=== PATIENT | female | born 1935 | race Hispanic/Latino ===

== ENCOUNTER 2016-11-17 11:23 | Inpatient (IN) | payer MEDICARE, OTHER ==
[2016-11-17] MEDS ORDERED: SUBLIMAZE IV ONE (12:31)
[2016-11-17] MEDS ORDERED: VANCOMYCIN VIAL IV ONE (12:31)
[2016-11-17] MEDS ORDERED: CLEOCIN 600 MG/50 mL 600 MG/50 ML BAG IV ONE (12:31)
--- NOTE | 2016-11-17 12:33 | Emergency Department Report ---
ED General Adult HPI - General Chief complaint: Extremity Injury, Lower Stated complaint: RT LEG PAIN Time Seen by Provider: 11/17/16 12:08 Source: patient, family, RN notes reviewed Mode of arrival: Stretcher Limitations: Physical Limitation - History of Present Illness Initial comments: This is an 81-year-old female. She is previously unknown to me. Has a past medical history of hypertension. History is obtained by the patient's son from the patient. Patient presents to the ER with right lower extremity pain, redness, swelling. Redness and pain have been present for a while. The pain increases with palpation and range of motion, and decreases with rest. As per verbal report from the patient's son, the patient had a mechanical fall yesterday, the patient reports landing on Her " aby." Not hit her head. She did not hit her neck. There is no extremity weakness. There is no extremity numbness. There is no abdominal pain. There is no chest pain. Patient reports following up at outpatient dermatology. She reports being given a cream. She does not recall the name of the cream. -: Gradual Location: right, lower extremity Quality: aching Consistency: constant Improves with: rest Worsens with: movement Associated Symptoms: rash. denies: confusion, chest pain, cough, diaphoresis, fever/chills, headaches, loss of appetite, malaise, nausea/vomiting, seizure, shortness of breath, syncope, weakness - Related Data Allergies Allergy/AdvReac Type Severity Reaction Status Date / Time iodine Allergy Swelling Unverified 07/09/15 08:09 Penicillins Allergy Swelling Unverified 07/09/15 08:09 Sulfa (Sulfonamide Allergy Swelling Unverified 07/09/15 08:09 Antibiotics) ED Review of Systems ROS: Stated complaint: RT LEG PAIN Other details as noted in HPI Constitutional: fever, malaise, weakness Eyes: denies: vision change ENT: denies: epistaxis Respiratory: denies: cough Cardiovascular: denies: chest pain Gastrointestinal: denies: abdominal pain, nausea, diarrhea Genitourinary: denies: urgency, dysuria, discharge Musculoskeletal: arthralgia, myalgia Skin: rash, lesions Neurological: weakness Psychiatric: anxiety ED Past Medical Hx - Past Medical History Hx Hypertension: Yes Additional medical history: lymphedema to shaista LE - Surgical History Additional Surgical History: left knee surgery - Social History Smoking Status: Never Smoker Substance Use Type: None ED Physical Exam - General Limitations: No Limitations General appearance: alert, in no apparent distress - Head Head exam: Present: atraumatic, normocephalic - Eye Eye exam: Present: normal appearance, EOMI. Absent: nystagmus - ENT ENT exam: Present: normal exam, normal orophraynx, mucous membranes moist, normal external ear exam - Neck Neck exam: Present: normal inspection, full ROM. Absent: tenderness, meningismus - Respiratory Respiratory exam: Present: normal lung sounds bilaterally. Absent: respiratory distress, wheezes, rales, rhonchi, stridor, chest wall tenderness - Cardiovascular Cardiovascular Exam: Present: regular rate, normal rhythm, normal heart sounds. Absent: bradycardia, tachycardia, irregular rhythm, systolic murmur, diastolic murmur, rubs, gallop - GI/Abdominal GI/Abdominal exam: Present: soft, normal bowel sounds. Absent: distended, tenderness, guarding, rebound, rigid, pulsatile mass - Extremities Exam Extremities exam: Present: full ROM, tenderness, pedal edema, joint swelling, calf tenderness. Absent: other (there is bilateral lower extremity edema. The right lower extremity is erythematous, from the dorsum of the foot, the toes, to the mid tibial region. Weeping edema is noted. Compartments are soft. Extremities are so swollen it is difficult to palpate pulses distally. Sensation is intact to light touch in the lower extremities. The pelvis is stable. There is no long bony tenderness.) - Back Exam Back exam: Present: normal inspection, full ROM. Absent: tenderness, CVA tenderness (R), CVA tenderness (L), muscle spasm, paraspinal tenderness, vertebral tenderness - Neurological Exam Neurological exam: Present: alert, oriented X3, other (Extraocular movements intact. Tongue midline. No facial droop. Facial sensation intact to light touch in the V1, V2, V3 distribution bilaterally. 5 and 5 strength in 4 extremities.. Sensation is intact to light touch in 4 extremities.). Absent: motor sensory deficit - Psychiatric Psychiatric exam: Present: anxious - Skin Skin exam: Present: warm, rash, erythema. Absent: dry, normal color ED Course Vital Signs 11/17/16 11/17/16 11/17/16 12:05 12:58 16:15 Temperature 98.1 F 101.2 F H Pulse Rate 77 97 H Pulse Rate [ Right Radial] Respiratory 20 20 18 Rate Blood Pressure 163/69 Blood Pressure [Right Radial Artery] Blood Pressure 146/52 [Right] O2 Sat by Pulse 96 96 97 Oximetry 11/17/16 11/17/16 17:56 18:30 Temperature 100.3 F H 99.6 F Pulse Rate 93 H Pulse Rate [ 88 Right Radial] Respiratory 20 20 Rate Blood Pressure Blood Pressure 110/88 [Right Radial Artery] Blood Pressure 142/44 [Right] O2 Sat by Pulse 96 97 Oximetry - Reevaluation(s) Reevaluation #1: 11/17/16 12:59 Differential diagnosis: Cellulitis, lymphedema, DVT, myositis, fracture, debility Assessment and plan: 81-year-old female with poor mobility; as per verbal report from her son she ambulates with a walker. Had a mechanical fall yesterday, did not land above her pelvis. There is an obviously infected right lower extremity, with superimposed lymphedema, patient is very unlikely to succeed with outpatient oral antibiotic therapy, and her mobility is compromised as well. Plain films we obtained a pelvis, femur, tib-fib, lower extremity. She is penicillin allergic, she will be given clindamycin and vancomycin. Right lower extremity DVT study is ordered. She will be given pain medication. We are waiting for the patient's son to provide us with a list of her outpatient medications. Plan to admit once initial data points back Reevaluation #2: 11/17/16 14:15 primary care doctor, Dr. Harp calls back. Patient takes Synthroid, 88 g once daily, Nexium, 40 mg once daily, lotrel q day He requests hospital physician to admit the patient, as he does not admit patients currently. Reevaluation #3: 11/17/16 15:41 Early awaiting laboratory studies. DVT study is limited but negative. Case is discussed with the Hospital physician, Dr. Guerra, who accepts the patient to his service. Patient will remain in the ER pending results of laboratory studies. Medical decision makin-year-old female, poor mobility, debilitated, known chronic lymphangitis with acute cellulitis with suppurative clinical features, this condition is very unlikely to respond to oral antibiotic therapy. Reevaluation #4: 11/17/16 16:48 patient spiked a fever. Tylenol was ordered. ED Medical Decision Making - Lab Data Result diagrams: 11/17/16 15:48 11/17/16 15:48 Vital Signs - 24 hr 11/17/16 11/17/16 12:05 12:58 Temperature 98.1 F Pulse Rate 77 Respiratory 20 20 Rate Blood Pressure 163/69 O2 Sat by Pulse 96 96 Oximetry - Radiology Data Radiology results: report reviewed, image reviewed Pelvis x-ray negative. Femur x-ray negative for fracture/dislocation. Fibula/tibia x-ray negative for fracture/dislocation. Severe DJD is noted. Left tibia/fibular x-ray negative for fracture dislocation. Right foot x-ray negative for fracture/dislocation. DJD is noted. Soft tissue swelling is noted. LIVE [facility] TA GAFFNEY Female : [address] [facility]# [id number] 11/17/16 15:13 - Radiology Dept. Note by TAHMINA ONOFRE [facility] Num: [id number] : 1935 Patient Age: 81 VASCULAR LAB.PRELIMINARY REPORT.RLE VENOUS DUPLEX DONE BEDSIDE.TECHNICALLY DIFFICULT/LIMITED STUDY DUE TO POOR POSITIONING/ SEVERE RLE EDEMA.NO EVIDENCE OF DVT/SVT IN VESSELS VISUALIZED. Initialized on 11/17/16 15:13 - END OF NOTE Critical care attestation.: If time is entered above; I have spent that time in minutes in the direct care of this critically ill patient, excluding procedure time. ED Disposition Clinical Impression: Cellulitis, Lymphedema, Debility Disposition: OP ADMITTED IP TO THIS HOSP Is pt being admited?: Yes Does the pt Need Aspirin: No Condition: Good
[2016-11-17] MEDS ORDERED: VANCOMYCIN PHARMACY TO DOSE IV SCH (13:00)
[2016-11-17] MEDS ORDERED: VANCOMYCIN VIAL 1,500 MG in NACL 0.9% 500 ML 500 ML IV ONE (13:00)
--- NOTE | 2016-11-17 13:49 | XRay Report ---
PELVIS RADIOGRAPH INDICATION: Leg pain, fall. COMPARISON: None similar. FINDINGS: Frontal pelvic radiographs, 2 images demonstrate intact bony articulation, including SI and hip joints. Mild degenerative changes. Iliac enthesophytes. Osteopenia. Nonobstructive bowel gas pattern. Possible anastomotic dmitri project within the pelvis. Motion partly limits exam. CONCLUSION: No acute pelvic radiographic abnormality, as described. Thank you for the opportunity to participate in this patient's care.
--- NOTE | 2016-11-17 13:54 | Admit Criteria Form ---
Admission Criteria Documentation: CELLULITIS Clinical Indications for Admission to Inpatient Care (Place 'X' for any and all applicable criteria): Admission is indicated for ANY ONE of the following(1)(2)(3)(4)(5): [ ]I. Limb-threatening infection [ ]II. High-risk comorbid condition as indicated by ANY ONE of the following: [ ]a) Uncontrolled diabetes (eg, HbA1c greater than 10% (0.1)) [ ]b) Cirrhosis [ ]c) Neutropenia [ ]d) Asplenia [ ]e) Immunosuppression [ ]f) Symptomatic heart failure [ ]III. Failure of outpatient therapy as indicated by ALL of the following: [ ]a) Progression or no improvement after adequate trial (minimum of 48 hours, with longer period for stable lower extremity infection) [ ]b) Adequate antibiotic regimen as indicated by use of ANY ONE of the following: [ ]i) First-generation cephalosporin (e.g., cephalexin) [ ]ii) Antistaphylococcal penicillin (e.g., dicloxacillin) [ ]iii) Penicillin-allergic patient regimen (clindamycin, extended-spectrum fluoroquinolone, or doxycycline) [ ]iv) Resistant organism (eg, methicillin-resistant Staphylococcus aureus) regimen (6) [ ]c) Outpatient intravenous therapy regimen is not appropriate due to ANY ONE of the following. (7)(8)(9)(10): [ ]i) It was tried and was not successful (eg, progression of infection). [ ]ii) It is not available or cannot be arranged in a clinically appropriate time frame (e.g., the next day). [ ]iii) Clinical presentation (eg, acuity of infection, rapidity of progression, confirmed or suspected bacteremia) is judged to require ALL of the following: [ ]1) Immediate initiation of intravenous therapy ( eg, cannot wait for next day) [ ]2) Intensity of patient monitoring and observation (eg, vital sign measurement, checks for infection progression) that cannot be provided at other than inpatient level of care [ ]IV. Mental status changes [ ]V. Bacteremia [ ]. Hemodynamic instability [ ]VII. Suspected necrotizing soft tissue infection (e.g., gas in tissue)(11)( 12) [ ]VIII. Orbital infection (13)(14) [ ]IX. Associated surgical procedure (e.g., abscess drainage, debridement) not amenable to outpatient, emergency department, or observation care [ ]X. Cutaneous gangrene [ ]XI. High fever (temperature greater than 39.5 degrees C (103.1 degrees F) (oral)) not responsive to outpatient, emergency department, or observation care therapy [ X]XIII. Inpatient admission required rather than observation care (Also use Cellulitis: Observation Care as appropriate) because of ANY ONE of the following : [ ]a) Periorbital or perineal infection that is severe or worsening [X ]b) Severe pain requiring acute inpatient management [ ]c) IV fluid to replace significant ongoing (e.g., for over 24 hours) losses (greater than 3L/m2 per day) [ ]d) Compartment syndrome monitoring (17) [ ]e) Strict or protective (eg, laminar flow) isolation [ ]f) Urgent debridement or skin grafting [ ]g) Bone or joint debridement [ ]h) Immediate inpatient surgery [ ]i) Other condition, treatment or monitoring requiring inpatient admission Extended stay beyond goal length of stay may be needed for (1)(18): [ ]a) Necrotizing soft tissue infection or fasciitis [ ]b) Gram-negative infection [ ]c) Methicillin-resistant Staphylococcal aureus (MRSA) infection [ ]d) Peripheral venous insufficiency with cellulitis [ ]e) Extensive edema [ ]f) Sepsis or continued Hemodynamic instability [ ]g) Continued high fever or mental status change [ ]h) Bacteremia [ ]i) Active serious comorbid conditions ( eg, heart failure, renal insufficiency) The original [employer] [facility] content created by [employer] has been revised. The portions of the content which have been revised are identified through the use of italic text or in bold, and [facility] has neither reviewed nor approved the modified material. All other unmodified content is copyright [facility] [employer] Please see references footnoted in the original [facility] [employer] edition 2016 Admission Criteria Met: Yes
--- NOTE | 2016-11-17 14:16 | XRay Report ---
RIGHT FEMUR: History: Leg pain after fall. AP and lateral views of the femur demonstrate normal mineralization and contours for this patient's age. No destructive changes are noted and the adjacent soft tissues are normal. 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 IMPRESSION: Unremarkable right femur. Severe degenerative changes at the knee.
--- NOTE | 2016-11-17 14:17 | XRay Report ---
RIGHT TIBIA/FIBULA: History: Leg pain after fall There is severe diffuse subcutaneous edema. Normal bone mineralization. No acute osseous injury is appreciated. Severe degenerative changes are noted at the right knee. IMPRESSION: Unremarkable right tibia/fibula.
--- NOTE | 2016-11-17 14:18 | XRay Report ---
RIGHT FOOT, 2 VIEWS History: Right foot pain. Findings: There is severe diffuse subcutaneous edema. No evidence for fracture, dislocation or erosive joint pathology. Mild degenerative changes are noted throughout the midfoot and first metatarsophalangeal joint. Impression: Soft tissue edema. No acute osseous injury.
[2016-11-17 16:02] LABS: Basophils % (Auto) 0.2 % (0.0-1.8); Eosinophils % (Auto) 0.3 % (0.0-4.3); Hemoglobin 11.6 gm/dl (10.1-14.3); Mean Corpuscular HGB Conc 32 % (30-34); Mean Corpuscular Hemoglobin 27 pg (28-32); Mean Corpuscular Volume 83 fl (79-97); Red Blood Count 4.35 M/mm3 (3.65-5.03); Red Cell Distribution Width 16.2 % (13.2-15.2); White Blood Count 8.6 K/mm3 (4.5-11.0)
[2016-11-17] MEDS ORDERED: TYLENOL ONE (16:10)
[2016-11-17 16:11] LABS: INR 1.32 (0.87-1.13)
[2016-11-17] MEDS ORDERED: TYLENOL PO ONE (16:18)
[2016-11-17 16:23] LABS: Calcium 9.4 mg/dL (8.4-10.2); Chloride 100.3 mmol/L (98-107)
[2016-11-17 16:35] LABS: Potassium 4.7 mmol/L (3.6-5.0)
[2016-11-17 16:52] LABS: Platelet Count 163 K/mm3 (140-440)
--- NOTE | 2016-11-17 22:53 | History and Physical Report ---
History of Present Illness Date of examination: 11/17/16 Date of admission: 11/17/16 15:43 Chief complaint: CC RLE redness swelling and pain for 1 month History of present illness: 81 y/o female brought in by son for redness of RLE from Dorsum to Mid tibial region.Pain is 6/10.Patient has redness on LLE also but to a lesser extent.No SOB.Fever low grade present.No chills.No chest pain Past History Past Medical History: hypertension, other (Parag Lymphedema) Past Surgical History: total knee replacement Social history: lives with family. denies: smoking, alcohol abuse Family history: denies: hypertension Medications and Allergies Allergies Allergy/AdvReac Type Severity Reaction Status Date / Time iodine Allergy Swelling Unverified 07/09/15 08:09 Penicillins Allergy Swelling Unverified 07/09/15 08:09 Sulfa (Sulfonamide Allergy Swelling Unverified 07/09/15 08:09 Antibiotics) Active Meds: Active Medications Vancomycin HCl 1,250 mg/ (Sodium Chloride) 250 mls @ 166.667 mls/hr IV Q36H ANA Vancomycin HCl (Vancomycin Pharmacy To Dose) 1 each IV PKCONSULT ANA PRN Reason: Protocol Review of Systems All systems: negative Constitutional: fever, no weight loss, no weight gain Ears, nose, mouth and throat: no hoarseness, no sore throat Breasts: deferred Cardiovascular: no chest pain, no orthopnea, no palpitations, no rapid/ irregular heart beat, no syncope, no lightheadedness Respiratory: no cough with sputum, no excessive sputum, no shortness of breath, no dyspnea on exertion Gastrointestinal: no nausea, no vomiting, no diarrhea, no constipation Genitourinary Female: no dysuria, no urinary frequency, no urgency, no stress incontinence Menstruation: ammenorrhea Musculoskeletal: no neck stiffness, no neck pain Integumentary: rash, redness (RLE and LLE) Exam - Physical Exam Narrative exam: Well developed well nourished female lying in bed - Constitutional Vitals: Temp Pulse Resp BP Pulse Ox 99.7 F H 88 20 133/52 100 11/17/16 20:00 11/17/16 20:00 11/17/16 20:00 11/17/16 20:00 11/17/16 20:00 General appearance: Present: no acute distress, well-nourished - EENT Eyes: Present: PERRL ENT: hearing intact, clear oral mucosa - Neck Neck: Present: supple, normal ROM - Respiratory Respiratory effort: normal Respiratory: bilateral: CTA - Cardiovascular Heart Sounds: Present: S1 & S2. Absent: rub, click - Extremities Extremities: No edema Extremity abnormal: edema, erythema (RLE from Dorsum to mid calf region,LLE erythema from ankle up for 6 inches) Peripheral Pulses: within normal limits - Abdominal General gastrointestinal: Present: soft, non-tender, non-distended, normal bowel sounds Female genitourinary: Present: normal - Integumentary Integumentary: Present: clear, warm, dry - Musculoskeletal Musculoskeletal: gait normal, strength equal bilaterally - Psychiatric Psychiatric: appropriate mood/affect, intact judgment & insight - Neurologic Neurologic: CNII-XII intact, moves all extremities Results - Labs CBC & Chem 7: 11/17/16 15:48 11/17/16 15:48 Labs: Xray Extremites negative Laboratory Last Values WBC 8.6 K/mm3 (4.5-11.0) 11/17/16 15:48 RBC 4.35 M/mm3 (3.65-5.03) 11/17/16 15:48 Hgb 11.6 gm/dl (10.1-14.3) 11/17/16 15:48 Hct 36.0 % (30.3-42.9) 11/17/16 15:48 MCV 83 fl (79-97) 11/17/16 15:48 MCH 27 pg (28-32) L 11/17/16 15:48 MCHC 32 % (30-34) 11/17/16 15:48 RDW 16.2 % (13.2-15.2) H 11/17/16 15:48 Plt Count 163 K/mm3 (140-440) 11/17/16 15:48 Lymph % (Auto) 6.6 % (13.4-35.0) L 11/17/16 15:48 Kaufman % (Auto) 3.8 % (0.0-7.3) 11/17/16 15:48 Eos % (Auto) 0.3 % (0.0-4.3) 11/17/16 15:48 Baso % (Auto) 0.2 % (0.0-1.8) 11/17/16 15:48 Lymph # 0.6 K/mm3 (1.2-5.4) L 11/17/16 15:48 Kaufman # 0.3 K/mm3 (0.0-0.8) 11/17/16 15:48 Eos # 0.0 K/mm3 (0.0-0.4) 11/17/16 15:48 Baso # 0.0 K/mm3 (0.0-0.1) 11/17/16 15:48 Seg Neutrophils % 89.1 % (40.0-70.0) H 11/17/16 15:48 Seg Neutrophils # 7.7 K/mm3 (1.8-7.7) 11/17/16 15:48 PT 16.3 Sec. (12.2-14.9) H 11/17/16 15:48 INR 1.32 (0.87-1.13) H 11/17/16 15:48 Sodium 137 mmol/L (137-145) 11/17/16 15:48 Potassium 4.7 mmol/L (3.6-5.0) 11/17/16 15:48 Chloride 100.3 mmol/L (98-107) 11/17/16 15:48 Carbon Dioxide 18 mmol/L (22-30) L 11/17/16 15:48 Anion Gap 23 mmol/L 11/17/16 15:48 BUN 30 mg/dL (7-17) H 11/17/16 15:48 Creatinine 1.2 mg/dL (0.7-1.2) 11/17/16 15:48 Estimated GFR 43 ml/min 11/17/16 15:48 BUN/Creatinine Ratio 25.00 % 11/17/16 15:48 Glucose 65 mg/dL (65-100) 11/17/16 15:48 Lactic Acid 1.3 mmol/L (0.7-2.0) 11/17/16 17:25 Calcium 9.4 mg/dL (8.4-10.2) 11/17/16 15:48 Total Creatine Kinase 481 units/L (30-135) H 11/17/16 15:48 Assessment and Plan Advance Directives: Yes (Full code) VTE prophylaxis?: Chemical Plan of care discussed with patient/family: Yes - Patient Problems (1) Cellulitis Current Visit: Yes Status: Acute Qualifiers: Site of cellulitis: extremity Site of cellulitis of extremity: lower extremity Site of cellulitis of trunk: S Laterality: right Qualified Code( s): L03.115 - Cellulitis of right lower limb Plan to address problem: Started on Vancomycin and clindamycin.Will change to levaquin Wound care consult ordered (2) Debility Current Visit: Yes Status: Acute Plan to address problem: PT ordered (3) HTN (hypertension) Current Visit: Yes Status: Chronic Qualifiers: Hypertension type: essential hypertension Qualified Code(s): I10 - Essential (primary) hypertension Plan to address problem: Not on any anti hypertensives.Will initiate if BP runs high.Now BP in decent range. (4) Lymphedema Current Visit: Yes Status: Chronic Plan to address problem: Vascular surgery consult ordered (5) DVT prophylaxis Current Visit: Yes Status: Acute Plan to address problem: On lovenox
[2016-11-18] MEDS: CLEOCIN 900 MG/50 mL 900 MG/50 ML BAG IV SCH ×2 (00:41→05:45)
[2016-11-18] MEDS: LEVAQUIN 750MG/150ML 750 MG/150 ML BAG IV SCH (12:16)
--- NOTE | 2016-11-18 16:49 | Progress Note ---
Assessment and Plan Assessment and plan: patient is a 81 y/o female with hx of breast CA S/p chemotherapy, Cellulitis, DVT, HTN, Lymphedema, Debility, and brought in by son for redness of RLE from Dorsum to Mid tibial region.Pain is 6/10. Patient has redness on LLE also but to a lesser extent. No SOB.Fever low grade present.No chills.No chest pain * Right lower extremity cellulitis * Chronic lymphedema * Debility secondary to chronic lymphedema * Hypertension * Secondary coagulopathy * HX OF LUNG CA Plan * Continue current antibiotics * CONSULT ID * continue to monitor BP * Discussed extensively with son and patient * DVT/GI prophylaxis * Possible SNF on discharge, * will obtain PT/OT eval and treat * Monitor cultures. no growth till date. History Interval history: Patient seen and examined this morning in no acute distress, still with pain in the right lower ext. Denies any chest pain, nausea, vomiting, diarrhea No fever noted blood pressure controlled No adverse events reported to me by nursing staff Hospitalist Physical - Physical exam Narrative exam: VITAL SIGNS: Reviewed. GENERAL: The patient appeared well nourished and normally developed. Vital signs as documented. HEAD: No signs of head trauma. EYES: Pupils are equal. Extraocular motions intact. EARS: Hearing grossly intact. MOUTH: Oropharynx is normal. NECK: No adenopathy, no JVD. CHEST: Chest with clear breath sounds bilaterally. No wheezes, rales, or rhonchi. CARDIAC: Regular rate and rhythm. S1 and S2, without murmurs, gallops, or rubs. VASCULAR: No Edema. Peripheral pulses normal and equal in all extremities. ABDOMEN: Soft, without detectable tenderness. No sign of distention. No rebound or guarding, and no masses palpated. Bowel Sounds normal. MUSCULOSKELETAL: Good range of motion of all major joints. Extremities without clubbing, cyanosis or edema. NEUROLOGIC EXAM: Alert and oriented x 3. No focal sensory or strength deficits. Speech normal. Follows commands. PSYCHIATRIC: Mood normal. SKIN: No rash or lesions. - Constitutional Vitals: Temp Pulse Resp BP Pulse Ox 98.6 F 78 22 156/57 100 11/18/16 10:37 11/18/16 10:37 11/18/16 10:37 11/18/16 10:37 11/17/16 20:00 General appearance: Present: no acute distress, well-nourished Results - Labs CBC & Chem 7: 11/17/16 15:48 11/17/16 15:48 Labs: Laboratory Last Values WBC 8.6 K/mm3 (4.5-11.0) 11/17/16 15:48 RBC 4.35 M/mm3 (3.65-5.03) 11/17/16 15:48 Hgb 11.6 gm/dl (10.1-14.3) 11/17/16 15:48 Hct 36.0 % (30.3-42.9) 11/17/16 15:48 MCV 83 fl (79-97) 11/17/16 15:48 MCH 27 pg (28-32) L 11/17/16 15:48 MCHC 32 % (30-34) 11/17/16 15:48 RDW 16.2 % (13.2-15.2) H 11/17/16 15:48 Plt Count 163 K/mm3 (140-440) 11/17/16 15:48 Lymph % (Auto) 6.6 % (13.4-35.0) L 11/17/16 15:48 Wright % (Auto) 3.8 % (0.0-7.3) 11/17/16 15:48 Eos % (Auto) 0.3 % (0.0-4.3) 11/17/16 15:48 Baso % (Auto) 0.2 % (0.0-1.8) 11/17/16 15:48 Lymph # 0.6 K/mm3 (1.2-5.4) L 11/17/16 15:48 Wright # 0.3 K/mm3 (0.0-0.8) 11/17/16 15:48 Eos # 0.0 K/mm3 (0.0-0.4) 11/17/16 15:48 Baso # 0.0 K/mm3 (0.0-0.1) 11/17/16 15:48 Seg Neutrophils % 89.1 % (40.0-70.0) H 11/17/16 15:48 Seg Neutrophils # 7.7 K/mm3 (1.8-7.7) 11/17/16 15:48 PT 16.3 Sec. (12.2-14.9) H 11/17/16 15:48 INR 1.32 (0.87-1.13) H 11/17/16 15:48 Sodium 137 mmol/L (137-145) 11/17/16 15:48 Potassium 4.7 mmol/L (3.6-5.0) 11/17/16 15:48 Chloride 100.3 mmol/L (98-107) 11/17/16 15:48 Carbon Dioxide 18 mmol/L (22-30) L 11/17/16 15:48 Anion Gap 23 mmol/L 11/17/16 15:48 BUN 30 mg/dL (7-17) H 11/17/16 15:48 Creatinine 1.2 mg/dL (0.7-1.2) 11/17/16 15:48 Estimated GFR 43 ml/min 11/17/16 15:48 BUN/Creatinine Ratio 25.00 % 11/17/16 15:48 Glucose 65 mg/dL (65-100) 11/17/16 15:48 Lactic Acid 1.3 mmol/L (0.7-2.0) 11/17/16 17:25 Calcium 9.4 mg/dL (8.4-10.2) 11/17/16 15:48 Total Creatine Kinase 481 units/L (30-135) H 11/17/16 15:48
--- NOTE | 2016-11-18 20:22 | Consultation ---
History of Present Illness - Reason for Consult Consult date: 11/18/16 Bilateral Lower Extremity Lymphedema Requesting physician: ARABELLA URENA - History of Present Illness This patient is an 81-year-old female that was admitted via the emergency room due to cellulitis of her right lower extremity with bilateral lymphedema. She states that the lymphedema has been present for many years. She recently developed swelling and performed blisters that have drained on her right lower extremity. She had progressive erythema, which prompted her to go to the emergency room. She's reports to have been evaluated by our office as an outpatient. She was sent to an outpatient manual lymphatic drainage clinic. She states that the swelling of her left lower extremity improved slightly, but she had little improvement with the right. She reports to have been prescribed a lymphedema pump, which she does not use at present. Past History Past Medical History: hypertension, other (bilateral lower extremity Lymphedema) Past Surgical History: total knee replacement (on the left, she reportedly needs a total right knee replacement.) Social history: lives with family (granddaughter. She reports to be quite upset at her son, as she feels he is trying to separate her from her granddaughter.). denies: smoking, alcohol abuse Family history: denies: hypertension Medications and Allergies Allergies Allergy/AdvReac Type Severity Reaction Status Date / Time iodine Allergy Swelling Unverified 07/09/15 08:09 Penicillins Allergy Swelling Unverified 07/09/15 08:09 Sulfa (Sulfonamide Allergy Swelling Unverified 07/09/15 08:09 Antibiotics) Active Meds: Active Medications Levofloxacin/Dextrose (Levaquin 750mg/150ml) 750 mg in 150 mls @ 100 mls/hr IV Q48HR ANA PRN Reason: Protocol Last Admin: 11/18/16 12:16 Dose: 100 mls/hr Review of Systems All systems: negative Exam - Constitutional Vitals: Temp Pulse Resp BP Pulse Ox 98.9 F 87 20 143/59 100 11/18/16 16:00 11/18/16 16:00 11/18/16 16:00 11/18/16 16:00 11/17/16 20:00 General appearance: Present: no acute distress, obese (elderly female who appears her stated age) - EENT Eyes: Present: EOM intact ENT: hearing intact - Neck Neck: Present: supple - Respiratory Respiratory effort: normal - Extremities Extremities: normal temperature Extremity abnormal: erythema (she has significant erythema from her proximal one third of her calf extending down to her toes on the right. She has bilateral lower extremity lipodermatosclerosis, she has bilateral hemosiderin deposits, she has large bulla on the right lower extremity. She has minimal erythema on the left. The swelling on the right is significantly worse than the left. She has large fissures in the anterior pretibial area with yellow dried crusting.) - Psychiatric Psychiatric: intact judgment & insight, cooperative, agitated (patient was quite agitated at the beginning of our exam. She expressed frustration with her son who had apparently just left. She quickly calmed down, and answered all questions appropriately. She appeared to understand our conversation.) - Neurologic Neurologic: no focal deficits Results - Labs CBC & Chem 7: 11/17/16 15:48 11/17/16 15:48 Assessment and Plan Agree with antibiotics for cellulitis of the right lower extremity. I had a long discussion with the patient. I explained the primary focus of treatment for chronic lymphedema consisted of lower extremity elevation, and compression (manual lymphatic drainage, lymphedema pumps, compression stockings) . She stated she is used several of his modalities in the past with poor results. It is unclear the extent, technique, and duration of therapy. I reiterated that this is a chronic condition which requires consistent compliance with therapy. Recommend an ET nurse consult while the patient is admitted. She should follow-up with our office upon discharge. - Patient Problems (1) Cellulitis of right lower extremity Current Visit: Yes Status: Acute (2) Lymphedema of both lower extremities Current Visit: Yes Status: Acute
[2016-11-19] MEDS ORDERED: VANCOMYCIN VIAL 1,250 MG in NACL 0.9% 250ML 250 ML IV SCH (05:00)
[2016-11-19 06:22] LABS: BUN/Creatinine Ratio 17.5; Calcium 8.8 mg/dL (8.4-10.2); Chloride 104.7 mmol/L (98-107); Potassium 3.4 mmol/L (3.6-5.0)
[2016-11-19 06:26] LABS: Hematocrit 29.3 % (30.3-42.9); Hemoglobin 9.5 gm/dl (10.1-14.3); Mean Corpuscular HGB Conc 33 % (30-34); Mean Corpuscular Hemoglobin 27 pg (28-32); Mean Corpuscular Volume 82 fl (79-97); Platelet Count 156 K/mm3 (140-440); Red Blood Count 3.58 M/mm3 (3.65-5.03); Red Cell Distribution Width 16.4 % (13.2-15.2); White Blood Count 6.7 K/mm3 (4.5-11.0)
--- NOTE | 2016-11-19 12:43 | Progress Note ---
Assessment and Plan Assessment and plan: patient is a 81 y/o female with hx of breast CA S/p chemotherapy, Cellulitis, DVT, HTN, Lymphedema, Debility, and brought in by son for redness of RLE from Dorsum to Mid tibial region.Pain is 6/10. Patient has redness on LLE also but to a lesser extent. No SOB.Fever low grade present.No chills.No chest pain * Right lower extremity cellulitis * No sepsis * Chronic lymphedema * Debility secondary to chronic lymphedema * Hypertension * Secondary coagulopathy * HX OF LUNG CA Plan * Continue current antibiotics * vascular input noted. Patient to follow with them outpatient * continue to monitor BP * Wound care consult * Discussed extensively with son and patient * DVT/GI prophylaxis * Possible SNF on discharge, * will obtain PT/OT eval and treat * Monitor cultures. no growth till date. History Interval history: Patient seen and examined this morning in no acute distress, still with pain in the right lower ext, but improving. Denies any chest pain, nausea, vomiting, diarrhea No fever noted blood pressure controlled No adverse events reported to me by nursing staff Hospitalist Physical - Physical exam Narrative exam: VITAL SIGNS: Reviewed. GENERAL: The patient appeared well nourished and normally developed. Vital signs as documented. HEAD: No signs of head trauma. EYES: Pupils are equal. Extraocular motions intact. EARS: Hearing grossly intact. MOUTH: Oropharynx is normal. NECK: No adenopathy, no JVD. CHEST: Chest with clear breath sounds bilaterally. No wheezes, rales, or rhonchi. CARDIAC: Regular rate and rhythm. S1 and S2, without murmurs, gallops, or rubs. VASCULAR: No Edema. Peripheral pulses normal and equal in all extremities. ABDOMEN: Soft, without detectable tenderness. No sign of distention. No rebound or guarding, and no masses palpated. Bowel Sounds normal. MUSCULOSKELETAL: Good range of motion of all major joints. edema, erythema, marked lymhedema draining (RLE from Dorsum to mid calf region,LLE erythema from ankle up for 6 inches) NEUROLOGIC EXAM: Alert and oriented x 3. No focal sensory or strength deficits. Speech normal. Follows commands. PSYCHIATRIC: Mood normal. SKIN: edema, erythema, marked lymhedema (RLE from Dorsum to mid calf region, LLE erythema from ankle up for 6 inches) - Constitutional Vitals: Temp Pulse Resp BP Pulse Ox 99.8 F H 74 22 151/66 97 11/19/16 08:49 11/19/16 08:49 11/19/16 08:49 11/19/16 08:49 11/19/16 08:49 General appearance: Present: no acute distress, obese (elderly female who appears her stated age) Results - Labs CBC & Chem 7: 11/19/16 05:29 11/19/16 05:29 Labs: Laboratory Last Values WBC 6.7 K/mm3 (4.5-11.0) 11/19/16 05:29 RBC 3.58 M/mm3 (3.65-5.03) L 11/19/16 05:29 Hgb 9.5 gm/dl (10.1-14.3) L 11/19/16 05:29 Hct 29.3 % (30.3-42.9) L D 11/19/16 05:29 MCV 82 fl (79-97) 11/19/16 05:29 MCH 27 pg (28-32) L 11/19/16 05:29 MCHC 33 % (30-34) 11/19/16 05:29 RDW 16.4 % (13.2-15.2) H 11/19/16 05:29 Plt Count 156 K/mm3 (140-440) 11/19/16 05:29 Lymph % (Auto) 6.6 % (13.4-35.0) L 11/17/16 15:48 [place] % (Auto) 3.8 % (0.0-7.3) 11/17/16 15:48 Eos % (Auto) 0.3 % (0.0-4.3) 11/17/16 15:48 Baso % (Auto) 0.2 % (0.0-1.8) 11/17/16 15:48 Lymph # 0.6 K/mm3 (1.2-5.4) L 11/17/16 15:48 [place] # 0.3 K/mm3 (0.0-0.8) 11/17/16 15:48 Eos # 0.0 K/mm3 (0.0-0.4) 11/17/16 15:48 Baso # 0.0 K/mm3 (0.0-0.1) 11/17/16 15:48 Seg Neutrophils % 89.1 % (40.0-70.0) H 11/17/16 15:48 Seg Neutrophils # 7.7 K/mm3 (1.8-7.7) 11/17/16 15:48 PT 16.3 Sec. (12.2-14.9) H 11/17/16 15:48 INR 1.32 (0.87-1.13) H 11/17/16 15:48 Sodium 139 mmol/L (137-145) 11/19/16 05:29 Potassium 3.4 mmol/L (3.6-5.0) L D 11/19/16 05:29 Chloride 104.7 mmol/L (98-107) 11/19/16 05:29 Carbon Dioxide 20 mmol/L (22-30) L 11/19/16 05:29 Anion Gap 18 mmol/L 11/19/16 05:29 BUN 21 mg/dL (7-17) H 11/19/16 05:29 Creatinine 1.2 mg/dL (0.7-1.2) 11/19/16 05:29 Estimated GFR 43 ml/min 11/19/16 05:29 BUN/Creatinine Ratio 17.50 % 11/19/16 05:29 Glucose 81 mg/dL (65-100) 11/19/16 05:29 Lactic Acid 1.3 mmol/L (0.7-2.0) 11/17/16 17:25 Calcium 8.8 mg/dL (8.4-10.2) 11/19/16 05:29 Total Creatine Kinase 481 units/L (30-135) H 11/17/16 15:48
[2016-11-19] MEDS ORDERED: LOTREL PO SCH (17:00)
[2016-11-19] MEDS ORDERED: APRESOLINE IV SCH (18:00)
[2016-11-19] MEDS: ZESTRIL PO SCH (18:09)
[2016-11-19] MEDS: NORVASC PO SCH (18:12)
--- NOTE | 2016-11-19 18:17 | Consultation ---
History of Present Illness - Reason for Consult Consult date: 11/19/16 right leg cellulitis Requesting physician: CHIARA WEI - History of Present Illness Patient is 81 yo female with h/o bilateral lower extremity lymphedema for many years. Patient also has hypertension and obese. She presented to the hospital because of swelling, redness and pain of the right leg. There are also bisters. Infectious disease consulted for management of cellulitis I saw patient at bedside. She gave above history. Systemic review not contributory. PHYSICAL EXAM Vital signs - temp 99.2 chest - good air entry cvs - s1s2 abd - bs+ extr - right leg ++ edema. Red and tender to touch. [id number] blister in the medial aspect of the leg. LABS Reviewed. ASSESSMENT 1. Right leg cellulitis 2. b/l lymphedema of lower extremities 3. Hypertension 4. obesity 1. SED RATE, CRP 2. Continue levaquin. Add clindamycin and vancomycin 3. cbc/bmp in am Past History Past Medical History: hypertension, other (bilateral lower extremity Lymphedema) Past Surgical History: total knee replacement (on the left, she reportedly needs a total right knee replacement.) Social history: lives with family (granddaughter. She reports to be quite upset at her son, as she feels he is trying to separate her from her granddaughter.). denies: smoking, alcohol abuse Family history: denies: hypertension Medications and Allergies Allergies Allergy/AdvReac Type Severity Reaction Status Date / Time iodine Allergy Swelling Unverified 07/09/15 08:09 Penicillins Allergy Swelling Unverified 07/09/15 08:09 Sulfa (Sulfonamide Allergy Swelling Unverified 07/09/15 08:09 Antibiotics) Home Medications Medication Instructions Recorded Confirmed Last Taken Type Levothyroxine 88 mcg PO DAILY 11/19/16 11/19/16 Unknown History Lotrel 5-20 mg 1 tab PO DAILY 11/19/16 11/19/16 Unknown History NexIUM 40 mg PO DAILY 11/19/16 11/19/16 Unknown History Active Meds: Active Medications Amlodipine Besylate (Norvasc) 5 mg PO QDAY ANA Hydralazine HCl (Apresoline) 10 mg IV Q4HR ANA Levofloxacin/Dextrose (Levaquin 750mg/150ml) 750 mg in 150 mls @ 100 mls/hr IV Q48HR ANA PRN Reason: Protocol Last Admin: 11/18/16 12:16 Dose: 100 mls/hr Lisinopril (Zestril) 20 mg PO QDAY [facility] Physical Examination - Constitutional Vitals: Vital Signs Temp Pulse Resp BP Pulse Ox 99.2 F 79 18 174/74 98 11/19/16 16:00 11/19/16 16:00 11/19/16 16:00 11/19/16 16:00 11/19/16 16:00 Temperature -Last 24 Hours Temperature 99.2 F Temperature 98 F Temperature 99.8 F Temperature 100 F Results - Labs CBC & Chem 7: 11/19/16 05:29 11/19/16 05:29 Labs: Abnormal lab results 11/17/16 11/17/16 11/17/16 Range/Units 15:48 15:48 15:48 RBC (3.65-5.03) M/mm3 Hgb (10.1-14.3) gm/dl Hct (30.3-42.9) % MCH 27 L (28-32) pg RDW 16.2 H (13.2-15.2) % Lymph % (Auto) 6.6 L (13.4-35.0) % Lymph # 0.6 L (1.2-5.4) K/mm3 Seg Neutrophils % 89.1 H (40.0-70.0) % PT 16.3 H (12.2-14.9) Sec. INR 1.32 H (0.87-1.13) Potassium (3.6-5.0) mmol/L Carbon Dioxide 18 L (22-30) mmol/L BUN 30 H (7-17) mg/dL Total Creatine Kinase 481 H (30-135) units/L 11/19/16 11/19/16 Range/Units 05:29 05:29 RBC 3.58 L (3.65-5.03) M/mm3 Hgb 9.5 L (10.1-14.3) gm/dl Hct 29.3 L D (30.3-42.9) % MCH 27 L (28-32) pg RDW 16.4 H (13.2-15.2) % Lymph % (Auto) (13.4-35.0) % Lymph # (1.2-5.4) K/mm3 Seg Neutrophils % (40.0-70.0) % PT (12.2-14.9) Sec. INR (0.87-1.13) Potassium 3.4 L D (3.6-5.0) mmol/L Carbon Dioxide 20 L (22-30) mmol/L BUN 21 H (7-17) mg/dL Total Creatine Kinase (30-135) units/L
[2016-11-19] MEDS ORDERED: VANCOMYCIN/NS 1 GM/250 ML 250 ML IV SCH (19:00)
[2016-11-19] MEDS ORDERED: VANCOMYCIN PHARMACY TO DOSE IV SCH (19:00)
[2016-11-19] MEDS: VANCOMYCIN VIAL 1,250 MG in NACL 0.9% 250ML 250 ML IV SCH (21:17)
[2016-11-19] MEDS: APRESOLINE IV PRN (23:29)
[2016-11-20] MEDS: CLEOCIN 600 MG/50 mL 600 MG/50 ML BAG IV SCH ×4 (01:28→22:37)
[2016-11-20] MEDS: LEVAQUIN 750MG/150ML 750 MG/150 ML BAG IV SCH (10:08)
[2016-11-20] MEDS: ZESTRIL PO SCH (10:14)
[2016-11-20] MEDS: NORVASC PO SCH (10:14)
--- NOTE | 2016-11-20 17:34 | Progress Note ---
Assessment and Plan Assessment and plan: patient is a 81 y/o female with hx of breast CA S/p chemotherapy, Cellulitis, DVT, HTN, Lymphedema, Debility, and brought in by son for redness of RLE from Dorsum to Mid tibial region.Pain is 6/10. Patient has redness on LLE also but to a lesser extent. No SOB.Fever low grade present.No chills.No chest pain * Right lower extremity cellulites * Sepsis * Chronic lymphedema * Debility secondary to chronic lymphedema * Precipitous drop in hgb * Hypertension * Secondary coagulopathy * HX OF LUNG CA Plan * Continue current antibiotics * Check lactate * Monitor Hgb * vascular input noted. Patient to follow with them outpatient * continue to monitor BP * Wound care consult * Discussed extensively with son and patient * DVT/GI prophylaxis * Rehab/SNF eval discharge, * will obtain PT/OT eval and treat * Monitor cultures. No growth till date. History Interval history: Patient seen and examined this morning in no acute distress, still with pain in the right lower ext, but improving. Low grade fever. Denies any chest pain, nausea, vomiting, diarrhea No fever noted blood pressure controlled No adverse events reported to me by nursing staff Hospitalist Physical - Physical exam Narrative exam: VITAL SIGNS: Reviewed. GENERAL: The patient appeared well nourished and normally developed. Vital signs as documented. HEAD: No signs of head trauma. EYES: Pupils are equal. Extraocular motions intact. EARS: Hearing grossly intact. MOUTH: Oropharynx is normal. NECK: No adenopathy, no JVD. CHEST: Chest with clear breath sounds bilaterally. No wheezes, rales, or rhonchi. CARDIAC: Regular rate and rhythm. S1 and S2, without murmurs, gallops, or rubs. VASCULAR: No Edema. Peripheral pulses normal and equal in all extremities. ABDOMEN: Soft, without detectable tenderness. No sign of distention. No rebound or guarding, and no masses palpated. Bowel Sounds normal. MUSCULOSKELETAL: Good range of motion of all major joints. edema, erythema, marked lymhedema draining (RLE from Dorsum to mid calf region,LLE erythema from ankle up for 6 inches) NEUROLOGIC EXAM: Alert and oriented x 3. No focal sensory or strength deficits. Speech normal. Follows commands. PSYCHIATRIC: Mood normal. SKIN: edema, erythema, marked lymhedema (RLE from Dorsum to mid calf region, LLE erythema from ankle up for 6 inches) - Constitutional Vitals: Temp Pulse Resp BP Pulse Ox 99.2 F 73 20 141/50 96 11/20/16 16:00 11/20/16 16:00 11/20/16 16:00 11/20/16 16:00 11/20/16 16:00 General appearance: Present: no acute distress, obese (elderly female who appears her stated age) Results - Labs CBC & Chem 7: 11/19/16 05:29 11/19/16 05:29 Labs: Laboratory Last Values WBC 6.7 K/mm3 (4.5-11.0) 11/19/16 05:29 RBC 3.58 M/mm3 (3.65-5.03) L 11/19/16 05:29 Hgb 9.5 gm/dl (10.1-14.3) L 11/19/16 05:29 Hct 29.3 % (30.3-42.9) L D 11/19/16 05:29 MCV 82 fl (79-97) 11/19/16 05:29 MCH 27 pg (28-32) L 11/19/16 05:29 MCHC 33 % (30-34) 11/19/16 05:29 RDW 16.4 % (13.2-15.2) H 11/19/16 05:29 Plt Count 156 K/mm3 (140-440) 11/19/16 05:29 Lymph % (Auto) 6.6 % (13.4-35.0) L 11/17/16 15:48 [place] % (Auto) 3.8 % (0.0-7.3) 11/17/16 15:48 Eos % (Auto) 0.3 % (0.0-4.3) 11/17/16 15:48 Baso % (Auto) 0.2 % (0.0-1.8) 11/17/16 15:48 Lymph # 0.6 K/mm3 (1.2-5.4) L 11/17/16 15:48 [place] # 0.3 K/mm3 (0.0-0.8) 11/17/16 15:48 Eos # 0.0 K/mm3 (0.0-0.4) 11/17/16 15:48 Baso # 0.0 K/mm3 (0.0-0.1) 11/17/16 15:48 Seg Neutrophils % 89.1 % (40.0-70.0) H 11/17/16 15:48 Seg Neutrophils # 7.7 K/mm3 (1.8-7.7) 11/17/16 15:48 ESR > 140.0 mm/Hr (0-20) 11/19/16 19:26 PT 16.3 Sec. (12.2-14.9) H 11/17/16 15:48 INR 1.32 (0.87-1.13) H 11/17/16 15:48 Sodium 139 mmol/L (137-145) 11/19/16 05:29 Potassium 3.4 mmol/L (3.6-5.0) L D 11/19/16 05:29 Chloride 104.7 mmol/L (98-107) 11/19/16 05:29 Carbon Dioxide 20 mmol/L (22-30) L 11/19/16 05:29 Anion Gap 18 mmol/L 11/19/16 05:29 BUN 21 mg/dL (7-17) H 11/19/16 05:29 Creatinine 1.2 mg/dL (0.7-1.2) 11/19/16 05:29 Estimated GFR 43 ml/min 11/19/16 05:29 BUN/Creatinine Ratio 17.50 % 11/19/16 05:29 Glucose 81 mg/dL (65-100) 11/19/16 05:29 Lactic Acid 1.0 mmol/L (0.7-2.0) 11/20/16 09:08 Calcium 8.8 mg/dL (8.4-10.2) 11/19/16 05:29 Total Creatine Kinase 481 units/L (30-135) H 11/17/16 15:48 C-Reactive Protein 31.30 mg/dL (0.00-1.30) H 11/19/16 19:26
--- NOTE | 2016-11-20 20:12 | Progress Note ---
Subjective Date of service: 11/20/16 Principal diagnosis: right leg cellulitis Interval history: No new complaints today. She feels better. PHYSICAL EXAM Vital signs - afebrile. chest - good air entry cvs - s1s2 abd - bs+ extr - right leg ++ edema. Red and tender to touch. [id number] blister in the medial aspect of the leg. LABS ESR >140, CRP 31.3. ASSESSMENT 1. Right leg cellulitis 2. b/l lymphedema of lower extremities 3. Hypertension 4. obesity 5. BACTEREMIA SEC TO GRAM NEG RODS 1. MRI RIGHT LEG R/O OSTEOMYELITIS VS ABSCESS IN VIEW OF ELEVATED ESR AND CRP. 2. Continue levaquin,clindamycin and vancomycin 3. cbc/bmp in am Objective - Constitutional Vitals: Vital Signs Temp Pulse Resp BP Pulse Ox 99.2 F 73 20 141/50 96 11/20/16 16:00 11/20/16 16:00 11/20/16 16:00 11/20/16 16:00 11/20/16 16:00 Temperature -Last 24 Hours Temperature 99.2 F Temperature 99.2 F Temperature 100.0 F - Labs CBC & Chem 7: 11/19/16 05:29 11/19/16 05:29
[2016-11-21] MEDS: VANCOMYCIN VIAL 1,250 MG in NACL 0.9% 250ML 250 ML IV SCH ×2 (01:31→20:41)
[2016-11-21 05:04] LABS: Hematocrit 29.6 % (30.3-42.9); Hemoglobin 9.6 gm/dl (10.1-14.3); Mean Corpuscular HGB Conc 32 % (30-34); Mean Corpuscular Hemoglobin 27 pg (28-32); Mean Corpuscular Volume 82 fl (79-97); Platelet Count 179 K/mm3 (140-440); Red Blood Count 3.62 M/mm3 (3.65-5.03); Red Cell Distribution Width 16.5 % (13.2-15.2); White Blood Count 7.8 K/mm3 (4.5-11.0)
[2016-11-21 05:15] LABS: BUN/Creatinine Ratio 15.55; Calcium 8.4 mg/dL (8.4-10.2)
[2016-11-21 05:16] LABS: Chloride 100.5 mmol/L (98-107); Potassium 3.1 mmol/L (3.6-5.0)
[2016-11-21] MEDS ORDERED: K-DUR PO ONE ×2 (08:35→19:00)
--- NOTE | 2016-11-21 11:43 | Cat Scan Report ---
CT RIGHT LOWER EXTREMITY WITHOUT CONTRAST: 11/21/16 08:00:00 CLINICAL: Pain and swelling. Osteomyelitis. TECHNIQUE: Volumetric acquisition and 1.25-mm scan reconstructions of the right lower extremity without contrast. Scans were obtained from the knee through the foot. Sagittal and coronal reformats were performed. 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 No erosive changes to suggest osteomyelitis. Moderate soft tissue edema of the lower leg beginning in the upper leg and worsening at the ankle. The greatest edema is on the dorsum of the foot. No soft tissue air or foreign body. A midline superficial cyst arising within the skin just below the calf measures 4.5 cm craniocaudal dimension of 4.5 cm AP dimension by 2.6 cm transverse dimension. It is water density and arises from the skin.Portions of the left lower extremity are included and there is less soft tissue edema of the left lower leg and foot. No suspicious bone lesion of the left lower extremity. IMPRESSION: Cellulitis of the lower leg and foot but no signs of abscess or osteomyelitis. A 4.5 cm superficial cyst of the right lower leg is probably a benign epidermal inclusion cyst. However, recommend clinical correlation
[2016-11-21] MEDS: ZESTRIL PO SCH (11:59)
[2016-11-21] MEDS: NORVASC PO SCH (12:00)
--- NOTE | 2016-11-21 13:37 | Consultation ---
History of Present Illness - Reason for Consult Consult date: 11/21/16 Evaluate for Acute IRU - History of Present Illness 81 y.o. female with chronic BLE lymphedema, admitted secondary to BLE cellulitis. Pt is currently on IV ABX; ID following. Noted to have significant functional decline and is currently unable to ambulate independently. Pt reports she was recently driving her granddaughter to school. Consult is placed for acute care placement recommendations. Past History Past Medical History: hypertension, other (bilateral lower extremity Lymphedema) Past Surgical History: total knee replacement (left) Social history: lives with family (granddaughter). denies: smoking, alcohol abuse Family history: no significant family history Medications and Allergies Allergies Allergy/AdvReac Type Severity Reaction Status Date / Time iodine Allergy Swelling Unverified 07/09/15 08:09 Penicillins Allergy Swelling Unverified 07/09/15 08:09 Sulfa (Sulfonamide Allergy Swelling Unverified 07/09/15 08:09 Antibiotics) Home Medications Medication Instructions Recorded Confirmed Last Taken Type Levothyroxine 88 mcg PO DAILY 11/19/16 11/19/16 Unknown History Lotrel 5-20 mg 1 tab PO DAILY 11/19/16 11/19/16 Unknown History NexIUM 40 mg PO DAILY 11/19/16 11/19/16 Unknown History Active Meds: Active Medications Amlodipine Besylate (Norvasc) 5 mg PO QDAY [facility] Last Admin: 11/21/16 12:00 Dose: 5 mg Hydralazine HCl (Apresoline) 10 mg IV Q4HR PRN PRN Reason: SBP > 165 Last Admin: 11/19/16 23:29 Dose: 10 mg Levofloxacin/Dextrose (Levaquin 750mg/150ml) 750 mg in 150 mls @ 100 mls/hr IV Q48HR [facility] PRN Reason: Protocol Last Admin: 11/20/16 10:08 Dose: 100 mls/hr Clindamycin HCl (Cleocin 600 Mg/50 Ml) 600 mg in 50 mls @ 100 mls/hr IV Q8HR [facility] PRN Reason: Protocol Stop: 11/26/16 22:59 Last Admin: 11/20/16 22:37 Dose: 100 mls/hr Vancomycin HCl 1,250 mg/ (Sodium Chloride) 250 mls @ 166.667 mls/hr IV Q24H [facility] Last Admin: 11/21/16 01:31 Dose: Not Given Lisinopril (Zestril) 20 mg PO QDAY [facility]NA Last Admin: 11/21/16 11:59 Dose: 20 mg Vancomycin HCl (Vancomycin Pharmacy To Dose) 1 each IV PKCONSULT [facility] Review of Systems All systems: negative Ears, nose, mouth and throat: no headache Cardiovascular: no chest pain Respiratory: no cough Musculoskeletal: gait dysfunction Exam - Constitutional Vitals: Vital Signs - 12hr 11/21/16 11/21/16 11/21/16 10:00 11:59 12:00 Pulse Rate 88 88 Pulse Rate [ 88 Right Radial] Respiratory 16 Rate Respiratory 16 Rate [Left Lower Leg] Blood Pressure 170/61 170/61 Blood Pressure 170/61 [Right Radial Artery] O2 Sat by Pulse 95 Oximetry General appearance: no acute distress, obese - EENT Eyes: EOM intact ENT: hearing intact - Neck Neck: supple, normal ROM - Respiratory Respiratory effort: normal Respiratory: bilateral: CTA - Cardiovascular Rhythm: regular Heart Sounds: Present: S1 & S2 - Extremities Extremity abnormal: edema, ulceration, erythema - Gastrointestinal General gastrointestinal: Present: soft, non-tender, non-distended, normal bowel sounds - Musculoskeletal Musculoskeletal: other (BUE 4/5; fair strength in BLE) - Neurologic Neurologic: CNII-XII intact - Psychiatric Psychiatric: appropriate mood/affect, intact judgment & insight, memory intact, cooperative - Allied health notes Allied health notes reviewed: PT (modA for bed mobilty; unable to transfer or ambulate at time of evaluation) - Labs CBC & Chem 7: 11/21/16 04:39 11/21/16 04:39 Labs: Laboratory Results - last 72 hr 11/17/16 11/17/16 11/17/16 15:48 15:48 15:48 WBC 8.6 RBC 4.35 Hgb 11.6 Hct 36.0 MCV 83 MCH 27 L MCHC 32 RDW 16.2 H Plt Count 163 Lymph % (Auto) 6.6 L [place] % (Auto) 3.8 Eos % (Auto) 0.3 Baso % (Auto) 0.2 Lymph # 0.6 L [place] # 0.3 Eos # 0.0 Baso # 0.0 Seg Neutrophils % 89.1 H Seg Neutrophils # 7.7 ESR PT 16.3 H INR 1.32 H Sodium 137 Potassium 4.7 Chloride 100.3 Carbon Dioxide 18 L Anion Gap 23 BUN 30 H Creatinine 1.2 Estimated GFR 43 BUN/Creatinine Ratio 25.00 Glucose 65 Lactic Acid Calcium 9.4 Total Creatine Kinase 481 H C-Reactive Protein 11/19/16 11/19/16 11/19/16 05:29 05:29 19:26 WBC 6.7 RBC 3.58 L Hgb 9.5 L Hct 29.3 L D MCV 82 MCH 27 L MCHC 33 RDW 16.4 H Plt Count 156 Lymph % (Auto) [place] % (Auto) Eos % (Auto) Baso % (Auto) Lymph # [place] # Eos # Baso # Seg Neutrophils % Seg Neutrophils # ESR > 140.0 PT INR Sodium 139 Potassium 3.4 L D Chloride 104.7 Carbon Dioxide 20 L Anion Gap 18 BUN 21 H Creatinine 1.2 Estimated GFR 43 BUN/Creatinine Ratio 17.50 Glucose 81 Lactic Acid Calcium 8.8 Total Creatine Kinase C-Reactive Protein 11/19/16 11/20/16 11/21/16 19:26 09:08 04:39 WBC 7.8 RBC 3.62 L Hgb 9.6 L Hct 29.6 L MCV 82 MCH 27 L MCHC 32 RDW 16.5 H Plt Count 179 Lymph % (Auto) [place] % (Auto) Eos % (Auto) Baso % (Auto) Lymph # [place] # Eos # Baso # Seg Neutrophils % Seg Neutrophils # ESR PT INR Sodium Potassium Chloride Carbon Dioxide Anion Gap BUN Creatinine Estimated GFR BUN/Creatinine Ratio Glucose Lactic Acid 1.0 Calcium Total Creatine Kinase C-Reactive Protein 31.30 H 11/21/16 04:39 WBC RBC Hgb Hct MCV MCH MCHC RDW Plt Count Lymph % (Auto) [place] % (Auto) Eos % (Auto) Baso % (Auto) Lymph # [place] # Eos # Baso # Seg Neutrophils % Seg Neutrophils # ESR PT INR Sodium 136 L Potassium 3.1 L Chloride 100.5 Carbon Dioxide 21 L Anion Gap 18 BUN 14 Creatinine 0.9 Estimated GFR 60 BUN/Creatinine Ratio 15.55 Glucose 83 Lactic Acid Calcium 8.4 Total Creatine Kinase C-Reactive Protein Assessment and Plan Patient was assessed and evaluated for Acute Inpatient Rehab Unit. 81 y.o. female with chronic BLE lymphedema, admitted with BLE cellulitis; currently on IV ABX. Rehab options discussed with pt. Pt reports that she is does not feel she would be able to participate in aggressive therapies at this time. PT evaluation also shows limited ability to perform bed mobility; unable to transfer or ambulate currently. Pt would be most appropriate for SNF placement at time of discharge. IM/ID for ongoing medical management of cellulitis, anemia, hypokalemia, HTN. Please call for any further questions or concerns. Thank you for consultation. - Patient Problems (1) Lymphedema of both lower extremities Current Visit: Yes Status: Acute (2) Cellulitis of right lower extremity Current Visit: Yes Status: Acute (3) HTN (hypertension) Current Visit: Yes Status: Chronic Qualifiers: Hypertension type: essential hypertension Qualified Code(s): I10 - Essential (primary) hypertension (4) Hypokalemia Current Visit: Yes Status: Acute
--- NOTE | 2016-11-21 14:23 | Progress Note ---
Assessment and Plan Assessment and plan: patient is a 81 y/o female with hx of breast CA S/p chemotherapy, Cellulitis, DVT, HTN, Lymphedema, Debility, and brought in by son for redness of RLE from Dorsum to Mid tibial region.Pain is 6/10. Patient has redness on LLE also but to a lesser extent. No SOB.Fever low grade present.No chills.No chest pain * Right lower extremity cellulites * Sepsis * GNR bacterimia * Chronic lymphedema * Debility secondary to chronic lymphedema * Precipitous drop in hgb * Hypertension * Secondary coagulopathy * HX OF LUNG CA Plan * CT lower extremities revealed no evidence of osteomyelitis. A new fever today. Continue antibiotics. Culture growing gram-negative jon 1 out of 2 bottles. Await further infectious diseases input. * If okay with ID will work on transitioning to either inpatient acute rehabilitation if accepted TO group home facility in a.m. on oral antibiotics * Continue current antibiotics * Monitor Hgb * vascular input noted. Patient to follow with them outpatient * continue to monitor BP * Wound care consult * Discussed extensively with son and patient * DVT/GI prophylaxis * Rehab/SNF eval discharge, * will obtain PT/OT eval and treat * Monitor cultures. No growth till date. History Interval history: Patient seen and examined this morning in no acute distress, still with pain in the right lower ext, but improving. No new fever Denies any chest pain, nausea, vomiting, diarrhea No fever noted blood pressure controlled No adverse events reported to me by nursing staff Hospitalist Physical - Physical exam Narrative exam: VITAL SIGNS: Reviewed. GENERAL: The patient appeared well nourished and normally developed. Vital signs as documented. HEAD: No signs of head trauma. EYES: Pupils are equal. Extraocular motions intact. EARS: Hearing grossly intact. MOUTH: Oropharynx is normal. NECK: No adenopathy, no JVD. CHEST: Chest with clear breath sounds bilaterally. No wheezes, rales, or rhonchi. CARDIAC: Regular rate and rhythm. S1 and S2, without murmurs, gallops, or rubs. VASCULAR: No Edema. Peripheral pulses normal and equal in all extremities. ABDOMEN: Soft, without detectable tenderness. No sign of distention. No rebound or guarding, and no masses palpated. Bowel Sounds normal. MUSCULOSKELETAL: Good range of motion of all major joints. edema, erythema, marked lymhedema with still draining (RLE from Dorsum to mid calf region,LLE erythema from ankle up for 6 inches) NEUROLOGIC EXAM: Alert and oriented x 3. No focal sensory or strength deficits. Speech normal. Follows commands. PSYCHIATRIC: Mood normal. SKIN: edema, erythema, marked lymhedema (RLE from Dorsum to mid calf region, LLE erythema from ankle up for 6 inches) - Constitutional Vitals: Temp Pulse Resp BP Pulse Ox 99.0 F 88 16 170/61 95 11/20/16 22:00 11/21/16 12:00 11/21/16 10:00 11/21/16 12:00 11/21/16 10:00 General appearance: Present: no acute distress, obese (elderly female who appears her stated age) Results - Labs CBC & Chem 7: 11/21/16 04:39 11/21/16 04:39 Labs: Laboratory Last Values WBC 7.8 K/mm3 (4.5-11.0) 11/21/16 04:39 RBC 3.62 M/mm3 (3.65-5.03) L 11/21/16 04:39 Hgb 9.6 gm/dl (10.1-14.3) L 11/21/16 04:39 Hct 29.6 % (30.3-42.9) L 11/21/16 04:39 MCV 82 fl (79-97) 11/21/16 04:39 MCH 27 pg (28-32) L 11/21/16 04:39 MCHC 32 % (30-34) 11/21/16 04:39 RDW 16.5 % (13.2-15.2) H 11/21/16 04:39 Plt Count 179 K/mm3 (140-440) 11/21/16 04:39 Lymph % (Auto) 6.6 % (13.4-35.0) L 11/17/16 15:48 [place] % (Auto) 3.8 % (0.0-7.3) 11/17/16 15:48 Eos % (Auto) 0.3 % (0.0-4.3) 11/17/16 15:48 Baso % (Auto) 0.2 % (0.0-1.8) 11/17/16 15:48 Lymph # 0.6 K/mm3 (1.2-5.4) L 11/17/16 15:48 [place] # 0.3 K/mm3 (0.0-0.8) 11/17/16 15:48 Eos # 0.0 K/mm3 (0.0-0.4) 11/17/16 15:48 Baso # 0.0 K/mm3 (0.0-0.1) 11/17/16 15:48 Seg Neutrophils % 89.1 % (40.0-70.0) H 11/17/16 15:48 Seg Neutrophils # 7.7 K/mm3 (1.8-7.7) 11/17/16 15:48 ESR > 140.0 mm/Hr (0-20) 11/19/16 19:26 PT 16.3 Sec. (12.2-14.9) H 11/17/16 15:48 INR 1.32 (0.87-1.13) H 11/17/16 15:48 Sodium 136 mmol/L (137-145) L 11/21/16 04:39 Potassium 3.1 mmol/L (3.6-5.0) L 11/21/16 04:39 Chloride 100.5 mmol/L (98-107) 11/21/16 04:39 Carbon Dioxide 21 mmol/L (22-30) L 11/21/16 04:39 Anion Gap 18 mmol/L 11/21/16 04:39 BUN 14 mg/dL (7-17) 11/21/16 04:39 Creatinine 0.9 mg/dL (0.7-1.2) 11/21/16 04:39 Estimated GFR 60 ml/min 11/21/16 04:39 BUN/Creatinine Ratio 15.55 % 11/21/16 04:39 Glucose 83 mg/dL (65-100) 11/21/16 04:39 Lactic Acid 1.0 mmol/L (0.7-2.0) 11/20/16 09:08 Calcium 8.4 mg/dL (8.4-10.2) 11/21/16 04:39 Total Creatine Kinase 481 units/L (30-135) H 11/17/16 15:48 C-Reactive Protein 31.30 mg/dL (0.00-1.30) H 11/19/16 19:26 - Imaging and Cardiology Imaging and Cardiology: CT imaging of lower extremity shows no evidence of osteomyelitis.
[2016-11-21] MEDS: CLEOCIN 600 MG/50 mL 600 MG/50 ML BAG IV SCH ×3 (16:00→23:06)
--- NOTE | 2016-11-21 20:29 | Progress Note ---
Subjective Date of service: 11/21/16 Principal diagnosis: right leg cellulitis Interval history: No new complaints today. PHYSICAL EXAM Vital signs - afebrile. chest - good air entry cvs - s1s2 abd - bs+ extr - right leg ++ edema. Red and tender to touch. [id number] blister in the medial aspect of the leg. LABS ESR >140, CRP 31.3. ASSESSMENT 1. Right leg cellulitis 2. b/l lymphedema of lower extremities 3. Hypertension 4. obesity 5. BACTEREMIA SEC TO GRAM NEG RODS 1. repeat blood culture. 2. Continue levaquin,clindamycin and vancomycin 3. cbc/bmp in am Objective - Constitutional Vitals: Vital Signs Temp Pulse Resp BP Pulse Ox 99.0 F 88 16 170/61 95 11/20/16 22:00 11/21/16 12:00 11/21/16 10:00 11/21/16 12:00 11/21/16 10:00 Temperature -Last 24 Hours Temperature 99.0 F Temperature 99.0 F - Labs CBC & Chem 7: 11/21/16 04:39 11/21/16 04:39 Labs: Abnormal lab results 11/21/16 11/21/16 Range/Units 04:39 04:39 RBC 3.62 L (3.65-5.03) M/mm3 Hgb 9.6 L (10.1-14.3) gm/dl Hct 29.6 L (30.3-42.9) % MCH 27 L (28-32) pg RDW 16.5 H (13.2-15.2) % Sodium 136 L (137-145) mmol/L Potassium 3.1 L (3.6-5.0) mmol/L Carbon Dioxide 21 L (22-30) mmol/L
[2016-11-21] MEDS: APRESOLINE IV PRN (20:42)
[2016-11-22] MEDS: CLEOCIN 600 MG/50 mL 600 MG/50 ML BAG IV SCH ×3 (05:40→21:58)
[2016-11-22] MEDS: ZESTRIL PO SCH (10:10)
[2016-11-22] MEDS: NORVASC PO SCH (10:11)
[2016-11-22] MEDS: LEVAQUIN 750MG/150ML 750 MG/150 ML BAG IV SCH (10:12)
--- NOTE | 2016-11-22 12:55 | Progress Note ---
Assessment and Plan Assessment and plan: patient is a 81 y/o female with hx of breast CA S/p chemotherapy, Cellulitis, DVT, HTN, Lymphedema, Debility, and brought in by son for redness of RLE from Dorsum to Mid tibial region.Pain is 6/10. Patient has redness on LLE also but to a lesser extent. No SOB.Fever low grade present.No chills.No chest pain * Right lower extremity cellulites * Sepsis * GNR bacterimia * Chronic lymphedema * Debility secondary to chronic lymphedema * Precipitous drop in hgb * Hypertension * Hypokalemia * Secondary coagulopathy * HX OF LUNG CA Plan * CT lower extremities revealed no evidence of osteomyelitis. A new fever today. Continue antibiotics. Culture growing gram-negative jon 1 out of 2 bottles. Await further infectious diseases input. * If okay with ID will work on transitioning to either inpatient acute rehabilitation if [facility] once afebirl for 24- 48hrs on oral antibiotics * Repeat blood culture no growth so far * Continue current antibiotics * Monitor Hgb * vascular input noted. Patient to follow with them outpatient * continue to monitor BP * Wound care consult * Discussed extensively with son and patient * DVT/GI prophylaxis * Rehab/SNF eval discharge, * will obtain PT/OT eval and treat * Monitor cultures. No growth till date. History Interval history: Patient seen and examined this morning in no acute distress, still with pain in the right lower ext, but improving. low grade temp last night. Denies any chest pain, nausea, vomiting, diarrhea No fever noted blood pressure controlled No adverse events reported to me by nursing staff Hospitalist Physical - Physical exam Narrative exam: VITAL SIGNS: Reviewed. GENERAL: The patient appeared well nourished and normally developed. Vital signs as documented. HEAD: No signs of head trauma. EYES: Pupils are equal. Extraocular motions intact. EARS: Hearing grossly intact. MOUTH: Oropharynx is normal. NECK: No adenopathy, no JVD. CHEST: Chest with clear breath sounds bilaterally. No wheezes, rales, or rhonchi. CARDIAC: Regular rate and rhythm. S1 and S2, without murmurs, gallops, or rubs. VASCULAR: No Edema. Peripheral pulses normal and equal in all extremities. ABDOMEN: Soft, without detectable tenderness. No sign of distention. No rebound or guarding, and no masses palpated. Bowel Sounds normal. MUSCULOSKELETAL: Good range of motion of all major joints. edema, erythema, marked lymhedema with still draining (RLE from Dorsum to mid calf region,LLE erythema from ankle up for 6 inches) NEUROLOGIC EXAM: Alert and oriented x 3. No focal sensory or strength deficits. Speech normal. Follows commands. PSYCHIATRIC: Mood normal. SKIN: edema, erythema, marked lymhedema (RLE from Dorsum to mid calf region, LLE erythema from ankle up for 6 inches) - Constitutional Vitals: Temp Pulse Resp BP Pulse Ox 98.2 F 84 20 142/61 97 11/22/16 10:00 11/22/16 10:11 11/22/16 10:00 11/22/16 10:11 11/22/16 10:00 General appearance: Present: no acute distress, obese Results - Labs CBC & Chem 7: 11/21/16 04:39 11/21/16 04:39 Labs: Laboratory Last Values WBC 7.8 K/mm3 (4.5-11.0) 11/21/16 04:39 RBC 3.62 M/mm3 (3.65-5.03) L 11/21/16 04:39 Hgb 9.6 gm/dl (10.1-14.3) L 11/21/16 04:39 Hct 29.6 % (30.3-42.9) L 11/21/16 04:39 MCV 82 fl (79-97) 11/21/16 04:39 MCH 27 pg (28-32) L 11/21/16 04:39 MCHC 32 % (30-34) 11/21/16 04:39 RDW 16.5 % (13.2-15.2) H 11/21/16 04:39 Plt Count 179 K/mm3 (140-440) 11/21/16 04:39 Lymph % (Auto) 6.6 % (13.4-35.0) L 11/17/16 15:48 [place] % (Auto) 3.8 % (0.0-7.3) 11/17/16 15:48 Eos % (Auto) 0.3 % (0.0-4.3) 11/17/16 15:48 Baso % (Auto) 0.2 % (0.0-1.8) 11/17/16 15:48 Lymph # 0.6 K/mm3 (1.2-5.4) L 11/17/16 15:48 [place] # 0.3 K/mm3 (0.0-0.8) 11/17/16 15:48 Eos # 0.0 K/mm3 (0.0-0.4) 11/17/16 15:48 Baso # 0.0 K/mm3 (0.0-0.1) 11/17/16 15:48 Seg Neutrophils % 89.1 % (40.0-70.0) H 11/17/16 15:48 Seg Neutrophils # 7.7 K/mm3 (1.8-7.7) 11/17/16 15:48 ESR > 140.0 mm/Hr (0-20) 11/19/16 19:26 PT 16.3 Sec. (12.2-14.9) H 11/17/16 15:48 INR 1.32 (0.87-1.13) H 11/17/16 15:48 Sodium 136 mmol/L (137-145) L 11/21/16 04:39 Potassium 3.1 mmol/L (3.6-5.0) L 11/21/16 04:39 Chloride 100.5 mmol/L (98-107) 11/21/16 04:39 Carbon Dioxide 21 mmol/L (22-30) L 11/21/16 04:39 Anion Gap 18 mmol/L 11/21/16 04:39 BUN 14 mg/dL (7-17) 11/21/16 04:39 Creatinine 0.9 mg/dL (0.7-1.2) 11/21/16 04:39 Estimated GFR 60 ml/min 11/21/16 04:39 BUN/Creatinine Ratio 15.55 % 11/21/16 04:39 Glucose 83 mg/dL (65-100) 11/21/16 04:39 Lactic Acid 1.0 mmol/L (0.7-2.0) 11/20/16 09:08 Calcium 8.4 mg/dL (8.4-10.2) 11/21/16 04:39 Total Creatine Kinase 481 units/L (30-135) H 11/17/16 15:48 C-Reactive Protein 31.30 mg/dL (0.00-1.30) H 11/19/16 19:26
[2016-11-22] MEDS ORDERED: NACL ONE (17:23)
[2016-11-22] MEDS: VANCOMYCIN VIAL 1,250 MG in NACL 0.9% 250ML 250 ML IV SCH (20:00)
--- NOTE | 2016-11-22 21:03 | Progress Note ---
Subjective Date of service: 11/22/16 Principal diagnosis: right leg cellulitis Interval history: No new complaints today. PHYSICAL EXAM Vital signs - afebrile. chest - good air entry cvs - s1s2 abd - bs+ extr - right leg ++ edema. Red and tender to touch. [id number] blister in the medial aspect of the leg. LABS ESR >140, CRP 31.3. ASSESSMENT 1. Right leg cellulitis 2. b/l lymphedema of lower extremities 3. Hypertension 4. obesity 5. BACTEREMIA SEC TO GRAM NEG RODS RECOMMENDATION 1. D/C PLANNING ON ORAL LEVAQIUN AND CLINDAMYCIN FOR 2WEEKS. Objective - Constitutional Vitals: Vital Signs Temp Pulse Resp BP Pulse Ox 99.7 F H 75 18 150/54 96 11/22/16 19:37 11/22/16 19:37 11/22/16 19:37 11/22/16 19:37 11/22/16 19:37 Temperature -Last 24 Hours Temperature 99.7 F Temperature 98 F Temperature 98.2 F Temperature 98.8 F Temperature 99.9 F - Labs CBC & Chem 7: 11/21/16 04:39 11/21/16 04:39
[2016-11-23] MEDS: CLEOCIN 600 MG/50 mL 600 MG/50 ML BAG IV SCH ×3 (05:34→22:28)
[2016-11-23 06:22] LABS: Hematocrit 28.4 % (30.3-42.9); Hemoglobin 9.1 gm/dl (10.1-14.3); Mean Corpuscular HGB Conc 32 % (30-34); Mean Corpuscular Hemoglobin 26 pg (28-32); Mean Corpuscular Volume 81 fl (79-97); Platelet Count 274 K/mm3 (140-440); Red Blood Count 3.49 M/mm3 (3.65-5.03); Red Cell Distribution Width 16.5 % (13.2-15.2); White Blood Count 15.4 K/mm3 (4.5-11.0)
[2016-11-23 06:38] LABS: BUN/Creatinine Ratio 11.81; Calcium 8.1 mg/dL (8.4-10.2); Chloride 98.9 mmol/L (98-107); Potassium 3.3 mmol/L (3.6-5.0)
[2016-11-23] MEDS: ZESTRIL PO SCH (10:27)
--- NOTE | 2016-11-23 10:27 | Discharge Summary ---
Providers - Providers Date of Admission: 11/17/16 15:43 Date of discharge: 11/23/16 Attending physician: CHIARA WEI MD 11/18/16 08:26 Consult to Physician [CONS] Routine Consulting Provider: JAY BYERS Reason For Exam: lymphedema Place consult to:: JAY BYERS Notified:: NANDO Phone number called:: [phone] Was contact made?: Yes If yes, spoke with:: NANDO Time called:: 10:30 11/18/16 11:47 Consult to Physician [CONS] Routine Consulting Provider: KOBE NAM Reason For Exam: cellulitis Place consult to:: SADE NAM Notified:: ILANA Phone number called:: [phone] Was contact made?: Yes If yes, spoke with:: ILANA Time called:: 13:15 11/18/16 11:48 Physical Therapy Evaluation and Treat [CONS] Routine Comment: Reason For Exam: Debility, EVAL FOR SNF PLACEMENT 11/19/16 09:24 Consult to Wound/ET Nurse [CONS] Routine Reason For Exam: wound eval 11/20/16 10:34 Consult to Physician [CONS] Routine Consulting Provider: ARASH SHRESTHA Reason For Exam: inpatient rehab eval. Debility Place consult to:: Dr Constantin Shrestha Notified:: Dr Shrestha Phone number called:: [phone] Was contact made?: Yes If yes, spoke with:: Dr Shrestha Time called:: 18:10 Primary care physician: [employer] Hospitalization Reason for admission: sepsis/ RLE Cellulitis Condition: Good Hospital course: patient is a 81 y/o female with hx of breast CA S/p chemotherapy, Cellulitis, DVT, HTN, Lymphedema, Debility, and brought in by son for redness of RLE from Dorsum to Mid tibial region.Pain is 6/10. Patient has redness on LLE also but to a lesser extent. No SOB.Fever low grade present.No chills.No chest pain, prior to presentation patient was walking and driving she did walk with the aid of a walker. Cultures here did grew gram-negative rods with Proteus are noted. She was seen by infectious disease recommended Levaquin and clindamycin. High fever did subside. She is clinically improved but will need rehabilitation to get back to her full functional status. She has full weightbearing status. She is also to follow with the vascular surgeons on discharge. Discharge diagnoses * Right lower extremity cellulites * Sepsis * GNR bacterimia * Chronic lymphedema * Debility secondary to chronic lymphedema * Precipitous drop in hgb * Hypertension * Hypokalemia * Secondary coagulopathy * HX OF LUNG CA Disposition: DC/TX SNF W [facility] CERT Time spent for discharge: 35 mins Core Measure Documentation - Palliative Care Palliative Care/ Comfort Measures: Not Applicable - Core Measures Any of the following diagnoses?: none - VTE Discharge Requirements Deep Vein Thrombosis/Pulmonary Embolism Present on Admission: No Exam - Physical Exam Narrative exam: VITAL SIGNS: Reviewed. GENERAL: The patient appeared well nourished and normally developed. Vital signs as documented. HEAD: No signs of head trauma. EYES: Pupils are equal. Extraocular motions intact. EARS: Hearing grossly intact. MOUTH: Oropharynx is normal. NECK: No adenopathy, no JVD. CHEST: Chest with clear breath sounds bilaterally. No wheezes, rales, or rhonchi. CARDIAC: Regular rate and rhythm. S1 and S2, without murmurs, gallops, or rubs. VASCULAR: No Edema. Peripheral pulses normal and equal in all extremities. ABDOMEN: Soft, without detectable tenderness. No sign of distention. No rebound or guarding, and no masses palpated. Bowel Sounds normal. MUSCULOSKELETAL: Good range of motion of all major joints. edema, erythema, marked lymhedema with still draining (RLE from Dorsum to mid calf region,LLE erythema from ankle up for 6 inches) NEUROLOGIC EXAM: Alert and oriented x 3. No focal sensory or strength deficits. Speech normal. Follows commands. PSYCHIATRIC: Mood normal. SKIN: edema, erythema, marked lymhedema (RLE from Dorsum to mid calf region, LLE erythema from ankle up for 6 inches) - Constitutional Vitals: Temp Pulse Resp BP Pulse Ox 99.0 F 76 20 147/55 96 11/23/16 06:43 11/23/16 06:43 11/23/16 06:43 11/23/16 06:43 11/22/16 22:00 Plan Activity: advance as tolerated, fall precautions Weight Bearing Status: Full Weight Bearing Diet: regular Special Instructions: record daily weights, record daily BP diary Additional Instructions: needs cbc in 2 days to evaluate leukocytosis Follow up with: PRIMARY CARE, [Primary Care Provider] - 3-5 Days BECKIE KNIGHT MD [Staff Physician] - 7 Days Prescriptions: Clindamycin [Clindamycin CAP] 600 mg PO BID #30 capsule Lactobacillus Acidophilus [Probiotic] 1 each PO DAILY #30 capsule Levofloxacin [Levaquin] 750 mg PO QDAY #14 tablet
[2016-11-23] MEDS: NORVASC PO SCH (10:28)
--- NOTE | 2016-11-23 20:12 | Progress Note ---
Subjective Date of service: 11/23/16 Principal diagnosis: right leg cellulitis Interval history: No new complaints today. PHYSICAL EXAM Vital signs - afebrile. chest - good air entry cvs - s1s2 abd - bs+ extr - right leg ++ edema. Red and tender to touch. [id number] blister in the medial aspect of the leg. LABS ESR >140, CRP 31.3. ASSESSMENT 1. Right leg cellulitis 2. b/l lymphedema of lower extremities 3. Hypertension 4. obesity 5. BACTEREMIA Pasteurella multocida. RECOMMENDATION 1. Hold plan for d/c until sensitivity of P.multocida is obtained. 2. cbc in am. Objective - Constitutional Vitals: Vital Signs Temp Pulse Resp BP Pulse Ox 99.2 F 78 18 151/63 96 11/23/16 10:00 11/23/16 10:28 11/23/16 10:00 11/23/16 10:28 11/22/16 22:00 Temperature -Last 24 Hours Temperature 99.2 F Temperature 99.0 F Temperature 98.8 F - Labs CBC & Chem 7: 11/23/16 06:05 11/23/16 06:05 Labs: Abnormal lab results 11/23/16 11/23/16 11/23/16 Range/Units 06:05 06:05 09:53 WBC 15.4 H (4.5-11.0) K/mm3 RBC 3.49 L (3.65-5.03) M/mm3 Hgb 9.1 L (10.1-14.3) gm/dl Hct 28.4 L (30.3-42.9) % MCH 26 L (28-32) pg RDW 16.5 H (13.2-15.2) % Heparin Anti-Xa Level < 0.10 L (0.3-0.7) U.I./ml Sodium 133 L (137-145) mmol/L Potassium 3.3 L (3.6-5.0) mmol/L Carbon Dioxide 19 L (22-30) mmol/L Glucose 216 H (65-100) mg/dL Calcium 8.1 L (8.4-10.2) mg/dL
[2016-11-23] MEDS: VANCOMYCIN VIAL 1,250 MG in NACL 0.9% 250ML 250 ML IV SCH (20:30)
[2016-11-24] MEDS: CLEOCIN 600 MG/50 mL 600 MG/50 ML BAG IV SCH ×3 (06:16→22:35)
[2016-11-24] MEDS: NORVASC PO SCH (09:59)
[2016-11-24] MEDS: ZESTRIL PO SCH (09:59)
[2016-11-24] MEDS: LEVAQUIN 750MG/150ML 750 MG/150 ML BAG IV SCH (10:00)
--- NOTE | 2016-11-24 16:52 | Progress Note ---
Assessment and Plan Assessment and plan: patient is a 81 y/o female with hx of breast CA S/p chemotherapy, Cellulitis, DVT, HTN, Lymphedema, Debility, and brought in by son for redness of RLE from Dorsum to Mid tibial region.Pain is 6/10. Patient has redness on LLE also but to a lesser extent. No SOB.Fever low grade present.No chills.No chest pain * Right lower extremity cellulites * Sepsis * Pasteurella multocida * Chronic lymphedema * Debility secondary to chronic lymphedema * Precipitous drop in hgb * Hypertension * Hypokalemia * Secondary coagulopathy * HX OF LUNG CA Plan * CT lower extremities revealed no evidence of osteomyelitis. A new fever today. Continue antibiotics. Culture growing gram-negative jon 1 out of 2 bottles. Await further infectious diseases input. * We'll discontinue vancomycin and continue other antibiotics await sensitivity data * Repeat blood culture no growth so far * Continue current antibiotics * Monitor Hgb * Discussed with family oral await to be afebrile for 48 hours. Vancomycin has been stopped per their request also due to the here and concerned. They do understand that most antibiotics to have side effects. Considering not MRSA will hold vancomycin. * Also recommended an outpatient trust manager evaluation patient and family verbalized understanding * vascular input noted. Patient to follow with them outpatient * continue to monitor BP * Wound care consult * Discussed extensively with son and patient * DVT/GI prophylaxis * Rehab/SNF eval discharge, * History Interval history: Patient seen and examined this morning in no acute distress, still with pain in the right lower ext, but improving. Had recurrence fever last night. Patient this morning also complaining off worsening hearing loss. Although she hears me adequately. She also hears the TV even at low volume at her bedside. States that she feels that she is losing her hearing. No other adverse event reported by nursing staff Hospitalist Physical - Physical exam Narrative exam: VITAL SIGNS: Reviewed. GENERAL: The patient appeared well nourished and normally developed. Vital signs as documented. HEAD: No signs of head trauma. EYES: Pupils are equal. Extraocular motions intact. EARS: Hearing grossly intact. MOUTH: Oropharynx is normal. NECK: No adenopathy, no JVD. CHEST: Chest with clear breath sounds bilaterally. No wheezes, rales, or rhonchi. CARDIAC: Regular rate and rhythm. S1 and S2, without murmurs, gallops, or rubs. VASCULAR: No Edema. Peripheral pulses normal and equal in all extremities. ABDOMEN: Soft, without detectable tenderness. No sign of distention. No rebound or guarding, and no masses palpated. Bowel Sounds normal. MUSCULOSKELETAL: Good range of motion of all major joints. edema, erythema, marked lymhedema with still draining (RLE from Dorsum to mid calf region,LLE erythema from ankle up for 6 inches) NEUROLOGIC EXAM: Alert and oriented x 3. No focal sensory or strength deficits. Speech normal. Follows commands. PSYCHIATRIC: Mood normal. SKIN: edema, erythema, marked lymhedema (RLE from Dorsum to mid calf region, LLE erythema from ankle up for 6 inches) - Constitutional Vitals: Temp Pulse Resp BP Pulse Ox 99.5 F 66 20 107/41 96 11/24/16 11:51 11/24/16 11:51 11/24/16 11:51 11/24/16 11:51 11/22/16 22:00 General appearance: Present: no acute distress, obese Results - Labs CBC & Chem 7: 11/23/16 06:05 11/23/16 06:05 Labs: Laboratory Last Values WBC 15.4 K/mm3 (4.5-11.0) H 11/23/16 06:05 RBC 3.49 M/mm3 (3.65-5.03) L 11/23/16 06:05 Hgb 9.1 gm/dl (10.1-14.3) L 11/23/16 06:05 Hct 28.4 % (30.3-42.9) L 11/23/16 06:05 MCV 81 fl (79-97) 11/23/16 06:05 MCH 26 pg (28-32) L 11/23/16 06:05 MCHC 32 % (30-34) 11/23/16 06:05 RDW 16.5 % (13.2-15.2) H 11/23/16 06:05 Plt Count 274 K/mm3 (140-440) 11/23/16 06:05 Lymph % (Auto) 6.6 % (13.4-35.0) L 11/17/16 15:48 [place] % (Auto) 3.8 % (0.0-7.3) 11/17/16 15:48 Eos % (Auto) 0.3 % (0.0-4.3) 11/17/16 15:48 Baso % (Auto) 0.2 % (0.0-1.8) 11/17/16 15:48 Lymph # 0.6 K/mm3 (1.2-5.4) L 11/17/16 15:48 [place] # 0.3 K/mm3 (0.0-0.8) 11/17/16 15:48 Eos # 0.0 K/mm3 (0.0-0.4) 11/17/16 15:48 Baso # 0.0 K/mm3 (0.0-0.1) 11/17/16 15:48 Seg Neutrophils % 89.1 % (40.0-70.0) H 11/17/16 15:48 Seg Neutrophils # 7.7 K/mm3 (1.8-7.7) 11/17/16 15:48 ESR > 140.0 mm/Hr (0-20) 11/19/16 19:26 PT 16.3 Sec. (12.2-14.9) H 11/17/16 15:48 INR 1.32 (0.87-1.13) H 11/17/16 15:48 Heparin Anti-Xa Level < 0.10 U.I./ml (0.3-0.7) L 11/23/16 09:53 Sodium 133 mmol/L (137-145) L 11/23/16 06:05 Potassium 3.3 mmol/L (3.6-5.0) L 11/23/16 06:05 Chloride 98.9 mmol/L (98-107) 11/23/16 06:05 Carbon Dioxide 19 mmol/L (22-30) L 11/23/16 06:05 Anion Gap 18 mmol/L 11/23/16 06:05 BUN 13 mg/dL (7-17) 11/23/16 06:05 Creatinine 1.1 mg/dL (0.7-1.2) 11/23/16 06:05 Estimated GFR 48 ml/min 11/23/16 06:05 BUN/Creatinine Ratio 11.81 % 11/23/16 06:05 Glucose 216 mg/dL (65-100) H 11/23/16 06:05 Lactic Acid 1.0 mmol/L (0.7-2.0) 11/20/16 09:08 Calcium 8.1 mg/dL (8.4-10.2) L 11/23/16 06:05 Total Creatine Kinase 481 units/L (30-135) H 11/17/16 15:48 C-Reactive Protein 31.30 mg/dL (0.00-1.30) H 11/19/16 19:26
--- NOTE | 2016-11-24 20:08 | Progress Note ---
Subjective Date of service: 11/24/16 Principal diagnosis: right leg cellulitis Interval history: No new complaints today. PHYSICAL EXAM Vital signs - afebrile. chest - good air entry cvs - s1s2 abd - bs+ extr - right leg ++ edema. Red and tender to touch. [id number] blister in the medial aspect of the leg. LABS ESR >140, CRP 31.3. ASSESSMENT 1. Right leg cellulitis 2. b/l lymphedema of lower extremities 3. Hypertension 4. obesity 5. BACTEREMIA Pasteurella multocida. RECOMMENDATION 1. D/C Planning on oral augmentin 875mg twice daily for 3weeks. Objective - Constitutional Vitals: Vital Signs Temp Pulse Resp BP Pulse Ox 99.5 F 66 20 107/41 96 11/24/16 11:51 11/24/16 11:51 11/24/16 11:51 11/24/16 11:51 11/22/16 22:00 Temperature -Last 24 Hours Temperature 99.5 F Temperature 99.8 F Temperature 99.8 F Temperature 100.9 F - Labs CBC & Chem 7: 11/23/16 06:05 11/23/16 06:05
[2016-11-24] MEDS: PEPCID IV SCH (20:50)
[2016-11-24] MEDS: ATARAX PO SCH (21:32)
[2016-11-24] MEDS ORDERED: PEPCID IV SCH (22:00)
[2016-11-25] MEDS: BENADRYL PO PRN ×2 (02:16→21:05)
[2016-11-25 04:03] LABS: Hemoglobin 9.2 gm/dl (10.1-14.3); Mean Corpuscular HGB Conc 32 % (30-34); Mean Corpuscular Hemoglobin 26 pg (28-32); Mean Corpuscular Volume 82 fl (79-97); Platelet Count 333 K/mm3 (140-440); Red Blood Count 3.55 M/mm3 (3.65-5.03); Red Cell Distribution Width 17.2 % (13.2-15.2)
[2016-11-25 04:05] LABS: White Blood Count 21.6 K/mm3 (4.5-11.0)
[2016-11-25 04:16] LABS: BUN/Creatinine Ratio 15.88; Calcium 7.9 mg/dL (8.4-10.2); Chloride 99.3 mmol/L (98-107); Potassium 3.8 mmol/L (3.6-5.0)
[2016-11-25] MEDS: CLEOCIN 600 MG/50 mL 600 MG/50 ML BAG IV SCH (06:01)
[2016-11-25] MEDS: ATARAX PO SCH ×3 (06:40→18:47)
--- NOTE | 2016-11-25 10:24 | XRay Report ---
Portable chest: There is prominence of the inferior right hilum which may in part be accentuated by rotation of the chest. There is increased density behind the heart which may represent a hiatus hernia as noted on prior CT scan in 2009. The lungs appear generally clear and the mediastinal contours not enlarged. No prior chest films for comparison. Impression: Suspicion of right hilar enlargement. Recommendation: Consider CT scan of the chest.
[2016-11-25] MEDS ORDERED: NACL 0.9% 1000 ML 1,000 ML with SODIUM BICARBONATE 25 MEQ IV SCH (10:30)
[2016-11-25] MEDS: NORVASC PO SCH (11:00)
[2016-11-25] MEDS: PEPCID IV SCH ×2 (11:00→21:50)
[2016-11-25] MEDS: TYLENOL PO PRN ×2 (12:26→23:31)
[2016-11-25 14:52] LABS: BUN/Creatinine Ratio 15.78; Calcium 8.2 mg/dL (8.4-10.2); Chloride 100.4 mmol/L (98-107); Potassium 3.6 mmol/L (3.6-5.0)
[2016-11-25] MEDS ORDERED: ATARAX PO ONE (15:37)
[2016-11-25] MEDS ORDERED: APRESOLINE ONE (15:42)
[2016-11-25] MEDS: MERREM/NS 500 MG/50 ML 500 MG/50 ML BAG IV SCH (16:01)
--- NOTE | 2016-11-25 16:56 | Progress Note ---
Assessment and Plan Assessment and plan: patient is a 81 y/o female with hx of breast CA S/p chemotherapy, Cellulitis, DVT, HTN, Lymphedema, Debility, and brought in by son for redness of RLE from Dorsum to Mid tibial region.Pain is 6/10. Patient has redness on LLE also but to a lesser extent. No SOB.Fever low grade present.No chills.No chest pain * Right lower extremity cellulites * Sepsis * NADINE * Pasteurella multocida * Chronic lymphedema * Debility secondary to chronic lymphedema * Precipitous drop in hgb * Hypertension * Hypokalemia * Decreased hearing-Per patient complaint * Secondary coagulopathy * HX OF LUNG CA Plan * Still with recurring fever, discussed with ID will stop clinda and levaquin and start on merrem * Repeat blood culture and chest xray * Continue current antibiotics * Monitor Hgb * Also recommended an outpatient dietary aide teacher evaluation patient and family verbalized understanding * vascular input noted. Patient to follow with them outpatient * continue to monitor BP * Wound care consult * Discussed extensively with son and patient * DVT/GI prophylaxis * Rehab/SNF eval discharge, * History Interval history: Patient seen and examined this morning in no acute distress, still with pain in the right lower ext, but improving. Fever persist no complaints today, no complaints about hearing today she has good urine put. No other adverse event reported by nursing staff Hospitalist Physical - Physical exam Narrative exam: VITAL SIGNS: Reviewed. GENERAL: The patient appeared well nourished and normally developed. Vital signs as documented. HEAD: No signs of head trauma. EYES: Pupils are equal. Extraocular motions intact. EARS: Hearing grossly intact. MOUTH: Oropharynx is normal. NECK: No adenopathy, no JVD. CHEST: Chest with clear breath sounds bilaterally. No wheezes, rales, or rhonchi. CARDIAC: Regular rate and rhythm. S1 and S2, without murmurs, gallops, or rubs. VASCULAR: No Edema. Peripheral pulses normal and equal in all extremities. ABDOMEN: Soft, without detectable tenderness. No sign of distention. No rebound or guarding, and no masses palpated. Bowel Sounds normal. MUSCULOSKELETAL: Good range of motion of all major joints. edema, erythema, marked lymhedema with still draining although improving (RLE from Dorsum to mid calf region,LLE erythema from ankle up for 6 inches) NEUROLOGIC EXAM: Alert and oriented x 3. No focal sensory or strength deficits. Speech normal. Follows commands. PSYCHIATRIC: Mood normal. SKIN: edema, erythema, marked lymhedema (RLE from Dorsum to mid calf region, LLE erythema from ankle up for 6 inches) - Constitutional Vitals: Temp Pulse Resp BP Pulse Ox 101.1 F H 78 18 132/45 96 11/25/16 10:00 11/25/16 10:00 11/25/16 10:00 11/25/16 10:00 11/25/16 10:00 General appearance: Present: no acute distress, obese Results - Labs CBC & Chem 7: 11/25/16 03:35 11/25/16 14:01 Labs: Laboratory Last Values WBC 21.6 K/mm3 (4.5-11.0) H 11/25/16 03:35 RBC 3.55 M/mm3 (3.65-5.03) L 11/25/16 03:35 Hgb 9.2 gm/dl (10.1-14.3) L 11/25/16 03:35 Hct 29.0 % (30.3-42.9) L 11/25/16 03:35 MCV 82 fl (79-97) 11/25/16 03:35 MCH 26 pg (28-32) L 11/25/16 03:35 MCHC 32 % (30-34) 11/25/16 03:35 RDW 17.2 % (13.2-15.2) H 11/25/16 03:35 Plt Count 333 K/mm3 (140-440) 11/25/16 03:35 Lymph % (Auto) 6.6 % (13.4-35.0) L 11/17/16 15:48 [place] % (Auto) 3.8 % (0.0-7.3) 11/17/16 15:48 Eos % (Auto) 0.3 % (0.0-4.3) 11/17/16 15:48 Baso % (Auto) 0.2 % (0.0-1.8) 11/17/16 15:48 Lymph # 0.6 K/mm3 (1.2-5.4) L 11/17/16 15:48 [place] # 0.3 K/mm3 (0.0-0.8) 11/17/16 15:48 Eos # 0.0 K/mm3 (0.0-0.4) 11/17/16 15:48 Baso # 0.0 K/mm3 (0.0-0.1) 11/17/16 15:48 Seg Neutrophils % 89.1 % (40.0-70.0) H 11/17/16 15:48 Seg Neutrophils # 7.7 K/mm3 (1.8-7.7) 11/17/16 15:48 ESR > 140.0 mm/Hr (0-20) 11/19/16 19:26 PT 16.3 Sec. (12.2-14.9) H 11/17/16 15:48 INR 1.32 (0.87-1.13) H 11/17/16 15:48 Heparin Anti-Xa Level < 0.10 U.I./ml (0.3-0.7) L 11/23/16 09:53 Sodium 134 mmol/L (137-145) L 11/25/16 14:01 Potassium 3.6 mmol/L (3.6-5.0) 11/25/16 14:01 Chloride 100.4 mmol/L (98-107) 11/25/16 14:01 Carbon Dioxide 18 mmol/L (22-30) L 11/25/16 14:01 Anion Gap 19 mmol/L 11/25/16 14:01 BUN 30 mg/dL (7-17) H 11/25/16 14:01 Creatinine 1.9 mg/dL (0.7-1.2) H 11/25/16 14:01 Estimated GFR 25 ml/min 11/25/16 14:01 BUN/Creatinine Ratio 15.78 % 11/25/16 14:01 Glucose 74 mg/dL (65-100) 11/25/16 14:01 Lactic Acid 1.3 mmol/L (0.7-2.0) 11/25/16 09:22 Calcium 8.2 mg/dL (8.4-10.2) L 11/25/16 14:01 Total Creatine Kinase 481 units/L (30-135) H 11/17/16 15:48 C-Reactive Protein 31.30 mg/dL (0.00-1.30) H 11/19/16 19:26
[2016-11-25 20:57] LABS: Bacteria,Urine 1+ /HPF (Negative); Bilirubin,Urine NEG (Negative); Blood,Urine NEG (Negative); Ketones,Urine NEG (Negative); Leukocyte Esterase,Urine NEG (Negative); Nitrite,Urine NEG (Negative); Protein,Urine <15 mg/dL mg/dL (Negative); Urobilinogen,Urine < 2.0 mg/dL (<2.0)
--- NOTE | 2016-11-25 21:10 | Progress Note ---
Subjective Date of service: 11/25/16 Principal diagnosis: right leg cellulitis Interval history: No new complaints today. PHYSICAL EXAM Vital signs - temp 101.1. chest - good air entry cvs - s1s2 abd - bs+ extr - right leg ++ edema. Red and tender to touch. Slight improvement. LABS ESR >140, CRP 31.3. ASSESSMENT 1. Right leg cellulitis 2. b/l lymphedema of lower extremities 3. Hypertension 4. obesity 5. BACTEREMIA Pasteurella multocida. RECOMMENDATION 1. Started merrem today. Will observe. 2. D/C Planning on oral augmentin 875mg twice daily for 3weeks. 3. cbc / bmp in am Objective - Constitutional Vitals: Vital Signs Temp Pulse Resp BP Pulse Ox 101.1 F H 78 18 132/45 96 11/25/16 10:00 11/25/16 10:00 11/25/16 10:00 11/25/16 10:00 11/25/16 10:00 Temperature -Last 24 Hours Temperature 101.1 F Temperature 99.6 F Temperature 100.2 F - Labs CBC & Chem 7: 11/25/16 03:35 11/25/16 14:01 Labs: Abnormal lab results 11/25/16 11/25/16 11/25/16 Range/Units 03:35 03:35 14:01 WBC 21.6 H (4.5-11.0) K/mm3 RBC 3.55 L (3.65-5.03) M/mm3 Hgb 9.2 L (10.1-14.3) gm/dl Hct 29.0 L (30.3-42.9) % MCH 26 L (28-32) pg RDW 17.2 H (13.2-15.2) % Sodium 132 L 134 L (137-145) mmol/L Carbon Dioxide 17 L 18 L (22-30) mmol/L BUN 27 H 30 H (7-17) mg/dL Creatinine 1.7 H D 1.9 H (0.7-1.2) mg/dL Glucose 62 L (65-100) mg/dL Calcium 7.9 L 8.2 L (8.4-10.2) mg/dL Urine Creatinine (0.1-20.0) mg/dL 11/25/16 Range/Units 19:38 WBC (4.5-11.0) K/mm3 RBC (3.65-5.03) M/mm3 Hgb (10.1-14.3) gm/dl Hct (30.3-42.9) % MCH (28-32) pg RDW (13.2-15.2) % Sodium (137-145) mmol/L Carbon Dioxide (22-30) mmol/L BUN (7-17) mg/dL Creatinine (0.7-1.2) mg/dL Glucose (65-100) mg/dL Calcium (8.4-10.2) mg/dL Urine Creatinine 174.7 H (0.1-20.0) mg/dL
[2016-11-26] MEDS: ATARAX PO SCH ×4 (00:49→20:56)
[2016-11-26 06:48] LABS: Hematocrit 24.7 % (30.3-42.9); Hemoglobin 8.1 gm/dl (10.1-14.3); Mean Corpuscular HGB Conc 33 % (30-34); Mean Corpuscular Hemoglobin 26 pg (28-32); Mean Corpuscular Volume 80 fl (79-97); Platelet Count 367 K/mm3 (140-440); Red Blood Count 3.08 M/mm3 (3.65-5.03); Red Cell Distribution Width 17.2 % (13.2-15.2)
[2016-11-26 07:00] LABS: BUN/Creatinine Ratio 17.14; Chloride 102.6 mmol/L (98-107); Potassium 3.4 mmol/L (3.6-5.0)
[2016-11-26 07:40] LABS: White Blood Count 26.6 K/mm3 (4.5-11.0)
--- NOTE | 2016-11-26 09:37 | Consultation ---
History of Present Illness - Reason for Consult Consult date: 11/26/16 acute renal failure - History of Present Illness This patient is an 81-year-old female that was admitted after presenting to the ED with RLE cellulitis with chronic, bilateral lymphedema. She recently developed swelling and blisters that have drained on her right lower extremity associated with worsening erythema. At admission, patient's SCr was 1.2. However, it has increased to 2.1mg/dL today prompting nephrology consultation. Past History Past Medical History: hypertension, other (bilateral lower extremity Lymphedema) Past Surgical History: total knee replacement (left) Social history: lives with family (granddaughter). denies: smoking, alcohol abuse Family history: no significant family history Medications and Allergies Allergies Allergy/AdvReac Type Severity Reaction Status Date / Time iodine Allergy Severe Swelling Verified 11/24/16 14:22 Penicillins Allergy Severe Swelling Verified 11/24/16 14:23 Sulfa (Sulfonamide Allergy Severe Swelling Verified 11/24/16 14:23 Antibiotics) [place] And Derivatives Allergy Rash Verified 11/25/16 00:17 Home Medications Medication Instructions Recorded Confirmed Last Taken Type Levothyroxine 88 mcg PO DAILY 11/19/16 11/19/16 Unknown History Lotrel 5-20 mg 1 tab PO DAILY 11/19/16 11/19/16 Unknown History NexIUM 40 mg PO DAILY 11/19/16 11/19/16 Unknown History Clindamycin [Clindamycin CAP] 600 mg PO BID #30 capsule 11/23/16 Unknown Rx Lactobacillus Acidophilus 1 each PO DAILY #30 capsule 11/23/16 Unknown Rx [Probiotic] Levofloxacin [Levaquin] 750 mg PO QDAY #14 tablet 11/23/16 Unknown Rx Active Meds: Active Medications Acetaminophen (Tylenol) 650 mg PO Q6H PRN PRN Reason: Pain, Mild (1-3) Last Admin: 11/25/16 23:31 Dose: 650 mg Amlodipine Besylate (Norvasc) 5 mg PO QDAY [facility] Last Admin: 11/25/16 11:00 Dose: Not Given Diphenhydramine HCl (Benadryl) 25 mg PO Q6H PRN PRN Reason: Itching Last Admin: 11/25/16 21:05 Dose: 25 mg Famotidine (Pepcid) 20 mg IV BID [facility] Last Admin: 11/25/16 21:50 Dose: 20 mg Hydralazine HCl (Apresoline) 10 mg IV Q4HR PRN PRN Reason: SBP > 165 Last Admin: 11/21/16 20:42 Dose: 10 mg Hydroxyzine HCl (Atarax) 10 mg PO Q6HR [facility] Last Admin: 11/26/16 00:49 Dose: 10 mg Sodium Bicarbonate 25 meq/ (Sodium Chloride) 1,025 mls @ 75 mls/hr IV DIRECT ANA Meropenem (Merrem/Ns 500 Mg/50 Ml) 500 mg in 50 mls @ 50 mls/hr IV Q12HR [facility] Last Admin: 11/25/16 16:01 Dose: 50 mls/hr Review of Systems Constitutional: no fever, no chills, no sweats Cardiovascular: no shortness of breath, no leg edema Respiratory: no cough Gastrointestinal: no abdominal pain, no nausea, no vomiting, no diarrhea Genitourinary Female: no dysuria Integumentary: rash, pruritis Exam - Vital Signs Vital signs: Vital Signs Temp Pulse Resp BP Pulse Ox 98.1 F 77 20 163/69 96 11/17/16 12:05 11/17/16 12:05 11/17/16 12:05 11/17/16 12:05 11/17/16 12:05 - General Appearance General appearance: well-developed, well-nourished EENT: ATNC Respiratory: Clear to Ascultation Heart: regular, S1S2 Gastrointestinal: Present: normal. Absent: tenderness, distended Integumentary: rash (erythematous rash involving upper thigh, abdomen, trunk and arm (R>L)) Musculoskeletal: Present: other (bilateral LE edema; cellulitis) Results - Lab Results 11/26/16 04:10 11/26/16 04:10 Most recent lab results Calcium 8.0 mg/dL (8.4-10.2) L 11/26/16 04:10 Urine Creatinine 174.7 mg/dL (0.1-20.0) H 11/25/16 19:38 Urine Sodium 10 mEq/L 11/25/16 19:38 Assessment and Plan Impression: * Acute kidney injury secondary to prerenal azotemia (FeNa 0.1%) in setting of ACEi vs ATN; r/o Vancomycin toxicity; r/o AIN * Drug rash * Right lower extremity cellulitis * Sepsis * GNR bacterimia - pastuerella * Chronic lymphedema * Debility secondary to chronic lymphedema * Hypertension Plan: * Needs IVF for hydration * Will d/c hypertonic IVF and start D5 1/2NS w/ 75meq sodium bicarb * Will obtain urine eos in light of what appears to be a drug rash * Obtain serologic work up * Vanco currently dc'd - no available Vanco level * Await renal u/s findings * Strict I/O * Dose medications for renal function * Avoid nephrotoxins
[2016-11-26] MEDS: MERREM/NS 500 MG/50 ML 500 MG/50 ML BAG IV SCH ×3 (10:00→23:22)
[2016-11-26] MEDS ORDERED: SODIUM BICARBONATE IV SCH ×2 (11:00)
[2016-11-26] MEDS ORDERED: [UNRECOGNIZED DRUG - OTHER] IV SCH (11:00)
[2016-11-26] MEDS ORDERED: [UNRECOGNIZED DRUG - OTHER] IV SCH (11:00)
[2016-11-26] MEDS ORDERED: D5 IV SCH ×2 (11:00)
[2016-11-26] MEDS ORDERED: D5W/0.45% NACL/KCL 20 MEQ 20 MEQ/1,000 ML BAG IV ONE (11:28)
[2016-11-26] MEDS: PEPCID IV SCH ×2 (12:28→22:41)
[2016-11-26] MEDS: NORVASC PO SCH (12:29)
--- NOTE | 2016-11-26 12:38 | Query- Renal Failure ---
Radha Saleh_Arturo Date:____11/26/16 Carpet Mechanic/CDS:___Franciscosanto Cervantesthais Phone#:___[phone] Exercise your independent professional judgment when responding to query. Questions asked do not imply a particular answer is desired or expected. We greatly appreciate your clarification on this issue. Clinical Documentation States: 81 year old female was admitted on 11/17/16 The consult note (11/26/16) states " Acute kidney injury secondary to prerenal azotemia (FeNa 0.1%) in setting of ACEi vs ATN; r/o Vancomycin toxicity; r/o AIN " Clinical Findings Show: 11/25/16 11/26/16 Creatinine: 1.7 2.1 Please clarify if you mean: Acute Renal Failure with or due to: [ x] Tubular Necrosis [ ] Medullary Necrosis [ ] Vasomotor Nephropathy [ ] Shock Kidney [ ] Tubular Nephrosis [ ] Renal Tubular Stasis [ ] Cortical Necrosis [ ] Acute Renal Failure (unspecified) [ ] Lower Tubular Nephrosis [ ] Other: [ ] Not Applicable Present on Admission: [ y] Yes (Y) [ ] Clinically undeterminable (W) [ ] No (N) Please also document response in your Progress Notes and/or Discharge Summary and indicate if the condition was present on admission. BEBETOD
--- NOTE | 2016-11-26 13:29 | Ultrasound Report ---
Renal sonogram: History: NADINE. Findings: Right kidney 10.6 x 5.6 x 4.9 cm. Cortical thickness 1.6 cm. Left kidney 9.2 x 5.5 x 5.3 cm. Cortical thickness 1.1 cm. No definite evidence of hydronephrosis or mass. Impression: No mass or hydronephrosis.
[2016-11-26] MEDS: TYLENOL PO PRN (17:05)
--- NOTE | 2016-11-26 17:17 | Progress Note ---
Assessment and Plan 1. Right lower extremity cellulites: Presently on IV meropenem and clindamycin. Continue to elevate the feet 2. Sepsis: Patient was reported by patient's nurse to have had a fever today. Blood cultures urine culture ordered. Pupils blood culture was positive for Pasteurella multocida. Patient on meropenem. ID following. Input appreciated. 3. NADINE: Continue IV hydration. Nephrology following. Appreciate input 4. Chronic lymphedema: Chronic 5. Hypertension: Controlled. 6. Hypokalemia: We'll supplement cautiously given acute kidney injury 7. Large hiatal hernia per CT scan of the chest 8. HX OF LUNG CA 9. DVT prophylaxis with Lovenox and GI prophylaxis with Pepcid Discussed at length with patient's [id number]. Patient has signed AND. This was also agreeable by patient's children Subjective Date of service: 11/26/16 Principal diagnosis: Right leg cellulitis, Acute renal failure Interval history: Had a temperature of 101.1 today Objective - Constitutional Vitals: Vital Signs - 12hr 11/26/16 11/26/16 06:38 12:29 Temperature 97.8 F Pulse Rate 78 Pulse Rate [ 67 From Monitor] Respiratory 18 Rate Blood Pressure 117/51 Blood Pressure 107/47 [Left Arm] O2 Sat by Pulse 98 Oximetry General appearance: Present: no acute distress, well-nourished - EENT Eyes: PERRL, EOM intact ENT: hearing intact, clear oral mucosa Ears: bilateral: normal - Neck Neck: supple, normal ROM - Respiratory Respiratory effort: normal Respiratory: bilateral: CTA - Breasts Breasts: normal - Cardiovascular Rhythm: regular Heart Sounds: Present: S1 & S2. Absent: gallop, rub Extremities: pulses intact, No edema, normal color, Full ROM - Gastrointestinal General gastrointestinal: Present: soft, non-tender, non-distended, normal bowel sounds - Genitourinary Female genitourinary: normal - Integumentary Integumentary: warm, erythema (both lower extrimities with rigth worse tahn the left) - Musculoskeletal Musculoskeletal: generalized weakness - Neurologic Neurologic: moves all extremities - Psychiatric Psychiatric: memory intact, appropriate mood/affect, intact judgment & insight - Labs CBC & Chem 7: 11/26/16 04:10 11/26/16 04:10 Labs: Abnormal lab results 03/11/25/16 11/26/16 Range/Units 14:01 19:38 04:10 WBC 26.6 H (4.5-11.0) K/mm3 RBC 3.08 L (3.65-5.03) M/mm3 Hgb 8.1 L (10.1-14.3) gm/dl Hct 24.7 L (30.3-42.9) % MCH 26 L (28-32) pg RDW 17.2 H (13.2-15.2) % Potassium (3.6-5.0) mmol/L Carbon Dioxide (22-30) mmol/L BUN (7-17) mg/dL Creatinine (0.7-1.2) mg/dL Glucose (65-100) mg/dL Uric Acid 8.4 H (3.5-7.6) mg/dL Calcium (8.4-10.2) mg/dL Urine Creatinine 174.7 H (0.1-20.0) mg/dL 11/26/16 Range/Units 04:10 WBC (4.5-11.0) K/mm3 RBC (3.65-5.03) M/mm3 Hgb (10.1-14.3) gm/dl Hct (30.3-42.9) % MCH (28-32) pg RDW (13.2-15.2) % Potassium 3.4 L (3.6-5.0) mmol/L Carbon Dioxide 17 L (22-30) mmol/L BUN 36 H (7-17) mg/dL Creatinine 2.1 H (0.7-1.2) mg/dL Glucose 50 L (65-100) mg/dL Uric Acid (3.5-7.6) mg/dL Calcium 8.0 L (8.4-10.2) mg/dL Urine Creatinine (0.1-20.0) mg/dL
--- NOTE | 2016-11-26 18:45 | Cat Scan Report ---
FINAL REPORT EXAM: CT CHEST WO CON HISTORY: widening mediastinum TECHNIQUE: CT examination of the chest without IV contrast PRIORS: None. FINDINGS: Cardiac size slightly enlarged without pericardial effusion. Nonspecific elevation of right diaphragm. Normal caliber aorta with moderate calcified atherosclerotic plaque. Very large hiatal hernia containing a large portion of the stomach. Otherwise normal appearing esophagus and intra-abdominal stomach. No definite hilar mass or mediastinal adenopathy. Small right pleural effusion layers posteriorly. Very small left pleural effusion versus pleural thickening. No evidence of pneumothorax. No focal pulmonary consolidation. Slight linear scar versus atelectasis in both lower lobe bases. 5 mm nonspecific nodule in left upper lobe apex, series 3, image 14. 2 mm nonspecific nodule adjacent to the 5 mm nodule in the left upper lobe apex, series 3, image 12. IMPRESSION: Recommend followup if no prior chest CT available for comparison. Per Fleischner Society guidelines, a 4-6 mm nodule should be followed up with surveillance chest CT in 6-12 months. Very large hiatal hernia containing a large portion of the stomach Slight cardiomegaly Small right pleural effusion. Very small left pleural effusion versus pleural thickening
--- NOTE | 2016-11-26 19:55 | Progress Note ---
Subjective Date of service: 11/26/16 Principal diagnosis: Right leg cellulitis, Acute renal failure Interval history: Fever persists. PHYSICAL EXAM Vital signs - temp 101.1. chest - good air entry cvs - s1s2 abd - bs+ extr - right leg ++ edema. Red and tender to touch. Slight improvement. LABS ESR >140, CRP 31.3. CT chest - no pneumonia ASSESSMENT 1. Right leg cellulitis 2. b/l lymphedema of lower extremities 3. Hypertension 4. obesity 5. BACTEREMIA Pasteurella multocida. RECOMMENDATION 1. add iv fluconazole and oral flagyl. 2. cbc / bmp in am Objective - Constitutional Vitals: Vital Signs Temp Pulse Resp BP Pulse Ox 99.8 F H 82 22 144/42 98 11/26/16 19:30 11/26/16 19:30 11/26/16 19:30 11/26/16 19:30 11/26/16 19:30 Temperature -Last 24 Hours Temperature 99.8 F Temperature 97.8 F Temperature 100.3 F Temperature 99.4 F - Labs CBC & Chem 7: 11/26/16 04:10 11/26/16 04:10 Labs: Abnormal lab results 11/25/16 11/25/16 11/26/16 Range/Units 14:01 19:38 04:10 WBC 26.6 H (4.5-11.0) K/mm3 RBC 3.08 L (3.65-5.03) M/mm3 Hgb 8.1 L (10.1-14.3) gm/dl Hct 24.7 L (30.3-42.9) % MCH 26 L (28-32) pg RDW 17.2 H (13.2-15.2) % Potassium (3.6-5.0) mmol/L Carbon Dioxide (22-30) mmol/L BUN (7-17) mg/dL Creatinine (0.7-1.2) mg/dL Glucose (65-100) mg/dL Uric Acid 8.4 H (3.5-7.6) mg/dL Calcium (8.4-10.2) mg/dL Urine Creatinine 174.7 H (0.1-20.0) mg/dL 11/26/16 Range/Units 04:10 WBC (4.5-11.0) K/mm3 RBC (3.65-5.03) M/mm3 Hgb (10.1-14.3) gm/dl Hct (30.3-42.9) % MCH (28-32) pg RDW (13.2-15.2) % Potassium 3.4 L (3.6-5.0) mmol/L Carbon Dioxide 17 L (22-30) mmol/L BUN 36 H (7-17) mg/dL Creatinine 2.1 H (0.7-1.2) mg/dL Glucose 50 L (65-100) mg/dL Uric Acid (3.5-7.6) mg/dL Calcium 8.0 L (8.4-10.2) mg/dL Urine Creatinine (0.1-20.0) mg/dL
[2016-11-26] MEDS: FLAGYL PO SCH (22:42)
[2016-11-26] MEDS: DIFLUCAN 200 MG/100 ML BAG IV SCH (22:51)
[2016-11-27] MEDS: ATARAX PO SCH ×4 (00:32→22:04)
[2016-11-27 05:22] LABS: Basophils % (Auto) 0.2 % (0.0-1.8); Eosinophils % (Auto) 1.8 % (0.0-4.3); Hematocrit 25.6 % (30.3-42.9); Hemoglobin 8.1 gm/dl (10.1-14.3); Mean Corpuscular HGB Conc 32 % (30-34); Mean Corpuscular Volume 80 fl (79-97); Platelet Count 408 K/mm3 (140-440); Red Blood Count 3.21 M/mm3 (3.65-5.03); Red Cell Distribution Width 17.3 % (13.2-15.2); White Blood Count 18.4 K/mm3 (4.5-11.0)
[2016-11-27 05:41] LABS: Mean Corpuscular Hemoglobin 25 pg (28-32)
[2016-11-27 05:45] LABS: Albumin 2.1 g/dL (3.9-5); Albumin/Globulin Ratio 0.6 %; BUN/Creatinine Ratio 16.66; Bilirubin,Total 0.9 mg/dL (0.1-1.2); Chloride 101.5 mmol/L (98-107); Potassium 3.3 mmol/L (3.6-5.0); Total Protein 5.4 g/dL (6.3-8.2)
[2016-11-27] MEDS: FLAGYL PO SCH ×3 (05:55→22:23)
[2016-11-27] MEDS: TYLENOL PO PRN (06:30)
--- NOTE | 2016-11-27 10:15 | Progress Note ---
Assessment and Plan Impression: * Acute kidney injury secondary to prerenal azotemia (FeNa 0.1%) in setting of ACEi vs ATN; r/o Vancomycin toxicity; r/o AIN * Drug rash * Right lower extremity cellulitis * Sepsis * GNR bacterimia - pastuerella * Chronic lymphedema * Debility secondary to chronic lymphedema * Hypertension Plan: * Needs IVF for hydration * ns with kcl * ct chest noted * Will obtain urine eos in light of what appears to be a drug rash * Obtain serologic work up * Vanco currently dc'd - Vanco level is 7 * normal renal u/s findings * Strict I/O * Dose medications for renal function * Avoid nephrotoxins Subjective Date of service: 11/27/16 Principal diagnosis: Right leg cellulitis, Acute renal failure Interval history: resting in bed today, no acute events Objective - Exam Narrative Exam: General appearance: well-developed, well-nourished EENT: ATNC Respiratory: Clear to Ascultation Heart: regular, S1S2 Gastrointestinal: Present: normal. Absent: tenderness, distended Integumentary: rash (erythematous rash involving upper thigh, abdomen, trunk and arm (R>L)) Musculoskeletal: Present: other (bilateral LE edema; cellulitis) - Vital Signs Vital signs: Vital Signs - 12hr 11/27/16 11/27/16 11/27/16 00:42 06:00 10:00 Temperature 101.0 F H 102.7 F H 98.1 F Pulse Rate [ 61 56 L 71 From Monitor] Respiratory 22 16 Rate Blood Pressure 107/37 [Left Arm] Blood Pressure 105/39 107/31 [Right Radial Artery] O2 Sat by Pulse 95 96 Oximetry - Lab 11/27/16 04:21 11/27/16 04:21 Most recent lab results Calcium 8.0 mg/dL (8.4-10.2) L 11/27/16 04:21 Urine Creatinine 174.7 mg/dL (0.1-20.0) H 11/25/16 19:38 Urine Sodium 10 mEq/L 11/25/16 19:38
--- NOTE | 2016-11-27 10:21 | Progress Note ---
Assessment and Plan 1. Right lower extremity cellulites: Presently on IV meropenem and clindamycin. Continue to elevate the feet 2. Sepsis: Patient was reported by patient's nurse to have had a fever today. Blood cultures urine culture ordered. Pupils blood culture was positive for Pasteurella multocida. Patient on meropenem. ID following. Input appreciated. 3. NADINE: Continue IV hydration. Nephrology following. Appreciate input 4. Chronic lymphedema: Chronic 5. Hypertension: Controlled. 6. Hypokalemia: We'll supplement cautiously given acute kidney injury 7. Large hiatal hernia per CT scan of the chest 8. HX OF LUNG CA 9. DVT prophylaxis with Lovenox and GI prophylaxis with Pepcid Discussed at length with patient's [id number]. Patient has signed AND. This was also agreeable by patient's children Subjective Date of service: 11/27/16 Principal diagnosis: Right leg cellulitis, Acute renal failure Interval history: Had a temperature of 101.1 today. slightly confused Objective - Constitutional Vitals: Vital Signs - 12hr 11/27/16 11/27/16 11/27/16 00:42 06:00 10:00 Temperature 101.0 F H 102.7 F H 98.1 F Pulse Rate [ 61 56 L 71 From Monitor] Respiratory 22 16 Rate Blood Pressure 107/37 [Left Arm] Blood Pressure 105/39 107/31 [Right Radial Artery] O2 Sat by Pulse 95 96 Oximetry General appearance: Present: no acute distress - EENT Eyes: PERRL, EOM intact ENT: hearing intact, clear oral mucosa - Neck Neck: supple, normal ROM - Respiratory Respiratory effort: normal Respiratory: bilateral: diminished - Cardiovascular Rhythm: regular Heart Sounds: Present: S1 & S2. Absent: gallop, rub Extremities: pulses intact, No edema, normal color, Full ROM - Gastrointestinal General gastrointestinal: Present: soft, non-tender, non-distended, normal bowel sounds - Genitourinary Female genitourinary: normal - Integumentary Integumentary: clear, warm, dry - Musculoskeletal Musculoskeletal: 1, strength equal bilaterally - Neurologic Neurologic: moves all extremities - Psychiatric Psychiatric: memory intact, appropriate mood/affect, intact judgment & insight - Labs CBC & Chem 7: 11/27/16 04:21 11/27/16 04:21 Labs: Abnormal lab results 11/27/16 11/27/16 Range/Units 04:21 04:21 WBC 18.4 H (4.5-11.0) K/mm3 RBC 3.21 L (3.65-5.03) M/mm3 Hgb 8.1 L (10.1-14.3) gm/dl Hct 25.6 L (30.3-42.9) % MCH 25 L (28-32) pg RDW 17.3 H (13.2-15.2) % Lymph % (Auto) 3.0 L (13.4-35.0) % Lymph # 0.6 L (1.2-5.4) K/mm3 [place] # 1.0 H (0.0-0.8) K/mm3 Seg Neutrophils % 89.7 H (40.0-70.0) % Seg Neutrophils # 16.5 H (1.8-7.7) K/mm3 Potassium 3.3 L (3.6-5.0) mmol/L Carbon Dioxide 20 L (22-30) mmol/L BUN 40 H (7-17) mg/dL Creatinine 2.4 H (0.7-1.2) mg/dL Glucose 124 H (65-100) mg/dL Calcium 8.0 L (8.4-10.2) mg/dL Total Protein 5.4 L (6.3-8.2) g/dL Albumin 2.1 L (3.9-5) g/dL
[2016-11-27] MEDS: NORVASC PO SCH (10:55)
[2016-11-27] MEDS ORDERED: NACL 0.9% 1000 ML 1,000 ML with KCL 20 MEQ IV SCH (11:00)
[2016-11-27] MEDS: PEPCID IV SCH ×2 (11:15→22:23)
--- NOTE | 2016-11-27 15:05 | XRay Report ---
Portable chest: A right PICC line is present with the tip in the mid SVC. The mediastinal contour is grossly normal in view of the hypoventilation. The lungs appear clear.
[2016-11-27] MEDS: NS/KCL 20MEQ 20 MEQ/1,000 ML BAG IV SCH (17:26)
[2016-11-27] MEDS: MERREM/NS 500 MG/50 ML 500 MG/50 ML BAG IV SCH (17:40)
--- NOTE | 2016-11-27 19:16 | Progress Note ---
Subjective Date of service: 11/27/16 Principal diagnosis: Right leg cellulitis, Acute renal failure Interval history: Fever persists. PHYSICAL EXAM Vital signs - temp 102.1. chest - good air entry cvs - s1s2 abd - bs+ extr - right leg ++ edema. Red and tender to touch. Improving. LABS ESR >140, CRP 31.3. CT chest - no pneumonia ASSESSMENT 1. Right leg cellulitis 2. b/l lymphedema of lower extremities 3. Hypertension 4. obesity 5. BACTEREMIA Pasteurella multocida. RECOMMENDATION 1. add iv zyvox 600mg twice daily. 2. cbc / bmp in am Objective - Constitutional Vitals: Vital Signs Temp Pulse Resp BP Pulse Ox 98.1 F 71 16 107/37 96 11/27/16 10:00 11/27/16 10:55 11/27/16 10:00 11/27/16 10:55 11/27/16 10:00 Temperature -Last 24 Hours Temperature 98.1 F Temperature 102.7 F Temperature 101.0 F Temperature 102.1 F Temperature 99.8 F - Labs CBC & Chem 7: 11/27/16 04:21 11/27/16 04:21 Labs: Abnormal lab results 11/27/16 11/27/16 Range/Units 04:21 04:21 WBC 18.4 H (4.5-11.0) K/mm3 RBC 3.21 L (3.65-5.03) M/mm3 Hgb 8.1 L (10.1-14.3) gm/dl Hct 25.6 L (30.3-42.9) % MCH 25 L (28-32) pg RDW 17.3 H (13.2-15.2) % Lymph % (Auto) 3.0 L (13.4-35.0) % Lymph # 0.6 L (1.2-5.4) K/mm3 [place]bert # 1.0 H (0.0-0.8) K/mm3 Seg Neutrophils % 89.7 H (40.0-70.0) % Seg Neutrophils # 16.5 H (1.8-7.7) K/mm3 Potassium 3.3 L (3.6-5.0) mmol/L Carbon Dioxide 20 L (22-30) mmol/L BUN 40 H (7-17) mg/dL Creatinine 2.4 H (0.7-1.2) mg/dL Glucose 124 H (65-100) mg/dL Calcium 8.0 L (8.4-10.2) mg/dL Total Protein 5.4 L (6.3-8.2) g/dL Albumin 2.1 L (3.9-5) g/dL
[2016-11-27] MEDS: DIFLUCAN 200 MG/100 ML BAG IV SCH (22:26)
[2016-11-27] MEDS: ZYVOX 600MG/300ML 600 MG/300 ML BAG IV SCH (23:28)
[2016-11-28] MEDS: ATARAX PO SCH ×4 (00:37→17:17)
[2016-11-28] MEDS: FLAGYL PO SCH ×2 (05:40→14:40)
[2016-11-28] MEDS: MERREM/NS 500 MG/50 ML 500 MG/50 ML BAG IV SCH ×2 (05:45→19:25)
[2016-11-28] MEDS: SYNTHROID PO SCH (05:52)
--- NOTE | 2016-11-28 08:33 | Progress Note ---
Assessment and Plan 1. Right lower extremity cellulites: Presently on IV Meropenem, Zyvox, Flagyl. Continue to elevate the feet 2. Sepsis: Patient was reported by patient's nurse to have had a fever today. Percent Blood cultures, urine culture showed no growth so far ordered. 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 Patient on meropenem, Zyvox, Flagyl. ID following. Input appreciated. 3. NADINE: Continue IV hydration. Nephrology following. Appreciate input 4. Chronic lymphedema: Chronic with cellulitis of both lower extremities. On IV antibiotics 5. Hypertension: Controlled. 6. Hypokalemia: We'll supplement cautiously given acute kidney injury 7. Large hiatal hernia per CT scan of the chest 8. Anemia: Type and crossmatch 2 units of packed red bursa transfuse each over 4 hours 9. HX OF LUNG CA 10. DVT prophylaxis with Lovenox and GI prophylaxis with Pepcid Discussed at length with patient's [id number]. Patient has signed AND. This was also agreeable by patient's children Subjective Date of service: 11/28/16 Principal diagnosis: Right leg cellulitis, Acute renal failure Interval history: Pt seen and examined. Feeling slightly better today. More than interactive Objective - Constitutional Vitals: Vital Signs - 12hr 11/27/16 11/27/16 22:00 23:00 Temperature 99.6 F Pulse Rate [ 76 From Monitor] Pulse Rate [ 76 Right Radial] Respiratory 20 Rate Blood Pressure 105/40 [Right Arm] General appearance: Present: no acute distress, well-nourished - EENT Eyes: PERRL, EOM intact - Neck Neck: supple, normal ROM - Respiratory Respiratory effort: normal Respiratory: bilateral: diminished - Cardiovascular Rhythm: regular Heart Sounds: Present: S1 & S2. Absent: gallop, rub Extremity abnormal: edema, erythema - Gastrointestinal General gastrointestinal: Present: soft, non-tender, non-distended, normal bowel sounds - Genitourinary Female genitourinary: normal - Integumentary Integumentary: clear, warm, dry - Musculoskeletal Musculoskeletal: 1, strength equal bilaterally - Neurologic Neurologic: moves all extremities - Psychiatric Psychiatric: memory intact, appropriate mood/affect, intact judgment & insight - Labs CBC & Chem 7: 11/28/16 11:38 11/28/16 11:38
[2016-11-28] MEDS: NORVASC PO SCH (10:00)
[2016-11-28] MEDS ORDERED: LEVOTHYROXINE 88 MCG PO SCH (10:00)
[2016-11-28] MEDS: ZYVOX 600MG/300ML 600 MG/300 ML BAG IV SCH ×2 (11:00→22:46)
[2016-11-28] MEDS: PEPCID IV SCH (11:15)
[2016-11-28 11:44] LABS: Hematocrit 22.8 % (30.3-42.9); Hemoglobin 7.4 gm/dl (10.1-14.3); Mean Corpuscular HGB Conc 33 % (30-34); Mean Corpuscular Volume 79 fl (79-97); Platelet Count 350 K/mm3 (140-440); Red Blood Count 2.87 M/mm3 (3.65-5.03); Red Cell Distribution Width 17.2 % (13.2-15.2); White Blood Count 11.1 K/mm3 (4.5-11.0)
[2016-11-28 11:48] LABS: Mean Corpuscular Hemoglobin 26 pg (28-32)
[2016-11-28 12:09] LABS: Albumin 1.7 g/dL (3.9-5); Albumin/Globulin Ratio 0.5 %; BUN/Creatinine Ratio 17.91; Bilirubin,Total 0.6 mg/dL (0.1-1.2); Calcium 7.7 mg/dL (8.4-10.2); Chloride 102.6 mmol/L (98-107); Potassium 3.4 mmol/L (3.6-5.0); Total Protein 4.9 g/dL (6.3-8.2)
[2016-11-28 13:20] LABS: Basophils % (Manual) 0 % (0.0-1.8); Blastocytes % (Manual) 0 %
[2016-11-28 13:21] LABS: Anisocytosis 1+; Diff Status Complete; Elliptocytes Few; Hypochromasia 1+
--- NOTE | 2016-11-28 14:18 | Progress Note ---
Assessment and Plan Impression: * Acute kidney injury secondary to prerenal azotemia (FeNa 0.1%) in setting of ACEi vs ATN; r/o Vancomycin toxicity; r/o AIN * Drug rash * Right lower extremity cellulitis * Sepsis * GNR bacterimia - pastuerella * Chronic lymphedema * Debility secondary to chronic lymphedema * Hypertension Plan: * Patient oral mucosa remains dry. Continue IV hydration. * Continue IV fluid ns with kcl * ct chest noted * Urine negative for eosinophils. Complement C3 and C4 both are negative * Results of other serologic work up * normal renal u/s findings * Strict I/O * Dose medications for renal function * Avoid nephrotoxins Subjective Date of service: 11/28/16 Principal diagnosis: Right leg cellulitis, Acute renal failure Interval history: Patient is comfortable. Denies any shortness of breath. No nausea or vomiting Objective - Vital Signs Vital signs: Vital Signs - 12hr 11/28/16 10:00 Temperature 98.9 F Pulse Rate [ 62 From Monitor] Respiratory 16 Rate Blood Pressure 101/56 [Right Arm] O2 Sat by Pulse 98 Oximetry - General Appearance General appearance: well-developed, well-nourished, appears stated age EENT: PERRL, mucous membranes dry Neck: no JVD, no thyromegaly, no carotid bruit, supple Respiratory: Present: Clear to Ascultation Cardiology: regular, normal heart rate Gastrointestinal: normal, normoactive bowel sounds Integumentary: other (blotchy erythema noted in both her thigh area. Lower legs are erythematous and skin has some thickening. More so on the right side) - Lab 11/28/16 11:38 11/28/16 11:38 Most recent lab results Calcium 7.7 mg/dL (8.4-10.2) L 11/28/16 11:38 Urine Creatinine 174.7 mg/dL (0.1-20.0) H 11/25/16 19:38 Urine Sodium 10 mEq/L 11/25/16 19:38
[2016-11-28] MEDS: NS/KCL 20MEQ 20 MEQ/1,000 ML BAG IV SCH (17:19)
[2016-11-28] MEDS ORDERED: NACL 0.9% 500 ML 500 ML IV NR (17:40)
--- NOTE | 2016-11-28 19:14 | Progress Note ---
Subjective Date of service: 11/28/16 Principal diagnosis: Right leg cellulitis, Acute renal failure Interval history: Feels better. No new complaints. . PHYSICAL EXAM Vital signs - temp 98. chest - good air entry cvs - s1s2 abd - bs+ extr - right leg ++ edema. Red and tender to touch. Improving. LABS ESR >140, CRP 31.3. CT chest - no pneumonia ASSESSMENT 1. Right leg cellulitis 2. b/l lymphedema of lower extremities 3. Hypertension 4. obesity 5. BACTEREMIA Pasteurella multocida. RECOMMENDATION 1. continue current abx. 2. cbc / bmp in am Objective - Constitutional Vitals: Vital Signs Temp Pulse Resp BP Pulse Ox 98.9 F 62 16 101/56 98 11/28/16 10:00 11/28/16 10:00 11/28/16 10:00 11/28/16 10:00 11/28/16 10:00 Temperature -Last 24 Hours Temperature 98.9 F Temperature 99.6 F - Labs CBC & Chem 7: 11/28/16 11:38 11/28/16 11:38 Labs: Abnormal lab results 11/28/16 11/28/16 Range/Units 11:38 11:38 WBC 11.1 H (4.5-11.0) K/mm3 RBC 2.87 L (3.65-5.03) M/mm3 Hgb 7.4 L (10.1-14.3) gm/dl Hct 22.8 L (30.3-42.9) % MCH 26 L (28-32) pg RDW 17.2 H (13.2-15.2) % Seg Neuts % (Manual) 76.0 H (40.0-70.0) % Lymphocytes % (Manual) 4.0 L (13.4-35.0) % Eosinophils % (Manual) 5.0 H (0.0-4.3) % Seg Neutrophils # Man 8.4 H (1.8-7.7) K/mm3 Lymphocytes # (Manual) 0.4 L (1.2-5.4) K/mm3 Eosinophils # (Manual) 0.6 H (0.0-0.4) K/mm3 Sodium 136 L (137-145) mmol/L Potassium 3.4 L (3.6-5.0) mmol/L Carbon Dioxide 20 L (22-30) mmol/L BUN 43 H (7-17) mg/dL Creatinine 2.4 H (0.7-1.2) mg/dL Calcium 7.7 L (8.4-10.2) mg/dL Total Protein 4.9 L (6.3-8.2) g/dL Albumin 1.7 L (3.9-5) g/dL
[2016-11-28] MEDS: DIFLUCAN 200 MG/100 ML BAG IV SCH (21:43)
[2016-11-28] MEDS: PEPCID PO SCH (21:43)
[2016-11-29] MEDS: FLAGYL PO SCH ×3 (00:30→14:45)
[2016-11-29] MEDS: ATARAX PO SCH ×4 (00:30→18:32)
[2016-11-29] MEDS ORDERED: NACL 0.9% 500 ML 500 ML IV SCH (04:00)
[2016-11-29 04:30] LABS: Albumin 1.8 g/dL (3.8-4.8); Gamma Globulin 0.9 g/dL (0.8-1.7)
[2016-11-29] MEDS: MERREM/NS 500 MG/50 ML 500 MG/50 ML BAG IV SCH ×2 (06:11→18:28)
[2016-11-29] MEDS: SYNTHROID PO SCH (06:11)
[2016-11-29] MEDS: NS/KCL 20MEQ 20 MEQ/1,000 ML BAG IV SCH (08:54)
[2016-11-29] MEDS: PEPCID PO SCH ×2 (10:37→22:23)
[2016-11-29] MEDS: ZYVOX 600MG/300ML 600 MG/300 ML BAG IV SCH (10:37)
[2016-11-29] MEDS: NORVASC PO SCH (10:40)
--- NOTE | 2016-11-29 11:43 | Progress Note ---
Assessment and Plan Impression: * Acute kidney injury secondary to prerenal azotemia (FeNa 0.1%) in setting of ACEi vs ATN; r/o Vancomycin toxicity; r/o AIN * Drug rash * Right lower extremity cellulitis * Sepsis * GNR bacterimia - pastuerella * Chronic lymphedema * Debility secondary to chronic lymphedema * Hypertension Plan: * Patient oral mucosa remains dry. Continue IV hydration. Shall reduce the rate of her fluids * Continue IV fluid ns with kcl * ct chest noted * Urine negative for eosinophils. Complement C3 and C4 both are negative * Results of other serologic work up * normal renal u/s findings * Strict I/O * Dose medications for renal function * Avoid nephrotoxins Subjective Date of service: 11/29/16 Principal diagnosis: Right leg cellulitis, Acute renal failure Interval history: Patient is comfortable. Denies any shortness of breath. No nausea or vomiting Objective - Vital Signs Vital signs: Vital Signs - 12hr 11/29/16 11/29/16 11/29/16 03:30 03:53 04:08 Temperature 97.9 F 97.7 F 97.7 F Pulse Rate 55 L 57 L 57 L Respiratory 20 20 20 Rate Blood Pressure 128/33 129/30 129/30 11/29/16 11/29/16 11/29/16 04:38 05:08 05:38 Temperature 98.1 F 98 F 97.9 F Pulse Rate 55 L 56 L 58 L Respiratory 20 20 20 Rate Blood Pressure 120/38 131/47 128/47 11/29/16 10:40 Temperature Pulse Rate 59 L Respiratory Rate Blood Pressure 136/54 - General Appearance General appearance: well-developed, well-nourished, appears stated age EENT: PERRL, mucous membranes dry Neck: no JVD, no thyromegaly, no carotid bruit, supple Respiratory: Present: Clear to Ascultation Cardiology: regular, normal heart rate Gastrointestinal: normal, normoactive bowel sounds Integumentary: other (rash noted in both her extremities. Both legs erythematous. More on the right side) - Lab 11/28/16 11:38 11/28/16 11:38 Most recent lab results Calcium 7.7 mg/dL (8.4-10.2) L 11/28/16 11:38 Urine Creatinine 174.7 mg/dL (0.1-20.0) H 11/25/16 19:38 Urine Sodium 10 mEq/L 11/25/16 19:38
--- NOTE | 2016-11-29 11:59 | Progress Note ---
Assessment and Plan 1. Right lower extremity cellulites: Presently on IV Meropenem, Zyvox, Flagyl. improving with swelling getting better 2. Sepsis: No more fever. Blood cultures and urine culture showed no growth so far ordered. 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 Patient on meropenem, Zyvox, Flagyl. ID following. Input appreciated. 3. NADINE: Continue IV hydration. Nephrology following. Appreciate input 4. Chronic lymphedema: Chronic with cellulitis of both lower extremities. On IV antibiotics. Improving 5. Hypertension: Controlled. 6. Hypokalemia: We'll supplement cautiously given acute kidney injury 7. Large hiatal hernia per CT scan of the chest 8. Anemia: Type and crossmatch 2 units of packed red bursa transfuse each over 4 hours 9. HX OF LUNG CA 10. DVT prophylaxis with Lovenox and GI prophylaxis with Pepcid Discussed at length with patient's [id number]. Patient has signed AND. This was also agreeable by patient's children Subjective Date of service: 11/29/16 Principal diagnosis: Right leg cellulitis, Acute renal failure Interval history: Pt seen and examined. Feeling much better. Wants to go home. More than interactive Objective - Constitutional Vitals: Vital Signs - 12hr 11/29/16 11/29/16 11/29/16 03:30 03:53 04:08 Temperature 97.9 F 97.7 F 97.7 F Pulse Rate 55 L 57 L 57 L Respiratory 20 20 20 Rate Blood Pressure 128/33 129/30 129/30 11/29/16 11/29/16 11/29/16 04:38 05:08 05:38 Temperature 98.1 F 98 F 97.9 F Pulse Rate 55 L 56 L 58 L Respiratory 20 20 20 Rate Blood Pressure 120/38 131/47 128/47 11/29/16 10:40 Temperature Pulse Rate 59 L Respiratory Rate Blood Pressure 136/54 General appearance: Present: no acute distress, well-nourished - EENT Eyes: PERRL, EOM intact ENT: hearing intact, clear oral mucosa - Neck Neck: supple, normal ROM - Respiratory Respiratory effort: normal Respiratory: bilateral: diminished - Cardiovascular Rhythm: regular Heart Sounds: Present: S1 & S2. Absent: gallop, rub Extremities: pulses intact, No edema, normal color, Full ROM - Gastrointestinal General gastrointestinal: Present: soft, non-tender, non-distended, normal bowel sounds - Integumentary Integumentary: clear, warm, dry - Musculoskeletal Musculoskeletal: 1, strength equal bilaterally - Neurologic Neurologic: moves all extremities - Psychiatric Psychiatric: memory intact, appropriate mood/affect, intact judgment & insight - Labs CBC & Chem 7: 11/28/16 11:38 11/28/16 11:38 Labs: Abnormal lab results 11/26/16 11/28/16 11/28/16 Range/Units 10:47 11:38 11:38 WBC 11.1 H (4.5-11.0) K/mm3 RBC 2.87 L (3.65-5.03) M/mm3 Hgb 7.4 L (10.1-14.3) gm/dl Hct 22.8 L (30.3-42.9) % MCH 26 L (28-32) pg RDW 17.2 H (13.2-15.2) % Seg Neuts % (Manual) 76.0 H (40.0-70.0) % Lymphocytes % (Manual) 4.0 L (13.4-35.0) % Eosinophils % (Manual) 5.0 H (0.0-4.3) % Seg Neutrophils # Man 8.4 H (1.8-7.7) K/mm3 Lymphocytes # (Manual) 0.4 L (1.2-5.4) K/mm3 Eosinophils # (Manual) 0.6 H (0.0-0.4) K/mm3 Sodium 136 L (137-145) mmol/L Potassium 3.4 L (3.6-5.0) mmol/L Carbon Dioxide 20 L (22-30) mmol/L BUN 43 H (7-17) mg/dL Creatinine 2.4 H (0.7-1.2) mg/dL Calcium 7.7 L (8.4-10.2) mg/dL Serum Total Protein 5.0 L (6.1-8.1) g/dL Total Protein 4.9 L (6.3-8.2) g/dL Albumin 1.8 L 1.7 L (3.8-4.8) g/dL Hriho-0-Gnjnvcald 0.6 H (0.2-0.3) g/dL Jnqbh-7-Vdnynbtze 1.0 H (0.5-0.9) g/dL PEP Interpretation see below H Crossmatch 11/28/16 Range/Units 22:58 WBC (4.5-11.0) K/mm3 RBC (3.65-5.03) M/mm3 Hgb (10.1-14.3) gm/dl Hct (30.3-42.9) % MCH (28-32) pg RDW (13.2-15.2) % Seg Neuts % (Manual) (40.0-70.0) % Lymphocytes % (Manual) (13.4-35.0) % Eosinophils % (Manual) (0.0-4.3) % Seg Neutrophils # Man (1.8-7.7) K/mm3 Lymphocytes # (Manual) (1.2-5.4) K/mm3 Eosinophils # (Manual) (0.0-0.4) K/mm3 Sodium (137-145) mmol/L Potassium (3.6-5.0) mmol/L Carbon Dioxide (22-30) mmol/L BUN (7-17) mg/dL Creatinine (0.7-1.2) mg/dL Calcium (8.4-10.2) mg/dL Serum Total Protein (6.1-8.1) g/dL Total Protein (6.3-8.2) g/dL Albumin (3.8-4.8) g/dL Mawyn-7-Efbrlitcw (0.2-0.3) g/dL Kkbyl-3-Lxolmratm (0.5-0.9) g/dL PEP Interpretation Crossmatch See Detail
[2016-11-29 14:22] LABS: Hematocrit 27.6 % (30.3-42.9); Hemoglobin 8.7 gm/dl (10.1-14.3); Mean Corpuscular HGB Conc 32 % (30-34); Mean Corpuscular Volume 81 fl (79-97); Platelet Count 407 K/mm3 (140-440); Red Cell Distribution Width 17.4 % (13.2-15.2); White Blood Count 11.2 K/mm3 (4.5-11.0)
[2016-11-29 14:24] LABS: Mean Corpuscular Hemoglobin 26 pg (28-32)
[2016-11-29 14:42] LABS: Basophils % (Manual) 0 % (0.0-1.8); Blastocytes % (Manual) 0 %; Diff Status Complete; Hypochromasia 1+; Large Platelets Few; Platelet Estimate Appears Increased
[2016-11-29 14:43] LABS: Albumin 2.1 g/dL (3.9-5); Albumin/Globulin Ratio 0.6 %; BUN/Creatinine Ratio 21.87; Bilirubin,Total 0.6 mg/dL (0.1-1.2); Calcium 7.8 mg/dL (8.4-10.2); Chloride 104.2 mmol/L (98-107); Potassium 3.8 mmol/L (3.6-5.0); Total Protein 5.5 g/dL (6.3-8.2)
--- NOTE | 2016-11-29 19:12 | Progress Note ---
Subjective Date of service: 11/29/16 Principal diagnosis: Right leg cellulitis, Acute renal failure Interval history: Feels better. No new complaints. . PHYSICAL EXAM Vital signs - temp 98. chest - good air entry cvs - s1s2 abd - bs+ extr - right leg ++ edema. Red and tender to touch. Improving. LABS ESR >140, CRP 31.3. CT chest - no pneumonia ASSESSMENT 1. Right leg cellulitis 2. b/l lymphedema of lower extremities 3. Hypertension 4. obesity 5. BACTEREMIA Pasteurella multocida. RECOMMENDATION 1. d/c iv abx. Start oral augmentin and zyvox. 2. cbc / bmp in am 3. d/c planning. Objective - Constitutional Vitals: Vital Signs Temp Pulse Resp BP Pulse Ox 97.9 F 59 L 16 136/54 98 11/29/16 05:38 11/29/16 10:40 11/29/16 10:00 11/29/16 10:40 11/28/16 10:00 Temperature -Last 24 Hours Temperature 97.9 F Temperature 98 F Temperature 98.1 F Temperature 97.7 F Temperature 97.7 F Temperature 97.9 F Temperature 99.1 F - Labs CBC & Chem 7: 11/29/16 14:09 11/29/16 14:09 Labs: Abnormal lab results 11/26/16 11/28/16 11/29/16 Range/Units 10:47 22:58 14:09 WBC (4.5-11.0) K/mm3 RBC (3.65-5.03) M/mm3 Hgb (10.1-14.3) gm/dl Hct (30.3-42.9) % MCH (28-32) pg RDW (13.2-15.2) % Seg Neuts % (Manual) (40.0-70.0) % Lymphocytes % (Manual) (13.4-35.0) % Monocytes % (Manual) (0.0-7.3) % Seg Neutrophils # Man (1.8-7.7) K/mm3 Lymphocytes # (Manual) (1.2-5.4) K/mm3 Monocytes # (Manual) (0.0-0.8) K/mm3 Sodium 136 L (137-145) mmol/L Carbon Dioxide 20 L (22-30) mmol/L BUN 35 H (7-17) mg/dL Creatinine 1.6 H (0.7-1.2) mg/dL Glucose 103 H (65-100) mg/dL Calcium 7.8 L (8.4-10.2) mg/dL Serum Total Protein 5.0 L (6.1-8.1) g/dL Total Protein 5.5 L (6.3-8.2) g/dL Albumin 1.8 L 2.1 L (3.8-4.8) g/dL Swfal-9-Tvgjybmfa 0.6 H (0.2-0.3) g/dL Hxwce-4-Sbazsjnfe 1.0 H (0.5-0.9) g/dL PEP Interpretation see below H Crossmatch See Detail 11/29/16 Range/Units 14:09 WBC 11.2 H (4.5-11.0) K/mm3 RBC 3.40 L (3.65-5.03) M/mm3 Hgb 8.7 L (10.1-14.3) gm/dl Hct 27.6 L (30.3-42.9) % MCH 26 L (28-32) pg RDW 17.4 H (13.2-15.2) % Seg Neuts % (Manual) 80.0 H (40.0-70.0) % Lymphocytes % (Manual) 2.0 L (13.4-35.0) % Monocytes % (Manual) 9.0 H (0.0-7.3) % Seg Neutrophils # Man 9.0 H (1.8-7.7) K/mm3 Lymphocytes # (Manual) 0.2 L (1.2-5.4) K/mm3 Monocytes # (Manual) 1.0 H (0.0-0.8) K/mm3 Sodium (137-145) mmol/L Carbon Dioxide (22-30) mmol/L BUN (7-17) mg/dL Creatinine (0.7-1.2) mg/dL Glucose (65-100) mg/dL Calcium (8.4-10.2) mg/dL Serum Total Protein (6.1-8.1) g/dL Total Protein (6.3-8.2) g/dL Albumin (3.8-4.8) g/dL Sbwro-3-Algovprap (0.2-0.3) g/dL Zzthl-0-Raihujrig (0.5-0.9) g/dL PEP Interpretation Crossmatch
[2016-11-29 20:13] LABS: Myeloperoxidase Antibody <1.0 AI (<1.0)
[2016-11-29] MEDS: AUGMENTIN 500 MG PO SCH (22:23)
[2016-11-29] MEDS: ZYVOX PO SCH (22:33)
[2016-11-29] MEDS: BENADRYL PO PRN (23:23)
[2016-11-29] MEDS: TYLENOL PO PRN (23:24)
[2016-11-30] MEDS: ATARAX PO SCH ×4 (01:43→19:47)
[2016-11-30 06:05] LABS: BUN/Creatinine Ratio 20.71; Calcium 7.8 mg/dL (8.4-10.2); Chloride 110.3 mmol/L (98-107)
[2016-11-30] MEDS: SYNTHROID PO SCH (06:19)
[2016-11-30] MEDS: NS/KCL 20MEQ 20 MEQ/1,000 ML BAG IV SCH (08:23)
--- NOTE | 2016-11-30 09:51 | Progress Note ---
Assessment and Plan Impression: * Acute kidney injury secondary to prerenal azotemia (FeNa 0.1%) in setting of ACEi vs ATN; r/o Vancomycin toxicity; r/o AIN * Drug rash * Right lower extremity cellulitis * Sepsis * GNR bacterimia - pastuerella * Chronic lymphedema * Debility secondary to chronic lymphedema * Hypertension Plan: * Patient oral mucosa remains dry. Continue IV hydration. * Change IV fluid to half-normal saline * ct chest noted * Urine negative for eosinophils. Complement C3 and C4 both are negative * Results of other serologic work up * normal renal u/s findings * Strict I/O * Dose medications for renal function * Avoid nephrotoxins Subjective Date of service: 11/30/16 Principal diagnosis: Right leg cellulitis, Acute renal failure Interval history: Patient is comfortable. Denies any shortness of breath. No nausea or vomiting. Oral intake poor per nursing staff Objective - Vital Signs Vital signs: Vital Signs - 12hr 11/29/16 22:00 Temperature 99.2 F Pulse Rate [ 80 From Monitor] Respiratory 20 Rate Blood Pressure 142/49 [Right Arm] - General Appearance General appearance: well-developed, well-nourished, appears stated age EENT: PERRL, mucous membranes dry Neck: no JVD, no thyromegaly, no carotid bruit, supple Respiratory: Present: Clear to Ascultation Cardiology: regular, normal heart rate, S1S2, no murmurs Gastrointestinal: normal, normoactive bowel sounds Integumentary: other (rash noted in both upper extremities. Erythema in her legs also with chronic skin changes) - Lab 11/29/16 14:09 11/30/16 04:30 Most recent lab results Calcium 7.8 mg/dL (8.4-10.2) L 11/30/16 04:30 Urine Creatinine 174.7 mg/dL (0.1-20.0) H 11/25/16 19:38 Urine Sodium 10 mEq/L 11/25/16 19:38
[2016-11-30] MEDS: ZYVOX PO SCH ×2 (11:02→23:00)
[2016-11-30] MEDS: AUGMENTIN 500 MG PO SCH ×2 (11:02→23:00)
[2016-11-30] MEDS: NORVASC PO SCH (11:03)
[2016-11-30] MEDS: PEPCID PO SCH ×2 (11:09→23:00)
--- NOTE | 2016-11-30 11:22 | Progress Note ---
Assessment and Plan Assessment and plan: 1. Right lower extremity cellulitis. Continue antibiotics per ID. Improving. 2. Sepsis. Blood cultures and urine culture showed no growth so far. 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 Patient on meropenem, Zyvox, Flagyl. ID following. Input appreciated. 3. NADINE: Continue IV hydration. Nephrology following. Appreciate input. Urine negative for eosinophils. Complement C3 and C4 both are negative. Renal ultrasound is normal. 4. Chronic lymphedema: Chronic with cellulitis of both lower extremities. Continue on IV antibiotics. 5. Hypertension: Controlled. 6. Hypokalemia. Replete potassium as needed. 7. Large hiatal hernia per CT scan of the chest 8. Anemia. s/p PRBCs. Continue to follow H&H. 9. HX OF LUNG CA 10. DVT prophylaxis with Lovenox and GI prophylaxis with Pepcid History Interval history: No new Issues overnight. Hospitalist Physical - Constitutional Vitals: Temp Pulse Resp BP Pulse Ox 99.2 F 56 L 20 147/66 100 11/29/16 22:00 11/30/16 11:03 11/29/16 22:00 11/30/16 11:03 11/29/16 19:41 General appearance: Present: no acute distress, well-nourished - EENT Eyes: Present: PERRL, EOM intact ENT: hearing intact, clear oral mucosa, dentition normal - Neck Neck: Present: supple, normal ROM - Respiratory Respiratory effort: normal Respiratory: bilateral: CTA - Cardiovascular Rhythm: regular Heart Sounds: Present: S1 & S2. Absent: gallop, rub - Extremities Extremities: no ischemia, Full ROM Extremity abnormal: edema (eythema, lymphedema), erythema - Abdominal General gastrointestinal: soft, non-tender, non-distended, normal bowel sounds - Integumentary Integumentary: Present: clear, warm, dry - Neurologic Neurologic: CNII-XII intact, moves all extremities Results - Labs CBC & Chem 7: 11/29/16 14:09 11/30/16 04:30 Labs: Laboratory Last Values WBC 11.2 K/mm3 (4.5-11.0) H 11/29/16 14:09 RBC 3.40 M/mm3 (3.65-5.03) L 11/29/16 14:09 Hgb 8.7 gm/dl (10.1-14.3) L 11/29/16 14:09 Hct 27.6 % (30.3-42.9) L 11/29/16 14:09 MCV 81 fl (79-97) 11/29/16 14:09 MCH 26 pg (28-32) L 11/29/16 14:09 MCHC 32 % (30-34) 11/29/16 14:09 RDW 17.4 % (13.2-15.2) H 11/29/16 14:09 Plt Count 407 K/mm3 (140-440) 11/29/16 14:09 Lymph % (Auto) 3.0 % (13.4-35.0) L 11/27/16 04:21 [place] % (Auto) 5.3 % (0.0-7.3) 11/27/16 04:21 Eos % (Auto) 1.8 % (0.0-4.3) 11/27/16 04:21 Baso % (Auto) 0.2 % (0.0-1.8) 11/27/16 04:21 Lymph # 0.6 K/mm3 (1.2-5.4) L 11/27/16 04:21 [place] # 1.0 K/mm3 (0.0-0.8) H 11/27/16 04:21 Eos # 0.3 K/mm3 (0.0-0.4) 11/27/16 04:21 Baso # 0.0 K/mm3 (0.0-0.1) 11/27/16 04:21 Add Manual Diff Complete 11/29/16 14:09 Total Counted 100 11/29/16 14:09 Seg Neutrophils % 89.7 % (40.0-70.0) H 11/27/16 04:21 Seg Neuts % (Manual) 80.0 % (40.0-70.0) H 11/29/16 14:09 Band Neutrophils % 6.0 % 11/29/16 14:09 Lymphocytes % (Manual) 2.0 % (13.4-35.0) L 11/29/16 14:09 Reactive Lymphs % (Man) 0 % 11/29/16 14:09 Monocytes % (Manual) 9.0 % (0.0-7.3) H 11/29/16 14:09 Eosinophils % (Manual) 3.0 % (0.0-4.3) 11/29/16 14:09 Basophils % (Manual) 0 % (0.0-1.8) 11/29/16 14:09 Metamyelocytes % 0 % 11/29/16 14:09 Myelocytes % 0 % 11/29/16 14:09 Promyelocytes % 0 % 11/29/16 14:09 Blast Cells % 0 % 11/29/16 14:09 Nucleated RBC % Not Reportable 11/29/16 14:09 Seg Neutrophils # 16.5 K/mm3 (1.8-7.7) H 11/27/16 04:21 Seg Neutrophils # Man 9.0 K/mm3 (1.8-7.7) H 11/29/16 14:09 Band Neutrophils # 0.7 K/mm3 11/29/16 14:09 Lymphocytes # (Manual) 0.2 K/mm3 (1.2-5.4) L 11/29/16 14:09 Abs React Lymphs (Man) 0.0 K/mm3 11/29/16 14:09 Monocytes # (Manual) 1.0 K/mm3 (0.0-0.8) H 11/29/16 14:09 Eosinophils # (Manual) 0.3 K/mm3 (0.0-0.4) 11/29/16 14:09 Basophils # (Manual) 0.0 K/mm3 (0.0-0.1) 11/29/16 14:09 Metamyelocytes # 0.0 K/mm3 11/29/16 14:09 Myelocytes # 0.0 K/mm3 11/29/16 14:09 Promyelocytes # 0.0 K/mm3 11/29/16 14:09 Blast Cells # 0.0 K/mm3 11/29/16 14:09 WBC Morphology Not Reportable 11/29/16 14:09 Hypersegmented Neuts Not Reportable 11/29/16 14:09 Hyposegmented Neuts Not Reportable 11/29/16 14:09 Hypogranular Neuts Not Reportable 11/29/16 14:09 Smudge Cells Not Reportable 11/29/16 14:09 Toxic Granulation Not Reportable 11/29/16 14:09 Toxic Vacuolation Not Reportable 11/29/16 14:09 Dohle Bodies Not Reportable 11/29/16 14:09 Pelger-Huet Anomaly Not Reportable 11/29/16 14:09 Marla Rods Not Reportable 11/29/16 14:09 Platelet Estimate Appears increased 11/29/16 14:09 Clumped Platelets Not Reportable 11/29/16 14:09 Plt Clumps, EDTA Not Reportable 11/29/16 14:09 Large Platelets Few 11/29/16 14:09 Giant Platelets Not Reportable 11/29/16 14:09 Platelet Satelliting Not Reportable 11/29/16 14:09 Plt Morphology Comment Not Reportable 11/29/16 14:09 RBC Morphology Not Reportable 11/29/16 14:09 Dimorphic RBCs Not Reportable 11/29/16 14:09 Polychromasia Not Reportable 11/29/16 14:09 Hypochromasia 1+ 11/29/16 14:09 Poikilocytosis Not Reportable 11/29/16 14:09 Anisocytosis Not Reportable 11/29/16 14:09 Microcytosis Not Reportable 11/29/16 14:09 Macrocytosis Not Reportable 11/29/16 14:09 Spherocytes Not Reportable 11/29/16 14:09 Pappenheimer Bodies Not Reportable 11/29/16 14:09 Sickle Cells Not Reportable 11/29/16 14:09 Target Cells Not Reportable 11/29/16 14:09 Tear Drop Cells Not Reportable 11/29/16 14:09 Ovalocytes Not Reportable 11/29/16 14:09 Helmet Cells Not Reportable 11/29/16 14:09 Echevarria-[place] Bodies Not Reportable 11/29/16 14:09 [place] Rings Not Reportable 11/29/16 14:09 [place] Cells Not Reportable 11/29/16 14:09 Bite Cells Not Reportable 11/29/16 14:09 Crenated Cell Not Reportable 11/29/16 14:09 Elliptocytes Not Reportable 11/29/16 14:09 Acanthocytes (Spur) Not Reportable 11/29/16 14:09 Rouleaux Not Reportable 11/29/16 14:09 Hemoglobin C Crystals Not Reportable 11/29/16 14:09 Schistocytes Not Reportable 11/29/16 14:09 Malaria parasites Not Reportable 11/29/16 14:09 ESR > 140.0 mm/Hr (0-20) 11/19/16 19:26 Luis Daniel Bodies Not Reportable 11/29/16 14:09 Hem Pathologist Commnt No 11/29/16 14:09 PT 16.3 Sec. (12.2-14.9) H 11/17/16 15:48 INR 1.32 (0.87-1.13) H 11/17/16 15:48 Heparin Anti-Xa Level < 0.10 U.I./ml (0.3-0.7) L 11/23/16 09:53 Sodium 142 mmol/L (137-145) 11/30/16 04:30 Potassium 4.0 mmol/L (3.6-5.0) 11/30/16 04:30 Chloride 110.3 mmol/L (98-107) H 11/30/16 04:30 Carbon Dioxide 20 mmol/L (22-30) L 11/30/16 04:30 Anion Gap 16 mmol/L 11/30/16 04:30 BUN 29 mg/dL (7-17) H 11/30/16 04:30 Creatinine 1.4 mg/dL (0.7-1.2) H 11/30/16 04:30 Estimated GFR 36 ml/min 11/30/16 04:30 BUN/Creatinine Ratio 20.71 % 11/30/16 04:30 Glucose 85 mg/dL (65-100) 11/30/16 04:30 Lactic Acid 1.3 mmol/L (0.7-2.0) 11/25/16 09:22 Uric Acid 8.4 mg/dL (3.5-7.6) H 11/25/16 14:01 Calcium 7.8 mg/dL (8.4-10.2) L 11/30/16 04:30 Total Bilirubin 0.6 mg/dL (0.1-1.2) 11/29/16 14:09 AST 21 units/L (5-40) 11/29/16 14:09 ALT 8 units/L (7-56) 11/29/16 14:09 Alkaline Phosphatase 88 units/L (35-129) 11/29/16 14:09 Total Creatine Kinase 481 units/L (30-135) H 11/17/16 15:48 C-Reactive Protein 31.30 mg/dL (0.00-1.30) H 11/19/16 19:26 Serum Total Protein 5.0 g/dL (6.1-8.1) L 11/26/16 10:47 Total Protein 5.5 g/dL (6.3-8.2) L 11/29/16 14:09 Albumin 2.1 g/dL (3.9-5) L 11/29/16 14:09 Albumin/Globulin Ratio 0.6 % 11/29/16 14:09 Xwulg-6-Andfikncn 0.6 g/dL (0.2-0.3) H 11/26/16 10:47 Ryepu-4-Wngalestv 1.0 g/dL (0.5-0.9) H 11/26/16 10:47 Beta Globulins 0.4 g/dL (0.2-0.5) 11/26/16 10:47 Gamma Globulins 0.9 g/dL (0.8-1.7) 11/26/16 10:47 Abnorm Protein Band 1 see below 11/26/16 10:47 PEP Interpretation see below H 11/26/16 10:47 Urine Color Yellow (Yellow) 11/25/16 19:39 Urine Turbidity Clear (Clear) 11/25/16 19:39 Urine pH 5.0 (5.0-7.0) 11/25/16 19:39 Ur Specific [place] 1.015 (1.003-1.030) 11/25/16 19:39 Urine Protein <15 mg/dl mg/dL (Negative) 11/25/16 19:39 Urine Glucose (UA) Neg mg/dL (Negative) 11/25/16 19:39 Urine Ketones Neg mg/dL (Negative) 11/25/16 19:39 Urine Blood Neg (Negative) 11/25/16 19:39 Urine Nitrite Neg (Negative) 11/25/16 19:39 Urine Bilirubin Neg (Negative) 11/25/16 19:39 Urine Urobilinogen < 2.0 mg/dL (<2.0) 11/25/16 19:39 Ur Leukocyte Esterase Neg (Negative) 11/25/16 19:39 Urine WBC (Auto) 5.0 /HPF (0.0-6.0) 11/25/16 19:39 Urine RBC (Auto) 3.0 /HPF (0.0-6.0) 11/25/16 19:39 U Epithel Cells (Auto) 3.0 /HPF (0-13.0) 11/25/16 19:39 Urine Bacteria (Auto) 1+ /HPF (Negative) 11/25/16 19:39 Urine Eosinophils None seen (None Seen) 11/26/16 17:00 Urine Creatinine 174.7 mg/dL (0.1-20.0) H 11/25/16 19:38 Urine Sodium 10 mEq/L 11/25/16 19:38 Random Vancomycin 7.0 ug/mL (0-40.0) 11/26/16 10:47 Proteinase 3 (PR3) Ab <1.0 AI (<1.0) 11/26/16 10:47 Myeloperoxidase Ab <1.0 AI (<1.0) 11/26/16 10:47 Complement C3 150 mg/dL (90-180) 11/26/16 10:47 Complement C4 31 mg/dL (16-47) 11/26/16 10:47 Blood Type A NEGATIVE 11/28/16 22:58 Antibody Screen Negative 11/28/16 22:58 Crossmatch See Detail 11/28/16 22:58
[2016-11-30] MEDS ORDERED: NACL 0.45% 1000 ML 1,000 ML IV SCH (12:00)
--- NOTE | 2016-11-30 20:03 | Progress Note ---
Subjective Date of service: 11/30/16 Principal diagnosis: Right leg cellulitis, Acute renal failure Interval history: Feels better. No new complaints. PHYSICAL EXAM Vital signs - temp 98. chest - good air entry cvs - s1s2 abd - bs+ extr - right leg ++ edema. Red and tender to touch. Improving. LABS ESR >140, CRP 31.3. CT chest - no pneumonia ASSESSMENT 1. Right leg cellulitis 2. b/l lymphedema of lower extremities 3. Hypertension 4. obesity 5. BACTEREMIA Pasteurella multocida. RECOMMENDATION 1. oral augmentin and zyvox FOR 10 - 14 DAYS. 2. cbc / bmp in am 3. d/c planning. Objective - Constitutional Vitals: Vital Signs Temp Pulse Resp BP Pulse Ox 97.7 F 56 L 16 147/66 100 11/30/16 10:00 11/30/16 11:03 11/30/16 10:00 11/30/16 11:03 11/29/16 19:41 Temperature -Last 24 Hours Temperature 97.7 F Temperature 99.2 F - Labs CBC & Chem 7: 11/29/16 14:09 11/30/16 04:30 Labs: Abnormal lab results 11/30/16 Range/Units 04:30 Chloride 110.3 H (98-107) mmol/L Carbon Dioxide 20 L (22-30) mmol/L BUN 29 H (7-17) mg/dL Creatinine 1.4 H (0.7-1.2) mg/dL Calcium 7.8 L (8.4-10.2) mg/dL
[2016-12-01] MEDS: ATARAX PO SCH ×4 (01:10→14:11)
[2016-12-01] MEDS: SYNTHROID PO SCH (05:46)
[2016-12-01 05:58] LABS: Calcium 7.9 mg/dL (8.4-10.2); Chloride 111.8 mmol/L (98-107); Potassium 4.5 mmol/L (3.6-5.0)
--- NOTE | 2016-12-01 08:38 | Progress Note ---
Assessment and Plan Impression: * Acute kidney injury secondary to prerenal azotemia (FeNa 0.1%) in setting of ACEi vs ATN; r/o Vancomycin toxicity; r/o AIN * Drug rash * Right lower extremity cellulitis * Sepsis * GNR bacterimia - pastuerella * Chronic lymphedema * Debility secondary to chronic lymphedema * Hypertension Plan: * Patient's renal function has improved significantly. Shall discontinue her IV fluid * ct chest noted * Urine negative for eosinophils. ANCA levels Complement C3 and C4 both are negative * normal renal u/s findings * Strict I/O * Dose medications for renal function * Avoid nephrotoxins * Okay to discharge patient from renal standpoint. Shall follow the patient PRN Subjective Date of service: 12/01/16 Principal diagnosis: Right leg cellulitis, Acute renal failure Interval history: Patient is comfortable. Denies any shortness of breath. No nausea or vomiting. Oral intake not to go at per nursing staff Objective - Vital Signs Vital signs: Vital Signs - 12hr 11/30/16 12/01/16 21:07 07:35 Temperature 97.6 F 98.7 F Pulse Rate [ 93 H From Monitor] Pulse Rate [ 92 H Right Dorsalis Pedis] Respiratory 18 20 Rate Blood Pressure 150/65 [Left Calf] Blood Pressure 150/64 [Right Arm] - General Appearance General appearance: well-developed, well-nourished, appears stated age EENT: PERRL, mucous membranes moist Neck: no JVD, no thyromegaly, no carotid bruit, supple Respiratory: Present: Clear to Ascultation Cardiology: regular, normal heart rate, S1S2, no murmurs Gastrointestinal: normal, normoactive bowel sounds Integumentary: rash (diffuse rash noted. Both legs are erythematous and has chronic skin changes) - Lab 11/29/16 14:09 12/01/16 Unknown Most recent lab results Calcium 7.9 mg/dL (8.4-10.2) L 12/01/16 Unknown Urine Creatinine 174.7 mg/dL (0.1-20.0) H 11/25/16 19:38 Urine Sodium 10 mEq/L 11/25/16 19:38
[2016-12-01] MEDS: PEPCID PO SCH (10:59)
[2016-12-01] MEDS: AUGMENTIN 500 MG PO SCH (10:59)
[2016-12-01] MEDS: NORVASC PO SCH (11:00)
[2016-12-01] MEDS: ZYVOX PO SCH (11:00)
--- NOTE | 2016-12-01 12:02 | Progress Note ---
Assessment and Plan Assessment and plan: 1. Right lower extremity cellulitis. Continue antibiotics per ID. Improving. 2. Sepsis. Blood cultures and urine culture showed no growth so far. 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 Patient on meropenem, Zyvox, Flagyl. ID following. Input appreciated. 3. NADINE. Continue IV hydration. Nephrology following. Appreciate input. Urine negative for eosinophils. Complement C3 and C4 both are negative. Renal ultrasound is normal. 4. Chronic lymphedema. Chronic with cellulitis of both lower extremities (R>L) . Continue on IV antibiotics. 5. Hypertension. Controlled. 6. Hypokalemia. Replete potassium as needed. 7. Large hiatal hernia per CT scan of the chest 8. Anemia. s/p PRBCs. Continue to follow H&H. 9. HX OF LUNG CA 10. DVT prophylaxis with Lovenox and GI prophylaxis with Pepcid History Interval history: No new Issues overnight. Hospitalist Physical - Constitutional Vitals: Temp Pulse Resp BP Pulse Ox 98.7 F 100 H 20 139/61 100 12/01/16 07:35 12/01/16 11:00 12/01/16 07:35 12/01/16 11:00 11/29/16 19:41 General appearance: Present: no acute distress, well-nourished - EENT Eyes: Present: PERRL, EOM intact ENT: hearing intact, clear oral mucosa, dentition normal - Neck Neck: Present: supple, normal ROM - Respiratory Respiratory effort: normal Respiratory: bilateral: CTA - Cardiovascular Rhythm: regular Heart Sounds: Present: S1 & S2. Absent: gallop, rub - Extremities Extremities: no ischemia, No edema, Full ROM Extremity abnormal: erythema (R>L moderate to mild erythema) - Abdominal General gastrointestinal: soft, non-tender, non-distended, normal bowel sounds - Integumentary Integumentary: Present: clear, warm, dry - Neurologic Neurologic: CNII-XII intact, moves all extremities Results - Labs CBC & Chem 7: 11/29/16 14:09 12/01/16 Unknown Labs: Laboratory Last Values WBC 11.2 K/mm3 (4.5-11.0) H 11/29/16 14:09 RBC 3.40 M/mm3 (3.65-5.03) L 11/29/16 14:09 Hgb 8.7 gm/dl (10.1-14.3) L 11/29/16 14:09 Hct 27.6 % (30.3-42.9) L 11/29/16 14:09 MCV 81 fl (79-97) 11/29/16 14:09 MCH 26 pg (28-32) L 11/29/16 14:09 MCHC 32 % (30-34) 11/29/16 14:09 RDW 17.4 % (13.2-15.2) H 11/29/16 14:09 Plt Count 407 K/mm3 (140-440) 11/29/16 14:09 Lymph % (Auto) 3.0 % (13.4-35.0) L 11/27/16 04:21 [place] % (Auto) 5.3 % (0.0-7.3) 11/27/16 04:21 Eos % (Auto) 1.8 % (0.0-4.3) 11/27/16 04:21 Baso % (Auto) 0.2 % (0.0-1.8) 11/27/16 04:21 Lymph # 0.6 K/mm3 (1.2-5.4) L 11/27/16 04:21 [place] # 1.0 K/mm3 (0.0-0.8) H 11/27/16 04:21 Eos # 0.3 K/mm3 (0.0-0.4) 11/27/16 04:21 Baso # 0.0 K/mm3 (0.0-0.1) 11/27/16 04:21 Add Manual Diff Complete 11/29/16 14:09 Total Counted 100 11/29/16 14:09 Seg Neutrophils % 89.7 % (40.0-70.0) H 11/27/16 04:21 Seg Neuts % (Manual) 80.0 % (40.0-70.0) H 11/29/16 14:09 Band Neutrophils % 6.0 % 11/29/16 14:09 Lymphocytes % (Manual) 2.0 % (13.4-35.0) L 11/29/16 14:09 Reactive Lymphs % (Man) 0 % 11/29/16 14:09 Monocytes % (Manual) 9.0 % (0.0-7.3) H 11/29/16 14:09 Eosinophils % (Manual) 3.0 % (0.0-4.3) 11/29/16 14:09 Basophils % (Manual) 0 % (0.0-1.8) 11/29/16 14:09 Metamyelocytes % 0 % 11/29/16 14:09 Myelocytes % 0 % 11/29/16 14:09 Promyelocytes % 0 % 11/29/16 14:09 Blast Cells % 0 % 11/29/16 14:09 Nucleated RBC % Not Reportable 11/29/16 14:09 Seg Neutrophils # 16.5 K/mm3 (1.8-7.7) H 11/27/16 04:21 Seg Neutrophils # Man 9.0 K/mm3 (1.8-7.7) H 11/29/16 14:09 Band Neutrophils # 0.7 K/mm3 11/29/16 14:09 Lymphocytes # (Manual) 0.2 K/mm3 (1.2-5.4) L 11/29/16 14:09 Abs React Lymphs (Man) 0.0 K/mm3 11/29/16 14:09 Monocytes # (Manual) 1.0 K/mm3 (0.0-0.8) H 11/29/16 14:09 Eosinophils # (Manual) 0.3 K/mm3 (0.0-0.4) 11/29/16 14:09 Basophils # (Manual) 0.0 K/mm3 (0.0-0.1) 11/29/16 14:09 Metamyelocytes # 0.0 K/mm3 11/29/16 14:09 Myelocytes # 0.0 K/mm3 11/29/16 14:09 Promyelocytes # 0.0 K/mm3 11/29/16 14:09 Blast Cells # 0.0 K/mm3 11/29/16 14:09 WBC Morphology Not Reportable 11/29/16 14:09 Hypersegmented Neuts Not Reportable 11/29/16 14:09 Hyposegmented Neuts Not Reportable 11/29/16 14:09 Hypogranular Neuts Not Reportable 11/29/16 14:09 Smudge Cells Not Reportable 11/29/16 14:09 Toxic Granulation Not Reportable 11/29/16 14:09 Toxic Vacuolation Not Reportable 11/29/16 14:09 Dohle Bodies Not Reportable 11/29/16 14:09 Pelger-Huet Anomaly Not Reportable 11/29/16 14:09 Marla Rods Not Reportable 11/29/16 14:09 Platelet Estimate Appears increased 11/29/16 14:09 Clumped Platelets Not Reportable 11/29/16 14:09 Plt Clumps, EDTA Not Reportable 11/29/16 14:09 Large Platelets Few 11/29/16 14:09 Giant Platelets Not Reportable 11/29/16 14:09 Platelet Satelliting Not Reportable 11/29/16 14:09 Plt Morphology Comment Not Reportable 11/29/16 14:09 RBC Morphology Not Reportable 11/29/16 14:09 Dimorphic RBCs Not Reportable 11/29/16 14:09 Polychromasia Not Reportable 11/29/16 14:09 Hypochromasia 1+ 11/29/16 14:09 Poikilocytosis Not Reportable 11/29/16 14:09 Anisocytosis Not Reportable 11/29/16 14:09 Microcytosis Not Reportable 11/29/16 14:09 Macrocytosis Not Reportable 11/29/16 14:09 Spherocytes Not Reportable 11/29/16 14:09 Pappenheimer Bodies Not Reportable 11/29/16 14:09 Sickle Cells Not Reportable 11/29/16 14:09 Target Cells Not Reportable 11/29/16 14:09 Tear Drop Cells Not Reportable 11/29/16 14:09 Ovalocytes Not Reportable 11/29/16 14:09 Helmet Cells Not Reportable 11/29/16 14:09 Echevarria-[place] Bodies Not Reportable 11/29/16 14:09 [place] Rings Not Reportable 11/29/16 14:09 [place] Cells Not Reportable 11/29/16 14:09 Bite Cells Not Reportable 11/29/16 14:09 Crenated Cell Not Reportable 11/29/16 14:09 Elliptocytes Not Reportable 11/29/16 14:09 Acanthocytes (Spur) Not Reportable 11/29/16 14:09 Rouleaux Not Reportable 11/29/16 14:09 Hemoglobin C Crystals Not Reportable 11/29/16 14:09 Schistocytes Not Reportable 11/29/16 14:09 Malaria parasites Not Reportable 11/29/16 14:09 ESR > 140.0 mm/Hr (0-20) 11/19/16 19:26 Luis Daniel Bodies Not Reportable 11/29/16 14:09 Hem Pathologist Commnt No 11/29/16 14:09 PT 16.3 Sec. (12.2-14.9) H 11/17/16 15:48 INR 1.32 (0.87-1.13) H 11/17/16 15:48 Heparin Anti-Xa Level < 0.10 U.I./ml (0.3-0.7) L 11/23/16 09:53 Sodium 142 mmol/L (137-145) 12/01/16 Unknown Potassium 4.5 mmol/L (3.6-5.0) 12/01/16 Unknown Chloride 111.8 mmol/L (98-107) H 12/01/16 Unknown Carbon Dioxide 20 mmol/L (22-30) L 12/01/16 Unknown Anion Gap 15 mmol/L 12/01/16 Unknown BUN 22 mg/dL (7-17) H 12/01/16 Unknown Creatinine 1.1 mg/dL (0.7-1.2) 12/01/16 Unknown Estimated GFR 48 ml/min 12/01/16 Unknown BUN/Creatinine Ratio 20.00 % 12/01/16 Unknown Glucose 85 mg/dL (65-100) 12/01/16 Unknown Lactic Acid 1.3 mmol/L (0.7-2.0) 11/25/16 09:22 Uric Acid 8.4 mg/dL (3.5-7.6) H 11/25/16 14:01 Calcium 7.9 mg/dL (8.4-10.2) L 12/01/16 Unknown Total Bilirubin 0.6 mg/dL (0.1-1.2) 11/29/16 14:09 AST 21 units/L (5-40) 11/29/16 14:09 ALT 8 units/L (7-56) 11/29/16 14:09 Alkaline Phosphatase 88 units/L (35-129) 11/29/16 14:09 Total Creatine Kinase 481 units/L (30-135) H 11/17/16 15:48 C-Reactive Protein 31.30 mg/dL (0.00-1.30) H 11/19/16 19:26 Serum Total Protein 5.0 g/dL (6.1-8.1) L 11/26/16 10:47 Total Protein 5.5 g/dL (6.3-8.2) L 11/29/16 14:09 Albumin 2.1 g/dL (3.9-5) L 11/29/16 14:09 Albumin/Globulin Ratio 0.6 % 11/29/16 14:09 Iyvgf-4-Wpiivmmri 0.6 g/dL (0.2-0.3) H 11/26/16 10:47 Sfivl-5-Xnowdhppl 1.0 g/dL (0.5-0.9) H 11/26/16 10:47 Beta Globulins 0.4 g/dL (0.2-0.5) 11/26/16 10:47 Gamma Globulins 0.9 g/dL (0.8-1.7) 11/26/16 10:47 Abnorm Protein Band 1 see below 11/26/16 10:47 PEP Interpretation see below H 11/26/16 10:47 Urine Color Yellow (Yellow) 11/25/16 19:39 Urine Turbidity Clear (Clear) 11/25/16 19:39 Urine pH 5.0 (5.0-7.0) 11/25/16 19:39 Ur Specific [place] 1.015 (1.003-1.030) 11/25/16 19:39 Urine Protein <15 mg/dl mg/dL (Negative) 11/25/16 19:39 Urine Glucose (UA) Neg mg/dL (Negative) 11/25/16 19:39 Urine Ketones Neg mg/dL (Negative) 11/25/16 19:39 Urine Blood Neg (Negative) 11/25/16 19:39 Urine Nitrite Neg (Negative) 11/25/16 19:39 Urine Bilirubin Neg (Negative) 11/25/16 19:39 Urine Urobilinogen < 2.0 mg/dL (<2.0) 11/25/16 19:39 Ur Leukocyte Esterase Neg (Negative) 11/25/16 19:39 Urine WBC (Auto) 5.0 /HPF (0.0-6.0) 11/25/16 19:39 Urine RBC (Auto) 3.0 /HPF (0.0-6.0) 11/25/16 19:39 U Epithel Cells (Auto) 3.0 /HPF (0-13.0) 11/25/16 19:39 Urine Bacteria (Auto) 1+ /HPF (Negative) 11/25/16 19:39 Urine Eosinophils None seen (None Seen) 11/26/16 17:00 Urine Creatinine 174.7 mg/dL (0.1-20.0) H 11/25/16 19:38 Urine Sodium 10 mEq/L 11/25/16 19:38 Random Vancomycin 7.0 ug/mL (0-40.0) 11/26/16 10:47 Proteinase 3 (PR3) Ab <1.0 AI (<1.0) 11/26/16 10:47 Myeloperoxidase Ab <1.0 AI (<1.0) 11/26/16 10:47 Complement C3 150 mg/dL (90-180) 11/26/16 10:47 Complement C4 31 mg/dL (16-47) 11/26/16 10:47 Blood Type A NEGATIVE 11/28/16 22:58 Antibody Screen Negative 11/28/16 22:58 Crossmatch See Detail 11/28/16 22:58
--- NOTE | 2016-12-01 13:55 | Discharge Summary ---
Providers - Providers Date of Admission: 11/17/16 15:43 Date of discharge: 12/01/16 Attending physician: OSEI WALLACE 11/18/16 08:26 Consult to Physician [CONS] Routine Consulting Provider: JAY BYERS Reason For Exam: lymphedema Place consult to:: JAY BYERS Notified:: NANDO Phone number called:: [phone] Was contact made?: Yes If yes, spoke with:: NANDO Time called:: 10:30 11/18/16 11:47 Consult to Physician [CONS] Routine Consulting Provider: KOBE NAM Reason For Exam: cellulitis Place consult to:: SADE NAM Notified:: ILANA Phone number called:: [phone] Was contact made?: Yes If yes, spoke with:: ILANA Time called:: 13:15 11/18/16 11:48 Physical Therapy Evaluation and Treat [CONS] Routine Comment: Reason For Exam: Debility, EVAL FOR SNF PLACEMENT 11/19/16 09:24 Consult to Wound/ET Nurse [CONS] Routine Reason For Exam: wound eval 11/20/16 10:34 Consult to Physician [CONS] Routine Consulting Provider: ARASH SHRESTHA Reason For Exam: inpatient rehab eval. Debility Place consult to:: Dr Constantin Shrestha Notified:: Dr Shrestha Phone number called:: [phone] Was contact made?: Yes If yes, spoke with:: Dr Shrestha Time called:: 18:10 11/25/16 16:49 Consult to Physician [CONS] Routine Consulting Provider: SUSAN COSTA Reason For Exam: NADINE Place consult to:: SUSAN COSTA Notified:: yes Phone number called:: [phone] Was contact made?: Yes Time called:: 18:44 11/27/16 12:02 Consult to PICC Line RN [CONS] Urgent Reason For Exam: iv access Type Line:: PICC Primary care physician: NAVIGATING OFFICER Hospitalization Condition: Good Hospital course: This patient is an 81-year-old female that was admitted after presenting to the ED with RLE cellulitis with chronic, bilateral lymphedema. She recently developed swelling and blisters that have drained on her right lower extremity associated with worsening erythema. Patient was seen by infectious disease with adjustment of antibiotics. Patient was also noted to have worsening renal function requiring nephrology consultation. Patient was felt to have acute kidney injury secondary to prerenal azotemia in the setting of YANDEL inhibitor versus ATN. There was also some question of vancomycin toxicity/AIN. However, Urinary eosinophils were negative. Renal ultrasound was within normal limits. Creatinine returned to normal range after IV fluids of 1.1. ID recommended that the patient could be discharged with by mouth medications of Augmentin and Zyvox for 14 days. She has been arranged for discharge to SNF. Dedicated discharge time 35 minutes. Disposition: DC/TX SNF W [facility] CERT - Discharge Diagnoses (1) ARF (acute renal failure) Status: Acute Qualifiers: Acute renal failure type: A (2) Cellulitis Status: Acute Qualifiers: Site of cellulitis: extremity Site of cellulitis of extremity: lower extremity Site of cellulitis of trunk: S Laterality: right Qualified Code( s): L03.115 - Cellulitis of right lower limb (3) Cellulitis of right lower extremity Status: Acute (4) Debility Status: Acute (5) Lymphedema of both lower extremities Status: Acute (6) HTN (hypertension) Status: Chronic Qualifiers: Hypertension type: essential hypertension Qualified Code(s): I10 - Essential (primary) hypertension Core Measure Documentation - Palliative Care Palliative Care/ Comfort Measures: Not Applicable - Core Measures Any of the following diagnoses?: none Exam - Constitutional Vitals: Temp Pulse Resp BP Pulse Ox 98.2 F 100 H 20 139/61 100 12/01/16 10:00 12/01/16 11:00 12/01/16 10:00 12/01/16 11:00 11/29/16 19:41 General appearance: Present: no acute distress, well-nourished - EENT Eyes: Present: PERRL ENT: hearing intact, clear oral mucosa - Neck Neck: Present: supple, normal ROM - Respiratory Respiratory effort: normal Respiratory: bilateral: CTA - Cardiovascular Heart Sounds: Present: S1 & S2. Absent: rub, click - Extremities Extremities: pulses symmetrical, No edema Peripheral Pulses: within normal limits - Abdominal General gastrointestinal: Present: soft, non-tender, non-distended, normal bowel sounds Female genitourinary: Present: normal - Integumentary Integumentary: Present: clear, warm, dry - Musculoskeletal Musculoskeletal: gait normal, strength equal bilaterally - Psychiatric Psychiatric: appropriate mood/affect, intact judgment & insight - Neurologic Neurologic: CNII-XII intact, moves all extremities Plan Activity: no restrictions Weight Bearing Status: Weight Bear as Tolerated Diet: low fat, low cholesterol, low salt Follow up with: BECKIE KNIGHT MD [Staff Physician] - 7 Days PRIMARY CARE,MD [Primary Care Provider] - 3-5 Days ADOLPH MOELLER MD [Staff Physician] - 7 Days KOBE NAM MD [Staff Physician] - 7 Days Prescriptions: Lactobacillus Acidophilus [Probiotic] 1 each PO DAILY #30 capsule Levothyroxine [Synthroid] 88 mcg PO DAILY@0600 #30 tablet Linezolid [Zyvox] 600 mg PO Q12HR #24 tablet
[2016-12-01 17:01] VITALS: BP 156/69
== END 2016-12-01 18:27 | DRG 871 ==
LOC: ED 11:23 → CC2 15:43
PROVIDERS: ADMIT Internal Medicine; ATTEND Hospitalist
PROC: 30233N1 Transfusion of Nonautologous Red Blood Cells into Peripheral Vein, Percutaneous Approach (ICD-10-PCS; principal; 2016-11-29)
DX: A41.9 Sepsis, unspecified organism (principal); N17.0 Acute kidney failure with tubular necrosis; L03.115 Cellulitis of right lower limb; D68.9 Coagulation defect, unspecified; R71.0 Precipitous drop in hematocrit; I89.0 Lymphedema, not elsewhere classified; R53.81 Other malaise; I10 Essential (primary) hypertension; E66.9 Obesity, unspecified; E87.6 Hypokalemia; Z96.652 Presence of left artificial knee joint; K44.9 Diaphragmatic hernia without obstruction or gangrene; Z68.30 Body mass index [BMI] 30.0-30.9, adult; Z88.2 Allergy status to sulfonamides; Z88.3 Allergy status to other anti-infective agents; Z85.118 Personal history of other malignant neoplasm of bronchus and lung; Z85.3 Personal history of malignant neoplasm of breast; Z88.0 Allergy status to penicillin
CPT/HCPCS: 36415; 71010; 71250; 72170; 76770; 80048; 80053; 80202; 81001; 82140; 82550; 82570; 84165; 84300; 84550; 85007; 85025; 85027; 85520; 85610; 85652; 86021; 86140; 86160; 86850; 86900; 86901; 86920; 87040; 87086; 87185; 87186; 89050; 96365; 96375; J0360; J1450; J1956; J2020; J2185; J3010; J3370; J3480; J7030; J7040; J7050; P9016

== ENCOUNTER 2017-08-21 18:51 | Emergency (ER) | payer MEDICARE, OTHER ==
--- NOTE | 2017-08-21 20:42 | Emergency Department Report ---
ED General Adult HPI - General Chief complaint: Extremity Problem,Nontraumatic Stated complaint: FEET SWELLING Time Seen by Provider: 08/21/17 20:33 Source: patient, EMS (ems notes not available at time of chart dictation), RN notes reviewed Mode of arrival: Stretcher Limitations: No Limitations - History of Present Illness Initial comments: This is an 81-year-old female who is previously known to this provider. Patient has a past medical history of chronic lymphedema in her lower extremities. Patient currently resides in a alf home. As per EMS documentation, patient complains of lower extremity edema and weeping edema to the left dorsal aspect of her foot. This is been going on for weeks to months. It does not radiate anywhere. It does not have exacerbating or relieving factors. The patient denies headache, neck pain, chest pain, abdominal pain and shortness of breath. -: Gradual Location: left, lower extremity Consistency: constant Improves with: none Worsens with: none Associated Symptoms: denies other symptoms. denies: confusion, chest pain, cough, diaphoresis, fever/chills, headaches, loss of appetite, malaise, nausea/ vomiting, rash, seizure, shortness of breath, syncope, weakness - Related Data Home Medications Medication Instructions Recorded Confirmed Last Taken NexIUM 40 mg PO DAILY 11/19/16 05/16/17 02/17/17 Amlodipine-Benazepril 5-20 mg 1 tab PO DAILY 05/16/17 05/16/17 Unknown Previous Rx's Medication Instructions Recorded Last Taken Type Lactobacillus Acidophilus 1 each PO DAILY #30 capsule 11/23/16 Unknown Rx [Probiotic] Levothyroxine [Synthroid] 88 mcg PO DAILY@0600 #30 tablet 12/01/16 02/18/17 Rx Nitrofurantoin Macrocrysta(Nf) 100 mg PO DAILY #30 capsule 05/19/17 Unknown Rx [Macrodantin CAP] Furosemide [Lasix] 20 mg PO QDAY #30 tablet 08/21/17 Unknown Rx Allergies Allergy/AdvReac Type Severity Reaction Status Date / Time iodine Allergy Severe Swelling Verified 05/16/17 15:17 Penicillins Allergy Severe Swelling Verified 05/16/17 15:17 Sulfa (Sulfonamide Allergy Severe Swelling Verified 05/16/17 15:17 Antibiotics) [place] [employer] Allergy Rash Verified 09/03/17 15:17 ED Review of Systems ROS: Stated complaint: FEET SWELLING Other details as noted in HPI Constitutional: denies: fever Eyes: denies: eye discharge ENT: denies: epistaxis Respiratory: denies: cough, shortness of breath Cardiovascular: edema. denies: chest pain Gastrointestinal: denies: abdominal pain Genitourinary: denies: dysuria Musculoskeletal: arthralgia, myalgia Neurological: denies: headache ED Past Medical Hx - Past Medical History Hx Hypertension: Yes Hx Heart Attack/AMI: No Hx Congestive Heart Failure: No Hx Diabetes: No Hx Deep Vein Thrombosis: No Hx Liver Disease: No Hx Sickle Cell Disease: No Hx Arthritis: Yes Hx Asthma: No Hx COPD: No Hx Tuberculosis: No Hx Dementia: No Hx HIV: No Additional medical history: lymphedema to shaista LE, hx breast and colon cancer, pancreatitis - Surgical History Hx Coronary Stent: No Hx Open Heart Surgery: No Hx Pacemaker: No Hx Internal Defibrillator: No Hx Cholecystectomy: Yes (gall stone) Hx Appendectomy: Yes Additional Surgical History: left knee surgery - Social History Smoking Status: Never Smoker - Medications Home Medications: Home Medications Medication Instructions Recorded Confirmed Last Taken Type NexIUM 40 mg PO DAILY 11/19/16 05/16/17 02/17/17 History Lactobacillus Acidophilus 1 each PO DAILY #30 capsule 11/23/16 05/16/17 Unknown Rx [Probiotic] Levothyroxine [Synthroid] 88 mcg PO DAILY@0600 #30 tablet 12/01/16 05/16/1704/29 Rx Amlodipine-Benazepril 5-20 mg 1 tab PO DAILY 05/16/17 05/16/17 Unknown History Nitrofurantoin Macrocrysta(Nf) 100 mg PO DAILY #30 capsule 05/19/17 Unknown Rx [Macrodantin CAP] Furosemide [Lasix] 20 mg PO QDAY #30 tablet 08/21/17 Unknown Rx ED Physical Exam - General Limitations: No Limitations General appearance: alert, in no apparent distress - Head Head exam: Present: atraumatic, normocephalic - Eye Eye exam: Present: normal appearance, EOMI. Absent: nystagmus - ENT ENT exam: Present: normal exam, normal orophraynx, mucous membranes moist, normal external ear exam - Neck Neck exam: Present: normal inspection, full ROM - Respiratory Respiratory exam: Present: normal lung sounds bilaterally. Absent: respiratory distress, chest wall tenderness - Cardiovascular Cardiovascular Exam: Present: regular rate, normal rhythm, normal heart sounds. Absent: systolic murmur, diastolic murmur, rubs, gallop - GI/Abdominal GI/Abdominal exam: Present: soft, normal bowel sounds. Absent: distended, tenderness, guarding, rebound, rigid, pulsatile mass - Extremities Exam Extremities exam: Present: full ROM, normal capillary refill, pedal edema, other (patient has 3+ edema in the lower extremities, patient has weeping edema in the bilateral lower extremities, on the dorsal aspect of the left foot, there is a 3 x 4 cm skin avulsion, 2+ pulses noted in the bilateral lower extremities, no redness, pus or streaking). Absent: tenderness, calf tenderness - Back Exam Back exam: Present: normal inspection, full ROM. Absent: paraspinal tenderness , vertebral tenderness - Neurological Exam Neurological exam: Present: alert, oriented X3, other (Extraocular movements intact. Tongue midline. No facial droop. Facial sensation intact to light touch in the V1, V2, V3 distribution bilaterally. 5 and 5 strength in 4 extremities.. Sensation is intact to light touch in 4 extremities.). Absent: motor sensory deficit - Psychiatric Psychiatric exam: Present: normal affect, normal mood - Skin Skin exam: Present: warm, dry, intact, normal color. Absent: rash ED Course Vital Signs 08/21/17 08/21/17 19:49 21:45 Temperature 98.0 F 98.7 F Pulse Rate 77 70 Respiratory 20 18 Rate Blood Pressure 147/68 Blood Pressure 139/59 [Right] O2 Sat by Pulse 99 99 Oximetry ED Medical Decision Making - Lab Data Result diagrams: 08/21/17 20:51 Vital Signs 08/21/17 19:49 Temperature 98.0 F Pulse Rate 77 Respiratory 20 Rate Blood Pressure 147/68 O2 Sat by Pulse 99 Oximetry Labs 08/21/17 20:51 Sodium 144 Potassium 4.0 Chloride 106.5 Carbon Dioxide 25 Anion Gap 17 BUN 20 H Creatinine 0.8 Estimated GFR > 60 BUN/Creatinine Ratio 25 Glucose 97 Calcium 9.3 Total Bilirubin 0.30 Direct Bilirubin < 0.2 Indirect Bilirubin 0.1 AST 9 ALT 8 Alkaline Phosphatase 57 NT-Pro-B Natriuret Pep 276.2 Total Protein 6.4 Albumin 3.9 Albumin/Globulin Ratio 1.6 - Radiology Data Radiology results: report reviewed, image reviewed X-ray the chest demonstrates chronic pulmonary vascular congestion, likely large hiatal hernia, chronic findings, mild cardiac megaly, no acute disease. - Medical Decision Making Differential diagnosis, including but not limited to: Dependent edema, DVT, renal insufficiency, hepatic insufficiency Assessment and plan: 81-year-old female with chronic lower extremity edema. She is afebrile, with reassuring vital signs, has no headache, neck pain, chest pain, shortness of breath. Patient most likely experiencing symptomatic edema. An outpatient DVT study is ordered because it cannot be obtained at 9:00 in the evening. Given patient's advanced age, I will withhold systemic anticoagulation as the patient is a fall risk. Patient will be given diuretics discharged back to her alf facility, and she can have an outpatient DVT study. There does not appear to be any emergent condition at this time. Critical care attestation.: If time is entered above; I have spent that time in minutes in the direct care of this critically ill patient, excluding procedure time. ED Disposition Clinical Impression: Lymphedema Disposition: DC/TX-70 ANOTHER TYPE HLTHCARE Is pt being admited?: No Does the pt Need Aspirin: No Condition: Good Instructions: Leg Edema (ED) Additional Instructions: Continue current outpatient medications. Take the water pills as directed. Follow up with outpatient ultrasound department tomorrow anytime after 8:00 AM to have outpatient lower extremity DVT study obtained. Return to the ER right away with headache, neck pain, chest pain, abdominal pain, shortness of breath weakness, numbness, ataxia, confusion. Otherwise, please follow up with the primary care doctor within the next week. Prescriptions: Furosemide [Lasix] 20 mg PO QDAY #30 tablet Referrals: OG BURGER MD [Primary Care Provider] - 3-5 Days
[2017-08-21 21:31] LABS: Alanine Aminotransferase 8 units/L (7-56); Albumin 3.9 g/dL (3.9-5); Albumin/Globulin Ratio 1.6 %; Alkaline Phosphatase 57 units/L (35-129); Anion Gap 17 mmol/L; BUN/Creatinine Ratio 25; Blood Urea Nitrogen 20 mg/dL (7-17); Calcium 9.3 mg/dL (8.4-10.2); Carbon Dioxide 25 mmol/L (22-30); Chloride 106.5 mmol/L (98-107); Glucose 97 mg/dL (65-100); Sodium 144 mmol/L (137-145); Total Protein 6.4 g/dL (6.3-8.2)
--- NOTE | 2017-08-21 21:33 | XRay Report ---
FINAL REPORT PROCEDURE: XR CHEST 1V AP TECHNIQUE: Chest radiograph anteroposterior view. CPT 86607 HISTORY: Lower extremity swelling. Congestive heart failure. COMPARISON: Community Assistant film only from chest CT dated 11/26/2016. FINDINGS: Heart: Mild cardiomegaly. Mediastinum/Vessels: Mild central vascular congestion. Large retrocardiac opacity, unchanged. Lungs/Pleural space: Normal. Eventration of the right diaphragm. Bony thorax: Mild osteopenia. Mild degenerative changes of the spine and shoulders. Life support devices: None. IMPRESSION: Mild cardiomegaly, unchanged. Large retrocardiac opacity, unchanged. This most likely represents large hiatal hernia. Mild central vascular congestion. No other radiographic evidence of acute cardiopulmonary disease.
[2017-08-21 21:34] LABS: Bilirubin,Direct < 0.2 mg/dL (0-0.2); Bilirubin,Indirect 0.1 mg/dL
[2017-08-22 05:11] VITALS: BP 131/65
== END 2017-08-22 05:14 | disposition other institution (70) ==
LOC: ED 18:51
DX: I89.0 Lymphedema, not elsewhere classified (principal); I10 Essential (primary) hypertension; Z90.49 Acquired absence of other specified parts of digestive tract; Z88.0 Allergy status to penicillin; Z88.2 Allergy status to sulfonamides; Z88.8 Allergy status to other drugs, medicaments and biological substances
CPT/HCPCS: 36415; 71010; 80048; 80074; 83880

== ENCOUNTER 2017-09-06 10:32 | Inpatient (IN) | payer MEDICARE, OTHER ==
--- NOTE | 2017-09-06 10:57 | Emergency Department Report ---
HPI - General Chief Complaint: Extremity Injury, Lower Time Seen by Provider: 09/06/17 10:38 - HPI HPI: Room 3 The patient is an 81-year-old female presented with a chief complaint of leg pain. Nursing at [facility] states that the patient was sent to the ED today secondary to the patient complaining of increased pain in both legs, and new malodorous blister appearing on the left hernandez that was not present 3 days ago and the patient currently being nonambulatory. The patient is usually able to move around on her own and has not for the past 2 days per [facility]. Has been no history of fever. The patient states she fell out of bed approximately one week ago staff at the [facility] states there is no fall documented Location: Bilateral lower extremities Duration: 2-3 days Quality: Pain Severity: Moderate Modifying factors: [see above] Context: [see above] Mode of transportation: [not driving] ED Past Medical Hx - Past Medical History Previous Medical History?: Yes Hx Hypertension: Yes Hx Arthritis: Yes Additional medical history: lymphedema to shaista LE, hx breast and colon cancer, pancreatitis - Surgical History Past Surgical History?: Yes Hx Cholecystectomy: Yes (gall stone) Hx Appendectomy: Yes Additional Surgical History: left knee surgery - Family History Family history: no significant - Social History Smoking Status: Never Smoker Substance Use Type: None - Medications Home Medications: Home Medications Medication Instructions Recorded Confirmed Last Taken Type NexIUM 40 mg PO DAILY 11/19/16 09/06/17 02/17/17 History Lactobacillus Acidophilus 1 each PO DAILY #30 capsule 11/23/16 09/06/17 Unknown Rx [Probiotic] Levothyroxine [Synthroid] 88 mcg PO DAILY@0600 #30 tablet 12/01/16 09/06/1704/29 Rx Amlodipine-Benazepril 5-20 mg 1 tab PO DAILY 05/16/17 09/06/17 Unknown History Nitrofurantoin Macrocrysta(Nf) 100 mg PO DAILY #30 capsule 05/19/17 09/06/17 Unknown Rx [Macrodantin CAP] Furosemide [Lasix] 20 mg PO QDAY #30 tablet 08/21/17 09/06/17 Unknown Rx ED Review of Systems ROS: Stated complaint: SWOLLEN LEGS Other details as noted in HPI Constitutional: denies: fever Eyes: denies: eye pain ENT: denies: throat pain Respiratory: denies: shortness of breath Cardiovascular: denies: chest pain Gastrointestinal: denies: abdominal pain, nausea, vomiting Musculoskeletal: myalgia Skin: rash Neurological: denies: headache Physical Exam - Physical Exam Vital Signs: Vital Signs 09/06/17 10:48 Temperature 98.4 F Pulse Rate 89 Respiratory 18 Rate Blood Pressure 134/72 O2 Sat by Pulse 98 Oximetry Physical Exam: GENERAL: The patient is well-developed well-nourished elderly female lying on stretcher not appearing to be in acute distress. [] HEENT: Normocephalic. Atraumatic. Extraocular motions are intact. Patient has moist mucous membranes. NECK: Supple. Trachea midline CHEST/LUNGS: Clear to auscultation. There is no respiratory distress noted. HEART/CARDIOVASCULAR: Regular. There is no tachycardia. There is no gallop rub or murmur. ABDOMEN: Abdomen is soft, nontender. Patient has normal bowel sounds. There is no abdominal distention. SKIN: There is bilateral lower extremity edema approximately 2-3+ pitting. Large regions of erythema anteriorly of bilateral shins. Left hernandez has a large (approximately 10 x 20 cm) blister filled with yellow serous fluid, which is leaking. NEURO: The patient is awake and alert. The patient is cooperative. The patient has normal speech MUSCULOSKELETAL: There is no evidence of acute injury. ED Course Vital Signs 09/06/17 10:48 Temperature 98.4 F Pulse Rate 89 Respiratory 18 Rate Blood Pressure 134/72 O2 Sat by Pulse 98 Oximetry ED Medical Decision Making - Lab Data Result diagrams: 09/06/17 10:55 09/06/17 10:55 Laboratory Tests 09/06/17 09/06/17 10:55 10:55 WBC 15.7 H RBC 3.44 L Hgb 9.5 L Hct 30.1 L MCV 88 MCH 28 MCHC 32 RDW 16.7 H Plt Count 207 Add Manual Diff Complete Total Counted 100 Seg Neutrophils % Electronics Mechanic Apprentice Seg Neuts % (Manual) 96.0 H Band Neutrophils % 0 Lymphocytes % (Manual) 1.0 L Reactive Lymphs % (Man) 0 Monocytes % (Manual) 3.0 Eosinophils % (Manual) 0 Basophils % (Manual) 0 Metamyelocytes % 0 Myelocytes % 0 Promyelocytes % 0 Blast Cells % 0 Nucleated RBC % Not Reportable Seg Neutrophils # Man 15.1 H Band Neutrophils # 0.0 Lymphocytes # (Manual) 0.2 L Abs React Lymphs (Man) 0.0 Monocytes # (Manual) 0.5 Eosinophils # (Manual) 0.0 Basophils # (Manual) 0.0 Metamyelocytes # 0.0 Myelocytes # 0.0 Promyelocytes # 0.0 Blast Cells # 0.0 WBC Morphology Not Reportable Hypersegmented Neuts Not Reportable Hyposegmented Neuts Not Reportable Hypogranular Neuts Not Reportable Smudge Cells Not Reportable Toxic Granulation Not Reportable Toxic Vacuolation Not Reportable Dohle Bodies Not Reportable Pelger-Huet Anomaly Not Reportable Marla Rods Not Reportable Platelet Estimate Appears normal Clumped Platelets Not Reportable Plt Clumps, EDTA Not Reportable Large Platelets Not Reportable Giant Platelets Not Reportable Platelet Satelliting Not Reportable Plt Morphology Comment Not Reportable RBC Morphology Not Reportable Dimorphic RBCs Not Reportable Polychromasia Rare Hypochromasia Not Reportable Poikilocytosis Not Reportable Anisocytosis 1+ Microcytosis Not Reportable Macrocytosis Not Reportable Spherocytes Not Reportable Pappenheimer Bodies Not Reportable Sickle Cells Not Reportable Target Cells Not Reportable Tear Drop Cells Rare Ovalocytes 1+ Helmet Cells Not Reportable Echevarria-[place] Bodies Not Reportable [place] Rings Not Reportable Anderson Cells Not Reportable Bite Cells Not Reportable Crenated Cell Not Reportable Elliptocytes Few Acanthocytes (Spur) Not Reportable Rouleaux Not Reportable Hemoglobin C Crystals Not Reportable Schistocytes Not Reportable Malaria parasites Not Reportable Luis Daniel Bodies Not Reportable Hem Pathologist Commnt No Sodium 139 Potassium 4.1 Chloride 102.9 Carbon Dioxide 20 L Anion Gap 20 BUN 33 H Creatinine 0.9 Estimated GFR 60 BUN/Creatinine Ratio 37 Glucose 69 Calcium 9.1 Total Bilirubin 0.70 AST 29 ALT 13 Alkaline Phosphatase 80 Total Creatine Kinase 438 H Total Protein 6.1 L Albumin 2.6 L Albumin/Globulin Ratio 0.7 - Radiology Data Radiology results: report reviewed (CT head), image reviewed (CT head, bilateral tib-fib x-rays) interpreted by me: Bilateral tib-fib x-ray-no acute fracture CT head without contrast: Contusion, fall. No prior exams. There is a 3 cm soft tissue mass contiguous with the left occipital bone with focal thickening of the bone related to the mass. There is also a partial calcified rim along the internal surface of the mass. There is no associated edema. The fourth ventricle is not displaced. The subarachnoid space along the posterior Codey bone on the left does appear compromised. There is moderate cerebral atrophy consistent with advanced age. There is moderate lateral ventriculomegaly. There is moderate decreased periventricular white matter change. No focal cerebral lesion identified. No supratentorial extracerebral mass is identified. The visualized paranasal sinuses are clear. 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 Evidence of mild mass effect. Senescent changes consistent with advanced age. Transcribed By: NATHALIE Dictated By: AYSH BYERS MD Electronically Authenticated By: YASH BYERS MD Signed Date/Time: 09/06/17 1146 DD/ 1139 TD/TT: 09/06/17 1146 - Differential Diagnosis cellulitis, lymphedema, leg fracture, ICH Critical care attestation.: If time is entered above; I have spent that time in minutes in the direct care of this critically ill patient, excluding procedure time. ED Disposition Clinical Impression: Cellulitis, Lymphedema of both lower extremities, Decreased ambulation status Disposition: 09 OP ADMIT IP TO THIS HOSP Is pt being admited?: Yes Does the pt Need Aspirin: No Condition: Fair Referrals: EDUARDO REYES MD [Primary Care Provider] - 3-5 Days Time of Disposition: 12:30 (hospitalist paged (Dr. Chiu))
[2017-09-06 11:17] LABS: Hematocrit 30.1 % (30.3-42.9); Hemoglobin 9.5 gm/dl (10.1-14.3); Mean Corpuscular HGB Conc 32 % (30-34); Mean Corpuscular Hemoglobin 28 pg (28-32); Mean Corpuscular Volume 88 fl (79-97); Platelet Count 207 K/mm3 (140-440); Red Blood Count 3.44 M/mm3 (3.65-5.03); Red Cell Distribution Width 16.7 % (13.2-15.2)
[2017-09-06 11:32] LABS: Albumin 2.6 g/dL (3.9-5); Calcium 9.1 mg/dL (8.4-10.2)
[2017-09-06 11:47] LABS: Anisocytosis 1+; Basophils % (Manual) 0 % (0.0-1.8); Eosinophils % (Manual) 0 % (0.0-4.3); Ovalocytes 1+; Tear Drop Cells Rare; Total Cells Counted 100
--- NOTE | 2017-09-06 11:48 | XRay Report ---
Bilateral tib/fib: Trauma, pain. Imaging of the left tibia demonstrates generalized edema of the leg beginning at the knee and extending to the ankle. There is a focal 1 cm in length soft tissue mass along the anterior distal third of the leg. There is a total knee replacement. There is no tibia or fibular fracture. Soft tissues of the right leg are also diffusely swollen. No fracture noted in the bones appear moderately well mineralized. Although not well-visualized there do appear to be some subchondral cysts involving the tibiotalar joint. Impressions: Generalized swelling of the tissues. Nonspecific skin mass on the left. No fractures. No definite acute finding.
--- NOTE | 2017-09-06 12:04 | Cat Scan Report ---
CT head without contrast: Contusion, fall. No prior exams. There is a 3 cm soft tissue mass contiguous with the left occipital bone with focal thickening of the bone related to the mass. There is also a partial calcified rim along the internal surface of the mass. There is no associated edema. The fourth ventricle is not displaced. The subarachnoid space along the posterior Codey bone on the left does appear compromised. There is moderate cerebral atrophy consistent with advanced age. There is moderate lateral ventriculomegaly. There is moderate decreased periventricular white matter change. No focal cerebral lesion identified. No supratentorial extracerebral mass is identified. The visualized paranasal sinuses are clear. 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 Evidence of mild mass effect. Senescent changes consistent with advanced age.
--- NOTE | 2017-09-06 14:02 | History and Physical Report ---
History of Present Illness Chief complaint: My legs hurt History of present illness: 81 YO Female resident [facility] with HTN, Breast Cancer, Colon Cancer, Chronic Pancreatitis, Obesity, Debility, Dementia presents to ED for evaluation. Pt states that she has experienced pain and redness to both her legs for the past 3 days, with worsening symptoms over the past 1 day. Pt acknowledges pain, and new malodorous blister appearing on the left hernandez. Pt also acknowledges increased weakness over the same time frame. Pt is currently unable to conduct activities of daily living independently. Pt acknowledges subjective fever, but denies chills, CP, Palpitations, NVD, Syncope, recent ill contacts, productive cough, BRBPR, falls, or trauma. Pt seen and evaluated in ED and found to have BLE Cellulitis. Pt has lucid intervals, and subsequently gets fatigued, confused, and lethargic on exam. Pt is able to protect her airway. Past History Past Medical History: arthritis, cancer, hypertension, other (Pancreatitis,) Past Surgical History: appendectomy, cholecystectomy, total knee replacement Social history: . denies: smoking, alcohol abuse, prescription drug abuse Family history: hypertension Medications and Allergies Allergies Allergy/AdvReac Type Severity Reaction Status Date / Time iodine Allergy Severe Swelling Verified 05/16/17 15:17 Penicillins Allergy Severe Swelling Verified 05/16/17 15:17 Sulfa (Sulfonamide Allergy Severe Swelling Verified 05/16/17 15:17 Antibiotics) [place] And Derivatives Allergy Rash Verified 05/16/17 15:17 Home Medications Medication Instructions Recorded Confirmed Last Taken Type NexIUM 40 mg PO DAILY 11/19/16 09/06/17 02/17/17 History Lactobacillus Acidophilus 1 each PO DAILY #30 capsule 11/23/16 09/06/17 Unknown Rx [Probiotic] Levothyroxine [Synthroid] 88 mcg PO DAILY@0600 #30 tablet 12/01/16 09/06/1704/29 Rx Amlodipine-Benazepril 5-20 mg 1 tab PO DAILY 05/16/17 09/06/17 Unknown History Nitrofurantoin Macrocrysta(Nf) 100 mg PO DAILY #30 capsule 05/19/17 09/06/17 Unknown Rx [Macrodantin CAP] Furosemide [Lasix] 20 mg PO QDAY #30 tablet 08/21/17 09/06/17 Unknown Rx Review of Systems Constitutional: fever, fatigue, weakness, no weight loss, no weight gain, no chills Ears, nose, mouth and throat: no ear pain, no ear discharge, no tinnitis, no decreased hearing, no nose pain Breasts: no change in shape, no swelling, no mass Cardiovascular: edema, no chest pain, no orthopnea, no rapid/irregular heart beat Respiratory: no cough, no cough with sputum, no excessive sputum, no hemoptysis , no shortness of breath Gastrointestinal: no nausea, no vomiting, no diarrhea, no constipation Genitourinary Female: no pelvic pain, no flank pain, no menorrhagia, no dysuria , no urinary frequency, no urgency Rectal: no pain, no incontinence, no bleeding Musculoskeletal: no neck stiffness, no neck pain, no shooting arm pain, no arm numbness/tingling, no low back pain, no shooting leg pain Integumentary: rash, redness, blisters, lesions Neurological: weakness, no head injury, no transient paralysis, no paralysis, no tingling, no seizures, no syncope, no tremors Psychiatric: no anxiety, no memory loss, no change in sleep habits, no sleep disturbances, no insomnia, no hypersomnia, no change in appetite Endocrine: no cold intolerance, no heat intolerance, no polyphagia, no excessive thirst, no polydipsia, no polyuria, no nocturia Hematologic/Lymphatic: no easy bruising, no easy bleeding Allergic/Immunologic: no urticaria, no allergic rhinitis, no wheezing Exam - Constitutional Vitals: Temp Pulse Resp BP Pulse Ox 98.4 F 52 L 16 133/52 96 09/06/17 10:48 09/06/17 12:58 09/06/17 12:58 09/06/17 12:58 09/06/17 12:58 General appearance: Present: mild distress, obese - EENT Eyes: Present: PERRL ENT: hearing intact, clear oral mucosa - Neck Neck: Present: supple, normal ROM - Respiratory Respiratory: bilateral: diminished - Cardiovascular Heart Sounds: Present: S1 & S2. Absent: rub, click - Extremities Extremities: pulses symmetrical, No edema Extremity abnormal: edema, erythema, tenderness, other (BLE, pretibial region) - Abdominal General gastrointestinal: Present: soft, non-tender, non-distended, normal bowel sounds Female genitourinary: Present: normal - Integumentary Integumentary: Present: clear, dry, erythema - Musculoskeletal Musculoskeletal: generalized weakness - Psychiatric Psychiatric: no memory intact - Neurologic Neurologic: CNII-XII intact, moves all extremities Results - Labs CBC & Chem 7: 09/06/17 10:55 09/06/17 10:55 Labs: Abnormal lab results 09/06/17 09/06/17 Range/Units 10:55 10:55 WBC 15.7 H (4.5-11.0) K/mm3 RBC 3.44 L (3.65-5.03) M/mm3 Hgb 9.5 L (10.1-14.3) gm/dl Hct 30.1 L (30.3-42.9) % RDW 16.7 H (13.2-15.2) % Seg Neuts % (Manual) 96.0 H (40.0-70.0) % Lymphocytes % (Manual) 1.0 L (13.4-35.0) % Seg Neutrophils # Man 15.1 H (1.8-7.7) K/mm3 Lymphocytes # (Manual) 0.2 L (1.2-5.4) K/mm3 Carbon Dioxide 20 L (22-30) mmol/L BUN 33 H (7-17) mg/dL Total Creatine Kinase 438 H (30-135) units/L Total Protein 6.1 L (6.3-8.2) g/dL Albumin 2.6 L (3.9-5) g/dL Assessment and Plan - Patient Problems (1) Encephalopathy Current Visit: Yes Status: Acute Plan to address problem: CT head, Neuro checks, IVF resuscitation, treat cellulitis/sirs. (2) Cellulitis Current Visit: Yes Status: Acute Qualifiers: Site of cellulitis: extremity Laterality: left Plan to address problem: Bilateral Lower extremity Cellulitis: IV abx, wound care, oob to chair TID prn, (3) SIRS (systemic inflammatory response syndrome) Current Visit: Yes Status: Acute Plan to address problem: IV abx, IVF resuscitation, supportive care. (4) Obesity Current Visit: Yes Status: Acute Qualifiers: Body mass index: BMI 31.0-31.9 Plan to address problem: Balanced diet, increased physical activity at discharge, supportive care. (5) HTN (hypertension) Current Visit: No Status: Chronic Qualifiers: Hypertension type: essential hypertension Qualified Code(s): I10 - Essential (primary) hypertension Plan to address problem: monitor bp q shift, Iv hydralazine for systolic above 155, continue medical management. (6) DVT prophylaxis Current Visit: No Status: Acute
[2017-09-06] MEDS ORDERED: ZOFRAN IV PRN (14:42)
[2017-09-06] MEDS ORDERED: PROVENTIL IH PRN (14:42)
[2017-09-06] MEDS ORDERED: TYLENOL PO PRN (14:42)
[2017-09-06] MEDS ORDERED: DULCOLAX PR PRN (14:42)
[2017-09-06] MEDS ORDERED: MILK OF MAGNESIA PO PRN (14:42)
[2017-09-06] MEDS ORDERED: VANCOMYCIN/NS 1 GM/250 ML 1 GM/250 ML BAG IV ONE (14:52)
[2017-09-06] MEDS ORDERED: VANCOMYCIN PHARMACY TO DOSE IV SCH (15:00)
[2017-09-06] MEDS: NACL 0.45% 1000 ML 1,000 ML IV SCH (16:59)
[2017-09-06] MEDS: VANCOMYCIN 1,500 MG in NACL 0.9% 500 ML 500 ML IV SCH (17:00)
[2017-09-07] MEDS: VANCOMYCIN 1,500 MG in NACL 0.9% 500 ML 500 ML IV SCH (14:55)
--- NOTE | 2017-09-07 16:32 | Progress Note ---
Assessment and Plan (1) Encephalopathy likely metabolic Current Visit: Yes Status: Acute Plan to address problem: CT head showed left postcoital meningioma. We will obtain a neurologic consult and possibly neurosurgical consult Continue with Neuro checks, IVF resuscitation, treat cellulitis/sirs. (2) Cellulitis Current Visit: Yes Status: Acute Qualifiers: Site of cellulitis: extremity Laterality: left Plan to address problem: Bilateral Lower extremity Cellulitis: Add Levaquin. Continue with IV vancomycin. Wound culture, wound care, oob to chair TID prn, (3) SIRS (systemic inflammatory response syndrome) Current Visit: Yes Status: Acute Plan to address problem: IV abx, IVF resuscitation, supportive care. Has leukocytosis (4) Obesity Current Visit: Yes Status: Acute Qualifiers: Body mass index: BMI 31.0-31.9 Plan to address problem: Dietary control, increased physical activity at discharge, supportive care. (5) HTN (hypertension) Current Visit: No Status: Chronic Qualifiers: Hypertension type: essential hypertension Qualified Code(s): I10 - Essential (primary) hypertension Plan to address problem: controlled. Monitor bp q shift, Iv hydralazine for systolic above 155, Continue on Antihypertensives (6) DVT prophylaxis Current Visit: No Status: Acute Lovenox Subjective Date of service: 09/07/17 Principal diagnosis: cellulitis of the right lower extremity, encephalopathy, SIRS Interval history: Patient seen and examined. Slightly confused. Denies any fever. No chest pain , shortness of breath Objective - Constitutional Vitals: Vital Signs - 12hr 09/07/17 09/07/17 09/07/17 04:28 07:28 08:16 Temperature 98.3 F 98.8 F Pulse Rate 79 75 Respiratory 18 19 Rate Blood Pressure 93/49 128/47 O2 Sat by Pulse 95 99 97 Oximetry 09/07/17 09/07/17 10:00 12:59 Temperature 99.2 F Pulse Rate 85 92 H Respiratory 18 Rate Blood Pressure 120/53 O2 Sat by Pulse 97 96 Oximetry General appearance: Present: no acute distress, well-nourished - EENT Eyes: PERRL, EOM intact - Neck Neck: supple, normal ROM - Respiratory Respiratory effort: normal Respiratory: bilateral: CTA - Cardiovascular Rhythm: regular Heart Sounds: Present: S1 & S2. Absent: gallop, rub Extremities: pulses intact, No edema, normal color, Full ROM - Gastrointestinal General gastrointestinal: Present: soft, non-tender, non-distended, normal bowel sounds - Integumentary Integumentary: clear, warm, dry - Musculoskeletal Musculoskeletal: 1, strength equal bilaterally - Neurologic Neurologic: moves all extremities - Psychiatric Psychiatric: memory intact, appropriate mood/affect, intact judgment & insight - Labs CBC & Chem 7: 09/06/17 10:55 09/06/17 10:55 Labs: Abnormal lab results 09/06/17 Range/Units 21:34 POC Glucose 56 L (70-105)
[2017-09-07] MEDS ORDERED: AMLODIPINE BENAZEPRIL PO SCH (16:45)
[2017-09-07] MEDS ORDERED: LACTOBACILLUS ACIDOPHILUS PO SCH (16:45)
[2017-09-08 05:15] LABS: Basophils % (Auto) 0.1 % (0.0-1.8); Eosinophils # (Auto) 0.3 K/mm3 (0.0-0.4); Eosinophils % (Auto) 2.5 % (0.0-4.3); Hematocrit 26.9 % (30.3-42.9); Hemoglobin 8.7 gm/dl (10.1-14.3); Lymphocytes % (Auto) 7.5 % (13.4-35.0); Mean Corpuscular HGB Conc 32 % (30-34); Mean Corpuscular Hemoglobin 29 pg (28-32); Mean Corpuscular Volume 89 fl (79-97); Monocytes # (Auto) 0.8 K/mm3 (0.0-0.8); Platelet Count 238 K/mm3 (140-440); Red Blood Count 3.03 M/mm3 (3.65-5.03); Red Cell Distribution Width 16.9 % (13.2-15.2)
[2017-09-08] MEDS: LASIX PO SCH (05:38)
[2017-09-08] MEDS: SYNTHROID PO SCH (05:38)
[2017-09-08 05:51] LABS: Calcium 7.8 mg/dL (8.4-10.2)
[2017-09-08] MEDS: NORVASC PO SCH (09:11)
[2017-09-08] MEDS: CULTURELLE PO SCH (09:12)
[2017-09-08] MEDS: ZESTRIL PO SCH (10:30)
--- NOTE | 2017-09-08 13:34 | Consultation ---
History of Present Illness Consult date: 09/08/17 History of present illness: severe confusion, multiple falls a/w mwemory loss hx of possible concussion in the rehab center outside hospital plan further work gey better hx from family Past History Past Medical History: arthritis, cancer, hypertension, other (Pancreatitis,) Past Surgical History: appendectomy, cholecystectomy, total knee replacement Social history: . denies: smoking, alcohol abuse, prescription drug abuse Family history: hypertension Medications and Allergies Allergies Allergy/AdvReac Type Severity Reaction Status Date / Time iodine Allergy Severe Swelling Verified 05/16/17 15:17 Penicillins Allergy Severe Swelling Verified 05/16/17 15:17 Sulfa (Sulfonamide Allergy Severe Swelling Verified 05/16/17 15:17 Antibiotics) [place] And Derivatives Allergy Rash Verified 05/16/17 15:17 Home Medications Medication Instructions Recorded Confirmed Last Taken Type NexIUM 40 mg PO DAILY 11/19/16 09/06/17 02/17/17 History Lactobacillus Acidophilus 1 each PO DAILY #30 capsule 11/23/16 09/06/17 Unknown Rx [Probiotic] Levothyroxine [Synthroid] 88 mcg PO DAILY@0600 #30 tablet 12/01/16 09/06/1704/29 Rx Amlodipine-Benazepril 5-20 mg 1 tab PO DAILY 05/16/17 09/06/17 Unknown History Nitrofurantoin Macrocrysta(Nf) 100 mg PO DAILY #30 capsule 05/19/17 09/06/17 Unknown Rx [Macrodantin CAP] Furosemide [Lasix] 20 mg PO QDAY #30 tablet 08/21/17 09/06/17 Unknown Rx Active Meds: Active Medications Acetaminophen (Tylenol) 650 mg PO Q4H PRN PRN Reason: Pain MILD(1-3)/Fever >100.5/MARQUEZ Albuterol (Proventil) 2.5 mg IH Q4HRT PRN PRN Reason: Shortness Of Breath Amlodipine Besylate (Norvasc) 5 mg PO QDAY [facility] Last Admin: 09/08/17 09:11 Dose: 5 mg Bisacodyl (Dulcolax) 10 mg MI QDAY PRN PRN Reason: Constipation unrelieved by MOM Furosemide (Lasix) 20 mg PO DAILY@0600 [facility] Last Admin: 09/08/17 05:38 Dose: 20 mg Sodium Chloride (Nacl 0.45% 1000 Ml) 1,000 mls @ 75 mls/hr IV DIRECT [facility] Last Admin: 09/06/17 16:59 Dose: 75 mls/hr Vancomycin HCl 1,500 mg/ (Sodium Chloride) 515 mls @ 333.333 mls/hr IV Q24H [facility] Last Admin: 09/07/17 14:55 Dose: 333.333 mls/hr Lactobacillus Rhamnosus (Culturelle) 1 each PO DAILY [facility] Last Admin: 09/08/17 09:12 Dose: 1 each Levothyroxine Sodium (Synthroid) 88 mcg PO DAILY@0600 [facility] Last Admin: 09/08/17 05:38 Dose: 88 mcg Lisinopril (Zestril) 20 mg PO QDAY [facility] Last Admin: 09/08/17 10:30 Dose: Not Given Magnesium Hydroxide (Milk Of Magnesia) 30 ml PO Q4H PRN PRN Reason: Constipation Ondansetron HCl (Zofran) 4 mg IV Q8H PRN PRN Reason: N/V unrelieved by Mela Vancomycin HCl (Vancomycin Pharmacy To Dose) 1 each IV PKCONSULT [facility] PRN Reason: Protocol Physical Examination - Vital Signs Vital Signs: Vital Signs Temp Pulse Resp BP Pulse Ox 98.4 F 89 18 134/72 98 09/06/17 10:48 09/06/17 10:48 09/06/17 10:48 09/06/17 10:48 09/06/17 10:48 Results - Laboratory Findings CBC and BMP: 09/08/17 04:45 09/08/17 04:45 Abnormal Lab Findings: Abnormal Labs 09/06/17 09/06/17 09/06/17 10:55 10:55 21:34 WBC 15.7 H RBC 3.44 L Hgb 9.5 L Hct 30.1 L RDW 16.7 H Lymph % (Auto) Lymph # Seg Neutrophils % Seg Neuts % (Manual) 96.0 H Lymphocytes % (Manual) 1.0 L Seg Neutrophils # Seg Neutrophils # Man 15.1 H Lymphocytes # (Manual) 0.2 L Potassium Carbon Dioxide 20 L BUN 33 H Glucose POC Glucose 56 L Calcium Total Creatine Kinase 438 H Total Protein 6.1 L Albumin 2.6 L 09/08/17 09/08/17 04:45 04:45 WBC 13.2 H RBC 3.03 L Hgb 8.7 L Hct 26.9 L RDW 16.9 H Lymph % (Auto) 7.5 L Lymph # 1.0 L Seg Neutrophils % 83.9 H Seg Neuts % (Manual) Lymphocytes % (Manual) Seg Neutrophils # 11.1 H Seg Neutrophils # Man Lymphocytes # (Manual) Potassium 3.4 L Carbon Dioxide 18 L BUN 23 H Glucose 125 H POC Glucose Calcium 7.8 L Total Creatine Kinase Total Protein 4.6 L D Albumin 2.0 L
[2017-09-08] MEDS: VANCOMYCIN 1,500 MG in NACL 0.9% 500 ML 500 ML IV SCH (15:53)
--- NOTE | 2017-09-08 17:17 | Progress Note ---
Assessment and Plan (1) Encephalopathy likely metabolic Current Visit: Yes Status: Acute Plan to address problem: CT head showed left postcoital meningioma. We will obtain a neurologic consult and possibly neurosurgical consult Continue with Neuro checks, IVF resuscitation, treat cellulitis/sirs. (2) Cellulitis Current Visit: Yes Status: Acute Qualifiers: Site of cellulitis: extremity Laterality: left Plan to address problem: Bilateral Lower extremity Cellulitis: Add Levaquin. Continue with IV vancomycin. Wound culture, wound care, oob to chair TID prn, (3) SIRS (systemic inflammatory response syndrome) Current Visit: Yes Status: Acute Plan to address problem: IV abx, IVF resuscitation, supportive care. Has leukocytosis (4) Obesity Current Visit: Yes Status: Acute Qualifiers: Body mass index: BMI 31.0-31.9 Plan to address problem: Dietary control, increased physical activity at discharge, supportive care. (5) Hypokalemia will supplemtn nd check Mg level (6) HTN (hypertension) Current Visit: No Status: Chronic Qualifiers: Hypertension type: essential hypertension Qualified Code(s): I10 - Essential (primary) hypertension Plan to address problem: controlled. Monitor bp q shift, Iv hydralazine for systolic above 155, Continue on Antihypertensives (7) 3 cm Occipital meningioma per CT ahl Pt denies any MARQUEZ, N/V. Neuroconsult obtained. (8) DVT prophylaxis Current Visit: No Status: Acute Lovenox Subjective Date of service: 09/08/17 Principal diagnosis: cellulitis of the right lower extremity, encephalopathy, SIRS Interval history: Patient seen and examined. Reviewed laboratory local data. Slightly confused. Denies any fever. No chest pain, shortness of breath Objective - Constitutional Vitals: Vital Signs - 12hr 09/08/17 09/08/17 09/08/17 05:18 07:10 07:53 Temperature 99.1 F 98.8 F Pulse Rate 79 76 Respiratory 18 20 Rate Blood Pressure 117/42 127/50 O2 Sat by Pulse 95 96 96 Oximetry 09/08/17 09/08/17 09:11 14:37 Temperature 98.6 F Pulse Rate 76 79 Respiratory 20 Rate Blood Pressure 127/50 126/56 O2 Sat by Pulse 95 Oximetry General appearance: Present: no acute distress, obese - EENT Eyes: PERRL, EOM intact - Neck Neck: supple, normal ROM - Respiratory Respiratory effort: normal Respiratory: bilateral: CTA - Cardiovascular Rhythm: regular Heart Sounds: Present: S1 & S2. Absent: gallop, rub Extremities: pulses intact, No edema, normal color, Full ROM - Gastrointestinal General gastrointestinal: Present: soft, non-tender, non-distended, normal bowel sounds - Integumentary Integumentary: clear, warm, dry - Musculoskeletal Musculoskeletal: 1, strength equal bilaterally - Neurologic Neurologic: moves all extremities - Psychiatric Psychiatric: appropriate mood/affect, intact judgment & insight, memory intact, other (confused) - Labs CBC & Chem 7: 09/08/17 04:45 09/08/17 04:45 Labs: Abnormal lab results 09/08/17 09/08/17 Range/Units 04:45 04:45 WBC 13.2 H (4.5-11.0) K/mm3 RBC 3.03 L (3.65-5.03) M/mm3 Hgb 8.7 L (10.1-14.3) gm/dl Hct 26.9 L (30.3-42.9) % RDW 16.9 H (13.2-15.2) % Lymph % (Auto) 7.5 L (13.4-35.0) % Lymph # 1.0 L (1.2-5.4) K/mm3 Seg Neutrophils % 83.9 H (40.0-70.0) % Seg Neutrophils # 11.1 H (1.8-7.7) K/mm3 Potassium 3.4 L (3.6-5.0) mmol/L Carbon Dioxide 18 L (22-30) mmol/L BUN 23 H (7-17) mg/dL Glucose 125 H (65-100) mg/dL Calcium 7.8 L (8.4-10.2) mg/dL Total Protein 4.6 L D (6.3-8.2) g/dL Albumin 2.0 L (3.9-5) g/dL
[2017-09-08] MEDS: K-DUR PO SCH (18:17)
[2017-09-09 04:42] LABS: Hematocrit 25.4 % (30.3-42.9); Hemoglobin 8.1 gm/dl (10.1-14.3); Mean Corpuscular HGB Conc 32 % (30-34); Mean Corpuscular Hemoglobin 28 pg (28-32); Mean Corpuscular Volume 88 fl (79-97); Platelet Count 261 K/mm3 (140-440)
[2017-09-09 04:52] LABS: Calcium 7.6 mg/dL (8.4-10.2)
[2017-09-09 05:48] LABS: Anisocytosis 1+; Basophils % (Manual) 0 % (0.0-1.8); Platelet Estimate Consistent w Auto; Total Cells Counted 100
[2017-09-09] MEDS: LASIX PO SCH (06:24)
[2017-09-09] MEDS: SYNTHROID PO SCH (06:24)
--- NOTE | 2017-09-09 08:51 | Progress Note ---
Assessment and Plan Assessment and plan: 81 YO Female resident [facility] with HTN, Breast Cancer, Colon Cancer, Chronic Pancreatitis, Obesity, Debility, Dementia presents to ED for evaluation. Pt states that she has experienced pain and redness to both her legs for the past 3 days, with worsening symptoms over the past 1 day. she acknowledges foul smelling blister on LLE Encephalopathy likely metabolic -CT head showed left postcoital meningioma. We will obtain a neurologic consult and possibly neurosurgical consult -Continue with Neuro checks, IVF resuscitation, treat cellulitis/sirs. Cellulitis -Bilateral Lower extremity Cellulitis: -Add Levaquin. Continue with IV vancomycin. Wound culture, wound care, oob to chair TID prn, SIRS (systemic inflammatory response syndrome) -IV abx, IVF resuscitation, supportive care. -Has leukocytosis Obesity -Dietary control, increased physical activity at discharge, supportive care. Hypokalemia -will supplemtn nd check Mg level HTN (hypertension) -controlled. Monitor bp q shift, Iv hydralazine for systolic above 155, -Continue on Antihypertensives 3 cm Occipital meningioma per CT brain --benign, asymptomatic Pt denies any MARQUEZ, N/V. Neuroconsult obtained. Severe malnutrition -satellite dish technician consult DVT prophylaxis Lovenox History Interval history: denies fever, denies chills, denies CP, denies SOB bilateral leg pain is improved, Left leg is worse than right Hospitalist Physical - Constitutional Vitals: Temp Pulse Resp BP Pulse Ox 98.6 F 78 20 127/54 97 09/09/17 08:11 09/09/17 08:11 09/09/17 08:11 09/09/17 08:11 09/09/17 08:11 General appearance: Present: no acute distress, obese - EENT Eyes: Present: PERRL ENT: hearing intact - Neck Neck: Present: supple - Respiratory Respiratory effort: normal Respiratory: bilateral: CTA - Cardiovascular Rhythm: regular Heart Sounds: Present: S1 & S2 - Extremities Extremity abnormal: edema, erythema, other (Left leg worse than right) Peripheral Pulses: within normal limits - Abdominal General gastrointestinal: soft, non-tender - Integumentary Integumentary: Present: clear, dry - Psychiatric Psychiatric: appropriate mood/affect, intact judgment & insight, memory intact - Neurologic Neurologic: CNII-XII intact, moves all extremities Results - Labs CBC & Chem 7: 12/28/17 03:57 09/09/17 03:57 Labs: Laboratory Last Values WBC 10.5 K/mm3 (4.5-11.0) 09/09/17 03:57 RBC 2.90 M/mm3 (3.65-5.03) L 09/09/17 03:57 Hgb 8.1 gm/dl (10.1-14.3) L 09/09/17 03:57 Hct 25.4 % (30.3-42.9) L 09/09/17 03:57 MCV 88 fl (79-97) 09/09/17 03:57 MCH 28 pg (28-32) 09/09/17 03:57 MCHC 32 % (30-34) 09/09/17 03:57 RDW 17.0 % (13.2-15.2) H 09/09/17 03:57 Plt Count 261 K/mm3 (140-440) 09/09/17 03:57 Lymph % (Auto) 7.5 % (13.4-35.0) L 09/08/17 04:45 [place] % (Auto) 6.0 % (0.0-7.3) 09/08/17 04:45 Eos % (Auto) 2.5 % (0.0-4.3) 09/08/17 04:45 Baso % (Auto) 0.1 % (0.0-1.8) 09/08/17 04:45 Lymph # 1.0 K/mm3 (1.2-5.4) L 09/08/17 04:45 [place] # 0.8 K/mm3 (0.0-0.8) 09/08/17 04:45 Eos # 0.3 K/mm3 (0.0-0.4) 09/08/17 04:45 Baso # 0.0 K/mm3 (0.0-0.1) 09/08/17 04:45 Add Manual Diff Complete 09/09/17 03:57 Total Counted 100 09/09/17 03:57 Seg Neutrophils % 83.9 % (40.0-70.0) H 09/08/17 04:45 Seg Neuts % (Manual) 78.0 % (40.0-70.0) H 09/09/17 03:57 Band Neutrophils % 0 % 09/09/17 03:57 Lymphocytes % (Manual) 10.0 % (13.4-35.0) L 09/09/17 03:57 Reactive Lymphs % (Man) 0 % 09/09/17 03:57 Monocytes % (Manual) 3.0 % (0.0-7.3) 09/09/17 03:57 Eosinophils % (Manual) 9.0 % (0.0-4.3) H 09/09/17 03:57 Basophils % (Manual) 0 % (0.0-1.8) 09/09/17 03:57 Metamyelocytes % 0 % 09/09/17 03:57 Myelocytes % 0 % 09/09/17 03:57 Promyelocytes % 0 % 09/09/17 03:57 Blast Cells % 0 % 09/09/17 03:57 Nucleated RBC % Not Reportable 09/09/17 03:57 Seg Neutrophils # 11.1 K/mm3 (1.8-7.7) H 09/08/17 04:45 Seg Neutrophils # Man 8.2 K/mm3 (1.8-7.7) H 09/09/17 03:57 Band Neutrophils # 0.0 K/mm3 09/09/17 03:57 Lymphocytes # (Manual) 1.1 K/mm3 (1.2-5.4) L 09/09/17 03:57 Abs React Lymphs (Man) 0.0 K/mm3 09/09/17 03:57 Monocytes # (Manual) 0.3 K/mm3 (0.0-0.8) 09/09/17 03:57 Eosinophils # (Manual) 0.9 K/mm3 (0.0-0.4) H 09/09/17 03:57 Basophils # (Manual) 0.0 K/mm3 (0.0-0.1) 09/09/17 03:57 Metamyelocytes # 0.0 K/mm3 09/09/17 03:57 Myelocytes # 0.0 K/mm3 09/09/17 03:57 Promyelocytes # 0.0 K/mm3 09/09/17 03:57 Blast Cells # 0.0 K/mm3 09/09/17 03:57 WBC Morphology Not Reportable 09/09/17 03:57 Hypersegmented Neuts Not Reportable 09/09/17 03:57 Hyposegmented Neuts Not Reportable 09/09/17 03:57 Hypogranular Neuts Not Reportable 09/09/17 03:57 Smudge Cells Not Reportable 09/09/17 03:57 Toxic Granulation Not Reportable 09/09/17 03:57 Toxic Vacuolation Not Reportable 09/09/17 03:57 Dohle Bodies Not Reportable 09/09/17 03:57 Pelger-Huet Anomaly Not Reportable 09/09/17 03:57 Marla Rods Not Reportable 09/09/17 03:57 Platelet Estimate Consistent w auto 09/09/17 03:57 Clumped Platelets Not Reportable 09/09/17 03:57 Plt Clumps, EDTA Not Reportable 09/09/17 03:57 Large Platelets Not Reportable 09/09/17 03:57 Giant Platelets Not Reportable 09/09/17 03:57 Platelet Satelliting Not Reportable 09/09/17 03:57 Plt Morphology Comment Not Reportable 09/09/17 03:57 RBC Morphology Not Reportable 09/09/17 03:57 Dimorphic RBCs Not Reportable 09/09/17 03:57 Polychromasia Not Reportable 09/09/17 03:57 Hypochromasia Not Reportable 09/09/17 03:57 Poikilocytosis Not Reportable 09/09/17 03:57 Anisocytosis 1+ 09/09/17 03:57 Microcytosis Not Reportable 09/09/17 03:57 Macrocytosis Not Reportable 09/09/17 03:57 Spherocytes Not Reportable 09/09/17 03:57 Pappenheimer Bodies Not Reportable 09/09/17 03:57 Sickle Cells Not Reportable 09/09/17 03:57 Target Cells Not Reportable 09/09/17 03:57 Tear Drop Cells Not Reportable 09/09/17 03:57 Ovalocytes Not Reportable 09/09/17 03:57 Helmet Cells Not Reportable 09/09/17 03:57 Echevarria-Verdon Bodies Not Reportable 09/09/17 03:57 [place] Rings Not Reportable 09/09/17 03:57 [place] Cells Not Reportable 09/09/17 03:57 Bite Cells Not Reportable 09/09/17 03:57 Crenated Cell Not Reportable 09/09/17 03:57 Elliptocytes Not Reportable 09/09/17 03:57 Acanthocytes (Spur) Not Reportable 09/09/17 03:57 Rouleaux Not Reportable 09/09/17 03:57 Hemoglobin C Crystals Not Reportable 09/09/17 03:57 Schistocytes Not Reportable 09/09/17 03:57 Malaria parasites Not Reportable 09/09/17 03:57 Luis Daniel Bodies Not Reportable 09/09/17 03:57 Hem Pathologist Commnt No 09/09/17 03:57 Sodium 138 mmol/L (137-145) 09/09/17 03:57 Potassium 3.9 mmol/L (3.6-5.0) 09/09/17 03:57 Chloride 105.6 mmol/L (98-107) 09/09/17 03:57 Carbon Dioxide 19 mmol/L (22-30) L 09/09/17 03:57 Anion Gap 17 mmol/L 09/09/17 03:57 BUN 26 mg/dL (7-17) H 09/09/17 03:57 Creatinine 0.9 mg/dL (0.7-1.2) 09/09/17 03:57 Estimated GFR 60 ml/min 09/09/17 03:57 BUN/Creatinine Ratio 29 % 09/09/17 03:57 Glucose 85 mg/dL (65-100) 09/09/17 03:57 POC Glucose 89 (70-105) 09/07/17 00:36 Calcium 7.6 mg/dL (8.4-10.2) L 09/09/17 03:57 Magnesium 2.00 mg/dL (1.7-2.3) 09/09/17 03:57 Total Bilirubin 0.40 mg/dL (0.1-1.2) 09/09/17 03:57 AST 20 units/L (5-40) 09/09/17 03:57 ALT 13 units/L (7-56) 09/09/17 03:57 Alkaline Phosphatase 108 units/L (35-129) 09/09/17 03:57 Total Creatine Kinase 438 units/L (30-135) H 09/06/17 10:55 Total Protein 4.6 g/dL (6.3-8.2) L 09/09/17 03:57 Albumin 2.0 g/dL (3.9-5) L 09/09/17 03:57 Albumin/Globulin Ratio 0.8 % 09/09/17 03:57 Vancomycin Trough 11.6 ug/mL (5.0-20.0) 09/08/17 14:59
[2017-09-09] MEDS: CULTURELLE PO SCH (10:34)
[2017-09-09] MEDS: NORVASC PO SCH (10:34)
[2017-09-09] MEDS: ZESTRIL PO SCH (10:34)
[2017-09-09] MEDS: K-DUR PO SCH (10:35)
[2017-09-09] MEDS: VANCOMYCIN 1,500 MG in NACL 0.9% 500 ML 500 ML IV SCH (14:38)
[2017-09-09] MEDS: NACL 0.45% 1000 ML 1,000 ML IV SCH (14:43)
--- NOTE | 2017-09-09 14:45 | Query-Infection ---
Dear ___Fifi Date:__09/09/2017 Map Mounter/CDS:__Mary Jo Phone#:__[phone] Exercise your independent professional judgment when responding to this query. Questions asked do not imply a particular answer is desired or expected. We greatly appreciate your clarification on this issue. Clinical Documentation States: 81 Year old female was admitted on 09/06/2017 for pain and redness to both her legs for the past 3 days. The Hospitalist (Dr. Calix) Progress note on 09/09/2017 states "Encephalopathy likely metabolic Cellulitis -Bilateral Lower extremity Cellulitis: -Add Levaquin. Continue with IV vancomycin. SIRS (systemic inflammatory response syndrome) -IV abx, IVF resuscitation, supportive care. -Has leukocytosis." Clinical findings show: (please check applicable parameters) WBC: 15.7 FL: 92 Infection, known /suspected, with some of the following indicators; Specify the infection: 3 General parameters [ ] Fever (core temp >38.30C or 100.40F) [ ] Hypothermia (core temp <36C) [X] Heart rate >90 bpm [ ] Tachypnea: >20 bpm or pCO2 < 32 mmHg [X] Altered mental status [ ] Significant edema / +ve fluid balance (>20 ml/kg 24 h) [ ] Hyperglycemia (Bl. glucose >110 mg/dl) w/o diabetes Inflammatory parameters [X] Leukocytosis (white blood cell count >12,000/l) [ ] Leukopenia (white blood cell count <4,000/l) [ ] Bandemia (immature WBC > 10%) [ ] Leucocyte Left Shift [ ] Plasma procalcitonin>2 SD above the normal value Hemodynamic and tissue perfusion parameters [ ] Arterial hypotension(SBP <90 mmHg, MAP <70 mmHg,or a SBP drop >40 mmHg in adults) [ ] Hyperlactatemia (>3 mmol/l) [ ] Anion Gap (> 11mEG/l) [ ] Decreased capillary refill or mottling Organ dysfunction parameters [ ] Arterial hypoxemia (PaO2/FIO2 <300) [ ] Creatinine increase =0.5 mg/dl [ ] Acute oliguria (urine output <0.5 ml | kg |h or 45 mM/l for at least 2 hrs) [ ] Coagulation abnormalities (INR >1.5 or activated partial thromboplastin time >60 s) [ ] Ileus (absent elsa wel sounds) [ ] Thrombocytopenia (platelet count <100,000/l) [ ] Hyperbilirubinemia (plasma total bilirubin >4 mg/dl) According to the clinical indications above, can Bacteremia be further specified? If so, please indicate below and in your Progress Notes and/ or Discharge Summary. Indicate if the condition was present on admission. PHYSICIAN RESPONSE: [x ] Sepsis [ ] Severe Sepsis [ ] Septic Shock [ ] Septicemia [ ] Sepsis now resolved [ ] SIRS due to non-infectious cause with organ dysfunction [ ] SIRS due to non-infectious cause without organ dysfunction [ ] Other: [ ] Comment/Explanation: Present on Admission: [x ] Yes (Y) [ ] Clinically undeterminable (W) [ ] No (N) [ ] Ruled Out Please also document response in your Progress Notes and/or Discharge Summary and indicate if the condition was present on admission Notes: SIRS/ SIRS WITH ORGAN DYSFUNCTION Systemic inflammatory response syndrome (SIRS) generally refers to the systemic response to trauma/garcia or other insult such as Acute Myocardial Infarction, Acute Pancreatitis, and Major Surgery with symptoms including fever, tachycardia , tachypnea, and leukocytosis (1). BACTEREMIA Presence of viable bacteria in the circulating blood (2). This term is reserved for patients that do not manifest above SIRS response. SEPTICEMIA Generally refers to a systemic disease associated with the presence of pathological microorganisms or toxins in the blood, which can include bacteria, viruses, fungi or other organisms (1). SEPSIS Generally refers to SIRS due infection (1). SEVERE SEPSIS Generally refers to sepsis associated with acute organ dysfunction (1). SEPTIC SHOCK Generally refers to circulatory failure associated with severe sepsis (2), and defined as hypotension or hypoperfusion despite adequate fluid resuscitation (1 hour) (3). REFERENCES: 1. [place]/Society of Critical Care Medicine Consensus Conference. Definitions for sepsis and organ failure and guidelines for the use of innovative therapies in sepsis. Critical Care Med 1992;20:864 - 74. 2. Vega delcid MM, Lili MP, Saturnino ROBERT, Hari E, Terry D, Mono D, Glover J, Vining SM , Stiven JL, Tony G; International Sepsis Definitions Conference. 2001 SCCM/ESICM/ACCP/ATS/SIS International Sepsis Definitions Conference. Intensive Care Med. 2002;29(4):530-8. Epub 2002Dec 08. Review. PubMed PMID:[id number] 3. ICD-9-CM Official Guidelines for Coding and Reporting 4. Medscape Drugs, Diseases and Procedures references 5. [employer] Textbook of Internal Medicine. 18th Edition MTDD
--- NOTE | 2017-09-09 15:01 | Progress Note ---
Subjective Date of service: 09/09/17 Principal diagnosis: cellulitis of the right lower extremity, encephalopathy, SIRS Interval history: 81 years old female with history of HTN, Breast Cancer, Colon Cancer, Chronic Pancreatitis, Obesity, Debility, Dementia and bilateral leg lymphedema, admitted on 09/06/2017 due to 3 days history of increasing bilateral lower extremity edema, erythema and tenderness. Patient Developed multiple skin tears with oozing of serous fluid from the legs. Reports subjective fever. Patient denies any chills, nausea, vomiting, diarrhea. Patient has been bedbound for the last 12 months. In the emergency room, initial temperature was 98.4, heart rate 87, blood pressure 134/72. White count 15.7. Hemoglobin 9.5. Creatinine 0.9. X-ray of the leg showed generalized swelling of the soft tissue. Microbiology: Blood cultures: 09/06 ngtd Urine cultures: Respiratory cultures: Wound cultures: 09/06 Beta hem Group G Strep Current Antimicrobials: Vancomycin 09/06 Previous Antimicrobials: Objective - Constitutional Vitals: Vital Signs Temp Pulse Resp BP Pulse Ox 98.6 F 78 20 127/54 97 09/09/17 08:11 09/09/17 10:34 09/09/17 08:11 09/09/17 10:34 09/09/17 08:11 Temperature -Last 24 Hours Temperature 98.6 F Temperature 97.5 F Temperature 100.3 F - Labs CBC & Chem 7: 09/09/17 03:57 09/09/17 03:57 Labs: Abnormal lab results 09/09/17 09/09/17 Range/Units 03:57 03:57 RBC 2.90 L (3.65-5.03) M/mm3 Hgb 8.1 L (10.1-14.3) gm/dl Hct 25.4 L (30.3-42.9) % RDW 17.0 H (13.2-15.2) % Seg Neuts % (Manual) 78.0 H (40.0-70.0) % Lymphocytes % (Manual) 10.0 L (13.4-35.0) % Eosinophils % (Manual) 9.0 H (0.0-4.3) % Seg Neutrophils # Man 8.2 H (1.8-7.7) K/mm3 Lymphocytes # (Manual) 1.1 L (1.2-5.4) K/mm3 Eosinophils # (Manual) 0.9 H (0.0-0.4) K/mm3 Carbon Dioxide 19 L (22-30) mmol/L BUN 26 H (7-17) mg/dL Calcium 7.6 L (8.4-10.2) mg/dL Total Protein 4.6 L (6.3-8.2) g/dL Albumin 2.0 L (3.9-5) g/dL
--- NOTE | 2017-09-09 15:13 | Consultation ---
History of Present Illness - Reason for Consult Consult date: 09/09/17 shaista leg cellulitis Requesting physician: ZARINA CALIX - History of Present Illness 81 years old female with history of HTN, Breast Cancer, Colon Cancer, Chronic Pancreatitis, Obesity, Debility, Dementia and bilateral leg lymphedema, admitted on 09/06/2017 due to 3 days history of increasing bilateral lower extremity edema, erythema and tenderness. Patient Developed multiple skin tears with oozing of serous fluid from the legs. Reports subjective fever. Patient denies any chills, nausea, vomiting, diarrhea. Patient has been bedbound for the last 12 months. In the emergency room, initial temperature was 98.4, heart rate 87, blood pressure 134/72. White count 15.7. Hemoglobin 9.5. Creatinine 0.9. X-ray of the leg showed generalized swelling of the soft tissue. Microbiology: Blood cultures: 09/06 ngtd Urine cultures: Respiratory cultures: Wound cultures: 09/06 Beta hem Group G Strep Current Antimicrobials: Vancomycin 09/06 Previous Antimicrobials: Past History Past Medical History: arthritis, cancer, hypertension, other (Pancreatitis,) Past Surgical History: appendectomy, cholecystectomy, total knee replacement Social history: . denies: smoking, alcohol abuse, prescription drug abuse Family history: hypertension Medications and Allergies Allergies Allergy/AdvReac Type Severity Reaction Status Date / Time iodine Allergy Severe Swelling Verified 05/16/17 15:17 Penicillins Allergy Severe Swelling Verified 05/16/17 15:17 Sulfa (Sulfonamide Allergy Severe Swelling Verified 05/16/17 15:17 Antibiotics) Bertie And Derivatives Allergy Rash Verified 05/16/17 15:17 Home Medications Medication Instructions Recorded Confirmed Last Taken Type NexIUM 40 mg PO DAILY 11/19/16 09/06/17 02/17/17 History Lactobacillus Acidophilus 1 each PO DAILY #30 capsule 11/23/16 09/06/17 Unknown Rx [Probiotic] Levothyroxine [Synthroid] 88 mcg PO DAILY@0600 #30 tablet 12/01/16 09/06/1704/29 Rx Amlodipine-Benazepril 5-20 mg 1 tab PO DAILY 05/16/17 09/06/17 Unknown History Nitrofurantoin Macrocrysta(Nf) 100 mg PO DAILY #30 capsule 05/19/17 09/06/17 Unknown Rx [Macrodantin CAP] Furosemide [Lasix] 20 mg PO QDAY #30 tablet 08/21/17 09/06/17 Unknown Rx Active Meds: Active Medications Acetaminophen (Tylenol) 650 mg PO Q4H PRN PRN Reason: Pain MILD(1-3)/Fever >100.5/MARQUEZ Albuterol (Proventil) 2.5 mg IH Q4HRT PRN PRN Reason: Shortness Of Breath Amlodipine Besylate (Norvasc) 5 mg PO QDAY [facility] Last Admin: 09/09/17 10:34 Dose: 5 mg Bisacodyl (Dulcolax) 10 mg IN QDAY PRN PRN Reason: Constipation unrelieved by MOM Furosemide (Lasix) 20 mg PO DAILY@0600 [facility] Last Admin: 09/09/17 06:24 Dose: 20 mg Sodium Chloride (Nacl 0.45% 1000 Ml) 1,000 mls @ 75 mls/hr IV DIRECT [facility] Last Admin: 09/09/17 14:43 Dose: 75 mls/hr Vancomycin HCl 1,500 mg/ (Sodium Chloride) 515 mls @ 333.333 mls/hr IV Q24H [facility] Last Admin: 09/09/17 14:38 Dose: 333.333 mls/hr Lactobacillus Rhamnosus (Culturelle) 1 each PO DAILY [facility] Last Admin: 09/09/17 10:34 Dose: 1 each Levothyroxine Sodium (Synthroid) 88 mcg PO DAILY@0600 [facility] Last Admin: 09/09/17 06:24 Dose: 88 mcg Lisinopril (Zestril) 20 mg PO QDAY [facility] Last Admin: 09/09/17 10:34 Dose: 20 mg Magnesium Hydroxide (Milk Of Magnesia) 30 ml PO Q4H PRN PRN Reason: Constipation Ondansetron HCl (Zofran) 4 mg IV Q8H PRN PRN Reason: N/V unrelieved by Reglan Potassium Chloride (K-Dur) 40 meq PO QDAY [facility] Stop: 09/10/17 23:59 Last Admin: 09/09/17 10:35 Dose: 40 meq Vancomycin HCl (Vancomycin Pharmacy To Dose) 1 each IV PKCONSULT [facility] PRN Reason: Protocol Review of Systems All systems: negative (as per HPI rest neg) Physical Examination - Physical Exam Narrative exam: General appearance: Alert in NAD, conversant Eyes: anicteric sclerae, moist conjunctivae; no lid-lag; PERRLA HENT: Atraumatic; oropharynx clear Neck: Trachea midline; supple, no thyromegaly or lymphadenopathy Lungs: CTA tractions CV: RRR, no murmurs Abdomen: Soft, non-tender; no masses or hepatosplenomegaly Extremities: marked shaista leg edema with skin tears and serous secretion and diffuse erythema L>R, erythema extents to left thigh Skin: Normal temperature, turgor and texture; no rash, ulcers or subcutaneous nodules Psych: Appropriate affect, alert and oriented to person, place and time. Neuro: alert and oriented x 3. Moving all extermities Lines: No CVL / PICC - Constitutional Vitals: Vital Signs Temp Pulse Resp BP Pulse Ox 98.6 F 78 20 127/54 97 09/09/17 08:11 09/09/17 10:34 09/09/17 08:11 09/09/17 10:34 09/09/17 08:11 Temperature -Last 24 Hours Temperature 98.6 F Temperature 97.5 F Temperature 100.3 F Results - Labs CBC & Chem 7: 09/09/17 03:57 09/09/17 03:57 Labs: Abnormal lab results 09/09/17 09/09/17 Range/Units 03:57 03:57 RBC 2.90 L (3.65-5.03) M/mm3 Hgb 8.1 L (10.1-14.3) gm/dl Hct 25.4 L (30.3-42.9) % RDW 17.0 H (13.2-15.2) % Seg Neuts % (Manual) 78.0 H (40.0-70.0) % Lymphocytes % (Manual) 10.0 L (13.4-35.0) % Eosinophils % (Manual) 9.0 H (0.0-4.3) % Seg Neutrophils # Man 8.2 H (1.8-7.7) K/mm3 Lymphocytes # (Manual) 1.1 L (1.2-5.4) K/mm3 Eosinophils # (Manual) 0.9 H (0.0-0.4) K/mm3 Carbon Dioxide 19 L (22-30) mmol/L BUN 26 H (7-17) mg/dL Calcium 7.6 L (8.4-10.2) mg/dL Total Protein 4.6 L (6.3-8.2) g/dL Albumin 2.0 L (3.9-5) g/dL Assessment and Plan Assessment: 1) Bilateral leg cellulitis on top of chronic leg lymphedema. Wound cx +Beta hem Group G Strep 2) History of Breast Cancer, Colon Cancer 3) Chronic Pancreatitis 4) Penicillin allergy Plan: -continue vanco for now -check CRP -add clindamycin -monitor erythema -leg elevation -if clinically better in 2 days ok to change to clindamycin 300 mg PO TID total 7 days -wound care - needs lymphedema clinic I will be off until Sep 15, but available over the phone, please call me for questions. Thank you Dr Calix for your consultation, will follow up with you. Francia Ferro MD Infectious Diseases Specialist [facility] M [phone] O [phone].
[2017-09-09] MEDS: CLEOCIN 300 MG/50 mL 300 MG/50 ML BAG IV SCH (18:21)
[2017-09-10 06:18] LABS: Albumin 1.4 g/dL (3.9-5); Calcium 8.1 mg/dL (8.4-10.2)
--- NOTE | 2017-09-10 07:07 | Progress Note ---
Assessment and Plan Assessment and plan: 81-year-old female with past medical history significant for colon cancer, breast cancer, pancreatitis, bedbound admitted to the floor for the management of bilateral lower extremity cellulitis bilateral lower extremity cellulitis Acute metabolic encephalopathy - CT shows meningioma - Neurology consult placed bilateral lower extremity cellulitis - ID was consulted and patient is on IV vancomycin and clindamycin - Culture grew Beta hemolytic streptococci Hypertension - Continue amlodipine Obesity - Patient is counseled about diet and exercise Hypokalemia - Repleted DVT prophylaxis - Lovenox Disposition - Continue inpatient care. History Interval history: Seen and evaluated this morning, patient didn't have any new complaints. Patient had episode of fever overnight, no nursing issues overnight. Hospitalist Physical - Physical exam Narrative exam: Not in cardiopulmonary distress. The patient is obese. Vital signs as documented. Head exam is unremarkable. No scleral icterus . Neck is without jugular venous distension, thyromegaly, or carotid bruits. Lungs are clear to auscultation. Cardiac exam reveals regular rate and Rhythm. First and second heart sounds normal. No murmurs, rubs or gallops. Abdominal exam reveals normal bowel sounds, no masses, no organomegaly and no aortic enlargement. Extremities bilateral lower extremity edema, oozing NUTRITION INSTRUCTOR: Alert and oriented 3 - Constitutional Vitals: Temp Pulse Resp BP Pulse Ox 100.2 F H 79 20 112/54 93 09/09/17 19:24 09/09/17 19:24 09/09/17 19:24 09/09/17 19:24 09/09/17 19:24 General appearance: Present: no acute distress, obese Results - Labs CBC & Chem 7: 09/10/17 09:06 09/10/17 05:25 Labs: Laboratory Last Values WBC 10.5 K/mm3 (4.5-11.0) 09/09/17 03:57 RBC 2.90 M/mm3 (3.65-5.03) L 09/09/17 03:57 Hgb 8.1 gm/dl (10.1-14.3) L 09/09/17 03:57 Hct 25.4 % (30.3-42.9) L 09/09/17 03:57 MCV 88 fl (79-97) 09/09/17 03:57 MCH 28 pg (28-32) 09/09/17 03:57 MCHC 32 % (30-34) 09/09/17 03:57 RDW 17.0 % (13.2-15.2) H 09/09/17 03:57 Plt Count 261 K/mm3 (140-440) 09/09/17 03:57 Lymph % (Auto) 7.5 % (13.4-35.0) L 09/08/17 04:45 Stearns % (Auto) 6.0 % (0.0-7.3) 09/08/17 04:45 Eos % (Auto) 2.5 % (0.0-4.3) 09/08/17 04:45 Baso % (Auto) 0.1 % (0.0-1.8) 09/08/17 04:45 Lymph # 1.0 K/mm3 (1.2-5.4) L 09/08/17 04:45 Stearns # 0.8 K/mm3 (0.0-0.8) 09/08/17 04:45 Eos # 0.3 K/mm3 (0.0-0.4) 09/08/17 04:45 Baso # 0.0 K/mm3 (0.0-0.1) 09/08/17 04:45 Add Manual Diff Complete 09/09/17 03:57 Total Counted 100 09/09/17 03:57 Seg Neutrophils % 83.9 % (40.0-70.0) H 09/08/17 04:45 Seg Neuts % (Manual) 78.0 % (40.0-70.0) H 09/09/17 03:57 Band Neutrophils % 0 % 09/09/17 03:57 Lymphocytes % (Manual) 10.0 % (13.4-35.0) L 09/09/17 03:57 Reactive Lymphs % (Man) 0 % 09/09/17 03:57 Monocytes % (Manual) 3.0 % (0.0-7.3) 09/09/17 03:57 Eosinophils % (Manual) 9.0 % (0.0-4.3) H 09/09/17 03:57 Basophils % (Manual) 0 % (0.0-1.8) 09/09/17 03:57 Metamyelocytes % 0 % 09/09/17 03:57 Myelocytes % 0 % 09/09/17 03:57 Promyelocytes % 0 % 09/09/17 03:57 Blast Cells % 0 % 09/09/17 03:57 Nucleated RBC % Not Reportable 09/09/17 03:57 Seg Neutrophils # 11.1 K/mm3 (1.8-7.7) H 09/08/17 04:45 Seg Neutrophils # Man 8.2 K/mm3 (1.8-7.7) H 09/09/17 03:57 Band Neutrophils # 0.0 K/mm3 09/09/17 03:57 Lymphocytes # (Manual) 1.1 K/mm3 (1.2-5.4) L 09/09/17 03:57 Abs React Lymphs (Man) 0.0 K/mm3 09/09/17 03:57 Monocytes # (Manual) 0.3 K/mm3 (0.0-0.8) 09/09/17 03:57 Eosinophils # (Manual) 0.9 K/mm3 (0.0-0.4) H 09/09/17 03:57 Basophils # (Manual) 0.0 K/mm3 (0.0-0.1) 09/09/17 03:57 Metamyelocytes # 0.0 K/mm3 09/09/17 03:57 Myelocytes # 0.0 K/mm3 09/09/17 03:57 Promyelocytes # 0.0 K/mm3 09/09/17 03:57 Blast Cells # 0.0 K/mm3 09/09/17 03:57 WBC Morphology Not Reportable 09/09/17 03:57 Hypersegmented Neuts Not Reportable 09/09/17 03:57 Hyposegmented Neuts Not Reportable 09/09/17 03:57 Hypogranular Neuts Not Reportable 09/09/17 03:57 Smudge Cells Not Reportable 09/09/17 03:57 Toxic Granulation Not Reportable 09/09/17 03:57 Toxic Vacuolation Not Reportable 09/09/17 03:57 Dohle Bodies Not Reportable 09/09/17 03:57 Pelger-Huet Anomaly Not Reportable 09/09/17 03:57 Marla Rods Not Reportable 09/09/17 03:57 Platelet Estimate Consistent w auto 09/09/17 03:57 Clumped Platelets Not Reportable 09/09/17 03:57 Plt Clumps, EDTA Not Reportable 09/09/17 03:57 Large Platelets Not Reportable 09/09/17 03:57 Giant Platelets Not Reportable 09/09/17 03:57 Platelet Satelliting Not Reportable 09/09/17 03:57 Plt Morphology Comment Not Reportable 09/09/17 03:57 RBC Morphology Not Reportable 09/09/17 03:57 Dimorphic RBCs Not Reportable 09/09/17 03:57 Polychromasia Not Reportable 09/09/17 03:57 Hypochromasia Not Reportable 09/09/17 03:57 Poikilocytosis Not Reportable 09/09/17 03:57 Anisocytosis 1+ 09/09/17 03:57 Microcytosis Not Reportable 09/09/17 03:57 Macrocytosis Not Reportable 09/09/17 03:57 Spherocytes Not Reportable 09/09/17 03:57 Pappenheimer Bodies Not Reportable 09/09/17 03:57 Sickle Cells Not Reportable 09/09/17 03:57 Target Cells Not Reportable 09/09/17 03:57 Tear Drop Cells Not Reportable 09/09/17 03:57 Ovalocytes Not Reportable 09/09/17 03:57 Helmet Cells Not Reportable 09/09/17 03:57 Echevarria-Ivalee Bodies Not Reportable 09/09/17 03:57 Compton Rings Not Reportable 09/09/17 03:57 Landy Cells Not Reportable 09/09/17 03:57 Bite Cells Not Reportable 09/09/17 03:57 Crenated Cell Not Reportable 09/09/17 03:57 Elliptocytes Not Reportable 09/09/17 03:57 Acanthocytes (Spur) Not Reportable 09/09/17 03:57 Rouleaux Not Reportable 09/09/17 03:57 Hemoglobin C Crystals Not Reportable 09/09/17 03:57 Schistocytes Not Reportable 09/09/17 03:57 Malaria parasites Not Reportable 09/09/17 03:57 Luis Daniel Bodies Not Reportable 09/09/17 03:57 Hem Pathologist Commnt No 09/09/17 03:57 Sodium 140 mmol/L (137-145) 09/10/17 05:25 Potassium 4.2 mmol/L (3.6-5.0) 09/10/17 05:25 Chloride 106.9 mmol/L (98-107) 09/10/17 05:25 Carbon Dioxide 19 mmol/L (22-30) L 09/10/17 05:25 Anion Gap 18 mmol/L 09/10/17 05:25 BUN 19 mg/dL (7-17) H 09/10/17 05:25 Creatinine 1.0 mg/dL (0.7-1.2) 09/10/17 05:25 Estimated GFR 53 ml/min 09/10/17 05:25 BUN/Creatinine Ratio 19 % 09/10/17 05:25 Glucose 74 mg/dL (65-100) 09/10/17 05:25 POC Glucose 89 (70-105) 09/07/17 00:36 Calcium 8.1 mg/dL (8.4-10.2) L 09/10/17 05:25 Magnesium 2.00 mg/dL (1.7-2.3) 09/09/17 03:57 Total Bilirubin 0.40 mg/dL (0.1-1.2) 09/10/17 05:25 AST 24 units/L (5-40) 09/10/17 05:25 ALT 13 units/L (7-56) 09/10/17 05:25 Alkaline Phosphatase 114 units/L (35-129) 09/10/17 05:25 Total Creatine Kinase 438 units/L (30-135) H 09/06/17 10:55 C-Reactive Protein 22.90 mg/dL (0.00-1.30) H 09/09/17 16:04 Total Protein 5.2 g/dL (6.3-8.2) L 09/10/17 05:25 Albumin 1.4 g/dL (3.9-5) L 09/10/17 05:25 Albumin/Globulin Ratio 0.4 % 09/10/17 05:25 Vancomycin Trough 11.6 ug/mL (5.0-20.0) 09/08/17 14:59 Elevated CRP
[2017-09-10 09:25] LABS: Hemoglobin 8.2 gm/dl (10.1-14.3); Mean Corpuscular HGB Conc 32 % (30-34); Mean Corpuscular Hemoglobin 28 pg (28-32); Mean Corpuscular Volume 90 fl (79-97); Platelet Count 267 K/mm3 (140-440)
[2017-09-10] MEDS: ZESTRIL PO SCH (10:23)
[2017-09-10] MEDS: CULTURELLE PO SCH (10:23)
[2017-09-10] MEDS: NORVASC PO SCH (10:23)
[2017-09-10] MEDS: K-DUR PO SCH (10:23)
[2017-09-10 10:31] LABS: Band Neutrophils # (Manual) 0.2 K/mm3; Basophils % (Manual) 0 % (0.0-1.8); Total Cells Counted 100
[2017-09-10 10:32] LABS: Anisocytosis 1+; Macrocytosis Few; Ovalocytes Few
[2017-09-10] MEDS: VANCOMYCIN 1,500 MG in NACL 0.9% 500 ML 500 ML IV SCH (16:19)
[2017-09-10] MEDS: CLEOCIN 300 MG/50 mL 300 MG/50 ML BAG IV SCH ×3 (16:21→18:35)
[2017-09-10] MEDS: LOVENOX SUB-Q SCH (22:08)
[2017-09-11] MEDS: NACL 0.45% 1000 ML 1,000 ML IV SCH ×2 (00:16→20:27)
[2017-09-11] MEDS: CLEOCIN 300 MG/50 mL 300 MG/50 ML BAG IV SCH ×4 (00:28→19:27)
[2017-09-11 04:41] LABS: Hematocrit 25.6 % (30.3-42.9); Hemoglobin 8.1 gm/dl (10.1-14.3); Mean Corpuscular HGB Conc 32 % (30-34); Mean Corpuscular Hemoglobin 28 pg (28-32); Mean Corpuscular Volume 89 fl (79-97); Platelet Count 317 K/mm3 (140-440); Red Blood Count 2.86 M/mm3 (3.65-5.03)
[2017-09-11 05:06] LABS: Calcium 7.7 mg/dL (8.4-10.2)
[2017-09-11 05:33] LABS: Anisocytosis 1+; Band Neutrophils # (Manual) 0.1 K/mm3; Basophils % (Manual) 0 % (0.0-1.8); Macrocytosis Few; Myelocytes # (Manual) 0.1 K/mm3; Ovalocytes Few; Total Cells Counted 100
[2017-09-11] MEDS: SYNTHROID PO SCH (06:41)
[2017-09-11] MEDS: LASIX PO SCH (06:41)
[2017-09-11] MEDS: NORVASC PO SCH (10:02)
[2017-09-11] MEDS: CULTURELLE PO SCH (10:02)
[2017-09-11] MEDS: ZESTRIL PO SCH (10:03)
--- NOTE | 2017-09-11 13:42 | Progress Note ---
Assessment and Plan Assessment and plan: 81-year-old female with past medical history significant for colon cancer, breast cancer, pancreatitis, bedbound admitted to the floor for the management of bilateral lower extremity cellulitis bilateral lower extremity cellulitis Acute metabolic encephalopathy - CT shows meningioma - Neurology consult placed bilateral lower extremity cellulitis - ID was consulted and patient is on IV vancomycin and clindamycin - Culture grew Beta hemolytic streptococci Hypertension - Continue amlodipine Obesity - Patient is counseled about diet and exercise Hypokalemia - Repleted DVT prophylaxis - Lovenox Disposition - Continue inpatient care. Possible DC tomorrow. History Interval history: Seen and evaluated this morning, patient said has leg pain. Patient had episode of fever overnight, no nursing issues overnight. Hospitalist Physical - Physical exam Narrative exam: Not in cardiopulmonary distress. The patient is obese. Vital signs as documented. Head exam is unremarkable. No scleral icterus . Neck is without jugular venous distension, thyromegaly, or carotid bruits. Lungs are clear to auscultation. Cardiac exam reveals regular rate and Rhythm. First and second heart sounds normal. No murmurs, rubs or gallops. Abdominal exam reveals normal bowel sounds, no masses, no organomegaly and no aortic enlargement. Extremities bilateral lower extremity edema, oozing SETTER OFF: Alert and oriented 3 - Constitutional Vitals: Temp Pulse Resp BP Pulse Ox 99.2 F 68 20 120/54 95 09/11/17 08:20 09/11/17 10:03 09/11/17 08:20 09/11/17 10:03 09/11/17 08:20 General appearance: Present: no acute distress, obese Results - Labs CBC & Chem 7: 09/11/17 04:11 09/11/17 04:11 Labs: Laboratory Last Values WBC 7.3 K/mm3 (4.5-11.0) 09/11/17 04:11 RBC 2.86 M/mm3 (3.65-5.03) L 09/11/17 04:11 Hgb 8.1 gm/dl (10.1-14.3) L 09/11/17 04:11 Hct 25.6 % (30.3-42.9) L 09/11/17 04:11 MCV 89 fl (79-97) 09/11/17 04:11 MCH 28 pg (28-32) 09/11/17 04:11 MCHC 32 % (30-34) 09/11/17 04:11 RDW 17.0 % (13.2-15.2) H 09/11/17 04:11 Plt Count 317 K/mm3 (140-440) 09/11/17 04:11 Lymph % (Auto) 7.5 % (13.4-35.0) L 09/08/17 04:45 [place] % (Auto) 6.0 % (0.0-7.3) 09/08/17 04:45 Eos % (Auto) 2.5 % (0.0-4.3) 09/08/17 04:45 Baso % (Auto) 0.1 % (0.0-1.8) 09/08/17 04:45 Lymph # 1.0 K/mm3 (1.2-5.4) L 09/08/17 04:45 [place] # 0.8 K/mm3 (0.0-0.8) 09/08/17 04:45 Eos # 0.3 K/mm3 (0.0-0.4) 09/08/17 04:45 Baso # 0.0 K/mm3 (0.0-0.1) 09/08/17 04:45 Add Manual Diff Complete 09/11/17 04:11 Total Counted 100 09/11/17 04:11 Seg Neutrophils % 83.9 % (40.0-70.0) H 09/08/17 04:45 Seg Neuts % (Manual) 80.0 % (40.0-70.0) H 09/11/17 04:11 Band Neutrophils % 2.0 % 09/11/17 04:11 Lymphocytes % (Manual) 8.0 % (13.4-35.0) L 09/11/17 04:11 Reactive Lymphs % (Man) 0 % 09/11/17 04:11 Monocytes % (Manual) 6.0 % (0.0-7.3) 09/11/17 04:11 Eosinophils % (Manual) 2.0 % (0.0-4.3) 09/11/17 04:11 Basophils % (Manual) 0 % (0.0-1.8) 09/11/17 04:11 Metamyelocytes % 1.0 % 09/11/17 04:11 Myelocytes % 1.0 % 09/11/17 04:11 Promyelocytes % 0 % 09/11/17 04:11 Blast Cells % 0 % 09/11/17 04:11 Nucleated RBC % Not Reportable 09/11/17 04:11 Seg Neutrophils # 11.1 K/mm3 (1.8-7.7) H 09/08/17 04:45 Seg Neutrophils # Man 5.8 K/mm3 (1.8-7.7) 09/11/17 04:11 Band Neutrophils # 0.1 K/mm3 09/11/17 04:11 Lymphocytes # (Manual) 0.6 K/mm3 (1.2-5.4) L 09/11/17 04:11 Abs React Lymphs (Man) 0.0 K/mm3 09/11/17 04:11 Monocytes # (Manual) 0.4 K/mm3 (0.0-0.8) 09/11/17 04:11 Eosinophils # (Manual) 0.1 K/mm3 (0.0-0.4) 09/11/17 04:11 Basophils # (Manual) 0.0 K/mm3 (0.0-0.1) 09/11/17 04:11 Metamyelocytes # 0.1 K/mm3 09/11/17 04:11 Myelocytes # 0.1 K/mm3 09/11/17 04:11 Promyelocytes # 0.0 K/mm3 09/11/17 04:11 Blast Cells # 0.0 K/mm3 09/11/17 04:11 WBC Morphology Not Reportable 09/11/17 04:11 Hypersegmented Neuts Not Reportable 09/11/17 04:11 Hyposegmented Neuts Not Reportable 09/11/17 04:11 Hypogranular Neuts Not Reportable 09/11/17 04:11 Smudge Cells Not Reportable 09/11/17 04:11 Toxic Granulation Not Reportable 09/11/17 04:11 Toxic Vacuolation Not Reportable 09/11/17 04:11 Dohle Bodies Not Reportable 09/11/17 04:11 Pelger-Huet Anomaly Not Reportable 09/11/17 04:11 Marla Rods Not Reportable 09/11/17 04:11 Platelet Estimate Appears normal 09/11/17 04:11 Clumped Platelets Not Reportable 09/11/17 04:11 Plt Clumps, EDTA Not Reportable 09/11/17 04:11 Large Platelets Not Reportable 09/11/17 04:11 Giant Platelets Not Reportable 09/11/17 04:11 Platelet Satelliting Not Reportable 09/11/17 04:11 Plt Morphology Comment Not Reportable 09/11/17 04:11 RBC Morphology Not Reportable 09/11/17 04:11 Dimorphic RBCs Not Reportable 09/11/17 04:11 Polychromasia Few 09/11/17 04:11 Hypochromasia Not Reportable 09/11/17 04:11 Poikilocytosis Not Reportable 09/11/17 04:11 Anisocytosis 1+ 09/11/17 04:11 Microcytosis Not Reportable 09/11/17 04:11 Macrocytosis Few 09/11/17 04:11 Spherocytes Not Reportable 09/11/17 04:11 Pappenheimer Bodies Not Reportable 09/11/17 04:11 Sickle Cells Not Reportable 09/11/17 04:11 Target Cells Not Reportable 09/11/17 04:11 Tear Drop Cells Not Reportable 09/11/17 04:11 Ovalocytes Few 09/11/17 04:11 Helmet Cells Not Reportable 09/11/17 04:11 Echevarria-[place] Bodies Not Reportable 09/11/17 04:11 [place] Rings Not Reportable 09/11/17 04:11 [place] Cells Not Reportable 09/11/17 04:11 Bite Cells Not Reportable 09/11/17 04:11 Crenated Cell Not Reportable 09/11/17 04:11 Elliptocytes Not Reportable 09/11/17 04:11 Acanthocytes (Spur) Not Reportable 09/11/17 04:11 Rouleaux Not Reportable 09/11/17 04:11 Hemoglobin C Crystals Not Reportable 09/11/17 04:11 Schistocytes Not Reportable 09/11/17 04:11 Malaria parasites Not Reportable 09/11/17 04:11 Luis Daniel Bodies Not Reportable 09/11/17 04:11 Hem Pathologist Commnt No 09/11/17 04:11 Sodium 136 mmol/L (137-145) L 09/11/17 04:11 Potassium 4.5 mmol/L (3.6-5.0) 09/11/17 04:11 Chloride 103.3 mmol/L (98-107) 09/11/17 04:11 Carbon Dioxide 19 mmol/L (22-30) L 09/11/17 04:11 Anion Gap 18 mmol/L 09/11/17 04:11 BUN 16 mg/dL (7-17) 09/11/17 04:11 Creatinine 1.0 mg/dL (0.7-1.2) 09/11/17 04:11 Estimated GFR 53 ml/min 09/11/17 04:11 BUN/Creatinine Ratio 16 % 09/11/17 04:11 Glucose 74 mg/dL (65-100) 09/11/17 04:11 POC Glucose 89 (70-105) 09/07/17 00:36 Calcium 7.7 mg/dL (8.4-10.2) L 09/11/17 04:11 Magnesium 2.00 mg/dL (1.7-2.3) 09/09/17 03:57 Total Bilirubin 0.40 mg/dL (0.1-1.2) 09/10/17 05:25 AST 24 units/L (5-40) 09/10/17 05:25 ALT 13 units/L (7-56) 09/10/17 05:25 Alkaline Phosphatase 114 units/L (35-129) 09/10/17 05:25 Total Creatine Kinase 438 units/L (30-135) H 09/06/17 10:55 C-Reactive Protein 22.90 mg/dL (0.00-1.30) H 09/09/17 16:04 Total Protein 5.2 g/dL (6.3-8.2) L 09/10/17 05:25 Albumin 1.4 g/dL (3.9-5) L 09/10/17 05:25 Albumin/Globulin Ratio 0.4 % 09/10/17 05:25 Vancomycin Trough 11.6 ug/mL (5.0-20.0) 09/08/17 14:59
[2017-09-11] MEDS: VANCOMYCIN 1,500 MG in NACL 0.9% 500 ML 500 ML IV SCH (14:33)
[2017-09-12] MEDS: LOVENOX SUB-Q SCH ×2 (00:10→21:03)
[2017-09-12] MEDS: LASIX PO SCH ×2 (00:10→05:14)
[2017-09-12] MEDS: SYNTHROID PO SCH ×2 (00:11→05:14)
[2017-09-12] MEDS: CLEOCIN 300 MG/50 mL 300 MG/50 ML BAG IV SCH ×4 (00:53→18:37)
--- NOTE | 2017-09-12 08:40 | Discharge Summary ---
Providers - Providers Date of Admission: 09/06/17 14:42 Date of discharge: 09/13/17 Attending physician: VIKTOR STEVENS MD 09/07/17 07:00 Consult to Wound/ET Nurse [CONS] Routine Reason For Exam: wound eval (Blister on left hernandez) 09/07/17 18:20 Consult to Physician [CONS] Routine Consulting Provider: SAVITA GARLAND Reason For Exam: meningioma, encephalopathy Place consult to:: OFFICE Notified:: YES Phone number called:: [phone] Was contact made?: Yes If yes, spoke with:: ADDISON Time called:: 09:28 Comment:: GABE 09/09/17 08:51 Consult to Physician [CONS] Routine Consulting Provider: DELPHINE GRISSOM Reason For Exam: cellulitis Place consult to:: Dr. Grissom Notified:: Dr. Grissom Was contact made?: Yes If yes, spoke with:: Dr. Grissom Time called:: 15:07 09/09/17 08:52 Consult to Dietitian/Nutrition [CONS] Routine Physician Instructions: Reason For Exam: Reason for Consult: Malnutrition Primary care physician: EDUARDO REYES Hospitalization Reason for admission: Cellulitis, acute metabolic encephalopathy Condition: Stable Pertinent studies: CT head showed small occipital meningioma X-ray of the leg showed soft tissue swelling Hospital course: 81 YO Female resident [facility] with HTN, Breast Cancer, Colon Cancer, Chronic Pancreatitis, Obesity, Debility, Dementia presents to ED for evaluation. Pt states that she has experienced pain and redness to both her legs for the past 3 days, with worsening symptoms over the past 1 day. Pt acknowledges pain, and new malodorous blister appearing on the left hernandez. Pt also acknowledges increased weakness over the same time frame. Pt is currently unable to conduct activities of daily living independently. Pt acknowledges subjective fever, but denies chills, CP, Palpitations, NVD, Syncope, recent ill contacts, productive cough, BRBPR, falls, or trauma. Pt seen and evaluated in ED and found to have BLE Cellulitis. Pt has lucid intervals, and subsequently gets fatigued, confused, and lethargic on exam. Pt is able to protect her airway. The patient was admitted to the floor and was treated with IV antibiotics initiated and liver changed to PO antibiotics per recommendation of ID. Patient came from assisted living facility and she discharged there with a course of by mouth clindamycin. Patient has small hemangioma on CT of head and neurology was consulted and recommended no intervention needed. Patient had encephalopathy on admission on top of dementia, that subsequently resolved. Patient's leukocytosis resolved, no fever. Patient is hemodynamically stable at the time of discharge. Management plan was discussed with her son on the phone who agreed with the plan of discharging her to back to [facility]. Medications were updated at the time of discharge. Disposition: DC/[place]-03 SNF [facility] Time spent for discharge: 31 minutes - Discharge Diagnoses (1) Cellulitis Status: Acute Qualifiers: Site of cellulitis: extremity Laterality: left (2) Decreased ambulation status Status: Chronic (3) Encephalopathy Status: Acute (4) Dementia Status: Chronic (5) Obesity Status: Acute Qualifiers: Body mass index: BMI 31.0-31.9 (6) HTN (hypertension) Status: Chronic Qualifiers: Hypertension type: essential hypertension Qualified Code(s): I10 - Essential (primary) hypertension (7) Lymphedema of both lower extremities Status: Chronic Core Measure Documentation - Palliative Care Palliative Care/ Comfort Measures: Not Applicable - Core Measures Any of the following diagnoses?: none Exam - Physical Exam Narrative exam: Not in cardiopulmonary distress. The patient is obese. Vital signs as documented. Head exam is unremarkable. No scleral icterus . Neck is without jugular venous distension, thyromegaly, or carotid bruits. Lungs are clear to auscultation. Cardiac exam reveals regular rate and Rhythm. First and second heart sounds normal. No murmurs, rubs or gallops. Abdominal exam reveals normal bowel sounds, no masses, no organomegaly and no aortic enlargement. Extremities bilateral lower extremity edema, oozing PUBLIC ADDRESS TECHNICIAN: Alert. - Constitutional Vitals: Temp Pulse Resp BP Pulse Ox 99.1 F 67 20 111/52 91 09/12/17 03:17 09/12/17 05:00 09/12/17 06:00 09/12/17 03:17 09/12/17 06:00 Plan Activity: fall precautions Weight Bearing Status: Weight Bear as Tolerated Diet: low cholesterol, low salt Follow up with: EDUARDO REYES MD [Primary Care Provider] - 7 Days Prescriptions: ALBUTEROL Inhaler [ProAir HFA Inhaler] 2 puff IH QID PRN #1 can PRN Reason: Shortness Of Breath Clindamycin [Clindamycin CAP] 300 mg PO Q8H #21 cap
[2017-09-12] MEDS: ZESTRIL PO SCH (11:00)
[2017-09-12] MEDS: CULTURELLE PO SCH (11:00)
[2017-09-12] MEDS: NORVASC PO SCH (11:00)
[2017-09-12] MEDS: NACL 0.45% 1000 ML 1,000 ML IV SCH (12:58)
--- NOTE | 2017-09-12 13:49 | Progress Note ---
Assessment and Plan Assessment and plan: 81-year-old female with past medical history significant for colon cancer, breast cancer, pancreatitis, bedbound admitted to the floor for the management of bilateral lower extremity cellulitis bilateral lower extremity cellulitis Acute metabolic encephalopathy - CT shows meningioma - Neurology consult placed bilateral lower extremity cellulitis - ID was consulted and patient is on IV vancomycin and clindamycin - Culture grew Beta hemolytic streptococci Hypertension - Continue amlodipine Obesity - Patient is counseled about diet and exercise Hypokalemia - Repleted Anemia - Multifactorial, H&H stable DVT prophylaxis - Lovenox Disposition - Pending placement to SNF. - Patient Problems (1) Cellulitis Current Visit: Yes Status: Acute Qualifiers: Site of cellulitis: extremity Laterality: left (2) Decreased ambulation status Current Visit: Yes Status: Acute (3) Encephalopathy Current Visit: Yes Status: Acute History Interval history: Seen and evaluated this morning, no fever overnight, patient is getting better. Plan of care was discussed with her son on the phone. Hospitalist Physical - Physical exam Narrative exam: Not in cardiopulmonary distress. The patient is obese. Vital signs as documented. Head exam is unremarkable. No scleral icterus . Neck is without jugular venous distension, thyromegaly, or carotid bruits. Lungs are clear to auscultation. Cardiac exam reveals regular rate and Rhythm. First and second heart sounds normal. No murmurs, rubs or gallops. Abdominal exam reveals normal bowel sounds, no masses, no organomegaly and no aortic enlargement. Extremities bilateral lower extremity edema, oozing TILE SPRAYER: Alert and oriented 3 - Constitutional Vitals: Temp Pulse Resp BP Pulse Ox 98.4 F 68 18 117/55 95 09/12/17 08:19 09/12/17 11:00 09/12/17 08:19 09/12/17 11:00 09/12/17 08:19 General appearance: Present: no acute distress, obese Results - Labs CBC & Chem 7: 09/11/17 04:11 09/11/17 04:11 Labs: Laboratory Last Values WBC 7.3 K/mm3 (4.5-11.0) 09/11/17 04:11 RBC 2.86 M/mm3 (3.65-5.03) L 09/11/17 04:11 Hgb 8.1 gm/dl (10.1-14.3) L 09/11/17 04:11 Hct 25.6 % (30.3-42.9) L 09/11/17 04:11 MCV 89 fl (79-97) 09/11/17 04:11 MCH 28 pg (28-32) 09/11/17 04:11 MCHC 32 % (30-34) 09/11/17 04:11 RDW 17.0 % (13.2-15.2) H 09/11/17 04:11 Plt Count 317 K/mm3 (140-440) 09/11/17 04:11 Lymph % (Auto) 7.5 % (13.4-35.0) L 09/08/17 04:45 [place] % (Auto) 6.0 % (0.0-7.3) 09/08/17 04:45 Eos % (Auto) 2.5 % (0.0-4.3) 09/08/17 04:45 Baso % (Auto) 0.1 % (0.0-1.8) 09/08/17 04:45 Lymph # 1.0 K/mm3 (1.2-5.4) L 09/08/17 04:45 [place] # 0.8 K/mm3 (0.0-0.8) 09/08/17 04:45 Eos # 0.3 K/mm3 (0.0-0.4) 09/08/17 04:45 Baso # 0.0 K/mm3 (0.0-0.1) 09/08/17 04:45 Add Manual Diff Complete 09/11/17 04:11 Total Counted 100 09/11/17 04:11 Seg Neutrophils % 83.9 % (40.0-70.0) H 09/08/17 04:45 Seg Neuts % (Manual) 80.0 % (40.0-70.0) H 09/11/17 04:11 Band Neutrophils % 2.0 % 09/11/17 04:11 Lymphocytes % (Manual) 8.0 % (13.4-35.0) L 09/11/17 04:11 Reactive Lymphs % (Man) 0 % 09/11/17 04:11 Monocytes % (Manual) 6.0 % (0.0-7.3) 09/11/17 04:11 Eosinophils % (Manual) 2.0 % (0.0-4.3) 09/11/17 04:11 Basophils % (Manual) 0 % (0.0-1.8) 09/11/17 04:11 Metamyelocytes % 1.0 % 09/11/17 04:11 Myelocytes % 1.0 % 09/11/17 04:11 Promyelocytes % 0 % 09/11/17 04:11 Blast Cells % 0 % 09/11/17 04:11 Nucleated RBC % Not Reportable 09/11/17 04:11 Seg Neutrophils # 11.1 K/mm3 (1.8-7.7) H 09/08/17 04:45 Seg Neutrophils # Man 5.8 K/mm3 (1.8-7.7) 09/11/17 04:11 Band Neutrophils # 0.1 K/mm3 09/11/17 04:11 Lymphocytes # (Manual) 0.6 K/mm3 (1.2-5.4) L 09/11/17 04:11 Abs React Lymphs (Man) 0.0 K/mm3 09/11/17 04:11 Monocytes # (Manual) 0.4 K/mm3 (0.0-0.8) 09/11/17 04:11 Eosinophils # (Manual) 0.1 K/mm3 (0.0-0.4) 09/11/17 04:11 Basophils # (Manual) 0.0 K/mm3 (0.0-0.1) 09/11/17 04:11 Metamyelocytes # 0.1 K/mm3 09/11/17 04:11 Myelocytes # 0.1 K/mm3 09/11/17 04:11 Promyelocytes # 0.0 K/mm3 09/11/17 04:11 Blast Cells # 0.0 K/mm3 09/11/17 04:11 WBC Morphology Not Reportable 09/11/17 04:11 Hypersegmented Neuts Not Reportable 09/11/17 04:11 Hyposegmented Neuts Not Reportable 09/11/17 04:11 Hypogranular Neuts Not Reportable 09/11/17 04:11 Smudge Cells Not Reportable 09/11/17 04:11 Toxic Granulation Not Reportable 09/11/17 04:11 Toxic Vacuolation Not Reportable 09/11/17 04:11 Dohle Bodies Not Reportable 09/11/17 04:11 Pelger-Huet Anomaly Not Reportable 09/11/17 04:11 Marla Rods Not Reportable 09/11/17 04:11 Platelet Estimate Appears normal 09/11/17 04:11 Clumped Platelets Not Reportable 09/11/17 04:11 Plt Clumps, EDTA Not Reportable 09/11/17 04:11 Large Platelets Not Reportable 09/11/17 04:11 Giant Platelets Not Reportable 09/11/17 04:11 Platelet Satelliting Not Reportable 09/11/17 04:11 Plt Morphology Comment Not Reportable 09/11/17 04:11 RBC Morphology Not Reportable 09/11/17 04:11 Dimorphic RBCs Not Reportable 09/11/17 04:11 Polychromasia Few 09/11/17 04:11 Hypochromasia Not Reportable 09/11/17 04:11 Poikilocytosis Not Reportable 09/11/17 04:11 Anisocytosis 1+ 09/11/17 04:11 Microcytosis Not Reportable 09/11/17 04:11 Macrocytosis Few 09/11/17 04:11 Spherocytes Not Reportable 09/11/17 04:11 Pappenheimer Bodies Not Reportable 09/11/17 04:11 Sickle Cells Not Reportable 09/11/17 04:11 Target Cells Not Reportable 09/11/17 04:11 Tear Drop Cells Not Reportable 09/11/17 04:11 Ovalocytes Few 09/11/17 04:11 Helmet Cells Not Reportable 09/11/17 04:11 [place]chevar[place] Bodies Not Reportable 09/11/17 04:11 [place] Rings Not Reportable 09/11/17 04:11 [place] Cells Not Reportable 09/11/17 04:11 Bite Cells Not Reportable 09/11/17 04:11 Crenated Cell Not Reportable 09/11/17 04:11 Elliptocytes Not Reportable 09/11/17 04:11 Acanthocytes (Spur) Not Reportable 09/11/17 04:11 Rouleaux Not Reportable 09/11/17 04:11 Hemoglobin C Crystals Not Reportable 09/11/17 04:11 Schistocytes Not Reportable 09/11/17 04:11 Malaria parasites Not Reportable 09/11/17 04:11 Luis Daniel Bodies Not Reportable 09/11/17 04:11 Hem Pathologist Commnt No 09/11/17 04:11 Sodium 136 mmol/L (137-145) L 09/11/17 04:11 Potassium 4.5 mmol/L (3.6-5.0) 09/11/17 04:11 Chloride 103.3 mmol/L (98-107) 09/11/17 04:11 Carbon Dioxide 19 mmol/L (22-30) L 09/11/17 04:11 Anion Gap 18 mmol/L 09/11/17 04:11 BUN 16 mg/dL (7-17) 09/11/17 04:11 Creatinine 1.0 mg/dL (0.7-1.2) 09/11/17 04:11 Estimated GFR 53 ml/min 09/11/17 04:11 BUN/Creatinine Ratio 16 % 09/11/17 04:11 Glucose 74 mg/dL (65-100) 09/11/17 04:11 POC Glucose 89 (70-105) 09/07/17 00:36 Calcium 7.7 mg/dL (8.4-10.2) L 09/11/17 04:11 Magnesium 2.00 mg/dL (1.7-2.3) 09/09/17 03:57 Total Bilirubin 0.40 mg/dL (0.1-1.2) 09/10/17 05:25 AST 24 units/L (5-40) 09/10/17 05:25 ALT 13 units/L (7-56) 09/10/17 05:25 Alkaline Phosphatase 114 units/L (35-129) 09/10/17 05:25 Total Creatine Kinase 438 units/L (30-135) H 09/06/17 10:55 C-Reactive Protein 22.90 mg/dL (0.00-1.30) H 09/09/17 16:04 Total Protein 5.2 g/dL (6.3-8.2) L 09/10/17 05:25 Albumin 1.4 g/dL (3.9-5) L 09/10/17 05:25 Albumin/Globulin Ratio 0.4 % 09/10/17 05:25 Vancomycin Trough 11.6 ug/mL (5.0-20.0) 09/08/17 14:59
[2017-09-12] MEDS: VANCOMYCIN 1,500 MG in NACL 0.9% 500 ML 500 ML IV SCH (16:35)
[2017-09-13] MEDS: LOVENOX SUB-Q SCH (04:00)
[2017-09-13] MEDS: CLEOCIN 300 MG/50 mL 300 MG/50 ML BAG IV SCH ×3 (04:09→12:55)
[2017-09-13] MEDS: SYNTHROID PO SCH (05:11)
[2017-09-13] MEDS: LASIX PO SCH (05:11)
[2017-09-13 07:10] LABS: Calcium 7.3 mg/dL (8.4-10.2)
--- NOTE | 2017-09-13 09:11 | Progress Note ---
Assessment and Plan Assessment and plan: 81-year-old female with past medical history significant for colon cancer, breast cancer, pancreatitis, bedbound admitted to the floor for the management of bilateral lower extremity cellulitis bilateral lower extremity cellulitis Acute metabolic encephalopathy - CT shows meningioma - Neurology consult placed - Resolved bilateral lower extremity cellulitis - ID was consulted and patient was treated with IV vancomycin and currently on by mouth clindamycin - Culture grew Beta hemolytic streptococci Hypertension - Continue amlodipine Obesity - Patient is counseled about diet and exercise Hypokalemia -Resolved Anemia - Multifactorial, H&H stable DVT prophylaxis - Lovenox Disposition - Pending placement to SNF. - Patient Problems (1) Cellulitis Current Visit: Yes Status: Acute Qualifiers: Site of cellulitis: extremity Laterality: left (2) Decreased ambulation status Current Visit: Yes Status: Acute (3) Encephalopathy Current Visit: Yes Status: Acute History Interval history: Seen and evaluated this morning, no fever overnight, patient is getting better. Plan of care was discussed with her son on the phone yesterday. Hospitalist Physical - Physical exam Narrative exam: Not in cardiopulmonary distress. The patient is obese. Vital signs as documented. Head exam is unremarkable. No scleral icterus . Neck is without jugular venous distension, thyromegaly, or carotid bruits. Lungs are clear to auscultation. Cardiac exam reveals regular rate and Rhythm. First and second heart sounds normal. No murmurs, rubs or gallops. Abdominal exam reveals normal bowel sounds, no masses, no organomegaly and no aortic enlargement. Extremities bilateral lower extremity edema, oozing [employer]: Alert and oriented 3 - Constitutional Vitals: Temp Pulse Resp BP Pulse Ox 98.8 F 68 20 125/49 99 09/13/17 08:00 09/13/17 08:00 09/13/17 08:00 09/13/17 08:00 09/13/17 08:00 General appearance: Present: no acute distress, obese Results - Labs CBC & Chem 7: 09/11/17 04:11 09/13/17 06:35 Labs: Laboratory Last Values WBC 7.3 K/mm3 (4.5-11.0) 09/11/17 04:11 RBC 2.86 M/mm3 (3.65-5.03) L 09/11/17 04:11 Hgb 8.1 gm/dl (10.1-14.3) L 09/11/17 04:11 Hct 25.6 % (30.3-42.9) L 09/11/17 04:11 MCV 89 fl (79-97) 09/11/17 04:11 MCH 28 pg (28-32) 09/11/17 04:11 MCHC 32 % (30-34) 09/11/17 04:11 RDW 17.0 % (13.2-15.2) H 09/11/17 04:11 Plt Count 317 K/mm3 (140-440) 09/11/17 04:11 Lymph % (Auto) 7.5 % (13.4-35.0) L 09/08/17 04:45 [place] % (Auto) 6.0 % (0.0-7.3) 09/08/17 04:45 Eos % (Auto) 2.5 % (0.0-4.3) 09/08/17 04:45 Baso % (Auto) 0.1 % (0.0-1.8) 09/08/17 04:45 Lymph # 1.0 K/mm3 (1.2-5.4) L 09/08/17 04:45 [place] # 0.8 K/mm3 (0.0-0.8) 09/08/17 04:45 Eos # 0.3 K/mm3 (0.0-0.4) 09/08/17 04:45 Baso # 0.0 K/mm3 (0.0-0.1) 09/08/17 04:45 Add Manual Diff Complete 09/11/17 04:11 Total Counted 100 09/11/17 04:11 Seg Neutrophils % 83.9 % (40.0-70.0) H 09/08/17 04:45 Seg Neuts % (Manual) 80.0 % (40.0-70.0) H 09/11/17 04:11 Band Neutrophils % 2.0 % 09/11/17 04:11 Lymphocytes % (Manual) 8.0 % (13.4-35.0) L 09/11/17 04:11 Reactive Lymphs % (Man) 0 % 09/11/17 04:11 Monocytes % (Manual) 6.0 % (0.0-7.3) 09/11/17 04:11 Eosinophils % (Manual) 2.0 % (0.0-4.3) 09/11/17 04:11 Basophils % (Manual) 0 % (0.0-1.8) 09/11/17 04:11 Metamyelocytes % 1.0 % 09/11/17 04:11 Myelocytes % 1.0 % 09/11/17 04:11 Promyelocytes % 0 % 09/11/17 04:11 Blast Cells % 0 % 09/11/17 04:11 Nucleated RBC % Not Reportable 09/11/17 04:11 Seg Neutrophils # 11.1 K/mm3 (1.8-7.7) H 09/08/17 04:45 Seg Neutrophils # Man 5.8 K/mm3 (1.8-7.7) 09/11/17 04:11 Band Neutrophils # 0.1 K/mm3 09/11/17 04:11 Lymphocytes # (Manual) 0.6 K/mm3 (1.2-5.4) L 09/11/17 04:11 Abs React Lymphs (Man) 0.0 K/mm3 09/11/17 04:11 Monocytes # (Manual) 0.4 K/mm3 (0.0-0.8) 09/11/17 04:11 Eosinophils # (Manual) 0.1 K/mm3 (0.0-0.4) 09/11/17 04:11 Basophils # (Manual) 0.0 K/mm3 (0.0-0.1) 09/11/17 04:11 Metamyelocytes # 0.1 K/mm3 09/11/17 04:11 Myelocytes # 0.1 K/mm3 09/11/17 04:11 Promyelocytes # 0.0 K/mm3 09/11/17 04:11 Blast Cells # 0.0 K/mm3 09/11/17 04:11 WBC Morphology Not Reportable 09/11/17 04:11 Hypersegmented Neuts Not Reportable 09/11/17 04:11 Hyposegmented Neuts Not Reportable 09/11/17 04:11 Hypogranular Neuts Not Reportable 09/11/17 04:11 Smudge Cells Not Reportable 09/11/17 04:11 Toxic Granulation Not Reportable 09/11/17 04:11 Toxic Vacuolation Not Reportable 09/11/17 04:11 Dohle Bodies Not Reportable 09/11/17 04:11 Pelger-Huet Anomaly Not Reportable 09/11/17 04:11 Marla Rods Not Reportable 09/11/17 04:11 Platelet Estimate Appears normal 09/11/17 04:11 Clumped Platelets Not Reportable 09/11/17 04:11 Plt Clumps, EDTA Not Reportable 09/11/17 04:11 Large Platelets Not Reportable 09/11/17 04:11 Giant Platelets Not Reportable 09/11/17 04:11 Platelet Satelliting Not Reportable 09/11/17 04:11 Plt Morphology Comment Not Reportable 09/11/17 04:11 RBC Morphology Not Reportable 09/11/17 04:11 Dimorphic RBCs Not Reportable 09/11/17 04:11 Polychromasia Few 09/11/17 04:11 Hypochromasia Not Reportable 09/11/17 04:11 Poikilocytosis Not Reportable 09/11/17 04:11 Anisocytosis 1+ 09/11/17 04:11 Microcytosis Not Reportable 09/11/17 04:11 Macrocytosis Few 09/11/17 04:11 Spherocytes Not Reportable 09/11/17 04:11 Pappenheimer Bodies Not Reportable 09/11/17 04:11 Sickle Cells Not Reportable 09/11/17 04:11 Target Cells Not Reportable 09/11/17 04:11 Tear Drop Cells Not Reportable 09/11/17 04:11 Ovalocytes Few 09/11/17 04:11 Helmet Cells Not Reportable 09/11/17 04:11 Echevarria-[place] Bodies Not Reportable 09/11/17 04:11 Orange Rings Not Reportable 09/11/17 04:11 [place] Cells Not Reportable 09/11/17 04:11 Bite Cells Not Reportable 09/11/17 04:11 Crenated Cell Not Reportable 09/11/17 04:11 Elliptocytes Not Reportable 09/11/17 04:11 Acanthocytes (Spur) Not Reportable 09/11/17 04:11 Rouleaux Not Reportable 09/11/17 04:11 Hemoglobin C Crystals Not Reportable 09/11/17 04:11 Schistocytes Not Reportable 09/11/17 04:11 Malaria parasites Not Reportable 09/11/17 04:11 Luis Daniel Bodies Not Reportable 09/11/17 04:11 Hem Pathologist Commnt No 09/11/17 04:11 Sodium 137 mmol/L (137-145) 09/13/17 06:35 Potassium 3.6 mmol/L (3.6-5.0) 09/13/17 06:35 Chloride 106.4 mmol/L (98-107) 09/13/17 06:35 Carbon Dioxide 17 mmol/L (22-30) L 09/13/17 06:35 Anion Gap 17 mmol/L 09/13/17 06:35 BUN 12 mg/dL (7-17) 09/13/17 06:35 Creatinine 0.9 mg/dL (0.7-1.2) 09/13/17 06:35 Estimated GFR 60 ml/min 09/13/17 06:35 BUN/Creatinine Ratio 13 % 09/13/17 06:35 Glucose 74 mg/dL (65-100) 09/13/17 06:35 POC Glucose 89 (70-105) 09/07/17 00:36 Calcium 7.3 mg/dL (8.4-10.2) L 09/13/17 06:35 Magnesium 2.00 mg/dL (1.7-2.3) 09/09/17 03:57 Total Bilirubin 0.40 mg/dL (0.1-1.2) 09/10/17 05:25 AST 24 units/L (5-40) 09/10/17 05:25 ALT 13 units/L (7-56) 09/10/17 05:25 Alkaline Phosphatase 114 units/L (35-129) 09/10/17 05:25 Total Creatine Kinase 438 units/L (30-135) H 09/06/17 10:55 C-Reactive Protein 22.90 mg/dL (0.00-1.30) H 09/09/17 16:04 Total Protein 5.2 g/dL (6.3-8.2) L 09/10/17 05:25 Albumin 1.4 g/dL (3.9-5) L 09/10/17 05:25 Albumin/Globulin Ratio 0.4 % 09/10/17 05:25 Vancomycin Trough 11.6 ug/mL (5.0-20.0) 09/08/17 14:59
[2017-09-13] MEDS: CULTURELLE PO SCH (10:06)
[2017-09-13] MEDS: ZESTRIL PO SCH (10:08)
[2017-09-13] MEDS: NORVASC PO SCH (10:08)
[2017-09-13] MEDS: NACL 0.45% 1000 ML 1,000 ML IV SCH (11:02)
--- NOTE | 2017-09-13 11:06 | Consultation ---
History of Present Illness Consult date: 09/13/17 History of present illness: confusion i better meds are adjusted reviewed the other consulatants notes and the labs discharge planning in progress suspect delirium part of picture Past History Past Medical History: arthritis, cancer, hypertension, other (Pancreatitis,) Past Surgical History: appendectomy, cholecystectomy, total knee replacement Social history: . denies: smoking, alcohol abuse, prescription drug abuse Family history: hypertension Medications and Allergies Allergies Allergy/AdvReac Type Severity Reaction Status Date / Time iodine Allergy Severe Swelling Verified 05/16/17 15:17 Penicillins Allergy Severe Swelling Verified 05/16/17 15:17 Sulfa (Sulfonamide Allergy Severe Swelling Verified 05/16/17 15:17 Antibiotics) [place] And Derivatives Allergy Rash Verified 05/16/17 15:17 Home Medications Medication Instructions Recorded Confirmed Last Taken Type NexIUM 40 mg PO DAILY 11/19/16 09/06/17 02/17/17 History Lactobacillus Acidophilus 1 each PO DAILY #30 capsule 11/23/16 09/06/17 Unknown Rx [Probiotic] Levothyroxine [Synthroid] 88 mcg PO DAILY@0600 #30 tablet 12/01/16 09/06/1704/29 Rx Amlodipine-Benazepril 5-20 mg 1 tab PO DAILY 05/16/17 09/06/17 Unknown History Nitrofurantoin Macrocrysta(Nf) 100 mg PO DAILY #30 capsule 05/19/17 09/06/17 Unknown Rx [Macrodantin CAP] Furosemide [Lasix] 20 mg PO QDAY #30 tablet 08/21/17 09/06/17 Unknown Rx Clindamycin [Clindamycin CAP] 300 mg PO Q8H #21 cap 09/12/17 Unknown Rx Active Meds: Active Medications Acetaminophen (Tylenol) 650 mg PO Q4H PRN PRN Reason: Pain MILD(1-3)/Fever >100.5/MARQUEZ Albuterol (Proventil) 2.5 mg IH Q4HRT PRN PRN Reason: Shortness Of Breath Amlodipine Besylate (Norvasc) 5 mg PO QDAY [facility] Last Admin: 09/13/17 10:08 Dose: Not Given Bisacodyl (Dulcolax) 10 mg [place] QDAY PRN PRN Reason: Constipation unrelieved by MOM Enoxaparin Sodium (Lovenox) 40 mg SUB-Q QDAY@2200 [facility] Last Admin: 09/13/17 04:00 Dose: Not Given Furosemide (Lasix) 20 mg PO DAILY@0600 [facility] Last Admin: 09/13/17 05:11 Dose: 20 mg Sodium Chloride (Nacl 0.45% 1000 Ml) 1,000 mls @ 75 mls/hr IV DIRECT [facility] Last Admin: 09/13/17 11:02 Dose: 75 mls/hr Clindamycin HCl (Cleocin 300 Mg/50 Ml) 300 mg in 50 mls @ 100 mls/hr IV Q6HR [facility] PRN Reason: Protocol Last Admin: 09/13/17 05:12 Dose: 100 mls/hr Lactobacillus Rhamnosus (Culturelle) 1 each PO DAILY [facility] Last Admin: 09/13/17 10:06 Dose: 1 each Levothyroxine Sodium (Synthroid) 88 mcg PO DAILY@0600 [facility] Last Admin: 09/13/17 05:11 Dose: 88 mcg Lisinopril (Zestril) 20 mg PO QDAY [facility] Last Admin: 09/13/17 10:08 Dose: Not Given Magnesium Hydroxide (Milk Of Magnesia) 30 ml PO Q4H PRN PRN Reason: Constipation Ondansetron HCl (Zofran) 4 mg IV Q8H PRN PRN Reason: N/V unrelieved by Mela Physical Examination - Vital Signs Vital Signs: Vital Signs Temp Pulse Resp BP Pulse Ox 98.4 F 89 18 134/72 98 09/06/17 10:48 09/06/17 10:48 09/06/17 10:48 09/06/17 10:48 09/06/17 10:48 Results - Laboratory Findings CBC and BMP: 09/11/17 04:11 09/13/17 06:35 Abnormal Lab Findings: Abnormal Labs 09/06/17 09/06/17 09/06/17 10:55 10:55 21:34 WBC 15.7 H RBC 3.44 L Hgb 9.5 L Hct 30.1 L RDW 16.7 H Lymph % (Auto) Lymph # Seg Neutrophils % Seg Neuts % (Manual) 96.0 H Lymphocytes % (Manual) 1.0 L Eosinophils % (Manual) Seg Neutrophils # Seg Neutrophils # Man 15.1 H Lymphocytes # (Manual) 0.2 L Eosinophils # (Manual) Sodium Potassium Carbon Dioxide 20 L BUN 33 H Glucose POC Glucose 56 L Calcium Total Creatine Kinase 438 H C-Reactive Protein Total Protein 6.1 L Albumin 2.6 L 09/08/17 09/08/17 09/09/17 04:45 04:45 03:57 WBC 13.2 H RBC 3.03 L 2.90 L Hgb 8.7 L 8.1 L Hct 26.9 L 25.4 L RDW 16.9 H 17.0 H Lymph % (Auto) 7.5 L Lymph # 1.0 L Seg Neutrophils % 83.9 H Seg Neuts % (Manual) 78.0 H Lymphocytes % (Manual) 10.0 L Eosinophils % (Manual) 9.0 H Seg Neutrophils # 11.1 H Seg Neutrophils # Man 8.2 H Lymphocytes # (Manual) 1.1 L Eosinophils # (Manual) 0.9 H Sodium Potassium 3.4 L Carbon Dioxide 18 L BUN 23 H Glucose 125 H POC Glucose Calcium 7.8 L Total Creatine Kinase C-Reactive Protein Total Protein 4.6 L D Albumin 2.0 L 09/09/17 09/09/17 09/10/17 03:57 16:04 05:25 WBC RBC Hgb Hct RDW Lymph % (Auto) Lymph # Seg Neutrophils % Seg Neuts % (Manual) Lymphocytes % (Manual) Eosinophils % (Manual) Seg Neutrophils # Seg Neutrophils # Man Lymphocytes # (Manual) Eosinophils # (Manual) Sodium Potassium Carbon Dioxide 19 L 19 L BUN 26 H 19 H Glucose POC Glucose Calcium 7.6 L 8.1 L Total Creatine Kinase C-Reactive Protein 22.90 H Total Protein 4.6 L 5.2 L Albumin 2.0 L 1.4 L 09/10/17 09/11/17 09/11/17 09:06 04:11 04:11 WBC RBC 2.90 L 2.86 L Hgb 8.2 L 8.1 L Hct 26.0 L 25.6 L RDW 17.0 H 17.0 H Lymph % (Auto) Lymph # Seg Neutrophils % Seg Neuts % (Manual) 89.0 H 80.0 H Lymphocytes % (Manual) 4.0 L 8.0 L Eosinophils % (Manual) Seg Neutrophils # Seg Neutrophils # Man Lymphocytes # (Manual) 0.3 L 0.6 L Eosinophils # (Manual) Sodium 136 L Potassium Carbon Dioxide 19 L BUN Glucose POC Glucose Calcium 7.7 L Total Creatine Kinase C-Reactive Protein Total Protein Albumin 09/13/17 06:35 WBC RBC Hgb Hct RDW Lymph % (Auto) Lymph # Seg Neutrophils % Seg Neuts % (Manual) Lymphocytes % (Manual) Eosinophils % (Manual) Seg Neutrophils # Seg Neutrophils # Man Lymphocytes # (Manual) Eosinophils # (Manual) Sodium Potassium Carbon Dioxide 17 L BUN Glucose POC Glucose Calcium 7.3 L Total Creatine Kinase C-Reactive Protein Total Protein Albumin
--- NOTE | 2017-09-13 11:11 | Consultation ---
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 there is basically no real clinical manifestation based on extreme age... I would not recommend neurosurgical intervention of the meningioma as it is chronic and likely pre-existing ... Will document and recommend follow up CT's at least yearly Thanks Past History Past Medical History: arthritis, cancer, hypertension, other (Pancreatitis,) Past Surgical History: appendectomy, cholecystectomy, total knee replacement Social history: . denies: smoking, alcohol abuse, prescription drug abuse Family history: hypertension Medications and Allergies Allergies Allergy/AdvReac Type Severity Reaction Status Date / Time iodine Allergy Severe Swelling Verified 05/16/17 15:17 Penicillins Allergy Severe Swelling Verified 05/16/17 15:17 Sulfa (Sulfonamide Allergy Severe Swelling Verified 05/16/17 15:17 Antibiotics) [place] And Derivatives Allergy Rash Verified 05/16/17 15:17 Home Medications Medication Instructions Recorded Confirmed Last Taken Type NexIUM 40 mg PO DAILY 11/19/16 09/06/17 02/17/17 History Lactobacillus Acidophilus 1 each PO DAILY #30 capsule 11/23/16 09/06/17 Unknown Rx [Probiotic] Levothyroxine [Synthroid] 88 mcg PO DAILY@0600 #30 tablet 12/01/16 09/06/1704/29 Rx Amlodipine-Benazepril 5-20 mg 1 tab PO DAILY 05/16/17 09/06/17 Unknown History Nitrofurantoin Macrocrysta(Nf) 100 mg PO DAILY #30 capsule 05/19/17 09/06/17 Unknown Rx [Macrodantin CAP] Furosemide [Lasix] 20 mg PO QDAY #30 tablet 08/21/17 09/06/17 Unknown Rx Clindamycin [Clindamycin CAP] 300 mg PO Q8H #21 cap 09/12/17 Unknown Rx Active Meds: Active Medications Acetaminophen (Tylenol) 650 mg PO Q4H PRN PRN Reason: Pain MILD(1-3)/Fever >100.5/MARQUEZ Albuterol (Proventil) 2.5 mg IH Q4HRT PRN PRN Reason: Shortness Of Breath Amlodipine Besylate (Norvasc) 5 mg PO QDAY [facility] Last Admin: 09/13/17 10:08 Dose: Not Given Bisacodyl (Dulcolax) 10 mg [place] QDAY PRN PRN Reason: Constipation unrelieved by MOM Enoxaparin Sodium (Lovenox) 40 mg SUB-Q QDAY@2200 [facility] Last Admin: 09/13/17 04:00 Dose: Not Given Furosemide (Lasix) 20 mg PO DAILY@0600 [facility] Last Admin: 09/13/17 05:11 Dose: 20 mg Sodium Chloride (Nacl 0.45% 1000 Ml) 1,000 mls @ 75 mls/hr IV DIRECT [facility] Last Admin: 09/13/17 11:02 Dose: 75 mls/hr Clindamycin HCl (Cleocin 300 Mg/50 Ml) 300 mg in 50 mls @ 100 mls/hr IV Q6HR [facility] PRN Reason: Protocol Last Admin: 09/13/17 05:12 Dose: 100 mls/hr Lactobacillus Rhamnosus (Culturelle) 1 each PO DAILY [facility] Last Admin: 09/13/17 10:06 Dose: 1 each Levothyroxine Sodium (Synthroid) 88 mcg PO DAILY@0600 [facility] Last Admin: 09/13/17 05:11 Dose: 88 mcg Lisinopril (Zestril) 20 mg PO QDAY [facility] Last Admin: 09/13/17 10:08 Dose: Not Given Magnesium Hydroxide (Milk Of Magnesia) 30 ml PO Q4H PRN PRN Reason: Constipation Ondansetron HCl (Zofran) 4 mg IV Q8H PRN PRN Reason: N/V unrelieved by Reglan Physical Examination - Vital Signs Vital Signs: Vital Signs Temp Pulse Resp BP Pulse Ox 98.4 F 89 18 134/72 98 09/06/17 10:48 09/06/17 10:48 09/06/17 10:48 09/06/17 10:48 09/06/17 10:48 Results - Laboratory Findings CBC and BMP: 09/11/17 04:11 09/13/17 06:35 Abnormal Lab Findings: Abnormal Labs 09/06/17 09/06/17 09/06/17 10:55 10:55 21:34 WBC 15.7 H RBC 3.44 L Hgb 9.5 L Hct 30.1 L RDW 16.7 H Lymph % (Auto) Lymph # Seg Neutrophils % Seg Neuts % (Manual) 96.0 H Lymphocytes % (Manual) 1.0 L Eosinophils % (Manual) Seg Neutrophils # Seg Neutrophils # Man 15.1 H Lymphocytes # (Manual) 0.2 L Eosinophils # (Manual) Sodium Potassium Carbon Dioxide 20 L BUN 33 H Glucose POC Glucose 56 L Calcium Total Creatine Kinase 438 H C-Reactive Protein Total Protein 6.1 L Albumin 2.6 L 09/08/17 09/08/17 09/09/17 04:45 04:45 03:57 WBC 13.2 H RBC 3.03 L 2.90 L Hgb 8.7 L 8.1 L Hct 26.9 L 25.4 L RDW 16.9 H 17.0 H Lymph % (Auto) 7.5 L Lymph # 1.0 L Seg Neutrophils % 83.9 H Seg Neuts % (Manual) 78.0 H Lymphocytes % (Manual) 10.0 L Eosinophils % (Manual) 9.0 H Seg Neutrophils # 11.1 H Seg Neutrophils # Man 8.2 H Lymphocytes # (Manual) 1.1 L Eosinophils # (Manual) 0.9 H Sodium Potassium 3.4 L Carbon Dioxide 18 L BUN 23 H Glucose 125 H POC Glucose Calcium 7.8 L Total Creatine Kinase C-Reactive Protein Total Protein 4.6 L D Albumin 2.0 L 09/09/17 09/09/17 09/10/17 03:57 16:04 05:25 WBC RBC Hgb Hct RDW Lymph % (Auto) Lymph # Seg Neutrophils % Seg Neuts % (Manual) Lymphocytes % (Manual) Eosinophils % (Manual) Seg Neutrophils # Seg Neutrophils # Man Lymphocytes # (Manual) Eosinophils # (Manual) Sodium Potassium Carbon Dioxide 19 L 19 L BUN 26 H 19 H Glucose POC Glucose Calcium 7.6 L 8.1 L Total Creatine Kinase C-Reactive Protein 22.90 H Total Protein 4.6 L 5.2 L Albumin 2.0 L 1.4 L 09/10/17 09/11/17 09/11/17 09:06 04:11 04:11 WBC RBC 2.90 L 2.86 L Hgb 8.2 L 8.1 L Hct 26.0 L 25.6 L RDW 17.0 H 17.0 H Lymph % (Auto) Lymph # Seg Neutrophils % Seg Neuts % (Manual) 89.0 H 80.0 H Lymphocytes % (Manual) 4.0 L 8.0 L Eosinophils % (Manual) Seg Neutrophils # Seg Neutrophils # Man Lymphocytes # (Manual) 0.3 L 0.6 L Eosinophils # (Manual) Sodium 136 L Potassium Carbon Dioxide 19 L BUN Glucose POC Glucose Calcium 7.7 L Total Creatine Kinase C-Reactive Protein Total Protein Albumin 09/13/17 06:35 WBC RBC Hgb Hct RDW Lymph % (Auto) Lymph # Seg Neutrophils % Seg Neuts % (Manual) Lymphocytes % (Manual) Eosinophils % (Manual) Seg Neutrophils # Seg Neutrophils # Man Lymphocytes # (Manual) Eosinophils # (Manual) Sodium Potassium Carbon Dioxide 17 L BUN Glucose POC Glucose Calcium 7.3 L Total Creatine Kinase C-Reactive Protein Total Protein Albumin
[2017-09-13] MEDS: PROVENTIL IH SCH ×3 (14:42→19:00)
[2017-09-13 15:27] VITALS: BP 130/52
== END 2017-09-13 16:41 | DRG 871 ==
LOC: ED 10:32 → 2B-ACE 14:42
PROVIDERS: ADMIT Internal Medicine; ATTEND Internal Medicine
DX: A41.9 Sepsis, unspecified organism (principal); G93.41 Metabolic encephalopathy; E43 Unspecified severe protein-calorie malnutrition; K86.1 Other chronic pancreatitis; L03.116 Cellulitis of left lower limb; L03.115 Cellulitis of right lower limb; E66.9 Obesity, unspecified; I10 Essential (primary) hypertension; M19.90 Unspecified osteoarthritis, unspecified site; I89.0 Lymphedema, not elsewhere classified; F03.90 Unspecified dementia, unspecified severity, without behavioral disturbance, psychotic disturbance, mood disturbance, and anxiety; E87.6 Hypokalemia; D32.0 Benign neoplasm of cerebral meninges; D64.9 Anemia, unspecified; Z96.659 Presence of unspecified artificial knee joint; Z82.49 Family history of ischemic heart disease and other diseases of the circulatory system; Z85.3 Personal history of malignant neoplasm of breast; Z85.038 Personal history of other malignant neoplasm of large intestine; Z90.49 Acquired absence of other specified parts of digestive tract; Z79.899 Other long term (current) drug therapy; Z68.33 Body mass index [BMI] 33.0-33.9, adult; Z88.0 Allergy status to penicillin; Z88.2 Allergy status to sulfonamides; Z91.041 Radiographic dye allergy status
CPT/HCPCS: 36415; 70450; 80048; 80053; 80202; 82550; 82962; 83735; 85007; 85025; 86140; 87040; 87116; 94640; J1650; J3370; J7040

== ENCOUNTER 2017-09-16 00:25 | Inpatient (IN) | payer MEDICARE, OTHER ==
[2017-09-16 08:06] LABS: Basophils % (Auto) 0.6 % (0.0-1.8); Eosinophils # (Auto) 0.3 K/mm3 (0.0-0.4); Eosinophils % (Auto) 4.3 % (0.0-4.3); Hematocrit 23.4 % (30.3-42.9); Hemoglobin 7.7 gm/dl (10.1-14.3); Lymphocytes # (Auto) 1.1 K/mm3 (1.2-5.4); Lymphocytes % (Auto) 17.2 % (13.4-35.0); Mean Corpuscular HGB Conc 33 % (30-34); Mean Corpuscular Hemoglobin 28 pg (28-32); Mean Corpuscular Volume 85 fl (79-97); Monocytes # (Auto) 0.5 K/mm3 (0.0-0.8); Platelet Count 350 K/mm3 (140-440); Red Blood Count 2.75 M/mm3 (3.65-5.03); Red Cell Distribution Width 16.4 % (13.2-15.2)
[2017-09-16 08:11] LABS: Albumin 2.3 g/dL (3.9-5)
[2017-09-16] MEDS ORDERED: PERCOCET 5/325 PO ONE (10:33)
[2017-09-16] MEDS ORDERED: K-DUR PO ONE (10:48)
--- NOTE | 2017-09-16 10:54 | Emergency Department Report ---
ED Lower Extremity HPI - General Chief Complaint: Extremity Problem,Nontraumatic Stated Complaint: LEG EDEMA Time Seen by Provider: 09/16/17 07:26 Source: patient, EMS Mode of arrival: Stretcher Limitations: No Limitations - History of Present Illness Initial Comments: 82-year-old female the past medical history of hypertension, and chronic lymphedema with recent cellulitis diagnosis, breast cancer, and colon cancer presents to the hospital complaints of painful legs with associated blisters. Patient was admitted here September 06 until September 13 for this cellulitis and was discharged on clindamycin. Patient presents with continued pain, swelling, blisters, and erythema. No reports of fever. Patient was sent by the shelter. Pain 7/10 in intensity, constant, and worse with palpation. - Related Data Home Medications Medication Instructions Recorded Confirmed Last Taken Amlodipine-Benazepril 5-20 mg 1 tab PO DAILY 05/16/17 09/16/17 Unknown predniSONE [Deltasone] 10 mg PO QDAY 09/16/17 09/16/17 Unknown Previous Rx's Medication Instructions Recorded Last Taken Type Levothyroxine [Synthroid] 88 mcg PO DAILY@0600 #30 tablet 12/01/16 02/18/17 Rx Furosemide [Lasix] 20 mg PO QDAY #30 tablet 08/21/17 Unknown Rx Clindamycin [Clindamycin CAP] 300 mg PO Q8H #21 cap 09/12/17 Unknown Rx ALBUTEROL Inhaler [ProAir HFA 2 puff IH QID PRN #1 can 09/13/17 Unknown Rx Inhaler] Allergies Allergy/AdvReac Type Severity Reaction Status Date / Time iodine Allergy Severe Swelling Verified 05/16/17 15:17 Penicillins Allergy Severe Swelling Verified 05/16/17 15:17 Sulfa (Sulfonamide Allergy Severe Swelling Verified 05/16/17 15:17 Antibiotics) [place] And Derivatives Allergy Rash Verified 05/16/17 15:17 ED Review of Systems ROS: Stated complaint: LEG EDEMA Other details as noted in HPI Comment: All other systems reviewed and negative Other: Constitutional: No reported fever Neck: Denies pain Respiratory: Denies cough wheezing shortness of breath Cardiovascular: Denies chest pain, palpitations, syncope GI: Denies abdominal pain, nausea, vomiting, diarrhea : Denies dysuria Musculoskeletal: Denies back pain Skin: as per hpi Neurologic: Denies headache, numbness, weakness Psychiatric: Denies suicidal ideation, hallucinations ED Past Medical Hx - Past Medical History Hx Hypertension: Yes Hx Heart Attack/AMI: No Hx Congestive Heart Failure: No Hx Diabetes: No Hx Deep Vein Thrombosis: No Hx Liver Disease: No Hx Sickle Cell Disease: No Hx Arthritis: Yes Hx Asthma: No Hx COPD: No Hx Tuberculosis: No Hx Dementia: No Hx HIV: No Additional medical history: lymphedema to shaista LE, hx breast and colon cancer, pancreatitis - Surgical History Hx Coronary Stent: No Hx Open Heart Surgery: No Hx Pacemaker: No Hx Internal Defibrillator: No Hx Cholecystectomy: Yes Hx Appendectomy: Yes Additional Surgical History: left knee surgery - Social History Smoking Status: Never Smoker - Medications Home Medications: Home Medications Medication Instructions Recorded Confirmed Last Taken Type Levothyroxine [Synthroid] 88 mcg PO DAILY@0600 #30 tablet 12/01/16 09/16/1704/29 Rx Amlodipine-Benazepril 5-20 mg 1 tab PO DAILY 05/16/17 09/16/17 Unknown History Furosemide [Lasix] 20 mg PO QDAY #30 tablet 08/21/17 09/16/17 Unknown Rx Clindamycin [Clindamycin CAP] 300 mg PO Q8H #21 cap 09/12/17 09/16/17 Unknown Rx ALBUTEROL Inhaler [ProAir HFA 2 puff IH QID PRN #1 can 09/13/17 09/16/17 Unknown Rx Inhaler] predniSONE [Deltasone] 10 mg PO QDAY 09/16/17 09/16/17 Unknown History ED Physical Exam - General Limitations: No Limitations - Other Other exam information: General: No limitations, patient is alert in no acute distress Head exam: Atraumatic, normocephalic Eyes exam: Normal appearance ENT: Moist mucous membrane, normal oropharynx Neck exam: Normal inspection, full range of motion, no meningismus nontender Respiratory exam: Clear to auscultation bilateral, no wheezes, rales, crackles Cardiovascular: Normal rate and rhythm, normal heart sounds Abdomen: Soft, nondistended, and nontender, with normal bowel sounds, no rebound, or guarding Extremity: Full range of motion, bilateral significant edema with blisters, erythema, and warmth. Back: Normal Inspection, full range of motion, no tenderness Neurologic: Alert, cranial nerves intact, no motor or sensory deficit Psychiatric: normal affect, normal mood Skin: Bilateral leg blisters, erythema, edema and warmth. left more significant than right ED Course Vital Signs 09/16/17 09/16/17 09/16/17 00:34 05:00 11:00 Temperature 97.6 F 98.6 F Pulse Rate 69 72 75 Respiratory 18 17 18 Rate Blood Pressure 131/61 152/63 Blood Pressure 138/53 [Right] O2 Sat by Pulse 98 96 98 Oximetry 09/16/17 09/16/17 09/16/17 11:31 12:00 12:30 Temperature Pulse Rate 74 68 72 Respiratory 16 19 15 Rate Blood Pressure 100/66 120/60 150/51 Blood Pressure [Right] O2 Sat by Pulse 97 99 97 Oximetry 09/16/17 09/16/17 13:00 13:25 Temperature Pulse Rate 72 73 Respiratory 15 18 Rate Blood Pressure 150/51 Blood Pressure 139/62 [Right] O2 Sat by Pulse 99 99 Oximetry - Reevaluation(s) Reevaluation #1: 09/16/17 Patient provided medication for pain ED Lower Extremity MDM - Lab Data Result diagrams: 09/16/17 07:36 09/16/17 07:36 Lab Results 09/16/17 09/16/17 09/16/17 Range/Units 07:36 07:36 13:45 WBC 6.4 (4.5-11.0) K/mm3 RBC 2.75 L (3.65-5.03) M/mm3 Hgb 7.7 L (10.1-14.3) gm/dl Hct 23.4 L (30.3-42.9) % MCV 85 (79-97) fl MCH 28 (28-32) pg MCHC 33 (30-34) % RDW 16.4 H (13.2-15.2) % Plt Count 350 (140-440) K/mm3 Lymph % (Auto) 17.2 (13.4-35.0) % [place] % (Auto) 8.0 H (0.0-7.3) % Eos % (Auto) 4.3 (0.0-4.3) % Baso % (Auto) 0.6 (0.0-1.8) % Lymph # 1.1 L (1.2-5.4) K/mm3 [place] # 0.5 (0.0-0.8) K/mm3 Eos # 0.3 (0.0-0.4) K/mm3 Baso # 0.0 (0.0-0.1) K/mm3 Seg Neutrophils % 69.9 (40.0-70.0) % Seg Neutrophils # 4.5 (1.8-7.7) K/mm3 Sodium 140 (137-145) mmol/L Potassium 3.4 L (3.6-5.0) mmol/L Chloride 104.0 (98-107) mmol/L Carbon Dioxide 21 L (22-30) mmol/L Anion Gap 18 mmol/L BUN 20 H (7-17) mg/dL Creatinine 1.7 H D (0.7-1.2) mg/dL Estimated GFR 29 ml/min BUN/Creatinine Ratio 12 % Glucose 88 (65-100) mg/dL Calcium 8.0 L (8.4-10.2) mg/dL Total Bilirubin 0.40 (0.1-1.2) mg/dL AST 24 (5-40) units/L ALT 15 (7-56) units/L Alkaline Phosphatase 93 (35-129) units/L NT-Pro-B Natriuret Pep 1234 H (0-900) pg/mL Total Protein 6.5 (6.3-8.2) g/dL Albumin 2.3 L (3.9-5) g/dL Albumin/Globulin Ratio 0.5 % Urine Color Straw (Yellow) Urine Turbidity Clear (Clear) Urine pH 5.0 (5.0-7.0) Ur Specific [place] 1.009 (1.003-1.030) Urine Protein <15 mg/dl (Negative) mg/dL Urine Glucose (UA) Neg (Negative) mg/dL Urine Ketones Neg (Negative) mg/dL Urine Blood Neg (Negative) Urine Nitrite Neg (Negative) Urine Bilirubin Neg (Negative) Urine Urobilinogen < 2.0 (<2.0) mg/dL Ur Leukocyte Esterase Neg (Negative) Urine WBC (Auto) 34.0 H (0.0-6.0) /HPF Urine RBC (Auto) 29.0 (0.0-6.0) /HPF U Epithel Cells (Auto) 2.0 (0-13.0) /HPF Urine Bacteria (Auto) 1+ (Negative) /HPF Urine Mucus Few /HPF Urine Yeast (Budding) 3+ /HPF - Medical Decision Making Plan to patient a hospital for continuing cellulitis now with associated worsening renal function and drop in hemoglobin. UA results after patient was admitted treatment deferred to hospitalist - Differential Diagnosis cellulitis, lymphedema, bullae Critical Care Time: No Critical care attestation.: If time is entered above; I have spent that time in minutes in the direct care of this critically ill patient, excluding procedure time. ED Disposition Clinical Impression: Acute renal failure, Dementia, Cellulitis, leg, Blister of foot, left, Anemia Disposition: OP ADMIT IP TO THIS HOSP Is pt being admited?: Yes Condition: Stable Time of Disposition: 10:54 (Terrence/hosp)
--- NOTE | 2017-09-16 12:25 | Progress Note ---
Assessment and Plan Assessment and plan: 81 YO Female resident [facility] with HTN, Breast Cancer, Colon Cancer, Chronic Pancreatitis, Obesity, Debility, Dementia presents to ED for evaluation. Pt states that she has experienced pain and redness to both her legs , her left leg is worse than her right. She notes that she had a blister on her left foot, one of the aides at her assisted living popped it. Shortly after for more large blisters formed on the dorsum of her left foot. She's complaining of increasing redness warmth pain swelling and blisters from the left foot, and left lower extremity. She has some pain and swelling her right lower extremity but it is much milder Cellulitis of bilateral lower extremity, left worse than right -IV antibiotics -Infectious disease consult, wound care UTI Continue antibiotics as above, urine culture Sepsis Continue sepsis pathway Obesity -Dietary control, increased physical activity at discharge, supportive care. Hypokalemia -will supplemtn nd check Mg level HTN (hypertension) Continue home medications, optimize as needed 3 cm Occipital meningioma per CT brain --benign, asymptomatic Pt denies any MARQUEZ, N/V. Neuroconsult obtained. Severe malnutrition -underwear trimmer consult Anemia Most likely anemia of chronic disease, monitor blood counts, currently stable DVT prophylaxis Lovenox History Interval history: Continues to have swelling and pain in both legs left worse than the right Denies bleeding from the foot, denies fever denies vomiting denies chills, denies chest pain denies shortness of breath, denies focal weakness Hospitalist Physical - Physical exam Narrative exam: General.: Appears well, no distress, nontoxic HEENT: Moist mucous membranes, extraocular muscles intact, no lymphadenopathy Neck: supple Cardiac: S1-S2 heard Lungs: clear to auscultation bilaterally Abdomen: soft , nontender, nondistended, bowel sounds positive Extremities: Bilateral lower extremity swelling with skin changes. Left worse than right, The left lower extremity has multiple fluid-filled blisters on the dorsum of the foot, and there is a 5 cm x 3 cm healing abrasion on the left hernandez. There is also erythema and warmth. Skin: no rash or lesions Neurologic: no gross focal deficits, hard of hearing Psych: appropriate behavior, appropriate mood, corporative, judgment intact - Constitutional Vitals: Temp Pulse Resp BP Pulse Ox 98.6 F 75 18 152/63 98 09/16/17 05:00 09/16/17 11:00 09/16/17 11:00 09/16/17 11:00 09/16/17 11:00 Results - Labs CBC & Chem 7: 09/18/17 04:16 09/19/17 04:13 Labs: Laboratory Last Values WBC 6.4 K/mm3 (4.5-11.0) 09/16/17 07:36 RBC 2.75 M/mm3 (3.65-5.03) L 09/16/17 07:36 Hgb 7.7 gm/dl (10.1-14.3) L 09/16/17 07:36 Hct 23.4 % (30.3-42.9) L 09/16/17 07:36 MCV 85 fl (79-97) 09/16/17 07:36 MCH 28 pg (28-32) 09/16/17 07:36 MCHC 33 % (30-34) 09/16/17 07:36 RDW 16.4 % (13.2-15.2) H 09/16/17 07:36 Plt Count 350 K/mm3 (140-440) 09/16/17 07:36 Lymph % (Auto) 17.2 % (13.4-35.0) 09/16/17 07:36 [place] % (Auto) 8.0 % (0.0-7.3) H 09/16/17 07:36 Eos % (Auto) 4.3 % (0.0-4.3) 09/16/17 07:36 Baso % (Auto) 0.6 % (0.0-1.8) 09/16/17 07:36 Lymph # 1.1 K/mm3 (1.2-5.4) L 09/16/17 07:36 [place] # 0.5 K/mm3 (0.0-0.8) 09/16/17 07:36 Eos # 0.3 K/mm3 (0.0-0.4) 09/16/17 07:36 Baso # 0.0 K/mm3 (0.0-0.1) 09/16/17 07:36 Seg Neutrophils % 69.9 % (40.0-70.0) 09/16/17 07:36 Seg Neutrophils # 4.5 K/mm3 (1.8-7.7) 09/16/17 07:36 Sodium 140 mmol/L (137-145) 09/16/17 07:36 Potassium 3.4 mmol/L (3.6-5.0) L 09/16/17 07:36 Chloride 104.0 mmol/L (98-107) 09/16/17 07:36 Carbon Dioxide 21 mmol/L (22-30) L 09/16/17 07:36 Anion Gap 18 mmol/L 09/16/17 07:36 BUN 20 mg/dL (7-17) H 09/16/17 07:36 Creatinine 1.7 mg/dL (0.7-1.2) H D 09/16/17 07:36 Estimated GFR 29 ml/min 09/16/17 07:36 BUN/Creatinine Ratio 12 % 09/16/17 07:36 Glucose 88 mg/dL (65-100) 09/16/17 07:36 Calcium 8.0 mg/dL (8.4-10.2) L 09/16/17 07:36 Total Bilirubin 0.40 mg/dL (0.1-1.2) 09/16/17 07:36 AST 24 units/L (5-40) 09/16/17 07:36 ALT 15 units/L (7-56) 09/16/17 07:36 Alkaline Phosphatase 93 units/L (35-129) 09/16/17 07:36 NT-Pro-B Natriuret Pep 1234 pg/mL (0-900) H 09/16/17 07:36 Total Protein 6.5 g/dL (6.3-8.2) 09/16/17 07:36 Albumin 2.3 g/dL (3.9-5) L 09/16/17 07:36 Albumin/Globulin Ratio 0.5 % 09/16/17 07:36
[2017-09-16] MEDS ORDERED: TYLENOL PO PRN (12:26)
[2017-09-16] MEDS ORDERED: DULCOLAX PR PRN (12:26)
[2017-09-16] MEDS ORDERED: MORPHINE IV PRN (12:26)
[2017-09-16] MEDS ORDERED: MILK OF MAGNESIA PO PRN (12:26)
[2017-09-16] MEDS ORDERED: ZOFRAN IV PRN (13:57)
[2017-09-16] MEDS ORDERED: CLEOCIN 600 MG/50 mL 600 MG/50 ML BAG IV SCH (14:00)
[2017-09-16 14:25] LABS: Bacteria,Urine 1+ /HPF (Negative); Bilirubin,Urine NEG (Negative); Blood,Urine NEG (Negative); Color,Urine Straw (Yellow); Mucus,Urine FEW /HPF; Nitrite,Urine NEG (Negative); Protein,Urine <15 mg/dL mg/dL (Negative); Urobilinogen,Urine < 2.0 mg/dL (<2.0)
--- NOTE | 2017-09-16 14:33 | Consultation ---
History of Present Illness - Reason for Consult Consult date: 09/16/17 cellulitis Requesting physician: ZARINA CALIX - History of Present Illness 82 years old female with history of HTN, Breast Cancer, Colon Cancer, Chronic Pancreatitis, Obesity, Debility, Dementia and bilateral leg lymphedema, admitted on 09/06/2017 - 09/13/17 due to 3 days history of increasing bilateral lower extremity edema, erythema and tenderness. Patient Developed multiple skin tears with oozing of serous fluid from the legs. Wound culture grew Beta hem Group G Strep. She has penicillin allergy. She was treated with IV vancomycin and discharged on clindamycin 300 mg PO TID total 7 days. It is unclear if patient took the prescription. Unfortunately patient was readmitted today 09/16/17 10/15/1929 days history of worsening left lower extremity edema with large blister formation and oozing. Patient reports some subjective fever. In the emergency room, initial temperature was 97.6, heart rate 69 respiration 18, blood pressure 131/61. Initial white count 6.4. Hemoglobin 7.7. Creatinine 1.7. Urinalysis showed 34 white blood cells but negative leukocyte esterase. Microbiology: none Current Antimicrobials: Clindamycin Previous Antimicrobials: Past History Past Medical History: cancer, hypertension, other (chronic pancreatitis ) Medications and Allergies Allergies Allergy/AdvReac Type Severity Reaction Status Date / Time iodine Allergy Severe Swelling Verified 05/16/17 15:17 Penicillins Allergy Severe Swelling Verified 05/16/17 15:17 Sulfa (Sulfonamide Allergy Severe Swelling Verified 05/16/17 15:17 Antibiotics) [place] And Derivatives Allergy Rash Verified 05/16/17 15:17 Home Medications Medication Instructions Recorded Confirmed Last Taken Type Levothyroxine [Synthroid] 88 mcg PO DAILY@0600 #30 tablet 12/01/16 09/16/1704/29 Rx Amlodipine-Benazepril 5-20 mg 1 tab PO DAILY 05/16/17 09/16/17 Unknown History Furosemide [Lasix] 20 mg PO QDAY #30 tablet 08/21/17 09/16/17 Unknown Rx Clindamycin [Clindamycin CAP] 300 mg PO Q8H #21 cap 09/12/17 09/16/17 Unknown Rx ALBUTEROL Inhaler [ProAir HFA 2 puff IH QID PRN #1 can 09/13/17 09/16/17 Unknown Rx Inhaler] predniSONE [Deltasone] 10 mg PO QDAY 09/16/17 09/16/17 Unknown History Active Meds: Active Medications Acetaminophen (Tylenol) 650 mg PO Q4H PRN PRN Reason: Pain MILD(1-3)/Fever >100.5/MARQUEZ Bisacodyl (Dulcolax) [address] QDAY PRN PRN Reason: Constipation unrelieved by MOM Enoxaparin Sodium (Lovenox) 30 mg SUB-Q QDAY [facility] Sodium Chloride (Nacl 0.45% 1000 Ml) 1,000 mls @ 125 mls/hr IV DIRECT ANA Clindamycin HCl (Cleocin 600 Mg/50 Ml) 600 mg in 50 mls @ 100 mls/hr IV Q8H ANA PRN Reason: Protocol Levothyroxine Sodium (Synthroid) 88 mcg PO DAILY@0600 [facility] Magnesium Hydroxide (Milk Of Magnesia) 30 ml PO Q4H PRN PRN Reason: Constipation Morphine Sulfate (Morphine) 2 mg IV Q4H PRN PRN Reason: Pain, Moderate (4-6) Ondansetron HCl (Zofran) 4 mg IV Q8H PRN PRN Reason: N/V unrelieved by Reglan Oxycodone/Acetaminophen (Percocet 5/325) 1 tab PO Q6H PRN PRN Reason: Pain, Moderate (4-6) Prednisone (Deltasone) 10 mg PO QDAY [facility] Review of Systems All systems: negative (as per HPI, however limited pt is a poor historian) Physical Examination - Physical Exam Narrative exam: General appearance: Alert in NAD, conversant Eyes: anicteric sclerae, moist conjunctivae; no lid-lag; PERRLA HENT: Atraumatic; oropharynx clear Neck: Trachea midline; supple, no thyromegaly or lymphadenopathy Lungs: CTA CV: RRR Abdomen: Soft, non-tender; no masses or hepatosplenomegaly Extremities: Left lower extremity with marked edema and large bulla formation in the anterior aspect of the cost, with clear fluid. There is amy blister or erythema. No purulence. Right leg marked edema and chronic skin changes. Skin: Normal temperature, turgor and texture; no rash, ulcers or subcutaneous nodules Psych: Appropriate affect, alert and oriented to person, place and time. Neuro: alert and oriented x 3. Moving all extermities Lines: No CVL / PICC - Constitutional Vitals: Vital Signs Temp Pulse Resp BP Pulse Ox 98.6 F 73 18 139/62 99 09/16/17 05:00 09/16/17 13:25 09/16/17 13:25 09/16/17 13:25 09/16/17 13:25 Temperature -Last 24 Hours Temperature 98.6 F Temperature 97.6 F Results - Labs CBC & Chem 7: 09/16/17 07:36 09/16/17 07:36 Labs: Abnormal lab results 09/16/17 09/16/17 09/16/17 Range/Units 07:36 07:36 13:45 RBC 2.75 L (3.65-5.03) M/mm3 Hgb 7.7 L (10.1-14.3) gm/dl Hct 23.4 L (30.3-42.9) % RDW 16.4 H (13.2-15.2) % [place] % (Auto) 8.0 H (0.0-7.3) % Lymph # 1.1 L (1.2-5.4) K/mm3 Potassium 3.4 L (3.6-5.0) mmol/L Carbon Dioxide 21 L (22-30) mmol/L BUN 20 H (7-17) mg/dL Creatinine 1.7 H D (0.7-1.2) mg/dL Calcium 8.0 L (8.4-10.2) mg/dL NT-Pro-B Natriuret Pep 1234 H (0-900) pg/mL Albumin 2.3 L (3.9-5) g/dL Urine WBC (Auto) 34.0 H (0.0-6.0) /HPF Assessment and Plan Assessment: 1) Left leg cellulitis on top of chronic leg lymphedema and new bulla formation. Previous Wound cx +Beta hem Group G Strep 2) History of Breast Cancer, Colon Cancer 3) Chronic Pancreatitis 4) Penicillin allergy Plan: -continue clindamycin -wound care consult - needs debridement / wound culture -check CRP Thank you Dr Calix for your consultation, will follow up with you. Francia Ferro MD Infectious Diseases Specialist [facility] M [phone] O [phone]
[2017-09-16] MEDS: CLEOCIN 600 MG/50 mL 600 MG/50 ML BAG IV SCH ×2 (15:21→22:06)
--- NOTE | 2017-09-16 16:50 | History and Physical Report ---
History of Present Illness Date of admission: 09/16/17 12:26 Chief complaint: I have pain in my legs History of present illness: 81 YO Female resident [facility] with HTN, Breast Cancer, Colon Cancer, Chronic Pancreatitis, Obesity, Debility, Dementia presents to ED for evaluation. Pt states that she has experienced pain and redness to both her legs for the past 3 days, with worsening symptoms over the past 1 day. Pt states that she has experienced pain and redness to both her legs , her left leg is worse than her right. She notes that she had a blister on her left foot, one of the aides at her assisted living popped it. Shortly after for more large blisters formed on the dorsum of her left foot. She's complaining of increasing redness warmth pain swelling and blisters from the left foot, and left lower extremity. She has some pain and swelling her right lower extremity but it is much milder Pt acknowledges pain, and new malodorous blister appearing on the left foot. Pt also acknowledges increased weakness over the same time frame. Pt is currently unable to conduct activities of daily living independently. Pt acknowledges subjective fever, but denies chills, CP, Palpitations, NVD, Syncope, recent ill contacts, productive cough, BRBPR, falls, or trauma. Pt seen and evaluated in ED and found to have BLE Cellulitis. Past History Past Medical History: cancer, hypertension, other (chronic pancreatitis, arthritis, cancer, ) Past Surgical History: Other (appendectomy, cholecystectomy, total knee replacement) Social history: other (. denies: smoking, alcohol abuse, prescription drug abuse) Family history: hypertension Medications and Allergies Allergies Allergy/AdvReac Type Severity Reaction Status Date / Time iodine Allergy Severe Swelling Verified 05/16/17 15:17 Penicillins Allergy Severe Swelling Verified 05/16/17 15:17 Sulfa (Sulfonamide Allergy Severe Swelling Verified 05/16/17 15:17 Antibiotics) [place] And Derivatives Allergy Rash Verified 05/16/17 15:17 Home Medications Medication Instructions Recorded Confirmed Last Taken Type Levothyroxine [Synthroid] 88 mcg PO DAILY@0600 #30 tablet 12/01/16 09/16/1704/29 Rx Amlodipine-Benazepril 5-20 mg 1 tab PO DAILY 05/16/17 09/16/17 Unknown History Furosemide [Lasix] 20 mg PO QDAY #30 tablet 08/21/17 09/16/17 Unknown Rx Clindamycin [Clindamycin CAP] 300 mg PO Q8H #21 cap 09/12/17 09/16/17 Unknown Rx ALBUTEROL Inhaler [ProAir HFA 2 puff IH QID PRN #1 can 09/13/17 09/16/17 Unknown Rx Inhaler] predniSONE [Deltasone] 10 mg PO QDAY 09/16/17 09/16/17 Unknown History Active Meds: Active Medications Acetaminophen (Tylenol) 650 mg PO Q4H PRN PRN Reason: Pain MILD(1-3)/Fever >100.5/MARQUEZ Bisacodyl (Dulcolax) 10 mg MI QDAY PRN PRN Reason: Constipation unrelieved by MOM Enoxaparin Sodium (Lovenox) 30 mg SUB-Q QDAY [facility] Sodium Chloride (Nacl 0.45% 1000 Ml) 1,000 mls @ 125 mls/hr IV DIRECT ANA Clindamycin HCl (Cleocin 600 Mg/50 Ml) 600 mg in 50 mls @ 100 mls/hr IV Q8H ANA PRN Reason: Protocol Last Admin: 09/16/17 15:21 Dose: Not Given Levothyroxine Sodium (Synthroid) 88 mcg PO DAILY@0600 [facility] Magnesium Hydroxide (Milk Of Magnesia) 30 ml PO Q4H PRN PRN Reason: Constipation Morphine Sulfate (Morphine) 2 mg IV Q4H PRN PRN Reason: Pain, Moderate (4-6) Ondansetron HCl (Zofran) 4 mg IV Q8H PRN PRN Reason: N/V unrelieved by Reglan Oxycodone/Acetaminophen (Percocet 5/325) 1 tab PO Q6H PRN PRN Reason: Pain, Moderate (4-6) Prednisone (Deltasone) 10 mg PO QDAY [facility] Review of Systems All systems: negative (14 point ROS is otherwise negative except as stated in HPI) Exam - Physical Exam Narrative exam: General.: Appears well, no distress, nontoxic HEENT: Moist mucous membranes, extraocular muscles intact, no lymphadenopathy Neck: supple Cardiac: S1-S2 heard Lungs: clear to auscultation bilaterally Abdomen: soft , nontender, nondistended, bowel sounds positive Extremities: Bilateral lower extremity swelling with skin changes. Left worse than right, The left lower extremity has multiple fluid-filled blisters on the dorsum of the foot, and there is a 5 cm x 3 cm healing abrasion on the left hernandez. There is also erythema and warmth. Skin: no rash or lesions Neurologic: no gross focal deficits, hard of hearing Psych: appropriate behavior, appropriate mood, corporative, judgment intact - Constitutional Vitals: Temp Pulse Resp BP Pulse Ox 98.2 F 72 22 146/64 99 09/16/17 15:08 09/16/17 15:08 09/16/17 15:08 09/16/17 15:08 09/16/17 13:25 Results - Labs CBC & Chem 7: 09/16/17 07:36 09/16/17 07:36 Labs: Laboratory Last Values WBC 6.4 K/mm3 (4.5-11.0) 09/16/17 07:36 RBC 2.75 M/mm3 (3.65-5.03) L 09/16/17 07:36 Hgb 7.7 gm/dl (10.1-14.3) L 09/16/17 07:36 Hct 23.4 % (30.3-42.9) L 09/16/17 07:36 MCV 85 fl (79-97) 09/16/17 07:36 MCH 28 pg (28-32) 09/16/17 07:36 MCHC 33 % (30-34) 09/16/17 07:36 RDW 16.4 % (13.2-15.2) H 09/16/17 07:36 Plt Count 350 K/mm3 (140-440) 09/16/17 07:36 Lymph % (Auto) 17.2 % (13.4-35.0) 09/16/17 07:36 [place] % (Auto) 8.0 % (0.0-7.3) H 09/16/17 07:36 Eos % (Auto) 4.3 % (0.0-4.3) 09/16/17 07:36 Baso % (Auto) 0.6 % (0.0-1.8) 09/16/17 07:36 Lymph # 1.1 K/mm3 (1.2-5.4) L 09/16/17 07:36 [place] # 0.5 K/mm3 (0.0-0.8) 09/16/17 07:36 Eos # 0.3 K/mm3 (0.0-0.4) 09/16/17 07:36 Baso # 0.0 K/mm3 (0.0-0.1) 09/16/17 07:36 Seg Neutrophils % 69.9 % (40.0-70.0) 09/16/17 07:36 Seg Neutrophils # 4.5 K/mm3 (1.8-7.7) 09/16/17 07:36 Sodium 140 mmol/L (137-145) 09/16/17 07:36 Potassium 3.4 mmol/L (3.6-5.0) L 09/16/17 07:36 Chloride 104.0 mmol/L (98-107) 09/16/17 07:36 Carbon Dioxide 21 mmol/L (22-30) L 09/16/17 07:36 Anion Gap 18 mmol/L 09/16/17 07:36 BUN 20 mg/dL (7-17) H 09/16/17 07:36 Creatinine 1.7 mg/dL (0.7-1.2) H D 09/16/17 07:36 Estimated GFR 29 ml/min 09/16/17 07:36 BUN/Creatinine Ratio 12 % 09/16/17 07:36 Glucose 88 mg/dL (65-100) 09/16/17 07:36 Calcium 8.0 mg/dL (8.4-10.2) L 09/16/17 07:36 Total Bilirubin 0.40 mg/dL (0.1-1.2) 09/16/17 07:36 AST 24 units/L (5-40) 09/16/17 07:36 ALT 15 units/L (7-56) 09/16/17 07:36 Alkaline Phosphatase 93 units/L (35-129) 09/16/17 07:36 NT-Pro-B Natriuret Pep 1234 pg/mL (0-900) H 09/16/17 07:36 Total Protein 6.5 g/dL (6.3-8.2) 09/16/17 07:36 Albumin 2.3 g/dL (3.9-5) L 09/16/17 07:36 Albumin/Globulin Ratio 0.5 % 09/16/17 07:36 Urine Color Straw (Yellow) 09/16/17 13:45 Urine Turbidity Clear (Clear) 09/16/17 13:45 Urine pH 5.0 (5.0-7.0) 09/16/17 13:45 Ur Specific [place] 1.009 (1.003-1.030) 09/16/17 13:45 Urine Protein <15 mg/dl mg/dL (Negative) 09/16/17 13:45 Urine Glucose (UA) Neg mg/dL (Negative) 09/16/17 13:45 Urine Ketones Neg mg/dL (Negative) 09/16/17 13:45 Urine Blood Neg (Negative) 09/16/17 13:45 Urine Nitrite Neg (Negative) 09/16/17 13:45 Urine Bilirubin Neg (Negative) 09/16/17 13:45 Urine Urobilinogen < 2.0 mg/dL (<2.0) 09/16/17 13:45 Ur Leukocyte Esterase Neg (Negative) 09/16/17 13:45 Urine WBC (Auto) 34.0 /HPF (0.0-6.0) H 09/16/17 13:45 Urine RBC (Auto) 29.0 /HPF (0.0-6.0) 09/16/17 13:45 U Epithel Cells (Auto) 2.0 /HPF (0-13.0) 09/16/17 13:45 Urine Bacteria (Auto) 1+ /HPF (Negative) 09/16/17 13:45 Urine Mucus Few /HPF 09/16/17 13:45 Urine Yeast (Budding) 3+ /HPF 09/16/17 13:45 Assessment and Plan Assessment and plan: 81 [address] resident [facility] with HTN, Breast Cancer, Colon Cancer, Chronic Pancreatitis, Obesity, Debility, Dementia presents to ED for evaluation. Pt states that she has experienced pain and redness to both her legs , her left leg is worse than her right. She notes that she had a blister on her left foot, one of the aides at her assisted living popped it. Shortly after for more large blisters formed on the dorsum of her left foot. She's complaining of increasing redness warmth pain swelling and blisters from the left foot, and left lower extremity. She has some pain and swelling her right lower extremity but it is much milder Cellulitis of bilateral lower extremity, left worse than right -IV antibiotics -Infectious disease consult, wound care UTI Continue antibiotics as above, urine culture Sepsis Continue sepsis pathway NADINE, likely due to ATN continue IVF, rx underlying sepsis Obesity -Dietary control, increased physical activity at discharge, supportive care. Hypokalemia -will supplemtn nd check Mg level HTN (hypertension) Continue home medications, optimize as needed 3 cm Occipital meningioma per CT brain --benign, asymptomatic Pt denies any MARQUEZ, N/V. Neuroconsult obtained. Severe malnutrition -parcel post truck driver consult Anemia Most likely anemia of chronic disease, monitor blood counts, currently stable DVT prophylaxis Lovenox
[2017-09-16] MEDS: NACL 0.45% 1000 ML 1,000 ML IV SCH (19:55)
[2017-09-17] MEDS: NACL 0.45% 1000 ML 1,000 ML IV SCH ×2 (03:57→19:46)
[2017-09-17] MEDS: SYNTHROID PO SCH (05:02)
[2017-09-17 06:00] LABS: Calcium 7.8 mg/dL (8.4-10.2)
[2017-09-17] MEDS: CLEOCIN 600 MG/50 mL 600 MG/50 ML BAG IV SCH ×3 (06:04→21:55)
[2017-09-17] MEDS ORDERED: LOVENOX SUB-Q SCH (10:00)
[2017-09-17] MEDS: DELTASONE PO SCH (11:00)
[2017-09-17] MEDS: LOVENOX SUB-Q SCH (11:00)
--- NOTE | 2017-09-17 13:22 | Progress Note ---
Assessment and Plan Assessment: 1) Left leg cellulitis on top of chronic leg lymphedema and new bulla formation. Previous Wound cx +Beta hem Group G Strep. CRP=6 2) History of Breast Cancer, Colon Cancer 3) Chronic Pancreatitis 4) Penicillin allergy Plan: -continue clindamycin -wound care consult - needs debridement / wound culture -leg elevation Thank you Dr Calix for your consultation, will follow up with you. Francia Ferro MD Infectious Diseases Specialist [facility] ([facility]) M [phone] O [phone] Subjective Date of service: 09/17/17 Principal diagnosis: cellulitis Interval history: Feels ok still c/o left leg pain Microbiology: none Current Antimicrobials: Clindamycin Previous Antimicrobials: Objective - Exam Narrative Exam: General appearance: Alert in NAD, conversant Eyes: anicteric sclerae, moist conjunctivae; no lid-lag; PERRLA HENT: Atraumatic; oropharynx clear Neck: Trachea midline; supple, no thyromegaly or lymphadenopathy Lungs: CTA CV: RRR Abdomen: Soft, non-tender; no masses or hepatosplenomegaly Extremities: Left lower extremity with marked edema and large bulla formation in the anterior aspect of the cost, with clear fluid. There is amy blister or erythema. No purulence. Right leg marked edema and chronic skin changes. Skin: Normal temperature, turgor and texture; no rash, ulcers or subcutaneous nodules Psych: Appropriate affect, alert and oriented to person, place and time. Neuro: alert and oriented x 3. Moving all extermities Lines: No CVL / PICC - Constitutional Vitals: Vital Signs Temp Pulse Resp BP Pulse Ox 99.7 F H 64 22 140/56 95 09/17/17 08:11 09/17/17 08:11 09/17/17 08:11 09/17/17 08:11 09/17/17 08:11 Temperature -Last 24 Hours Temperature 99.7 F Temperature 98.7 F Temperature 98.7 F Temperature 98.2 F - Labs CBC & Chem 7: 09/16/17 07:36 09/17/17 Unknown Labs: Abnormal lab results 09/16/17 09/16/17 09/17/17 Range/Units 13:45 15:55 Unknown Sodium 146 H (137-145) mmol/L Chloride 108.5 H (98-107) mmol/L Carbon Dioxide 18 L (22-30) mmol/L Creatinine 1.7 H (0.7-1.2) mg/dL Calcium 7.8 L (8.4-10.2) mg/dL C-Reactive Protein 6.50 H (0.00-1.30) mg/dL Urine WBC (Auto) 34.0 H (0.0-6.0) /HPF
--- NOTE | 2017-09-17 15:04 | Progress Note ---
Assessment and Plan Assessment and plan: 81 YO Female resident [facility] Living [facility] with HTN, Breast Cancer, Colon Cancer, Chronic Pancreatitis, Obesity, Debility, Dementia presents to ED for evaluation. Pt states that she has experienced pain and redness to both her legs , her left leg is worse than her right. She notes that she had a blister on her left foot, one of the aides at her assisted living popped it. Shortly after for more large blisters formed on the dorsum of her left foot. She's complaining of increasing redness warmth pain swelling and blisters from the left foot, and left lower extremity. She has some pain and swelling her right lower extremity but it is much milder Cellulitis of bilateral lower extremity, left worse than right -IV antibiotics Case discussed with infectious disease consultants UTI Continue antibiotics as above, urine culture Sepsis Continue sepsis pathway NADINE, likely due to ATN continue IVF, rx underlying sepsis Obesity -Dietary control, increased physical activity at discharge, supportive care. Hypokalemia Repleted and normalized HTN (hypertension) Continue home medications, optimize as needed 3 cm Occipital meningioma per CT brain --benign, asymptomatic Pt denies any MARQUEZ, N/V. Neuroconsult obtained. Severe malnutrition -recruiting specialist consult Anemia Most likely anemia of chronic disease, monitor blood counts, currently stable DVT prophylaxis Lovenox History Interval history: Continues to have swelling and pain in both legs left worse than the right Denies bleeding from the foot, denies fever denies vomiting denies chills, denies chest pain denies shortness of breath, denies focal weakness Hospitalist Physical - Physical exam Narrative exam: General.: Appears well, no distress, nontoxic HEENT: Moist mucous membranes, extraocular muscles intact, no lymphadenopathy Neck: supple Cardiac: S1-S2 heard Lungs: clear to auscultation bilaterally Abdomen: soft , nontender, nondistended, bowel sounds positive Extremities: Bilateral lower extremity swelling with skin changes. Left worse than right, The left lower extremity has multiple fluid-filled blisters on the dorsum of the foot, and there is a 5 cm x 3 cm healing abrasion on the left hernandez. There is also erythema and warmth. Skin: no rash or lesions Neurologic: no gross focal deficits, hard of hearing Psych: appropriate behavior, appropriate mood, corporative, judgment intact - Constitutional Vitals: Temp Pulse Resp BP Pulse Ox 99.7 F H 64 22 140/56 95 09/17/17 08:11 09/17/17 08:11 09/17/17 08:11 09/17/17 08:11 09/17/17 08:11 Results - Labs CBC & Chem 7: 09/16/17 07:36 09/17/17 Unknown Labs: Laboratory Last Values WBC 6.4 K/mm3 (4.5-11.0) 09/16/17 07:36 RBC 2.75 M/mm3 (3.65-5.03) L 09/16/17 07:36 Hgb 7.7 gm/dl (10.1-14.3) L 09/16/17 07:36 Hct 23.4 % (30.3-42.9) L 09/16/17 07:36 MCV 85 fl (79-97) 09/16/17 07:36 MCH 28 pg (28-32) 09/16/17 07:36 MCHC 33 % (30-34) 09/16/17 07:36 RDW 16.4 % (13.2-15.2) H 09/16/17 07:36 Plt Count 350 K/mm3 (140-440) 09/16/17 07:36 Lymph % (Auto) 17.2 % (13.4-35.0) 09/16/17 07:36 [place] % (Auto) 8.0 % (0.0-7.3) H 09/16/17 07:36 Eos % (Auto) 4.3 % (0.0-4.3) 09/16/17 07:36 Baso % (Auto) 0.6 % (0.0-1.8) 09/16/17 07:36 Lymph # 1.1 K/mm3 (1.2-5.4) L 09/16/17 07:36 [place] # 0.5 K/mm3 (0.0-0.8) 09/16/17 07:36 Eos # 0.3 K/mm3 (0.0-0.4) 09/16/17 07:36 Baso # 0.0 K/mm3 (0.0-0.1) 09/16/17 07:36 Seg Neutrophils % 69.9 % (40.0-70.0) 09/16/17 07:36 Seg Neutrophils # 4.5 K/mm3 (1.8-7.7) 09/16/17 07:36 Sodium 146 mmol/L (137-145) H 09/17/17 Unknown Potassium 4.2 mmol/L (3.6-5.0) D 09/17/17 Unknown Chloride 108.5 mmol/L (98-107) H 09/17/17 Unknown Carbon Dioxide 18 mmol/L (22-30) L 09/17/17 Unknown Anion Gap 24 mmol/L 09/17/17 Unknown BUN 17 mg/dL (7-17) 09/17/17 Unknown Creatinine 1.7 mg/dL (0.7-1.2) H 09/17/17 Unknown Estimated GFR 29 ml/min 09/17/17 Unknown BUN/Creatinine Ratio 10 % 09/17/17 Unknown Glucose 68 mg/dL (65-100) 09/17/17 Unknown Calcium 7.8 mg/dL (8.4-10.2) L 09/17/17 Unknown Total Bilirubin 0.40 mg/dL (0.1-1.2) 09/16/17 07:36 AST 24 units/L (5-40) 09/16/17 07:36 ALT 15 units/L (7-56) 09/16/17 07:36 Alkaline Phosphatase 93 units/L (35-129) 09/16/17 07:36 C-Reactive Protein 6.50 mg/dL (0.00-1.30) H 09/16/17 15:55 NT-Pro-B Natriuret Pep 1234 pg/mL (0-900) H 09/16/17 07:36 Total Protein 6.5 g/dL (6.3-8.2) 09/16/17 07:36 Albumin 2.3 g/dL (3.9-5) L 09/16/17 07:36 Albumin/Globulin Ratio 0.5 % 09/16/17 07:36 Urine Color Straw (Yellow) 09/16/17 13:45 Urine Turbidity Clear (Clear) 09/16/17 13:45 Urine pH 5.0 (5.0-7.0) 09/16/17 13:45 Ur Specific [place] 1.009 (1.003-1.030) 09/16/17 13:45 Urine Protein <15 mg/dl mg/dL (Negative) 09/16/17 13:45 Urine Glucose (UA) Neg mg/dL (Negative) 09/16/17 13:45 Urine Ketones Neg mg/dL (Negative) 09/16/17 13:45 Urine Blood Neg (Negative) 09/16/17 13:45 Urine Nitrite Neg (Negative) 09/16/17 13:45 Urine Bilirubin Neg (Negative) 09/16/17 13:45 Urine Urobilinogen < 2.0 mg/dL (<2.0) 09/16/17 13:45 Ur Leukocyte Esterase Neg (Negative) 09/16/17 13:45 Urine WBC (Auto) 34.0 /HPF (0.0-6.0) H 09/16/17 13:45 Urine RBC (Auto) 29.0 /HPF (0.0-6.0) 09/16/17 13:45 U Epithel Cells (Auto) 2.0 /HPF (0-13.0) 09/16/17 13:45 Urine Bacteria (Auto) 1+ /HPF (Negative) 09/16/17 13:45 Urine Mucus Few /HPF 09/16/17 13:45 Urine Yeast (Budding) 3+ /HPF 09/16/17 13:45
[2017-09-18 04:49] LABS: Basophils % (Auto) 0.6 % (0.0-1.8); Eosinophils # (Auto) 0.1 K/mm3 (0.0-0.4); Eosinophils % (Auto) 1.6 % (0.0-4.3); Hematocrit 20.7 % (30.3-42.9); Hemoglobin 6.7 gm/dl (10.1-14.3); Lymphocytes # (Auto) 0.8 K/mm3 (1.2-5.4); Lymphocytes % (Auto) 20.7 % (13.4-35.0); Mean Corpuscular HGB Conc 32 % (30-34); Mean Corpuscular Hemoglobin 28 pg (28-32); Mean Corpuscular Volume 85 fl (79-97); Monocytes # (Auto) 0.4 K/mm3 (0.0-0.8); Monocytes % (Auto) 10.2 % (0.0-7.3); Platelet Count 325 K/mm3 (140-440); Red Blood Count 2.43 M/mm3 (3.65-5.03); Red Cell Distribution Width 16.6 % (13.2-15.2)
[2017-09-18 05:06] LABS: Calcium 7.2 mg/dL (8.4-10.2)
[2017-09-18] MEDS: CLEOCIN 600 MG/50 mL 600 MG/50 ML BAG IV SCH ×3 (05:15→23:18)
[2017-09-18] MEDS: SYNTHROID PO SCH (05:16)
[2017-09-18] MEDS: NACL 0.45% 1000 ML 1,000 ML IV SCH ×3 (05:16→23:19)
--- NOTE | 2017-09-18 10:56 | Progress Note ---
Assessment and Plan Assessment and plan: 81 YO Female resident [facility] Living [facility] with HTN, Breast Cancer, Colon Cancer, Chronic Pancreatitis, Obesity, Debility, Dementia presents to ED for evaluation. Pt states that she has experienced pain and redness to both her legs , her left leg is worse than her right. She notes that she had a blister on her left foot, one of the aides at her assisted living popped it. Shortly after for more large blisters formed on the dorsum of her left foot. She's complaining of increasing redness warmth pain swelling and blisters from the left foot, and left lower extremity. She has some pain and swelling her right lower extremity but it is much milder Cellulitis of bilateral lower extremity, left worse than right -IV antibiotics Case discussed with infectious disease consultants UTI Continue antibiotics as above, urine culture Sepsis Continue sepsis pathway NADINE, likely due to ATN continue IVF, rx underlying sepsis Obesity -Dietary control, increased physical activity at discharge, supportive care. Hypokalemia Repleted and normalized HTN (hypertension) Continue home medications, optimize as needed 3 cm Occipital meningioma per CT brain --benign, asymptomatic Pt denies any MARQUEZ, N/V. Neuroconsult obtained. Severe malnutrition -trainer consult Anemia Most likely anemia of chronic disease, monitor blood counts, currently stable DVT prophylaxis Lovenox History Interval history: Continues to have swelling and pain in both legs left worse than the right Denies bleeding from the foot, denies fever denies vomiting denies chills, denies chest pain denies shortness of breath, denies focal weakness Hospitalist Physical - Physical exam Narrative exam: General.: Appears well, no distress, nontoxic HEENT: Moist mucous membranes, extraocular muscles intact, no lymphadenopathy Neck: supple Cardiac: S1-S2 heard Lungs: clear to auscultation bilaterally Abdomen: soft , nontender, nondistended, bowel sounds positive Extremities: Bilateral lower extremity swelling with skin changes. Left worse than right, The left lower extremity has multiple fluid-filled blisters on the dorsum of the foot, and there is a 5 cm x 3 cm healing abrasion on the left hernandez. There is also erythema and warmth. Skin: no rash or lesions Neurologic: no gross focal deficits, hard of hearing Psych: appropriate behavior, appropriate mood, corporative, judgment intact - Constitutional Vitals: Temp Pulse Resp BP Pulse Ox 98.6 F 64 22 145/58 93 09/18/17 09:44 09/18/17 09:44 09/18/17 09:44 09/18/17 09:44 09/18/17 09:44 Results - Labs CBC & Chem 7: 09/18/17 04:16 09/19/17 04:13 Labs: Laboratory Last Values WBC 3.7 K/mm3 (4.5-11.0) L 09/18/17 04:16 RBC 2.43 M/mm3 (3.65-5.03) L 09/18/17 04:16 Hgb 6.7 gm/dl (10.1-14.3) L 09/18/17 04:16 Hct 20.7 % (30.3-42.9) L 09/18/17 04:16 MCV 85 fl (79-97) 09/18/17 04:16 MCH 28 pg (28-32) 09/18/17 04:16 MCHC 32 % (30-34) 09/18/17 04:16 RDW 16.6 % (13.2-15.2) H 09/18/17 04:16 Plt Count 325 K/mm3 (140-440) 09/18/17 04:16 Lymph % (Auto) 20.7 % (13.4-35.0) 09/18/17 04:16 [place] % (Auto) 10.2 % (0.0-7.3) H 09/18/17 04:16 Eos % (Auto) 1.6 % (0.0-4.3) 09/18/17 04:16 Baso % (Auto) 0.6 % (0.0-1.8) 09/18/17 04:16 Lymph # 0.8 K/mm3 (1.2-5.4) L 09/18/17 04:16 [place] # 0.4 K/mm3 (0.0-0.8) 09/18/17 04:16 Eos # 0.1 K/mm3 (0.0-0.4) 09/18/17 04:16 Baso # 0.0 K/mm3 (0.0-0.1) 09/18/17 04:16 Seg Neutrophils % 66.9 % (40.0-70.0) 09/18/17 04:16 Seg Neutrophils # 2.5 K/mm3 (1.8-7.7) 09/18/17 04:16 Sodium 140 mmol/L (137-145) 09/18/17 04:16 Potassium 3.3 mmol/L (3.6-5.0) L D 09/18/17 04:16 Chloride 105.2 mmol/L (98-107) 09/18/17 04:16 Carbon Dioxide 21 mmol/L (22-30) L 09/18/17 04:16 Anion Gap 17 mmol/L 09/18/17 04:16 BUN 16 mg/dL (7-17) 09/18/17 04:16 Creatinine 1.6 mg/dL (0.7-1.2) H 09/18/17 04:16 Estimated GFR 31 ml/min 09/18/17 04:16 BUN/Creatinine Ratio 10 % 09/18/17 04:16 Glucose 83 mg/dL (65-100) 09/18/17 04:16 Calcium 7.2 mg/dL (8.4-10.2) L 09/18/17 04:16 Total Bilirubin 0.40 mg/dL (0.1-1.2) 09/16/17 07:36 AST 24 units/L (5-40) 09/16/17 07:36 ALT 15 units/L (7-56) 09/16/17 07:36 Alkaline Phosphatase 93 units/L (35-129) 09/16/17 07:36 C-Reactive Protein 6.50 mg/dL (0.00-1.30) H 09/16/17 15:55 NT-Pro-B Natriuret Pep 1234 pg/mL (0-900) H 09/16/17 07:36 Total Protein 6.5 g/dL (6.3-8.2) 09/16/17 07:36 Albumin 2.3 g/dL (3.9-5) L 09/16/17 07:36 Albumin/Globulin Ratio 0.5 % 09/16/17 07:36 Urine Color Straw (Yellow) 09/16/17 13:45 Urine Turbidity Clear (Clear) 09/16/17 13:45 Urine pH 5.0 (5.0-7.0) 09/16/17 13:45 Ur Specific [place] 1.009 (1.003-1.030) 09/16/17 13:45 Urine Protein <15 mg/dl mg/dL (Negative) 09/16/17 13:45 Urine Glucose (UA) Neg mg/dL (Negative) 09/16/17 13:45 Urine Ketones Neg mg/dL (Negative) 09/16/17 13:45 Urine Blood Neg (Negative) 09/16/17 13:45 Urine Nitrite Neg (Negative) 09/16/17 13:45 Urine Bilirubin Neg (Negative) 09/16/17 13:45 Urine Urobilinogen < 2.0 mg/dL (<2.0) 09/16/17 13:45 Ur Leukocyte Esterase Neg (Negative) 09/16/17 13:45 Urine WBC (Auto) 34.0 /HPF (0.0-6.0) H 09/16/17 13:45 Urine RBC (Auto) 29.0 /HPF (0.0-6.0) 09/16/17 13:45 U Epithel Cells (Auto) 2.0 /HPF (0-13.0) 09/16/17 13:45 Urine Bacteria (Auto) 1+ /HPF (Negative) 09/16/17 13:45 Urine Mucus Few /HPF 09/16/17 13:45 Urine Yeast (Budding) 3+ /HPF 09/16/17 13:45
--- NOTE | 2017-09-18 12:10 | Progress Note ---
Assessment and Plan Assessment: 1) Left leg cellulitis on top of chronic leg lymphedema and new bulla formation. Previous Wound cx +Beta hem Group G Strep. CRP=6 - clinically improving, S/p wound care debridement 2) History of Breast Cancer, Colon Cancer 3) Chronic Pancreatitis 4) Penicillin allergy Plan: -continue clindamycin day 3 of 10 -upon discharge continue clindamycin 300 mg poq8h total 10 days -leg elevation -needs consistent wound care as an outpatient I am signing off Thank you Dr Calix for your consultation, will follow up with you. Francia Ferro MD Infectious Diseases Specialist [facility] ([facility]) M [phone] O [phone] Subjective Date of service: 09/18/17 Principal diagnosis: cellulitis Interval history: Feels better, leg pain is better Microbiology: none Current Antimicrobials: Clindamycin 09/16 Previous Antimicrobials: Objective - Exam Narrative Exam: General appearance: Alert in NAD, conversant Eyes: anicteric sclerae, moist conjunctivae; no lid-lag; PERRLA HENT: Atraumatic; oropharynx clear Neck: Trachea midline; supple, no thyromegaly or lymphadenopathy Lungs: CTA CV: RRR Abdomen: Soft, non-tender; no masses or hepatosplenomegaly Extremities: Left lower extremity with marked edema and large bulla formation in the anterior aspect of the cost, with clear fluid. There is amy blister or erythema. No purulence. Right leg marked edema and chronic skin changes. Skin: Normal temperature, turgor and texture; no rash, ulcers or subcutaneous nodules Psych: Appropriate affect, alert and oriented to person, place and time. Neuro: alert and oriented x 3. Moving all extermities Lines: No CVL / PICC - Constitutional Vitals: Vital Signs Temp Pulse Resp BP Pulse Ox 98.6 F 64 22 145/58 93 09/18/17 09:44 09/18/17 09:44 09/18/17 09:44 09/18/17 09:44 09/18/17 09:44 Temperature -Last 24 Hours Temperature 98.6 F Temperature 98.3 F Temperature 98.8 F - Labs CBC & Chem 7: 09/18/17 04:16 09/18/17 04:16 Labs: Abnormal lab results 09/18/17 09/18/17 Range/Units 04:16 04:16 WBC 3.7 L (4.5-11.0) K/mm3 RBC 2.43 L (3.65-5.03) M/mm3 Hgb 6.7 L (10.1-14.3) gm/dl Hct 20.7 L (30.3-42.9) % RDW 16.6 H (13.2-15.2) % [place] % (Auto) 10.2 H (0.0-7.3) % Lymph # 0.8 L (1.2-5.4) K/mm3 Potassium 3.3 L D (3.6-5.0) mmol/L Carbon Dioxide 21 L (22-30) mmol/L Creatinine 1.6 H (0.7-1.2) mg/dL Calcium 7.2 L (8.4-10.2) mg/dL
[2017-09-18] MEDS: DELTASONE PO SCH (12:17)
[2017-09-18] MEDS: LOVENOX SUB-Q SCH (12:17)
[2017-09-19] MEDS: PERCOCET 5/325 PO PRN (01:21)
[2017-09-19 05:12] LABS: Calcium 7.3 mg/dL (8.4-10.2)
[2017-09-19] MEDS: CLEOCIN 600 MG/50 mL 600 MG/50 ML BAG IV SCH ×3 (05:15→22:44)
[2017-09-19] MEDS: SYNTHROID PO SCH (05:15)
[2017-09-19] MEDS: DELTASONE PO SCH (09:33)
[2017-09-19] MEDS: LOVENOX SUB-Q SCH (09:33)
--- NOTE | 2017-09-19 10:12 | Progress Note ---
Assessment and Plan Assessment and plan: 81 YO Female resident [facility] Living [facility] with HTN, Breast Cancer, Colon Cancer, Chronic Pancreatitis, Obesity, Debility, Dementia presents to ED for evaluation. Pt states that she has experienced pain and redness to both her legs , her left leg is worse than her right. She notes that she had a blister on her left foot, one of the aides at her assisted living popped it. Shortly after for more large blisters formed on the dorsum of her left foot. She's complaining of increasing redness warmth pain swelling and blisters from the left foot, and left lower extremity. She has some pain and swelling her right lower extremity but it is much milder Cellulitis of bilateral lower extremity, left worse than right -IV antibiotics Case discussed with infectious disease consultants UTI Continue antibiotics as above, urine culture Sepsis Continue sepsis pathway NADINE, likely due to ATN continue IVF, rx underlying sepsis Obesity -Dietary control, increased physical activity at discharge, supportive care. Hypokalemia Repleted and normalized HTN (hypertension) Continue home medications, optimize as needed 3 cm Occipital meningioma per CT brain --benign, asymptomatic Pt denies any MARQUEZ, N/V. Neuroconsult obtained. Severe malnutrition -business info consultant consult Anemia Most likely anemia of chronic disease, monitor blood counts, currently stable DVT prophylaxis Lovenox Dispo: to SNF History Interval history: Continues to have swelling and pain in both legs left worse than the right Denies bleeding from the foot, denies fever denies vomiting denies chills, denies chest pain denies shortness of breath, denies focal weakness Hospitalist Physical - Physical exam Narrative exam: General.: Appears well, no distress, nontoxic HEENT: Moist mucous membranes, extraocular muscles intact, no lymphadenopathy Neck: supple Cardiac: S1-S2 heard Lungs: clear to auscultation bilaterally Abdomen: soft , nontender, nondistended, bowel sounds positive Extremities: Bilateral lower extremity swelling with skin changes. Left worse than right, The left lower extremity has multiple fluid-filled blisters on the dorsum of the foot, and there is a 5 cm x 3 cm healing abrasion on the left hernandez. There is also erythema and warmth. Skin: no rash or lesions Neurologic: no gross focal deficits, hard of hearing Psych: appropriate behavior, appropriate mood, corporative, judgment intact - Constitutional Vitals: Temp Pulse Resp BP Pulse Ox 97.3 F L 62 18 158/66 90 09/19/17 05:02 09/19/17 05:02 09/19/17 05:02 09/19/17 05:02 09/19/17 05:02 Results - Labs CBC & Chem 7: 09/18/17 04:16 09/19/17 04:13 Labs: Laboratory Last Values WBC 3.7 K/mm3 (4.5-11.0) L 09/18/17 04:16 RBC 2.43 M/mm3 (3.65-5.03) L 09/18/17 04:16 Hgb 6.7 gm/dl (10.1-14.3) L 09/18/17 04:16 Hct 20.7 % (30.3-42.9) L 09/18/17 04:16 MCV 85 fl (79-97) 09/18/17 04:16 MCH 28 pg (28-32) 09/18/17 04:16 MCHC 32 % (30-34) 09/18/17 04:16 RDW 16.6 % (13.2-15.2) H 09/18/17 04:16 Plt Count 325 K/mm3 (140-440) 09/18/17 04:16 Lymph % (Auto) 20.7 % (13.4-35.0) 09/18/17 04:16 [place] % (Auto) 10.2 % (0.0-7.3) H 09/18/17 04:16 Eos % (Auto) 1.6 % (0.0-4.3) 09/18/17 04:16 Baso % (Auto) 0.6 % (0.0-1.8) 09/18/17 04:16 Lymph # 0.8 K/mm3 (1.2-5.4) L 09/18/17 04:16 Emanuel # 0.4 K/mm3 (0.0-0.8) 09/18/17 04:16 Eos # 0.1 K/mm3 (0.0-0.4) 09/18/17 04:16 Baso # 0.0 K/mm3 (0.0-0.1) 09/18/17 04:16 Seg Neutrophils % 66.9 % (40.0-70.0) 09/18/17 04:16 Seg Neutrophils # 2.5 K/mm3 (1.8-7.7) 09/18/17 04:16 Sodium 140 mmol/L (137-145) 09/19/17 04:13 Potassium 3.5 mmol/L (3.6-5.0) L 09/19/17 04:13 Chloride 106.7 mmol/L (98-107) 09/19/17 04:13 Carbon Dioxide 22 mmol/L (22-30) 09/19/17 04:13 Anion Gap 15 mmol/L 09/19/17 04:13 BUN 14 mg/dL (7-17) 09/19/17 04:13 Creatinine 1.5 mg/dL (0.7-1.2) H 09/19/17 04:13 Estimated GFR 33 ml/min 09/19/17 04:13 BUN/Creatinine Ratio 9 % 09/19/17 04:13 Glucose 90 mg/dL (65-100) 09/19/17 04:13 Calcium 7.3 mg/dL (8.4-10.2) L 09/19/17 04:13 Total Bilirubin 0.40 mg/dL (0.1-1.2) 09/16/17 07:36 AST 24 units/L (5-40) 09/16/17 07:36 ALT 15 units/L (7-56) 09/16/17 07:36 Alkaline Phosphatase 93 units/L (35-129) 09/16/17 07:36 C-Reactive Protein 6.50 mg/dL (0.00-1.30) H 09/16/17 15:55 NT-Pro-B Natriuret Pep 1234 pg/mL (0-900) H 09/16/17 07:36 Total Protein 6.5 g/dL (6.3-8.2) 09/16/17 07:36 Albumin 2.3 g/dL (3.9-5) L 09/16/17 07:36 Albumin/Globulin Ratio 0.5 % 09/16/17 07:36 Urine Color Straw (Yellow) 09/16/17 13:45 Urine Turbidity Clear (Clear) 09/16/17 13:45 Urine pH 5.0 (5.0-7.0) 09/16/17 13:45 Ur Specific [place] 1.009 (1.003-1.030) 09/16/17 13:45 Urine Protein <15 mg/dl mg/dL (Negative) 09/16/17 13:45 Urine Glucose (UA) Neg mg/dL (Negative) 09/16/17 13:45 Urine Ketones Neg mg/dL (Negative) 09/16/17 13:45 Urine Blood Neg (Negative) 09/16/17 13:45 Urine Nitrite Neg (Negative) 09/16/17 13:45 Urine Bilirubin Neg (Negative) 09/16/17 13:45 Urine Urobilinogen < 2.0 mg/dL (<2.0) 09/16/17 13:45 Ur Leukocyte Esterase Neg (Negative) 09/16/17 13:45 Urine WBC (Auto) 34.0 /HPF (0.0-6.0) H 09/16/17 13:45 Urine RBC (Auto) 29.0 /HPF (0.0-6.0) 09/16/17 13:45 U Epithel Cells (Auto) 2.0 /HPF (0-13.0) 09/16/17 13:45 Urine Bacteria (Auto) 1+ /HPF (Negative) 09/16/17 13:45 Urine Mucus Few /HPF 09/16/17 13:45 Urine Yeast (Budding) 3+ /HPF 09/16/17 13:45
[2017-09-19] MEDS: NACL 0.45% 1000 ML 1,000 ML IV SCH (10:31)
--- NOTE | 2017-09-19 12:03 | Ultrasound Report ---
Renal sonogram: History: NADINE. Findings: Right kidney 10.8 x 5.4 x 4.9 cm. Cortical thickness 1.5 cm. Left kidney 10 x 4.5 x 4.2 cm. Cortical thickness 1.3 cm. No mass. No hydronephrosis. Impression: Essentially negative renal sonogram.
[2017-09-19] MEDS ORDERED: NACL 0.9% 500 ML 500 ML IV NR (15:14)
--- NOTE | 2017-09-19 15:20 | Consultation ---
History of Present Illness - Reason for Consult Consult date: 09/19/17 acute renal failure - History of Present Illness patient with h/o HTN who was admitted on 09/16 for BLE cellulitis. she is not able to provide much history,. per chart she came from [facility] living facility for worsening swelling and redness in both legs, it appears it started 3 days prior to admission. she was evaluated by ID and was started on IV abx, her blood work was significant for abnormal kidney function and renal consult was requested Past History Past Medical History: cancer, hypertension, other (chronic pancreatitis, arthritis, cancer, ) Past Surgical History: Other (appendectomy, cholecystectomy, total knee replacement) Social history: other (. denies: smoking, alcohol abuse, prescription drug abuse) Family history: hypertension Medications and Allergies Allergies Allergy/AdvReac Type Severity Reaction Status Date / Time iodine Allergy Severe Swelling Verified 05/16/17 15:17 Penicillins Allergy Severe Swelling Verified 05/16/17 15:17 Sulfa (Sulfonamide Allergy Severe Swelling Verified 05/16/17 15:17 Antibiotics) [place] And Derivatives Allergy Rash Verified 05/16/17 15:17 Home Medications Medication Instructions Recorded Confirmed Last Taken Type Levothyroxine [Synthroid] 88 mcg PO DAILY@0600 #30 tablet 12/01/16 09/16/1704/29 Rx Amlodipine-Benazepril 5-20 mg 1 tab PO DAILY 05/16/17 09/16/17 Unknown History Furosemide [Lasix] 20 mg PO QDAY #30 tablet 08/21/17 09/16/17 Unknown Rx Clindamycin [Clindamycin CAP] 300 mg PO Q8H #21 cap 09/12/17 09/16/17 Unknown Rx ALBUTEROL Inhaler [ProAir HFA 2 puff IH QID PRN #1 can 09/13/17 09/16/17 Unknown Rx Inhaler] predniSONE [Deltasone] 10 mg PO QDAY 09/16/17 09/16/17 Unknown History Active Meds: Active Medications Acetaminophen (Tylenol) 650 mg PO Q4H PRN PRN Reason: Pain MILD(1-3)/Fever >100.5/MARQUEZ Bisacodyl (Dulcolax) 10 mg RI QDAY PRN PRN Reason: Constipation unrelieved by MOM Enoxaparin Sodium (Lovenox) 30 mg SUB-Q QDAY [facility] Last Admin: 09/19/17 09:33 Dose: 30 mg Clindamycin HCl (Cleocin 600 Mg/50 Ml) 600 mg in 50 mls @ 100 mls/hr IV Q8H ANA PRN Reason: Protocol Last Admin: 09/19/17 05:15 Dose: 100 mls/hr Sodium Chloride (Nacl 0.9% 500 Ml) 500 mls @ 0 mls/hr IV ONCE ONE PRN Reason: As Directed Stop: 09/19/17 15:15 Sodium Chloride (Nacl 0.9% 1000 Ml) 1,000 mls @ 100 mls/hr IV DIRECT [facility] Levothyroxine Sodium (Synthroid) 88 mcg PO DAILY@0600 [facility] Last Admin: 09/19/17 05:15 Dose: 88 mcg Magnesium Hydroxide (Milk Of Magnesia) 30 ml PO Q4H PRN PRN Reason: Constipation Morphine Sulfate (Morphine) 2 mg IV Q4H PRN PRN Reason: Pain, Moderate (4-6) Ondansetron HCl (Zofran) 4 mg IV Q8H PRN PRN Reason: N/V unrelieved by Mela Last Admin: 09/19/17 01:33 Dose: 4 mg Oxycodone/Acetaminophen (Percocet 5/325) 1 tab PO Q6H PRN PRN Reason: Pain, Moderate (4-6) Last Admin: 09/19/17 01:21 Dose: 1 tab Prednisone (Deltasone) 10 mg PO QDAY [facility] Last Admin: 09/19/17 09:33 Dose: 10 mg Review of Systems All systems: negative (pain in legs) Exam - Vital Signs Vital signs: Vital Signs Temp Pulse Resp BP Pulse Ox 97.6 F 69 18 131/61 98 09/16/17 00:34 09/16/17 00:34 09/16/17 00:34 09/16/17 00:34 09/16/17 00:34 Results - Lab Results 09/18/17 04:16 09/19/17 04:13 Most recent lab results Calcium 7.3 mg/dL (8.4-10.2) L 09/19/17 04:13 Assessment and Plan acute renal failure -prerenal azotemia vs. ATN from sepsis, Cr and BUN slowly trending down -will switch IVF to NS @ 100 cc/h -will check urine lytes, protein and eos -strict I&O -daily weights -renal diet Anemia -order 1 unit PRBC tranfusion, Hgb < 7 g/dl -will check iron pnal Cellulitis -on Clindamycin -ID following HTN -will monitor, may consider starting Labetalol 200 mg BID tomorrow if remains high thank you for allowing to participate in Ms Hensley's care, please call me if you have any questions.
[2017-09-19] MEDS ORDERED: NACL 0.9% 1000 ML 1,000 ML IV SCH (16:00)
[2017-09-19 17:39] LABS: Creatinine,Urine 26.3 mg/dL (0.1-20.0)
[2017-09-19 17:49] LABS: Creatinine,Urine 27.7 mg/dL (0.1-20.0); Protein/Creatinine Ratio,Urine 0.54
[2017-09-20] MEDS: SYNTHROID PO SCH (05:05)
[2017-09-20] MEDS: CLEOCIN 600 MG/50 mL 600 MG/50 ML BAG IV SCH ×3 (05:06→21:36)
[2017-09-20] MEDS: DELTASONE PO SCH (10:23)
[2017-09-20] MEDS: LOVENOX SUB-Q SCH (10:23)
[2017-09-20 11:27] LABS: Basophils % (Auto) 0.8 % (0.0-1.8); Eosinophils # (Auto) 0.1 K/mm3 (0.0-0.4); Eosinophils % (Auto) 1.6 % (0.0-4.3); Hematocrit 22.6 % (30.3-42.9); Hemoglobin 7.3 gm/dl (10.1-14.3); Lymphocytes # (Auto) 0.7 K/mm3 (1.2-5.4); Lymphocytes % (Auto) 20.2 % (13.4-35.0); Mean Corpuscular HGB Conc 32 % (30-34); Mean Corpuscular Hemoglobin 27 pg (28-32); Mean Corpuscular Volume 84 fl (79-97); Monocytes # (Auto) 0.4 K/mm3 (0.0-0.8); Monocytes % (Auto) 11.6 % (0.0-7.3); Platelet Count 373 K/mm3 (140-440); Red Blood Count 2.71 M/mm3 (3.65-5.03); Red Cell Distribution Width 16.9 % (13.2-15.2)
[2017-09-20 11:44] LABS: Calcium 7.6 mg/dL (8.4-10.2)
--- NOTE | 2017-09-20 13:45 | Progress Note ---
Assessment and Plan Acute renal failure possibly due to ATN vs AIN: -prerenal azotemia vs. ATN from sepsis vs AIN -Cr stable. BL Cr is 0.9 to 1 -UA showed white and red cells earlier, was likely contaminated, Cx grew multiple stuff. -Will d/c IVFs due to leg swelling, albumin X 3 to boast up intravascular volume -strict I&O -daily weights -renal diet -Renal US -ve Anemia, normocytic: -Hg dropping, would recommend blood transfusion and GI consult to eval for GIB. -Start Iron tablets Leg Cellulitis -on Abx -ID following Essential Hypertension: -Start Labetalol 200 mg BID Hypothyroidism: -Continue synthroid Pt will need to f/u with [facility] 1 week after discharge. Kulwant Hughes MD [phone] Subjective Date of service: 09/20/17 Principal diagnosis: cellulitis Interval history: Denies CP, SHOB. Complains of leg swelling. Says her appetite was low at home. Objective - Exam Narrative Exam: [id number] HEENT: PERRLA Neck: No JVD Chest: Coarse BS BL CVS: RRR Abd: Soft/NT/ND/BS+ Ext: 2+ BLE edema, LLE wrapped Neuro: Intact - Vital Signs Vital signs: Vital Signs - 12hr 09/20/17 09/20/17 09/20/17 02:00 04:37 08:05 Temperature 97.6 F 98.9 F Pulse Rate 69 Respiratory 20 18 20 Rate Blood Pressure 169/62 166/73 O2 Sat by Pulse 94 90 Oximetry - Lab 09/20/17 11:05 09/20/17 11:05 Most recent lab results Calcium 7.6 mg/dL (8.4-10.2) L 09/20/17 11:05 Phosphorus 3.80 mg/dL (2.5-4.5) 09/20/17 11:05 Urine Creatinine 27.7 mg/dL (0.1-20.0) H 09/19/17 17:24 Urine Sodium 43 mmol/L 09/19/17 17:24 Urine Total Protein 15 mg/dL (5-11.8) H 09/19/17 17:24
--- NOTE | 2017-09-20 14:45 | XRay Report ---
PORTABLE CHEST INDICATION: Volume status. COMPARISON: 08/21/2017 FINDINGS: Portable, frontal chest radiograph demonstrate stable cardiomediastinal silhouette/mild cardiomegaly. New mild left lower lung haziness/pleural fluid much obscures the left hemidiaphragm. No cephalization with normal remainder lungs. Mild patient rotation to the right. Stable demineralized bones. CONCLUSION: New mild left lower lung hazy opacity/pleural fluid and few other findings, as above. Please correlate. Thank you for the opportunity to participate in this patient's care.
--- NOTE | 2017-09-20 15:14 | Progress Note ---
Assessment and Plan Assessment and plan: 81 YO Female resident [facility] Living [facility] with HTN, Breast Cancer, Colon Cancer, Chronic Pancreatitis, Obesity, Debility, Dementia presents to ED for evaluation. Pt states that she has experienced pain and redness to both her legs , her left leg is worse than her right. She notes that she had a blister on her left foot, one of the aides at her assisted living popped it. Shortly after for more large blisters formed on the dorsum of her left foot. She's complaining of increasing redness warmth pain swelling and blisters from the left foot, and left lower extremity. She has some pain and swelling her right lower extremity but it is much milder Cellulitis of bilateral lower extremity, left worse than right -IV antibiotics -Infectious disease consult, wound care UTI Continue antibiotics as above, urine culture Sepsis Continue sepsis pathway Obesity -Dietary control, increased physical activity at discharge, supportive care. Hypokalemia -will supplemtn nd check Mg level HTN (hypertension) Continue home medications, optimize as needed 3 cm Occipital meningioma per CT brain --benign, asymptomatic Pt denies any MARQUEZ, N/V. Neuroconsult obtained. Severe malnutrition -api architect consult Anemia Most likely anemia of chronic disease, monitor blood counts, currently stable DVT prophylaxis Lovenox History Interval history: Continues to have swelling and pain in both legs left worse than the right Denies bleeding from the foot, denies fever denies vomiting denies chills, denies chest pain denies shortness of breath, denies focal weakness Hospitalist Physical - Physical exam Narrative exam: General.: Appears well, no distress, nontoxic HEENT: Moist mucous membranes, extraocular muscles intact, no lymphadenopathy Neck: supple Cardiac: S1-S2 heard Lungs: clear to auscultation bilaterally Abdomen: soft , nontender, nondistended, bowel sounds positive Extremities: Bilateral lower extremity swelling with skin changes. Left worse than right, The left lower extremity has multiple fluid-filled blisters on the dorsum of the foot, and there is a 5 cm x 3 cm healing abrasion on the left hernandez. There is also erythema and warmth. Skin: no rash or lesions Neurologic: no gross focal deficits, hard of hearing Psych: appropriate behavior, appropriate mood, corporative, judgment intact - Constitutional Vitals: Temp Pulse Resp BP Pulse Ox 98.9 F 69 20 166/73 90 09/20/17 08:05 09/20/17 08:05 09/20/17 08:05 09/20/17 08:05 09/20/17 08:05 Results - Labs CBC & Chem 7: 09/20/17 11:05 09/20/17 11:05 Labs: Laboratory Last Values WBC 3.7 K/mm3 (4.5-11.0) L 09/20/17 11:05 RBC 2.71 M/mm3 (3.65-5.03) L 09/20/17 11:05 Hgb 7.3 gm/dl (10.1-14.3) L 09/20/17 11:05 Hct 22.6 % (30.3-42.9) L 09/20/17 11:05 MCV 84 fl (79-97) 09/20/17 11:05 MCH 27 pg (28-32) L 09/20/17 11:05 MCHC 32 % (30-34) 09/20/17 11:05 RDW 16.9 % (13.2-15.2) H 09/20/17 11:05 Plt Count 373 K/mm3 (140-440) 09/20/17 11:05 Lymph % (Auto) 20.2 % (13.4-35.0) 09/20/17 11:05 [place] % (Auto) 11.6 % (0.0-7.3) H 09/20/17 11:05 Eos % (Auto) 1.6 % (0.0-4.3) 09/20/17 11:05 Baso % (Auto) 0.8 % (0.0-1.8) 09/20/17 11:05 Lymph # 0.7 K/mm3 (1.2-5.4) L 09/20/17 11:05 [place] # 0.4 K/mm3 (0.0-0.8) 09/20/17 11:05 Eos # 0.1 K/mm3 (0.0-0.4) 09/20/17 11:05 Baso # 0.0 K/mm3 (0.0-0.1) 09/20/17 11:05 Seg Neutrophils % 65.8 % (40.0-70.0) 09/20/17 11:05 Seg Neutrophils # 2.4 K/mm3 (1.8-7.7) 09/20/17 11:05 Sodium 143 mmol/L (137-145) 09/20/17 11:05 Potassium 3.3 mmol/L (3.6-5.0) L 09/20/17 11:05 Chloride 107.3 mmol/L (98-107) H 09/20/17 11:05 Carbon Dioxide 22 mmol/L (22-30) 09/20/17 11:05 Anion Gap 17 mmol/L 09/20/17 11:05 BUN 12 mg/dL (7-17) 09/20/17 11:05 Creatinine 1.5 mg/dL (0.7-1.2) H 09/20/17 11:05 Estimated GFR 33 ml/min 09/20/17 11:05 BUN/Creatinine Ratio 8 % 09/20/17 11:05 Glucose 77 mg/dL (65-100) 09/20/17 11:05 Calcium 7.6 mg/dL (8.4-10.2) L 09/20/17 11:05 Phosphorus 3.80 mg/dL (2.5-4.5) 09/20/17 11:05 Iron 16 ug/dL (37-170) L 09/20/17 11:05 TIBC 147 mcg/dL (250-450) L 09/20/17 11:05 Ferritin 158.7 ng/mL (13.0-400.0) 09/20/17 11:05 Total Bilirubin 0.40 mg/dL (0.1-1.2) 09/16/17 07:36 AST 24 units/L (5-40) 09/16/17 07:36 ALT 15 units/L (7-56) 09/16/17 07:36 Alkaline Phosphatase 93 units/L (35-129) 09/16/17 07:36 C-Reactive Protein 6.50 mg/dL (0.00-1.30) H 09/16/17 15:55 NT-Pro-B Natriuret Pep 1234 pg/mL (0-900) H 09/16/17 07:36 Total Protein 6.5 g/dL (6.3-8.2) 09/16/17 07:36 Albumin 2.3 g/dL (3.9-5) L 09/16/17 07:36 Albumin/Globulin Ratio 0.5 % 09/16/17 07:36 Urine Color Straw (Yellow) 09/16/17 13:45 Urine Turbidity Clear (Clear) 09/16/17 13:45 Urine pH 5.0 (5.0-7.0) 09/16/17 13:45 Ur Specific [place] 1.009 (1.003-1.030) 09/16/17 13:45 Urine Protein <15 mg/dl mg/dL (Negative) 09/16/17 13:45 Urine Glucose (UA) Neg mg/dL (Negative) 09/16/17 13:45 Urine Ketones Neg mg/dL (Negative) 09/16/17 13:45 Urine Blood Neg (Negative) 09/16/17 13:45 Urine Nitrite Neg (Negative) 09/16/17 13:45 Urine Bilirubin Neg (Negative) 09/16/17 13:45 Urine Urobilinogen < 2.0 mg/dL (<2.0) 09/16/17 13:45 Ur Leukocyte Esterase Neg (Negative) 09/16/17 13:45 Urine WBC (Auto) 34.0 /HPF (0.0-6.0) H 09/16/17 13:45 Urine RBC (Auto) 29.0 /HPF (0.0-6.0) 09/16/17 13:45 U Epithel Cells (Auto) 2.0 /HPF (0-13.0) 09/16/17 13:45 Urine Bacteria (Auto) 1+ /HPF (Negative) 09/16/17 13:45 Urine Mucus Few /HPF 09/16/17 13:45 Urine Yeast (Budding) 3+ /HPF 09/16/17 13:45 Urine Eosinophils None seen (None Seen) 09/19/17 17:24 Urine Creatinine 27.7 mg/dL (0.1-20.0) H 09/19/17 17:24 Protein/Creatinin Ratio 0.54 09/19/17 17:24 Urine Sodium 43 mmol/L 09/19/17 17:24 Urine Urea Nitrogen 109 09/19/17 17:24 Urine Total Protein 15 mg/dL (5-11.8) H 09/19/17 17:24 Blood Type A NEGATIVE 09/20/17 11:05 Antibody Screen Negative 09/20/17 11:05 Crossmatch See Detail 09/20/17 11:05
--- NOTE | 2017-09-20 15:17 | Discharge Summary ---
Providers - Providers Date of Admission: 09/16/17 12:26 Attending physician: ZARINA HESTER MD 09/16/17 12:29 Consult to Physician [CONS] Routine Consulting Provider: DELPHINE THURSTON Reason For Exam: cellulitis Place consult to:: ID Notified:: Y If yes, spoke with:: DR CHESTER Elizalde called:: 12:30 09/16/17 13:54 Consult to Case Management [CONS] Routine Services Needed at Discharge: Other Notified:: Dorota Phone number called:: [phone] Was contact made?: Yes If yes, spoke with:: Dorota Elizalde called:: 13:58 Comment:: LTC placement Consult to Wound/ET Nurse [CONS] Routine Reason For Exam: wound eval 09/19/17 10:11 Consult to Physician [CONS] Routine Consulting Provider: ELI MENDOZA Reason For Exam: patti Place consult to:: [facility] Notified:: Dr. Alejandro Phone number called:: [phone] Was contact made?: Yes If yes, spoke with:: Dr. Alejandro Time called:: 10:25 Primary care physician: BEE ANDRADE Hospitalization Condition: Stable Hospital course: 81 YO Female resident [facility] with HTN, Breast Cancer, Colon Cancer, Chronic Pancreatitis, Obesity, Debility, Dementia presents to ED for evaluation. Pt states that she has experienced pain and redness to both her legs , her left leg is worse than her right. She notes that she had a blister on her left foot, one of the aides at her assisted living popped it. Shortly after for more large blisters formed on the dorsum of her left foot. She's complaining of increasing redness warmth pain swelling and blisters from the left foot, and left lower extremity. She has some pain and swelling her right lower extremity but it is much milder. She received antibiotics for treatment of cellulitis and UTI; and she was by infectious disease. Her last lites were repleted. She was started on pressor medications. She received wound care for her wounds on her lower extremities. She also received physical therapy and nutrition consult. Or debility and malnutrition respectively. The patient has had multiple hospitalizations recently to the hospital. If she was recommended to go to subacute rehabilitation facility to which she was discharged. Discharge diagnosis Cellulitis of bilateral lower extremity, left worse than right UTI Sepsis Obesity Hypokalemia HTN (hypertension) Severe malnutrition AOCD Disposition: DC/TX-03 SNF W [facility] CERT Time spent for discharge: 33 minutes Core Measure Documentation - Palliative Care Palliative Care/ Comfort Measures: Not Applicable - Core Measures Any of the following diagnoses?: none Exam - Physical Exam Narrative exam: General.: Appears well, no distress, nontoxic HEENT: Moist mucous membranes, extraocular muscles intact, no lymphadenopathy Neck: supple Cardiac: S1-S2 heard Lungs: clear to auscultation bilaterally Abdomen: soft , nontender, nondistended, bowel sounds positive Extremities: Bilateral lower extremity swelling with skin changes. Left worse than right, The left lower extremity has multiple fluid-filled blisters on the dorsum of the foot, and there is a 5 cm x 3 cm healing abrasion on the left hernandez. There is also erythema and warmth. Skin: no rash or lesions Neurologic: no gross focal deficits, hard of hearing Psych: appropriate behavior, appropriate mood, corporative, judgment intact - Constitutional Vitals: Temp Pulse Resp BP Pulse Ox 98.9 F 69 20 166/73 90 09/20/17 08:05 09/20/17 08:05 09/20/17 08:05 09/20/17 08:05 09/20/17 08:05 Plan Follow up with: BEE ANDRADE MD [Primary Care Provider] - 7 Days Prescriptions: Clindamycin [Clindamycin CAP] 300 mg PO Q8H #18 cap Labetalol [Normodyne TAB] 200 mg PO BID #60 tablet oxyCODONE /ACETAMINOPHEN [Percocet 5/325 mg] 1 tab PO Q6H PRN #14 tablet PRN Reason: Pain, Moderate (4-6)
[2017-09-20] MEDS: NORMODYNE PO SCH ×2 (16:20→21:36)
[2017-09-20] MEDS: ALBURX 25% (ALBUMIN) IV SCH ×2 (17:00→23:16)
[2017-09-21] MEDS: PERCOCET 5/325 PO PRN (01:23)
[2017-09-21] MEDS: ALBURX 25% (ALBUMIN) IV SCH ×2 (05:11→10:16)
[2017-09-21] MEDS: SYNTHROID PO SCH (05:11)
[2017-09-21] MEDS: CLEOCIN 600 MG/50 mL 600 MG/50 ML BAG IV SCH (06:10)
[2017-09-21 07:56] LABS: Basophils % (Auto) 0.7 % (0.0-1.8); Eosinophils % (Auto) 1.2 % (0.0-4.3); Lymphocytes # (Auto) 0.8 K/mm3 (1.2-5.4); Lymphocytes % (Auto) 27.7 % (13.4-35.0); Mean Corpuscular HGB Conc 31 % (30-34); Mean Corpuscular Hemoglobin 27 pg (28-32); Mean Corpuscular Volume 84 fl (79-97); Monocytes # (Auto) 0.3 K/mm3 (0.0-0.8); Monocytes % (Auto) 10.4 % (0.0-7.3); Platelet Count 304 K/mm3 (140-440); Red Blood Count 2.27 M/mm3 (3.65-5.03); Red Cell Distribution Width 16.8 % (13.2-15.2)
[2017-09-21 08:13] LABS: Calcium 7.7 mg/dL (8.4-10.2); Hematocrit 19.1 % (30.3-42.9)
[2017-09-21 08:37] VITALS: BP 149/51
[2017-09-21] MEDS: DELTASONE PO SCH (10:16)
[2017-09-21] MEDS: LOVENOX SUB-Q SCH (10:16)
[2017-09-21] MEDS: NORMODYNE PO SCH (10:17)
== END 2017-09-21 10:43 | DRG 871 ==
LOC: ED 00:25 → 2B-ACE 12:26
PROVIDERS: ADMIT Internal Medicine; ATTEND Internal Medicine
DX: A41.9 Sepsis, unspecified organism (principal); E43 Unspecified severe protein-calorie malnutrition; N17.0 Acute kidney failure with tubular necrosis; N39.0 Urinary tract infection, site not specified; L03.116 Cellulitis of left lower limb; L03.115 Cellulitis of right lower limb; K86.1 Other chronic pancreatitis; L97.829 Non-pressure chronic ulcer of other part of left lower leg with unspecified severity; E66.9 Obesity, unspecified; I10 Essential (primary) hypertension; E87.6 Hypokalemia; M19.90 Unspecified osteoarthritis, unspecified site; D32.0 Benign neoplasm of cerebral meninges; Z96.659 Presence of unspecified artificial knee joint; F03.90 Unspecified dementia, unspecified severity, without behavioral disturbance, psychotic disturbance, mood disturbance, and anxiety; D63.8 Anemia in other chronic diseases classified elsewhere; Z88.0 Allergy status to penicillin; Z68.31 Body mass index [BMI] 31.0-31.9, adult; Z71.3 Dietary counseling and surveillance; Z85.3 Personal history of malignant neoplasm of breast; Z88.2 Allergy status to sulfonamides; Z91.041 Radiographic dye allergy status; Z82.49 Family history of ischemic heart disease and other diseases of the circulatory system; Z91.018 Allergy to other foods; Z79.899 Other long term (current) drug therapy; Z90.49 Acquired absence of other specified parts of digestive tract; Z85.038 Personal history of other malignant neoplasm of large intestine; Z68.34 Body mass index [BMI] 34.0-34.9, adult; L89.221 Pressure ulcer of left hip, stage 1; L97.529 Non-pressure chronic ulcer of other part of left foot with unspecified severity
CPT/HCPCS: 36415; 71045; 76770; 80048; 80053; 81001; 82570; 82728; 83550; 83880; 84100; 84156; 84300; 84520; 85025; 86140; 86850; 86900; 86901; 86920; 87086; 89050; J1650; J2405; J7030; J7512; P9047

== ENCOUNTER 2018-01-20 14:06 | Emergency (ER) | payer MEDICARE, OTHER ==
--- NOTE | 2018-01-20 14:29 | Emergency Department Report ---
ED Altered Mental Status HPI - General Stated Complaint: GENERAL WEAKNESS Time Seen by Provider: 01/20/18 14:24 Source: patient, EMS Mode of arrival: Ambulatory Limitations: Altered Mental Status - History of Present Illness Initial Comments: Patient is an 82-year-old female who presents to emergency room with complaints of altered mental status and hallucinations. Patient is a and O 3 at this time. Patient denies chest pain, shortness of breath. Patient denies fever or chills. Patient denies dysuria. Per EMS is patient's been hallucinating for approximately 3 weeks. She denies hallucinations at this time. Patient speaking tangentially at times MD Complaint: altered mental status, confusion - Related Data Previous Rx's Medication Instructions Recorded Last Taken Type Levothyroxine [Synthroid] 88 mcg PO DAILY@0600 #30 tablet 12/01/16 02/18/17 Rx ALBUTEROL Inhaler [ProAir HFA 2 puff IH QID PRN #1 can 09/13/17 Unknown Rx Inhaler] Labetalol [Normodyne TAB] 200 mg PO BID #60 tablet 09/20/17 Unknown Rx oxyCODONE /ACETAMINOPHEN [Percocet 1 tab PO Q6H PRN #14 tablet 09/20/17 Unknown Rx 5/325 mg] ALBUTEROL NEB's [Proventil 0.083% 2.5 mg IH Q4HRT PRN nebu 11/11/17 Unknown Rx NEBS] Acetaminophen [Acetaminophen TAB] 650 mg PO Q4H PRN tablet 11/11/17 Unknown Rx Levofloxacin [Levaquin TAB] 750 mg PO Q24HR #7 tablet 11/11/17 Unknown Rx Magnesium Hydroxide [Milk of 30 ml PO Q4H PRN oral.liqd 11/11/17 Unknown Rx Magnesia] Pantoprazole [Protonix TAB] 40 mg PO BID #60 tablet 11/11/17 Unknown Rx amLODIPine [Norvasc] 10 mg PO QDAY tablet 11/11/17 Unknown Rx oxyCODONE /ACETAMINOPHEN [Percocet 1 tab PO Q6H PRN #30 tablet 11/11/17 Unknown Rx 5/325 mg] Allergies Allergy/AdvReac Type Severity Reaction Status Date / Time iodine Allergy Severe Swelling Verified 11/01/17 14:35 Penicillins Allergy Severe Swelling Verified 11/01/17 14:35 Sulfa (Sulfonamide Allergy Severe Swelling Verified 11/01/17 14:35 Antibiotics) [place] And Derivatives Allergy Rash Verified 11/01/17 14:35 ED Review of Systems ROS: Stated complaint: GENERAL WEAKNESS Other details as noted in HPI Constitutional: denies: chills, fever Eyes: denies: eye pain, eye discharge, vision change ENT: denies: ear pain, throat pain Respiratory: denies: cough, shortness of breath, wheezing Cardiovascular: denies: chest pain, palpitations Endocrine: no symptoms reported Gastrointestinal: denies: abdominal pain, nausea, diarrhea Genitourinary: denies: urgency, dysuria, discharge Musculoskeletal: denies: back pain, joint swelling, arthralgia Skin: denies: rash, lesions Neurological: denies: headache, weakness, paresthesias Psychiatric: denies: anxiety, depression Hematological/Lymphatic: denies: easy bleeding, easy bruising ED Past Medical Hx - Past Medical History Previous Medical History?: Yes Hx Hypertension: Yes Hx Heart Attack/AMI: No Hx Congestive Heart Failure: No Hx Diabetes: No Hx Deep Vein Thrombosis: No Hx Liver Disease: No Hx Sickle Cell Disease: No Hx Arthritis: Yes Hx Seizures: No Hx Asthma: Yes Hx COPD: No Hx Tuberculosis: No Hx Dementia: No Hx HIV: No Additional medical history: lymphedema to shaista LE, hx breast and colon cancer, pancreatitis - Surgical History Past Surgical History?: Yes Hx Coronary Stent: No Hx Open Heart Surgery: No Hx Pacemaker: No Hx Internal Defibrillator: No Hx Cholecystectomy: Yes Hx Appendectomy: Yes Additional Surgical History: left knee surgery - Family History Family history: no significant - Social History Smoking Status: Never Smoker Substance Use Type: None - Medications Home Medications: Home Medications Medication Instructions Recorded Confirmed Last Taken Type Levothyroxine [Synthroid] 88 mcg PO DAILY@0600 #30 tablet 12/01/16 11/02/1704/29 Rx ALBUTEROL Inhaler [ProAir HFA 2 puff IH QID PRN #1 can 09/13/17 11/02/17 Unknown Rx Inhaler] Labetalol [Normodyne TAB] 200 mg PO BID #60 tablet 09/20/17 11/02/17 Unknown Rx oxyCODONE /ACETAMINOPHEN [Percocet 1 tab PO Q6H PRN #14 tablet 09/20/17 Unknown Rx 5/325 mg] ALBUTEROL NEB's [Proventil 0.083% 2.5 mg IH Q4HRT PRN nebu 11/11/17 Unknown Rx NEBS] Acetaminophen [Acetaminophen TAB] 650 mg PO Q4H PRN tablet 11/11/17 Unknown Rx Levofloxacin [Levaquin TAB] 750 mg PO Q24HR #7 tablet 11/11/17 Unknown Rx Magnesium Hydroxide [Milk of 30 ml PO Q4H PRN oral.liqd 11/11/17 Unknown Rx Magnesia] Pantoprazole [Protonix TAB] 40 mg PO BID #60 tablet 11/11/17 Unknown Rx amLODIPine [Norvasc] 10 mg PO QDAY tablet 11/11/17 Unknown Rx oxyCODONE /ACETAMINOPHEN [Percocet 1 tab PO Q6H PRN #30 tablet 11/11/17 Unknown Rx 5/325 mg] ED Physical Exam - General General appearance: alert, in no apparent distress - Head Head exam: Present: atraumatic, normocephalic - Eye Eye exam: Present: normal appearance - ENT ENT exam: Present: mucous membranes moist - Neck Neck exam: Present: normal inspection - Respiratory Respiratory exam: Present: normal lung sounds bilaterally. Absent: respiratory distress - Cardiovascular Cardiovascular Exam: Present: regular rate, normal rhythm. Absent: systolic murmur, diastolic murmur, rubs, gallop - GI/Abdominal GI/Abdominal exam: Present: soft, normal bowel sounds - Extremities Exam Extremities exam: Present: normal inspection - Back Exam Back exam: Present: normal inspection - Neurological Exam Neurological exam: Present: alert, oriented X3 - Psychiatric Psychiatric exam: Present: normal affect, normal mood - Skin Skin exam: Present: warm, dry, intact, normal color. Absent: rash - Assessment Assessment Interval: Baseline - Level of Consciousness 1a. Level of Consciousness: alert - LOC Questions 1b. LOC Questions: answers correctly - LOC Command 1c. LOC Commands: performs tasks correctly - Best Gaze 2. Best Gaze: normal - Visual 3. Visual: no visual loss - Facial Palsy 4. Facial Palsy: normal symmetrical movement - Motor Arm 5b. Motor Arm Right: no drift 5a. Motor Arm Left: no drift - Motor Leg 6a. Motor Leg Left: no drift 6b. Motor Leg Right: no drift - Limb Ataxia 7. Limb Ataxia: absent - Sensory 8. Sensory: normal - Best Language 9. Best Language: no aphasia - Dysarthria 10. Dysarthria: normal - Extinction and Inattention 11. Extinction/Inattention: no abnormality - Scoring Total Score: 0 Stroke Severity: No Stroke Symptoms ED Course Vital Signs 01/20/18 14:55 Temperature 98 F Pulse Rate 57 L Respiratory 16 Rate Blood Pressure 150/96 O2 Sat by Pulse 96 Oximetry - Reevaluation(s) Reevaluation #1: Patient to be admitted to the hospitalist service. Hospitalist consulted. Discussed all results with patient. UA and CT scan head pending and hospitalist made aware of this. Hospitalist accepted patient 01/20/18 16:07 - Lab Data Result diagrams: 01/20/18 14:32 01/20/18 14:32 Lab Results 01/20/18 01/20/18 01/20/18 Range/Units 14:32 14:32 14:32 WBC 4.5 (4.5-11.0) K/mm3 RBC 3.81 (3.65-5.03) M/mm3 Hgb 9.8 L (10.1-14.3) gm/dl Hct 31.2 (30.3-42.9) % MCV 82 (79-97) fl MCH 26 L (28-32) pg MCHC 31 (30-34) % RDW 18.8 H (13.2-15.2) % Plt Count 242 (140-440) K/mm3 Lymph % (Auto) 21.2 (13.4-35.0) % [place] % (Auto) 10.3 H (0.0-7.3) % Eos % (Auto) 9.3 H (0.0-4.3) % Baso % (Auto) 0.6 (0.0-1.8) % Lymph # 1.0 L (1.2-5.4) K/mm3 [place] # 0.5 (0.0-0.8) K/mm3 Eos # 0.4 (0.0-0.4) K/mm3 Baso # 0.0 (0.0-0.1) K/mm3 Seg Neutrophils % 58.6 (40.0-70.0) % Seg Neutrophils # 2.7 (1.8-7.7) K/mm3 Sodium 140 (137-145) mmol/L Potassium 3.5 L (3.6-5.0) mmol/L Chloride 102.8 (98-107) mmol/L Carbon Dioxide 23 (22-30) mmol/L Anion Gap 18 mmol/L BUN 8 (7-17) mg/dL Creatinine 0.7 (0.7-1.2) mg/dL Estimated GFR > 60 ml/min BUN/Creatinine Ratio 11 % Glucose 88 (65-100) mg/dL Lactic Acid 1.10 (0.7-2.0) mmol/L Calcium 9.3 (8.4-10.2) mg/dL Total Bilirubin 0.70 (0.1-1.2) mg/dL AST 14 (5-40) units/L ALT 7 (7-56) units/L Alkaline Phosphatase 81 (35-129) units/L Troponin T 0.024 (0.00-0.029) ng/mL Total Protein 6.9 (6.3-8.2) g/dL Albumin 3.6 L (3.9-5) g/dL Albumin/Globulin Ratio 1.1 % Salicylates (2.8-20.0) mg/dL Acetaminophen (10.0-30.0) ug/mL Plasma/Serum Alcohol (0-0.07) % 01/20/18 01/20/18 01/20/18 Range/Units 14:32 14:32 14:32 WBC (4.5-11.0) K/mm3 RBC (3.65-5.03) M/mm3 Hgb (10.1-14.3) gm/dl Hct (30.3-42.9) % MCV (79-97) fl MCH (28-32) pg MCHC (30-34) % RDW (13.2-15.2) % Plt Count (140-440) K/mm3 Lymph % (Auto) (13.4-35.0) % [place] % (Auto) (0.0-7.3) % Eos % (Auto) (0.0-4.3) % Baso % (Auto) (0.0-1.8) % Lymph # (1.2-5.4) K/mm3 [place] # (0.0-0.8) K/mm3 Eos # (0.0-0.4) K/mm3 Baso # (0.0-0.1) K/mm3 Seg Neutrophils % (40.0-70.0) % Seg Neutrophils # (1.8-7.7) K/mm3 Sodium (137-145) mmol/L Potassium (3.6-5.0) mmol/L Chloride (98-107) mmol/L Carbon Dioxide (22-30) mmol/L Anion Gap mmol/L BUN (7-17) mg/dL Creatinine (0.7-1.2) mg/dL Estimated GFR ml/min BUN/Creatinine Ratio % Glucose (65-100) mg/dL Lactic Acid (0.7-2.0) mmol/L Calcium (8.4-10.2) mg/dL Total Bilirubin (0.1-1.2) mg/dL AST (5-40) units/L ALT (7-56) units/L Alkaline Phosphatase (35-129) units/L Troponin T (0.00-0.029) ng/mL Total Protein (6.3-8.2) g/dL Albumin (3.9-5) g/dL Albumin/Globulin Ratio % Salicylates < 0.3 L (2.8-20.0) mg/dL Acetaminophen < 5.0 L (10.0-30.0) ug/mL Plasma/Serum Alcohol < 0.01 (0-0.07) % - EKG Data -: EKG Interpreted by Me EKG shows normal: sinus rhythm, axis, intervals, QRS complexes, ST-T waves Rate: normal - Radiology Data Radiology results: pending - Medical Decision Making Patient is a 82-year-old female who presents with altered mental status and hallucinations. Patient admitted to the hospitalist service. - Differential Diagnosis uti. ams. vh. Critical care attestation.: If time is entered above; I have spent that time in minutes in the direct care of this critically ill patient, excluding procedure time. ED Disposition Clinical Impression: Altered mental status, Hallucination, visual, HTN (hypertension) Disposition: OP ADMIT IP TO THIS HOSP Is pt being admited?: Yes Does the pt Need Aspirin: No Condition: Serious Referrals: OG BURGER MD [Primary Care Provider] - 3-5 Days Time of Disposition: 16:09
[2018-01-20 14:56] LABS: Basophils % (Auto) 0.6 % (0.0-1.8); Eosinophils # (Auto) 0.4 K/mm3 (0.0-0.4); Eosinophils % (Auto) 9.3 % (0.0-4.3); Hematocrit 31.2 % (30.3-42.9); Hemoglobin 9.8 gm/dl (10.1-14.3); Lymphocytes % (Auto) 21.2 % (13.4-35.0); Mean Corpuscular HGB Conc 31 % (30-34); Mean Corpuscular Volume 82 fl (79-97); Monocytes # (Auto) 0.5 K/mm3 (0.0-0.8); Monocytes % (Auto) 10.3 % (0.0-7.3); Platelet Count 242 K/mm3 (140-440); Red Blood Count 3.81 M/mm3 (3.65-5.03); Red Cell Distribution Width 18.8 % (13.2-15.2)
[2018-01-20 14:57] LABS: Mean Corpuscular Hemoglobin 26 pg (28-32)
[2018-01-20 15:14] LABS: Alanine Aminotransferase 7 units/L (7-56); Albumin 3.6 g/dL (3.9-5); BUN/Creatinine Ratio 11; Blood Urea Nitrogen 8 mg/dL (7-17); Calcium 9.3 mg/dL (8.4-10.2); Hemolysis Index 9
[2018-01-20 16:47] LABS: Bilirubin,Urine NEG (Negative); Blood,Urine NEG (Negative); Color,Urine Yellow (Yellow); Protein,Urine <15 mg/dL mg/dL (Negative); Urobilinogen,Urine < 2.0 mg/dL (<2.0)
[2018-01-20 16:56] LABS: Amphetamine Screen,Urine PRESUMPTIVE NEGATIVE; Benzodiazepines Screen,Urine PRESUMPTIVE NEGATIVE; Cannabinoid Screen,Urine PRESUMPTIVE NEGATIVE; Cocaine Screen,Urine PRESUMPTIVE NEGATIVE; Methadone Screen,Urine PRESUMPTIVE NEGATIVE; Opiate Screen,Urine PRESUMPTIVE NEGATIVE
[2018-01-20] MEDS ORDERED: CATAPRES PO PRN (17:22)
--- NOTE | 2018-01-20 17:26 | Event Note ---
Date: 01/20/18 Patient was presented to me as chest pain on exam Patient screaming and shouting Refusing IV line Denies chest pain Exam normal Htn uncontrolled
--- NOTE | 2018-01-20 18:16 | Cat Scan Report ---
FINAL REPORT EXAM: CT HEAD/BRAIN WO CON HISTORY: Altered Mental Status TECHNIQUE: Noncontrast CT axial images of the brain. PRIORS: None. FINDINGS: Large, partially calcified and probably extra-axial, hyperdense mass in the left posterior fossa probably subjacent to tentorium cerebelli, measuring approximately 3.3 x 3.6 cm in maximal cross-sectional diameter. Very mild, focal or local mass effect. Patchy low density in the periventricular and subcortical white matter is nonspecific, but may relate to chronic small vessel ischemic change. Age-related volume loss. No parenchymal mass, mass effect, hemorrhage, midline shift or hydrocephalus. No evidence of acute cortical infarct. No abnormal, extra-axial fluid or air collection. Osseous calvarium grossly intact. IMPRESSION: 1. No acute intracranial findings. 2. 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 3. Chronic ischemic and atrophic changes.
[2018-01-20 19:17] VITALS: BP 147/69
== END 2018-01-20 19:22 | disposition admitted as inpatient to this hospital (09) ==
LOC: ED 14:06
DX: I10 Essential (primary) hypertension (principal); R41.82 Altered mental status, unspecified; M19.90 Unspecified osteoarthritis, unspecified site; Z88.0 Allergy status to penicillin; Z88.2 Allergy status to sulfonamides; Z88.8 Allergy status to other drugs, medicaments and biological substances
CPT/HCPCS: 36415; 70450; 80053; 80307; 81001; 82140; 84484; 85025; 93005; 93010; 99285; G0480; 80320

== ENCOUNTER 2018-04-25 08:21 | Day surgery (SDC) | payer MEDICARE, OTHER ==
[2018-04-25] MEDS ORDERED: DIPRIVAN 10 MG/ML IV ONE ×2 (09:29)
[2018-04-25] MEDS ORDERED: XYLOCAINE MPF 2% ONE (09:30)
[2018-04-25] MEDS ORDERED: NACL 0.9% 1000 ML 1,000 ML IV SCH (10:00)
--- NOTE | 2018-04-25 10:04 | Short Stay Summary ---
Short Stay Documentation Date of service: 04/25/18 - History H&P: obtained from office - Allergies and Medications Current Medications: Allergies iodine Allergy (Severe, Verified 11/01/17 14:35) Swelling Penicillins Allergy (Severe, Verified 11/01/17 14:35) Swelling Sulfa (Sulfonamide Antibiotics) Allergy (Severe, Verified 11/01/17 14:35) Swelling [place] And Derivatives Allergy (Verified 11/01/17 14:35) Rash Home Medications Medication Instructions Recorded Confirmed Last Taken Type RX: Levothyroxine [Synthroid] 88 mcg PO DAILY@0600 #30 tablet 12/01/16 04/25/18 04/24/18 Rx RX: ALBUTEROL NEB's [Proventil 2.5 mg IH Q4HRT PRN nebu 11/11/17 04/25/1804/24 Rx 0.083% NEBS] RX: Acetaminophen [Acetaminophen 650 mg PO Q4H PRN tablet 11/11/17 04/25/1808/30 Rx TAB] RX: Magnesium Hydroxide [Milk of 30 ml PO Q4H PRN oral.liqd 11/11/17 04/25/18 04/24/18 Rx Magnesia] RX: amLODIPine [Norvasc] 10 mg PO QDAY tablet 11/11/17 04/25/18 04/24/18 Rx RX: oxyCODONE /ACETAMINOPHEN 1 tab PO Q6H PRN #30 tablet 11/11/17 04/25/1804/24 Rx [Percocet 5/325 mg] Furosemide [Lasix] 20 mg PO QDAY 01/20/18 04/25/18 04/24/18 History Labetalol [Normodyne] 200 mg PO BID 01/20/18 04/25/18 04/24/18 History Potassium Chloride [Klor-Con 10] 10 meq PO QDAY 01/20/18 04/25/18 04/24/18 History RX: Labetalol [Normodyne TAB] 300 mg PO Q8H #90 tablet 01/20/18 04/25/18 Rx RX: Pantoprazole [Protonix TAB] 40 mg PO DAILY 01/20/18 04/25/18 04/24/18 History Active Medications Sodium Chloride (Nacl 0.9% 1000 Ml) 1,000 mls @ 50 mls/hr IV DIRECT ANA Last Admin: 04/25/18 09:26 Dose: 50 mls/hr - Brief post op/procedure progress note Date of procedure: 04/25/18 Procedure: see dictated note Estimated blood loss: none Pathology: list Specimen disposition: to lab Condition: stable - Disposition Condition at discharge: Good Disposition: DC-01 TO HOME OR SELFCARE - Discharge Diagnoses (1) Duodenal mass Status: Acute Short Stay Discharge Plan Activity: no restrictions Weight Bearing Status: Weight Bear as Tolerated Diet: regular Follow up with: OG BURGER MD [Primary Care Provider] - 7 Days
--- NOTE | 2018-04-25 10:10 | Operative Report ---
Operative Report Operative Report: Date of procedure: 04/25/2018 Procedure: Esophagogastroduodenoscopy with biopsies for H. pylori Preprocedure diagnosis: History of an atypical-appearing ulcerated duodenal ulcer/mass Post procedure diagnosis: Healed ulcer bed with inflammation and mild stricturing at the duodenal bulb apex Endoscopist: Dr. Collins Anesthesia: Monitored anesthesia care per anesthesia department Medications: Propofol per anesthesia Estimated blood loss: 0 After careful discussion of the nature and purpose of the procedure as well as details the technique risks benefits and alternatives consent was obtained. The patient was placed in the left lateral decubitus position and medicated per anesthesia. The tip of the [employer] EQ 570 video scope was passed per orum under direct vision into the esophagus and advanced into the stomach and descending duodenum. The descending duodenum was normal. The duodenal bulb revealed mild deformity and stricturing at the apex with a small diverticulum consistent with healed peptic ulcer disease. The pylorus was symmetrical and normal. The scope was withdrawn into the stomach and the stomach then gently insufflated with air. The antrum was normal. Biopsies were taken in the prepyloric area for H. pylori testing. The stomach was further insufflated and the scope was then retroflexed and partially withdrawn. The cardia, fundus, and body of the stomach were within normal limits and easily distensible.The scope was then withdrawn in the forward position. The esophagogastric junction was at 27 cm. A very large hiatus hernia was present. The esophageal body was otherwise normal throughout. The procedure was was well tolerated and the patient was observed in recovery. Impressions: Large hiatus hernia. Healing ulcer bed in the apex of the duodenum. No mass lesion. Plan: Await biopsies for H. pylori. Continue PPI therapy for reflux long-term. Office follow-up when necessary. Electronically signed: Cayetano Collins MD
[2018-04-25 10:34] VITALS: BP 148/64
== END 2018-04-25 08:22 | disposition home or self-care (01) ==
LOC: GIO 08:21
PROVIDERS: ATTEND Internal Medicine Gastroenterology
DX: K26.9 Duodenal ulcer, unspecified as acute or chronic, without hemorrhage or perforation (principal); K29.50 Unspecified chronic gastritis without bleeding; K44.9 Diaphragmatic hernia without obstruction or gangrene; K21.9 Gastro-esophageal reflux disease without esophagitis; E03.9 Hypothyroidism, unspecified; M19.90 Unspecified osteoarthritis, unspecified site; I11.0 Hypertensive heart disease with heart failure; I50.9 Heart failure, unspecified; Z79.899 Other long term (current) drug therapy; Z91.041 Radiographic dye allergy status; Z88.0 Allergy status to penicillin; Z88.2 Allergy status to sulfonamides; Z91.018 Allergy to other foods; Z90.49 Acquired absence of other specified parts of digestive tract; Z90.710 Acquired absence of both cervix and uterus; Z90.13 Acquired absence of bilateral breasts and nipples; Z85.3 Personal history of malignant neoplasm of breast; Z85.038 Personal history of other malignant neoplasm of large intestine; Z86.718 Personal history of other venous thrombosis and embolism; Z98.890 Other specified postprocedural states; Z82.49 Family history of ischemic heart disease and other diseases of the circulatory system
CPT/HCPCS: 43239; 88305; 88342; J2704; J7030

== ENCOUNTER 2019-10-22 16:19 | Emergency (ER) | payer MEDICARE, OTHER ==
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
[2019-10-22 19:53] LABS: Basophils % (Auto) 0.4 % (0.0-1.8); Eosinophils # (Auto) 0.1 K/mm3 (0.0-0.4); Eosinophils % (Auto) 2.5 % (0.0-4.3); Hematocrit 38.4 % (30.3-42.9); Lymphocytes % (Auto) 22.9 % (13.4-35.0); Mean Corpuscular HGB Conc 34 % (30-34); Mean Corpuscular Volume 91 fl (79-97); Monocytes # (Auto) 0.5 K/mm3 (0.0-0.8); Monocytes % (Auto) 10.6 % (0.0-7.3); Platelet Count 153 K/mm3 (140-440); Red Blood Count 4.23 M/mm3 (3.65-5.03); Red Cell Distribution Width 14.4 % (13.2-15.2)
[2019-10-22 20:06] LABS: Albumin 3.8 g/dL (3.9-5)
[2019-10-22 20:34] LABS: Bilirubin,Urine NEG (Negative); Blood,Urine NEG (Negative); Color,Urine Yellow (Yellow); Protein,Urine <15 mg/dL mg/dL (Negative)
[2019-10-22 20:39] LABS: Amphetamine Screen,Urine PRESUMPTIVE NEGATIVE; Benzodiazepines Screen,Urine PRESUMPTIVE NEGATIVE; Cannabinoid Screen,Urine PRESUMPTIVE NEGATIVE; Cocaine Screen,Urine PRESUMPTIVE NEGATIVE; Methadone Screen,Urine PRESUMPTIVE NEGATIVE; Opiate Screen,Urine PRESUMPTIVE NEGATIVE
[2019-10-22 22:24] VITALS: BP 152/98
== END 2019-10-22 22:39 | disposition home or self-care (01) ==
LOC: ED 16:19
DX: F23 Brief psychotic disorder (principal); C71.9 Malignant neoplasm of brain, unspecified; N39.0 Urinary tract infection, site not specified; I11.0 Hypertensive heart disease with heart failure; I50.9 Heart failure, unspecified; K21.9 Gastro-esophageal reflux disease without esophagitis; Z90.49 Acquired absence of other specified parts of digestive tract; Z98.890 Other specified postprocedural states; Z79.899 Other long term (current) drug therapy; Z88.0 Allergy status to penicillin; Z88.2 Allergy status to sulfonamides; Z91.048 Other nonmedicinal substance allergy status
CPT/HCPCS: 36415; 80053; 80307; 80320; 81001; 85025; 87086; G0480

== ENCOUNTER 2019-10-22 20:39 | Inpatient (IN) | payer MEDICARE, OTHER ==
--- NOTE | 2019-10-23 09:18 | History and Physical Report ---
GP History & Physical - History of Present Illness Date of admission: 10/22/19 Date of Examination: 10/23/19 Reason for Admission: Unable to care for self History of Present Illness: Josefina Gafnfey is an 84y/o female patient who was admitted for increased aggression. During my interview with the patient this morning, she was lying in bed. Asleep. Easily arouses. She is a poor historian. Verbally aggressive and irritable. She is very [place]. Because of this she is difficult to engage. She is a/o x 2. While assessing the patient's orientation, the patient shouts, "I don't like this pressing and jabbing." She says "If you are going to ask a question just ask it and stop pressing." She then states to me, "I can't hear you any way." The patient denies SI/HI, stating, "no, I like living too much." She denies hallucinations of any kind. PAST PSYCHIATRIC HISTORY: The patient unable to answer questions PAST MEDICAL HISTORY: The patient is unable to answer Family Psychiatric History None reported or documented SOCIAL HISTORY The patient is unable to answer REVIEW OF SYSTEMS Unable to obtain Diagnoses: Dementia with Behavioral Disturbance Treatment Plan Patient will be admitted for inpatient psychiatric evaluation, medication adjustment and close monitoring The patient's behavior, mood, sleep and appetite will be closely monitored. Patient will be enrolled in individual and group therapeutic sessions and encouraged to attend. Patient will be provided with a safe and structured environment. Patient's physical health needs will be addressed by the Hospitalist. Hospitalist Consulted Social Assessment will be completed and the Marketing Content Manager will work with patient and family to ensure a suitable and safe disposition Medication adjustment will be made as clinically indicated Usual Wellness Bahai/Preservation: - Start Lorazepam 0.5mg po daily to decrease agitation - Start Haldol 5mg IM q6H prn agitation The patient agreed on the treatment plan, understood the risk, benefit, alternative treatment, potential consequence of no treatment, and gave informed consent. Physician Certification Statement: This is an acknowledgement statement that this patient requires inpatient psychiatric admission for treatment which could reasonably be expected to improve the patient's condition for Dementia with Behavioral Disturbance with increasing aggression and irritability. Estimated period of time patient will need to remain in the hospital: 7 days Plan for post-hospital care: Out-patient care Legal Status: Voluntary Reaction to Hospitalization: Accepting Medications and Allergies Allergies Allergy/AdvReac Type Severity Reaction Status Date / Time iodine Allergy Severe Swelling Verified 11/01/17 14:35 Penicillins Allergy Severe Swelling Verified 11/01/17 14:35 Sulfa (Sulfonamide Allergy Severe Swelling Verified 11/01/17 14:35 Antibiotics) [place] And Derivatives Allergy Rash Verified 11/01/17 14:35 Home Medications Medication Instructions Recorded Confirmed Last Taken Type Levothyroxine [Synthroid] 88 mcg PO DAILY@0600 #30 tablet 12/01/16 04/25/18 04/24/18 Rx ALBUTEROL NEB's [Proventil 0.083% 2.5 mg IH Q4HRT PRN nebu 11/11/17 04/25/18 04/24/18 Rx NEBS] Acetaminophen [Acetaminophen TAB] 650 mg PO Q4H PRN tablet 11/11/17 04/25/18 04/24/18 Rx Magnesium Hydroxide [Milk of 30 ml PO Q4H PRN oral.liqd 11/11/17 04/25/18 04/24/18 Rx Magnesia] amLODIPine 10 mg PO QDAY tablet 11/11/17 04/25/18 04/24/18 Rx oxyCODONE /ACETAMINOPHEN [Percocet 1 tab PO Q6H PRN #30 tablet 11/11/17 04/25/18 04/24/18 Rx 5/325 mg] Furosemide [Lasix TAB] 20 mg PO QDAY 01/20/18 04/25/18 04/24/18 History Pantoprazole [Protonix TAB] 40 mg PO DAILY 01/20/18 04/25/18 04/24/18 History Potassium Chloride [Klor-Con 10] 10 meq PO QDAY 01/20/18 04/25/18 04/24/18 History labetaloL [Labetalol 200mg TAB] 200 mg PO BID 01/20/18 04/25/18 04/24/18 History labetaloL [Labetalol 200mg TAB] 300 mg PO Q8H #90 tablet 01/20/18 04/25/18 04/24/18 Rx Results - Results Labs/Vitals: Last Vital Signs Temp 97.8 F 10/22/19 23:50 Pulse 81 10/22/19 23:50 Resp 20 10/22/19 23:50 BP 165/50 10/22/19 23:50 Pulse Ox 97 10/22/19 23:50 Physical Examination - Constitutional Vitals: Vital Signs Temp Pulse Resp BP Pulse Ox 97.8 F 81 20 165/50 97 10/22/19 23:50 10/22/19 23:50 10/22/19 23:50 10/22/19 23:50 10/22/19 23:50 Temperature -Last 24 Hours Temperature 97.8 F Mental Status Exam - Vital signs Last Vital Signs Temp 97.8 F 10/22/19 23:50 Pulse 81 10/22/19 23:50 Resp 20 10/22/19 23:50 BP 165/50 10/22/19 23:50 Pulse Ox 97 10/22/19 23:50 Physician Certification - Certification Statement Physician Certification Statement: This is an acknowledgement statement that JOSEFINA GAFFNEY is a 84 year old F who requires inpatient psychiatric admission for treatment which could reasonably be expected to improve the patient's condition for Estimated period of time patient will need to remain in the hospital: [ ] Plan for post-hospital care: [ ]
[2019-10-23] MEDS ORDERED: HALOPERIDOL LACTATE 5 MG/1 ML INJ IM PRN (09:26)
[2019-10-23] MEDS: LORazepam 0.5 MG TAB PO SCH (10:46)
--- NOTE | 2019-10-23 12:04 | Consultation ---
History of Present Illness - Reason for Consult Consult date: 10/23/19 Medical mx - History of Present Illness Josefina Hensley is an 84y/o female with h/o dementia and other comorbidities who was admitted to inpt psych unit for increased aggression. Hospitalist service consulted for medical Mx. Patient is a very poor historian and pleasantly demented. Denies any chest pain or SOB. PAST PSYCHIATRIC HISTORY: The patient unable to answer questions PAST MEDICAL HISTORY: The patient is unable to answer Per medical record she has HTN, chronic lymphedema to billateral LE, hx breast and colon cancer, pancreatitis, hypothyroidism Surgical History Hx Cholecystectomy: Yes Hx Appendectomy: Yes Additional Surgical History: left knee surgery Family Psychiatric History HTN SOCIAL HISTORY The patient is unable to answer per record, Smoking Status: Never Smoker Substance Use Type: None REVIEW OF SYSTEMS Unable to obtain Medications and Allergies Allergies Allergy/AdvReac Type Severity Reaction Status Date / Time iodine Allergy Severe Swelling Verified 11/01/17 14:35 Penicillins Allergy Severe Swelling Verified 11/01/17 14:35 Sulfa (Sulfonamide Allergy Severe Swelling Verified 11/01/17 14:35 Antibiotics) [place] And Derivatives Allergy Rash Verified 11/01/17 14:35 Home Medications Medication Instructions Recorded Confirmed Last Taken Type Levothyroxine [Synthroid] 88 mcg PO DAILY@0600 #30 tablet 12/01/16 10/23/19 04/24/18 Rx ALBUTEROL NEB's [Proventil 0.083% 2.5 mg IH Q4HRT PRN nebu 11/11/17 10/23/19 04/24/18 Rx NEBS] Acetaminophen [Acetaminophen TAB] 650 mg PO Q4H PRN tablet 11/11/17 10/23/19 04/24/18 Rx Magnesium Hydroxide [Milk of 30 ml PO Q4H PRN oral.liqd 11/11/17 10/23/19 04/24/18 Rx Magnesia] amLODIPine 10 mg PO QDAY tablet 11/11/17 10/23/19 04/24/18 Rx oxyCODONE /ACETAMINOPHEN [Percocet 1 tab PO Q6H PRN #30 tablet 11/11/17 10/23/19 04/24/18 Rx 5/325 mg] Furosemide [Lasix TAB] 20 mg PO QDAY 01/20/18 10/23/19 04/24/18 History Pantoprazole [Protonix TAB] 40 mg PO DAILY 01/20/18 10/23/19 04/24/18 History Potassium Chloride [Klor-Con 10] 10 meq PO QDAY 01/20/18 10/23/19 04/24/18 History labetaloL [Labetalol 200mg TAB] 200 mg PO BID 01/20/18 10/23/19 04/24/18 History labetaloL [Labetalol 200mg TAB] 300 mg PO Q8H #90 tablet 01/20/18 10/23/19 04/24/18 Rx Active Meds: Active Medications Haloperidol Lactate (Haldol) 5 mg IM Q6H PRN PRN Reason: Agitation Lorazepam (Ativan) 0.5 mg PO DAILY ANA Last Admin: 10/23/19 10:46 Dose: 0.5 mg Documented by: Exam - Constitutional Vitals: Temp Pulse Resp BP Pulse Ox 97.9 F 76 18 115/67 98 10/23/19 10:10 10/23/19 10:10 10/23/19 10:10 10/23/19 10:10 10/23/19 10:10 General appearance: Present: no acute distress, well-nourished - EENT Eyes: Present: PERRL ENT: hearing intact, clear oral mucosa - Neck Neck: Present: supple, normal ROM - Respiratory Respiratory effort: normal Respiratory: bilateral: CTA - Cardiovascular Heart Sounds: Present: S1 & S2. Absent: rub, click - Extremities Extremities: pulses symmetrical Extremity abnormal: edema (lymphedema on b/l LE) Peripheral Pulses: within normal limits - Abdominal General gastrointestinal: Present: soft, non-tender, non-distended, normal bowel sounds - Integumentary Integumentary: Present: clear, warm, dry - Musculoskeletal Musculoskeletal: gait normal, strength equal bilaterally - Psychiatric Psychiatric: appropriate mood/affect, intact judgment & insight - Neurologic Neurologic: CNII-XII intact, moves all extremities Assessment and Plan Dementia with Behavioral Disturbance - psych following Hypothyroidism, cont home meds HTN, resume home meds HLD, cont statin GERD, cont PPI lymphedema to shaista LE, lasix daily low dose Dvt Px, SCD when on bed
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
[2019-10-24] MEDS: LORazepam 0.5 MG TAB PO SCH (13:52)
[2019-10-24] MEDS: DIVALPROEX DR 500 MG TAB PO SCH (22:00)
[2019-10-24] MEDS: risperiDONE 0.25 MG TAB PO SCH (22:00)
[2019-10-24] MEDS ORDERED: MELATONIN 5 MG TAB PO PRN (22:00)
--- NOTE | 2019-10-25 08:40 | Progress Note ---
Subjective Date of service: 10/25/19 Subjective Comment: The patient's medical record was reviewed and the patient's progress was discussed with the nursing staff. The nurse note states.Shift report obtained on pt. Received sitting quietly on Priya-Chair. Denies pain. Denies SI/HI. Will continue to monitor for safety. During my interview with the patient this morning, the patient is alert oriented x1, the patient is dressed appropriately for the occasion, the patient maintain intermittent eye contact, the patient reports that she is hard of hearing. The patient reports that she is eating and sleeping well, the patient denies suicidal ideation patient denies homicidal ideations. The patient denies visual or auditory hallucination and any form of depression. The patient is noted with disorganized thoughts, hallucination and intermittent confusion. the patient was point to the floor and states that she reaching for her comb, which was not there. Reason for continuing inpatient treatment. increase confusion/disorganized thoughts/unable to care for self REVIEW OF SYSTEMS Constitutional: Negative for weight loss ENT: Negative for stridor Respiratory: Negative for cough or hemoptysis All other systems reviewed and are negative MSE Appearance: Awake. Dressed appropriately. Behavior: cooperative, Mood: "good" Affect: congruent Thought Process: labile Speech: low Thought Content Suicidal: Denies Homicidal: Denies Hallucinations: Denies Delusions: Denies Consciousness: Alert Cognition/Memory:forgetful Insight/Judgment: Limited Diagnoses: Schizoaffective Disorder Treatment Plan Due to the psychiatric conditions and treatment listed in the Assessment and Plan - the patient requires continued hospitalization. Will continue inpatient treatment to allow for medication adjustment and monitoring. Will continue q15 min safety checks. Will encourage the use of environmental modifications and non-pharmacologic approaches for the management of behavioral and psychological symptoms. Medication adjustment made today : none Will continue current psych medications Monitor for medication side effects. The patient will continue on medications for physical illnesses, and Hospitalist will closely monitor these Continue intensive physical and occupational therapies. Monitor patient's mood, sleep, appetite, and behavior closely. Encourage patient to participate in individual and group therapeutic sessions on the [place]. Will provide a safe and therapeutic environment for patient. Estimated length of stay 4 days Medications and Allergies Allergies Allergy/AdvReac Type Severity Reaction Status Date / Time iodine Allergy Severe Swelling Verified 11/01/17 14:35 Penicillins Allergy Severe Swelling Verified 11/01/17 14:35 Sulfa (Sulfonamide Allergy Severe Swelling Verified 11/01/17 14:35 Antibiotics) [place] And Derivatives Allergy Rash Verified 11/01/17 14:35 Home Medications Medication Instructions Recorded Confirmed Last Taken Type Levothyroxine [Synthroid] 88 mcg PO DAILY@0600 #30 tablet 12/01/16 10/23/19 04/24/18 Rx ALBUTEROL NEB's [Proventil 0.083% 2.5 mg IH Q4HRT PRN nebu 11/11/17 10/23/19 04/24/18 Rx NEBS] Acetaminophen [Acetaminophen TAB] 650 mg PO Q4H PRN tablet 11/11/17 10/23/19 04/24/18 Rx Magnesium Hydroxide [Milk of 30 ml PO Q4H PRN oral.liqd 11/11/17 10/23/19 04/24/18 Rx Magnesia] amLODIPine 10 mg PO QDAY tablet 11/11/17 10/23/19 04/24/18 Rx oxyCODONE /ACETAMINOPHEN [Percocet 1 tab PO Q6H PRN #30 tablet 11/11/17 10/23/19 04/24/18 Rx 5/325 mg] Furosemide [Lasix TAB] 20 mg PO QDAY 01/20/18 10/23/19 04/24/18 History Pantoprazole [Protonix TAB] 40 mg PO DAILY 01/20/18 10/23/19 04/24/18 History Potassium Chloride [Klor-Con 10] 10 meq PO QDAY 01/20/18 10/23/19 04/24/18 History labetaloL [Labetalol 200mg TAB] 200 mg PO BID 01/20/18 10/23/19 04/24/18 History labetaloL [Labetalol 200mg TAB] 300 mg PO Q8H #90 tablet 01/20/18 10/23/19 04/24/18 Rx Active Meds: Active Medications Divalproex Sodium (Depakote Dr) 500 mg PO BID [facility] Last Admin: 10/24/19 22:00 Dose: 500 mg Documented by: Haloperidol Lactate (Haldol) 5 mg IM Q6H PRN PRN Reason: Agitation Lorazepam (Ativan) 0.5 mg PO DAILY [facility] Last Admin: 10/24/19 13:52 Dose: 0.5 mg Documented by: Melatonin (Melatonin) 5 mg PO QHS PRN PRN Reason: Sleep Risperidone (Risperdal) 0.5 mg PO BID ANA Last Admin: 10/24/19 22:00 Dose: 0.5 mg Documented by: Results - Results Labs/Vitals: Laboratory Last Values POC Glucose 138 (70-105) H 10/23/19 20:23 Last Vital Signs Temp 98.5 F 10/24/19 22:00 Pulse 73 10/24/19 22:00 Resp 18 10/24/19 22:00 BP 126/62 10/24/19 22:00 Pulse Ox 98 10/24/19 22:00
[2019-10-25] MEDS: risperiDONE 0.25 MG TAB PO SCH ×2 (10:35→21:25)
[2019-10-25] MEDS: DIVALPROEX DR 500 MG TAB PO SCH (10:35)
[2019-10-25] MEDS ORDERED: DIVALPROEX DR 500 MG TAB PO SCH (11:03)
[2019-10-25] MEDS ORDERED: ALBUTEROL 2.5 MG/3 ML NEBU IH PRN (13:37)
[2019-10-25] MEDS ORDERED: oxyCODONE /ACETAMINOPHEN 5-325MG TAB PO PRN (13:37)
[2019-10-25] MEDS: LORazepam 0.5 MG TAB PO SCH (18:58)
[2019-10-25] MEDS: DIVALPROEX DR 250 MG TAB PO SCH (21:25)
[2019-10-26] MEDS: LEVOTHYROXINE 88 MCG TAB PO SCH (05:53)
--- NOTE | 2019-10-26 08:46 | Progress Note ---
Subjective Date of service: 10/26/19 Subjective Comment: The patient's medical record was reviewed and the patient's progress was discussed with the nursing staff. The nurse note states,pt is medication compliant, good appetite, alert and oriented to person and place, calm and cooperative, able to make needs known, no behavioral issues, denies si/hi, denies a/v/h, unsteady gait, rested well during the night, slept for 8hrs plus, no no distress noted, will continue to monitor for safety. During my interview with the patient this morning, the patient is alert oriented x2, the patient is dressed appropriately for the occasion, the patient maintain intermittent eye contact. The patient reports that she is eating and sleeping well, the patient denies suicidal ideation patient denies homicidal ideations. The patient denies visual or auditory hallucination and any form of depression. The patient is noted with intermittent confusion. Reason for continuing inpatient treatment. confusion/unable to care for self REVIEW OF SYSTEMS Constitutional: Negative for weight loss ENT: Negative for stridor Respiratory: Negative for cough or hemoptysis All other systems reviewed and are negative MSE Appearance: Awake. Dressed appropriately. Behavior: cooperative, Mood: "ok" Affect: congruent Thought Process: goal-directed Speech: low Thought Content Suicidal: Denies Homicidal: Denies Hallucinations: Denies Delusions: Denies Consciousness: Alert Cognition/Memory:forgetful Insight/Judgment: Limited Diagnoses: Schizoaffective Disorder Treatment Plan Due to the psychiatric conditions and treatment listed in the Assessment and Plan - the patient requires continued hospitalization. Will continue inpatient treatment to allow for medication adjustment and monitoring. Will continue q15 min safety checks. Will encourage the use of environmental modifications and non-pharmacologic approaches for the management of behavioral and psychological symptoms. Medication adjustment made today : none Will continue current psych medications Monitor for medication side effects. The patient will continue on medications for physical illnesses, and Hospitalist will closely monitor these Continue intensive physical and occupational therapies. Monitor patient's mood, sleep, appetite, and behavior closely. Encourage patient to participate in individual and group therapeutic sessions on the ovalle. Will provide a safe and therapeutic environment for patient. Estimated length of stay 1 days Medications and Allergies Allergies Allergy/AdvReac Type Severity Reaction Status Date / Time iodine Allergy Severe Swelling Verified 11/01/17 14:35 Penicillins Allergy Severe Swelling Verified 11/01/17 14:35 Sulfa (Sulfonamide Allergy Severe Swelling Verified 11/01/17 14:35 Antibiotics) [place] And Derivatives Allergy Rash Verified 11/01/17 14:35 Home Medications Medication Instructions Recorded Confirmed Last Taken Type Levothyroxine [Synthroid] 88 mcg PO DAILY@0600 #30 tablet 12/01/16 10/23/19 04/24/18 Rx ALBUTEROL NEB's [Proventil 0.083% 2.5 mg IH Q4HRT PRN nebu 11/11/17 10/23/19 04/24/18 Rx NEBS] Acetaminophen [Acetaminophen TAB] 650 mg PO Q4H PRN tablet 11/11/17 10/23/19 04/24/18 Rx Magnesium Hydroxide [Milk of 30 ml PO Q4H PRN oral.liqd 11/11/17 10/23/19 04/24/18 Rx Magnesia] amLODIPine 10 mg PO QDAY tablet 11/11/17 10/23/19 04/24/18 Rx oxyCODONE /ACETAMINOPHEN [Percocet 1 tab PO Q6H PRN #30 tablet 11/11/17 10/23/19 04/24/18 Rx 5/325 mg] Furosemide [Lasix TAB] 20 mg PO QDAY 01/20/18 10/23/19 04/24/18 History Pantoprazole [Protonix TAB] 40 mg PO DAILY 01/20/18 10/23/19 04/24/18 History Potassium Chloride [Klor-Con 10] 10 meq PO QDAY 01/20/18 10/23/19 04/24/18 History labetaloL [Labetalol 200mg TAB] 200 mg PO BID 01/20/18 10/23/19 04/24/18 History labetaloL [Labetalol 200mg TAB] 300 mg PO Q8H #90 tablet 01/20/18 10/23/19 04/24/18 Rx Active Meds: Active Medications Albuterol (Proventil) 2.5 mg IH Q4HRT PRN PRN Reason: Shortness Of Breath Amlodipine Besylate (Amlodipine) 10 mg PO QDAY ANA Divalproex Sodium (Depakote Dr) 250 mg PO BID ANA Last Admin: 10/25/19 21:25 Dose: 250 mg Documented by: Furosemide (Lasix) 20 mg PO QDAY ANA Haloperidol Lactate (Haldol) 5 mg IM Q6H PRN PRN Reason: Agitation Levothyroxine Sodium (Synthroid) 88 mcg PO DAILY@0600 [facility] Last Admin: 10/26/19 05:53 Dose: 88 mcg Documented by: Lorazepam (Ativan) 0.5 mg PO DAILY [facility] Last Admin: 10/25/19 18:58 Dose: 0.5 mg Documented by: Melatonin (Melatonin) 5 mg PO QHS PRN PRN Reason: Sleep Oxycodone/Acetaminophen (Percocet 5/325) 1 tab PO Q6H PRN PRN Reason: Pain, Moderate (4-6) Pantoprazole Sodium (Protonix) 40 mg PO DAILY [facility] Risperidone (Risperdal) 0.25 mg PO BID [facility] Last Admin: 10/25/19 21:25 Dose: 0.25 mg Documented by: Results - Results Labs/Vitals: Laboratory Last Values POC Glucose 138 (70-105) H 10/23/19 20:23 Last Vital Signs Temp 98.1 F 10/25/19 09:13 Pulse 69 10/25/19 09:13 Resp 18 10/25/19 09:13 BP 146/65 10/25/19 09:13 Pulse Ox 98 10/25/19 09:13
[2019-10-26] MEDS: DIVALPROEX DR 250 MG TAB PO SCH ×2 (09:29→22:22)
[2019-10-26] MEDS: PANTOPRAZOLE 40 MG TAB PO SCH (09:29)
[2019-10-26] MEDS: LORazepam 0.5 MG TAB PO SCH (09:29)
[2019-10-26] MEDS: risperiDONE 0.25 MG TAB PO SCH ×2 (09:29→22:22)
[2019-10-26] MEDS: FUROSEMIDE 20 MG TAB PO SCH (09:29)
[2019-10-26] MEDS: amLODIPine 10 MG TAB PO SCH (09:31)
[2019-10-27] MEDS: LEVOTHYROXINE 88 MCG TAB PO SCH (05:51)
--- NOTE | 2019-10-27 08:32 | Discharge Summary ---
Providers - Providers Date of Admission: 10/22/19 21:15 Date of discharge: 10/27/19 Attending physician: HYACINTH ZAMUDIO MD 10/22/19 21:15 Consult to Physician [CONS] Routine Comment: Consulting Provider: ERIC PIKE Physician Instructions: Reason For Exam: H&P AND MEDICAL MGMT Primary care physician: RIBBER Hospitalization Condition: Stable Disposition: DC-50 TO HOSPICE (HOME) Allergies/Adverse Reactions: Allergies iodine Allergy (Severe, Verified 11/01/17 14:35) Swelling Penicillins Allergy (Severe, Verified 11/01/17 14:35) Swelling Sulfa (Sulfonamide Antibiotics) Allergy (Severe, Verified 11/01/17 14:35) Swelling Bent And Derivatives Allergy (Verified 11/01/17 14:35) Rash Vital Signs: Last Vital Signs Temp 98.2 F 10/26/19 19:26 Pulse 73 10/26/19 19:26 Resp 20 10/26/19 19:26 BP 120/61 10/26/19 19:26 Pulse Ox 97 10/26/19 19:26 Last Lab: Laboratory Last Values POC Glucose 138 (70-105) H 10/23/19 20:23 Core Measure Documentation - Palliative Care Palliative Care/ Comfort Measures: Hospice Care - Core Measures Any of the following diagnoses?: none Exam - Constitutional Vitals: Temp Pulse Resp BP Pulse Ox 98.2 F 73 20 120/61 97 10/26/19 19:26 10/26/19 19:26 10/26/19 19:26 10/26/19 19:26 10/26/19 19:26 - EENT Eyes: Present: PERRL, EOM intact ENT: hearing intact, clear oral mucosa - Neck Neck: Present: supple, normal ROM - Respiratory Respiratory effort: normal - Abdominal Female genitourinary: Present: normal - Integumentary Integumentary: Present: clear, warm, dry Plan Care Plan Goals: Maintain good and stable mental health Plan of Treatment: The patient should be complaint with medications, not use drugs, and not drink alcohol. The patient understands that if suicidal, homicidal or endangering feelings arise he should seek assistance including but not limited to calling 911, the crisis hotline, and the emergency room. Follow up with outpatient psychiatry and primary doctor in 7 to 14 days Health Concerns: Hypothyroidism, hypertension, breast CA, disorder of the brain Follow up with: PRIMARY CARE,MD [Primary Care Provider] - 7 Days Prescriptions: LORazepam [Ativan] 0.5 mg PO DAILY #30 tablet Divalproex [Depheatherte ] 250 mg PO BID #60 tablet risperiDONE [RisperDAL] 0.25 mg PO BID #60 tablet
[2019-10-27 09:04] VITALS: BP 159/70
[2019-10-27] MEDS: FUROSEMIDE 20 MG TAB PO SCH (09:05)
[2019-10-27] MEDS: DIVALPROEX DR 250 MG TAB PO SCH (09:05)
[2019-10-27] MEDS: PANTOPRAZOLE 40 MG TAB PO SCH (09:05)
[2019-10-27] MEDS: LORazepam 0.5 MG TAB PO SCH (09:05)
[2019-10-27] MEDS: amLODIPine 10 MG TAB PO SCH (09:05)
[2019-10-27] MEDS: risperiDONE 0.25 MG TAB PO SCH (09:05)
== END 2019-10-27 14:52 | DRG 884 ==
LOC: 3A 20:39 → UNDOADMIN 20:39 → 5A 21:15
PROVIDERS: ADMIT Psychiatry & Neurology Psychiatry; ATTEND Psychiatry & Neurology Psychiatry
DX: F03.91 Unspecified dementia, unspecified severity, with behavioral disturbance (principal); E03.9 Hypothyroidism, unspecified; I10 Essential (primary) hypertension; K21.9 Gastro-esophageal reflux disease without esophagitis; Z66 Do not resuscitate; G93.89 Other specified disorders of brain; I89.0 Lymphedema, not elsewhere classified; Z88.0 Allergy status to penicillin; Z88.8 Allergy status to other drugs, medicaments and biological substances; Z91.041 Radiographic dye allergy status; Z79.51 Long term (current) use of inhaled steroids; Z85.3 Personal history of malignant neoplasm of breast; Z85.038 Personal history of other malignant neoplasm of large intestine; Z90.49 Acquired absence of other specified parts of digestive tract; Z82.49 Family history of ischemic heart disease and other diseases of the circulatory system
CPT/HCPCS: 82962; G0378

== ENCOUNTER 2019-11-03 16:55 | Emergency (ER) | payer MEDICARE, OTHER ==
[2019-11-03 18:18] LABS: Basophils % (Auto) 0.3 % (0.0-1.8); Eosinophils # (Auto) 0.1 K/mm3 (0.0-0.4); Eosinophils % (Auto) 2.6 % (0.0-4.3); Hematocrit 37.2 % (30.3-42.9); Hemoglobin 12.6 gm/dl (10.1-14.3); Lymphocytes # (Auto) 0.9 K/mm3 (1.2-5.4); Lymphocytes % (Auto) 24.5 % (13.4-35.0); Mean Corpuscular HGB Conc 34 % (30-34); Mean Corpuscular Volume 90 fl (79-97); Monocytes # (Auto) 0.3 K/mm3 (0.0-0.8); Monocytes % (Auto) 9.1 % (0.0-7.3); Platelet Count 155 K/mm3 (140-440); Red Blood Count 4.14 M/mm3 (3.65-5.03); Red Cell Distribution Width 14.9 % (13.2-15.2)
--- NOTE | 2019-11-03 18:20 | Emergency Department Report ---
HPI - General Chief Complaint: Altered Mental Status Time Seen by Provider: 11/03/19 17:05 - HPI HPI: 84-year-old female presents to the emergency department via EMS from her longterm facility as a 1013 that was filled out by the PCP, Dr. Raúl Gaspar, secondary to "combative towards others" and "threatening to harm others." This patient is known to myself as I saw her here in the emergency department on 10/22/2019 for similar symptoms. The patient has a history of a brain mass for which she is a DNR. I had previously spoken to the patient's son during her last visit and the patient, at least at that time, was comfort measures only. She has recurrent delusions that her sons are attacked and/or killed even though they are alive and well. She also has a past medical history of hypothyroidism, hypertension. The patient is a poor historian secondary to her current medical and/or psychiatric condition. ED Past Medical Hx - Past Medical History Previous Medical History?: Yes Hx Hypertension: Yes Hx CVA: No Hx Heart Attack/AMI: No Hx Congestive Heart Failure: Yes Hx Diabetes: No Hx Deep Vein Thrombosis: Yes Hx GERD: Yes Hx Liver Disease: No Hx of Cancer: Yes (Breast) Hx Sickle Cell Disease: No Hx Arthritis: Yes Hx Seizures: Yes Hx Asthma: No Hx COPD: No Hx Tuberculosis: No Hx Dementia: No Hx HIV: No Additional medical history: Brain mass, lymphedema to shaista LE, hx breast and colon cancer, pancreatitis, Brain fis, hypothyroidism - Surgical History Hx Coronary Stent: No Hx Open Heart Surgery: No Hx Pacemaker: No Hx Internal Defibrillator: No Hx Cholecystectomy: Yes Hx Appendectomy: Yes Additional Surgical History: left knee surgery - Social History Smoking Status: Unknown if ever smoked - Medications Home Medications: Home Medications Medication Instructions Recorded Confirmed Last Taken Type ALBUTEROL NEB's [Proventil 0.083% 2.5 mg IH Q4HRT PRN nebu 11/11/17 11/04/19 04/24/18 Rx NEBS] Acetaminophen [Acetaminophen TAB] 650 mg PO Q4H PRN tablet 11/11/17 11/04/19 04/24/18 Rx Furosemide [Lasix TAB] 20 mg PO QDAY 01/20/18 11/04/19 04/24/18 History Pantoprazole [Protonix TAB] 40 mg PO DAILY 01/20/18 11/04/19 04/24/18 History Albuterol INH(or & Nicu Only) 2 puff IH QID PRN 11/04/19 11/04/19 Unknown Hist ory [ProAir HFA Inhaler] Divalproex Dr [Depakote Dr] 750 mg PO BID 11/04/19 11/04/19 Unknown History LORazepam [Ativan] 1 mg PO Q4HR PRN 11/04/19 11/04/19 Unknown History Levothyroxine [Synthroid] 88 mcg PO QDAY 11/04/19 11/04/19 Unknown History Magnesium Hydroxide [Milk of 30 ml PO Q6H PRN 11/04/19 11/04/19 Unknown History Magnesia] Melatonin [Melatonin 5MG TAB] 2.5 mg PO QHS 11/04/19 11/04/19 Unknown History Morphine 20 mg PO Q30MIN PRN 11/04/19 11/04/19 Unknown History Ondansetron HCl [Zofran] 4 mg PO Q8H PRN 11/04/19 11/04/19 Unknown History Triamcinolone Acetonide 1 applic TP QDAY 11/04/19 11/04/19 Unknown History [Triamcinolone 0.1% LOTION] risperiDONE [RisperDAL] 0.5 mg PO BID 11/04/19 11/04/19 Unknown History ED Review of Systems ROS: Stated complaint: 1013/COMBATIVE Other details as noted in HPI Comment: Unobtainable due to pts medical conditions Physical Exam - Physical Exam Vital Signs: Vital Signs 11/03/19 17:21 Temperature 98 F Pulse Rate 78 Respiratory 20 Rate Blood Pressure 149/73 [Left] O2 Sat by Pulse 97 Oximetry Physical Exam: GENERAL: The patient is well-developed well-nourished. HENT: Normocephalic. Atraumatic. Patient has moist mucous membranes. EYES: Extraocular motions are intact. NECK: Supple. Trachea is midline. CHEST/LUNGS: Clear to auscultation. There is no respiratory distress noted. HEART/CARDIOVASCULAR: Regular. There is no tachycardia. There is no murmur. ABDOMEN: Abdomen is soft, nontender. Patient has normal bowel sounds. SKIN: Skin is warm and dry. NEURO: Patient is awake but confused and/or agitated and not cooperative. Normal speech. MUSCULOSKELETAL: There is no tenderness or deformity. There is no evidence of acute injury. PSYCH: Patient exhibits delusions. ED Course Vital Signs 11/03/19 17:21 Temperature 98 F Pulse Rate 78 Respiratory 20 Rate Blood Pressure 149/73 [Left] O2 Sat by Pulse 97 Oximetry ED Medical Decision Making - Lab Data Result diagrams: 11/03/19 17:47 11/03/19 17:47 - Medical Decision Making This patient was brought in from her longterm facility and made a 1013 by the facilities primary care physician, Dr. Gaspar. The patient has a history of a brain tumor and has some recurring issues with delusions and agitation and combative behavior. She was here about 10 days ago for similar symptoms. Her labs today are unremarkable including CBC, metabolic panel, urinalysis, urine drug screen and blood alcohol level. Vital signs stable throughout her ED course. At this time the patient is medically cleared for psychiatric placement. - Differential Diagnosis Dementia, bipolar disorder, schizophrenia, substance abuse Critical Care Time: No Critical care attestation.: If time is entered above; I have spent that time in minutes in the direct care of this critically ill patient, excluding procedure time. ED Disposition Clinical Impression: Acute psychosis, Aggressive behavior Disposition: DC-01 TO HOME OR SELFCARE Is pt being admited?: No Condition: Stable Referrals: PRIMARY MD SHANTANU [Primary Care Provider] - 3-5 Days Time of Disposition: 22:41
[2019-11-03 18:28] LABS: BUN/Creatinine Ratio 21; Blood Urea Nitrogen 15 mg/dL (7-17); Calcium 9.6 mg/dL (8.4-10.2); Hemolysis Index 4
[2019-11-03] MEDS ORDERED: ALPRAZolam 1 MG TAB PO ONE (18:43)
[2019-11-03 19:34] LABS: Bilirubin,Urine NEG (Negative); Blood,Urine NEG (Negative); Color,Urine Yellow (Yellow); Hyaline Casts,Urine 1 /LPF; Protein,Urine <15 mg/dL mg/dL (Negative)
[2019-11-03 19:41] LABS: Amphetamine Screen,Urine PRESUMPTIVE NEGATIVE; Benzodiazepines Screen,Urine PRESUMPTIVE NEGATIVE; Cannabinoid Screen,Urine PRESUMPTIVE NEGATIVE; Cocaine Screen,Urine PRESUMPTIVE NEGATIVE; Methadone Screen,Urine PRESUMPTIVE NEGATIVE; Opiate Screen,Urine PRESUMPTIVE NEGATIVE
[2019-11-04] MEDS ORDERED: ALPRAZolam 1 MG TAB PO ONE (01:37)
--- NOTE | 2019-11-04 11:20 | Consultation ---
History of Present Illness - Reason for Consult Consult date: 11/04/19 Reason for consult: aggression, combativeness - History of Present Psychiatric Illness Josefina Hensley is an 84y/o female patient who was admitted from the correction to the ER for aggression and combativeness. She is currently on hospice. I attempted to interview the patient this morning, she is confused, uncooperative and verbally aggressive. She is a poor historian. She says "I'm getting out of this [facility]. I came to [facility] to pick up attendant my kids. You people are turning them into homosexuals." She could not be engaged in the interview. PAST PSYCHIATRIC HISTORY: unable to assess due to patient's mentation PAST MEDICAL HISTORY: Unable to assess Family Psychiatric History Unable to assess SOCIAL HISTORY Unable to assess ROS: Unable to assess MSE Unable to assess Diagnoses: Dementia with Behavioral Disturbance Plan D/C 1013 No scripts given Return to Hospice Care Sitter: Defer to primary Medical: Per primary Disposition: The patient does not meet the requirement of acute inpatient psychiatric treatment. It is my professional opinion, considering the patient's complex medical problems, her condition would not improve or benefit from our services. She may return to correction, under hospice care once medically cleared. Will sign off. Please call with any questions or concerns. Thank you for this consult. Medications and Allergies Allergies Allergy/AdvReac Type Severity Reaction Status Date / Time iodine Allergy Severe Swelling Verified 11/01/17 14:35 Penicillins Allergy Severe Swelling Verified 11/01/17 14:35 Sulfa (Sulfonamide Allergy Severe Swelling Verified 11/01/17 14:35 Antibiotics) [place] And Derivatives Allergy Rash Verified 11/01/17 14:35 Home Medications Medication Instructions Recorded Confirmed Last Taken Type ALBUTEROL NEB's [Proventil 0.083% 2.5 mg IH Q4HRT PRN nebu 11/11/17 11/04/19 04/24/18 Rx NEBS] Acetaminophen [Acetaminophen TAB] 650 mg PO Q4H PRN tablet 11/11/17 11/04/19 04/24/18 Rx Furosemide [Lasix TAB] 20 mg PO QDAY 01/20/18 11/04/19 04/24/18 History Pantoprazole [Protonix TAB] 40 mg PO DAILY 01/20/18 11/04/19 04/24/18 History Albuterol INH(or & Nicu Only) 2 puff IH QID PRN 11/04/19 11/04/19 Unknown History [ProAir HFA Inhaler] Divalproex [Bryce Johnson] 750 mg PO BID 11/04/19 11/04/19 Unknown History LORazepam [Ativan] 1 mg PO Q4HR PRN 11/04/19 11/04/19 Unknown History Levothyroxine [Synthroid] 88 mcg PO QDAY 11/04/19 11/04/19 Unknown History Magnesium Hydroxide [Milk of 30 ml PO Q6H PRN 11/04/19 11/04/19 Unknown History Magnesia] Melatonin [Melatonin 5MG TAB] 2.5 mg PO QHS 11/04/19 11/04/19 Unknown History Morphine 20 mg PO Q30MIN PRN 11/04/19 11/04/19 Unknown History Ondansetron HCl [Zofran] 4 mg PO Q8H PRN 11/04/19 11/04/19 Unknown History Triamcinolone Acetonide 1 applic TP QDAY 11/04/19 11/04/19 Unknown History [Triamcinolone 0.1% LOTION] risperiDONE [RisperDAL] 0.5 mg PO BID 11/04/19 11/04/19 Unknown History Mental Status Exam - Vital signs Last Vital Signs Temp 98 F 11/03/19 17:21 Pulse 58 L 11/04/19 07:31 Resp 14 11/04/19 07:31 BP 135/46 11/04/19 07:31 Pulse Ox 98 11/04/19 07:31 Results Result Diagrams: 11/03/19 17:47 11/03/19 17:47 Abnormal lab results 11/03/19 11/03/19 11/03/19 Range/Units 17:47 17:47 17:47 WBC 3.6 L (4.5-11.0) K/mm3 [place] % (Auto) 9.1 H (0.0-7.3) % Lymph # 0.9 L (1.2-5.4) K/mm3 Chloride 108.6 H (98-107) mmol/L Carbon Dioxide 19 L (22-30) mmol/L Salicylates < 0.3 L (2.8-20.0) mg/dL Acetaminophen (10.0-30.0) ug/mL 11/03/19 Range/Units 17:47 WBC (4.5-11.0) K/mm3 [place] % (Auto) (0.0-7.3) % Lymph # (1.2-5.4) K/mm3 Chloride (98-107) mmol/L Carbon Dioxide (22-30) mmol/L Salicylates (2.8-20.0) mg/dL Acetaminophen < 5.0 L (10.0-30.0) ug/mL All other labs normal.
[2019-11-04] MEDS ORDERED: ALBUTEROL 2.5 MG/3 ML NEBU IH PRN (20:45)
[2019-11-04] MEDS: PANTOPRAZOLE 40 MG TAB PO SCH (21:51)
[2019-11-04] MEDS: FUROSEMIDE 20 MG TAB PO SCH (21:51)
[2019-11-05] MEDS: FUROSEMIDE 20 MG TAB PO SCH (10:42)
[2019-11-05] MEDS: PANTOPRAZOLE 40 MG TAB PO SCH (10:42)
[2019-11-05] MEDS: risperiDONE 1 MG TAB PO SCH (22:13)
[2019-11-06] MEDS ORDERED: LORazepam 1 MG TAB PO ONE (05:51)
[2019-11-06] MEDS: LEVOTHYROXINE 88 MCG TAB PO SCH ×2 (06:22→12:02)
[2019-11-06] MEDS: risperiDONE 1 MG TAB PO SCH ×4 (10:49→12:02)
[2019-11-06] MEDS: PANTOPRAZOLE 40 MG TAB PO SCH (10:49)
[2019-11-06] MEDS: FUROSEMIDE 20 MG TAB PO SCH (10:49)
[2019-11-06 14:49] VITALS: BP 173/86
== END 2019-11-06 15:10 | disposition home or self-care (01) ==
LOC: ED 16:55
DX: F23 Brief psychotic disorder (principal); I11.0 Hypertensive heart disease with heart failure; I50.9 Heart failure, unspecified; K21.9 Gastro-esophageal reflux disease without esophagitis; M19.90 Unspecified osteoarthritis, unspecified site; G40.909 Epilepsy, unspecified, not intractable, without status epilepticus; Z90.49 Acquired absence of other specified parts of digestive tract; Z98.890 Other specified postprocedural states; Z79.899 Other long term (current) drug therapy; Z88.0 Allergy status to penicillin; Z88.2 Allergy status to sulfonamides; Z91.048 Other nonmedicinal substance allergy status
CPT/HCPCS: 36415; 80048; 80307; 80320; 81001; 85025; G0480